=== PATIENT | female | born 1955 | race Caucasian/White ===

== ENCOUNTER → 2017-11-13 | Outpatient (CLI) | payer BC ==
--- NOTE | 2017-11-13 17:19 | US ---
EXAMINATION TYPE: US thyroid st tissue head/neck DATE OF EXAM: 11/13/2017 COMPARISON: NONE CLINICAL HISTORY: R22.1 Mass On Neck. Patient feels palpable area on right neck. Right neck scanned superior to inferior, no mass or fluid collection found. IMPRESSION: No discrete solid or cystic masses identified on the right side of the neck which was th e area of concern.
== END | disposition home or self-care (01) ==
LOC: RADUSWWP 16:29
PROVIDERS: ATTEND Family Medicine
DX: R22.1 Localized swelling, mass and lump, neck (principal)
CPT/HCPCS: 76536

== ENCOUNTER → 2017-12-11 | Outpatient (CLI) | payer BC ==
--- NOTE | 2017-12-11 12:17 | CT ---
EXAMINATION TYPE: CT soft tissue neck w con DATE OF EXAM: 12/11/2017 COMPARISON: NONE HISTORY: Dysphagia CT DLP: 579 mGycm CONTRAST: CT scan of the neck is performed with IV Contrast, patient injected with 100 ml mL of Isovue 300. Contrast enhanced CT of the neck was performed from the skull base through the lung apices. Markers a re placed over the right neck at site of clinical concern. At the site of clinical concern there is no evidence for concerning mass or adenopathy. AIRWAY: The supraglottic, glottic, and subglottic portions of the airway appear patent and free of mass. SALIVARY GLANDS: The submandibular and parotid glands are free of mass or inflammatory process. THYROID GLAND: No nodules or masses seen. LYMPH NODES: No adenopathy seen greater than 1cm. LUNG APICES: No nodule or mass is seen. OTHER: Vascular structures are patent. No significant degenerative change of the cervical spine. N o abscess seen. Calcified granuloma right upper lobe. IMPRESSION: No significant abnormality to account for the patient's symptoms.
--- NOTE | 2017-12-11 14:46 | FL ---
EXAMINATION TYPE: FL barium swallow DATE OF EXAM: 12/11/2017 CLINICAL HISTORY: Right-sided palpable neck mass. TECHNIQUE: A double contrast esophagram is performed utilizing air and barium. A total of 1 minute and 29 seconds of fluoroscopic time was utilized during procedure. 31 images were saved. COMPARISON: CT neck of the same date FINDINGS: The esophagus shows normal motility and emptying into the stomach. No evidence of hiatal h ernia or stricture noted. A small amount of vallecular and piriform sinus retention was seen. Moderat e gastroesophageal reflux to the level of the midthoracic esophagus was seen without the utilization of the Valsalva maneuver in both the gravity independent and dependent positions. IMPRESSION: 1. Moderate gastroesophageal reflux in both the upright and supine positions to the midthoracic esoph aleksandar. 2. Mild vallecular and piriform sinus retention of contrast throughout the exam.
== END | disposition home or self-care (01) ==
LOC: RADFLMAIN 10:59
PROVIDERS: ATTEND Otolaryngology
DX: K21.9 Gastro-esophageal reflux disease without esophagitis (principal); R49.0 Dysphonia; R22.1 Localized swelling, mass and lump, neck; R13.10 Dysphagia, unspecified
CPT/HCPCS: 74220; 70491; Q9967

== ENCOUNTER 2018-11-19 07:58 | Day surgery (SDC) | payer BC, MEDICARE ==
[2018-11-17 13:32] VITALS: BMI 26.9
[~2018-11-19 07:58] MED LIST: LACTATED RINGERS 1,000 ML IV SCH
[2018-11-19 08:21] VITALS: RESP 16; TEMP 97.2
[2018-11-19] MEDS ORDERED: LIDOCAINE 1% 20 ML VIAL (10MG/ML) FOR IV START INTRADERMA ONE (08:27)
[2018-11-19] MEDS ORDERED: ONDANSETRON 4 MG/2 ML VIAL IVP ONE (08:28)
[2018-11-19] MEDS ORDERED: MIDAZOLAM (PF) 2 MG/2 ML VIAL IV ONE (08:31)
[2018-11-19] MEDS ORDERED: GLUCAGON 1 MG/ML VIAL ONE (09:31)
[2018-11-19] MEDS ORDERED: PROPOFOL 10 MG/ML 20 ML VIAL IV ONE (09:31)
--- NOTE | 2018-11-19 09:33 | P.GSHP ---
History of Present Illness H&P Date: 11/19/18 Chief Complaint: GI bleed, internal and external hemorrhoids This is a 67-year-old female who presents today for colonoscopy. She's had issues of GI bleed. She has a known history of internal and external hemorrhoids. Past Medical History Past Medical History: GERD/Reflux Additional Past Medical History / Comment(s): hemorrhoids,dry mouth, sjogren syndrome History of Any Multi-Drug Resistant Organisms: None Reported Past Surgical History: Breast Surgery, Hysterectomy Additional Past Surgical History / Comment(s): breast bx,rt elbow proc,ORIF lt ankle-hardware removed Past Anesthesia/Blood Transfusion Reactions: No Reported Reaction Additional Past Anesthesia/Blood Transfusion Reaction / Comment(s): had hard time waking up after surgery. no hx blood transfusion Smoking Status: Current every day smoker - Past Family History Mother Family Medical History: Cancer Additional Family Medical History / Comment(s): lymphnodes Brother(s) Family Medical History: Cancer Additional Family Medical History / Comment(s): esophagus,liver Father Family Medical History: Cancer Medications and Allergies Home Medications Medication Instructions Recorded Confirmed Type ALPRAZolam [Xanax] 0.25 mg PO BID PRN 11/17/18 11/19/18 History Cevimeline [Evoxac] 30 mg PO TID 11/17/18 11/19/18 History Diazepam [Valium] 5 mg PO HS PRN 11/17/18 11/19/18 History Escitalopram Oxalate [Lexapro] 10 mg PO QAM 11/17/18 11/19/18 History Gabapentin [Neurontin] 1,200 mg PO BID 11/17/18 11/19/18 History HYDROcodone/APAP 5-325MG [[place] 1 tab PO TID PRN 11/17/18 11/19/18 History 5-325] Pantoprazole Sodium [Protonix] 20 mg PO QAM 11/17/18 11/19/18 History Venlafaxine HCl [Effexor XR] 150 mg PO BID 11/17/18 11/19/18 History Allergies Allergy/AdvReac Type Severity Reaction Status Date / Time ibuprofen Allergy severe Verified 11/17/18 13:17 ringing in ears Surgical - Exam Vital Signs Temp Pulse Resp BP Pulse Ox 97.2 F L 95 16 146/71 95 11/19/18 08:13 11/19/18 08:13 11/19/18 08:13 11/19/18 08:13 11/19/18 08:13 - General well developed, well nourished, no distress - Eyes PERRL - ENT normal pinna - Neck no masses - Respiratory normal expansion - Cardiovascular Rhythm: regular - Abdomen Abdomen: soft, non tender Assessment and Plan Assessment: GI bleed. We'll perform colonoscopy.
--- NOTE | 2018-11-19 09:51 | P.OP ---
Date of Procedure: 11/19/18 Preoperative Diagnosis: GI bleed Postoperative Diagnosis: Internal and external hemorrhoids Rectal polyp Procedure(s) Performed: Colonoscopy Anesthesia: MAC Surgeon: Pedro Rivera Pathology: other (Rectal polyp) Condition: stable Disposition: PACU Description of Procedure: The patient's placed on the endoscopy table in the lateral position. She received IV sedation. Digital rectal exam was performed which revealed severe external and internal hemorrhoids. The possible colonoscope was then placed patient anus passed rotator entire colon. Ileocecal valve sutures. The cecum, ascending and transverse colon appeared normal. In the descending; was a few scattered diverticula. Scope was brought back the rectum and there was a polyp seen this removed by snare. Scope withdrawal patient and there were significant internal and external hemorrhoids. It is presumed the patient had GI bleed rela radha to her hemorrhoids.
[2018-11-19 10:52] VITALS: BP 147/72; PULSE 78
== END 2018-11-19 10:50 | disposition home or self-care (01) ==
LOC: ORWHC2ENDO 07:58
PROVIDERS: ATTEND Surgery
DX: D12.8 Benign neoplasm of rectum (principal); K64.8 Other hemorrhoids; K57.30 Diverticulosis of large intestine without perforation or abscess without bleeding; K64.4 Residual hemorrhoidal skin tags; K21.9 Gastro-esophageal reflux disease without esophagitis; M35.00 Sjogren syndrome, unspecified; G62.9 Polyneuropathy, unspecified; F17.210 Nicotine dependence, cigarettes, uncomplicated; Z79.899 Other long term (current) drug therapy; Z88.6 Allergy status to analgesic agent
CPT/HCPCS: 88305; 45385; J1610; J2405; J2704; J2250

== ENCOUNTER 2018-12-03 07:33 | Day surgery (SDC) | payer MEDICARE ==
[2018-11-30 14:07] VITALS: BMI 26.9
[~2018-12-03 07:33] MED LIST changes: +DEXAMETHASONE SOD PHOSPHATE 10 MG/ML 1 ML VIAL IV ONE; +HEPARIN SODIUM,PORCINE 5,000 UNIT/ML 1 ML VIAL SQ ONE; +HYDROmorphone 0.5 MG/0.5 ML SYRINGE IVP PRN; +LIDOCAINE 1% 20 ML VIAL (10MG/ML) FOR IV START INTRADERMA PRN; +NA PHOS,M-B/NA PHOS,DI-BA 133 ML ENEMA RECTAL ONE; +ONDANSETRON 4 MG/2 ML VIAL IVP ONE; +Pre Op ABX Message 1 EACH MISC MISCELLANE ONE; +SCOPOLAMINE 1.5MG/72HR PATCH TRANSDERM ONE
[2018-12-03] MEDS ORDERED: NA PHOS,M-B/NA PHOS,DI-BA 133 ML ENEMA RECTAL ONE (08:16)
[2018-12-03] MEDS ORDERED: MIDAZOLAM (PF) 2 MG/2 ML VIAL IVP ONE (08:45)
--- NOTE | 2018-12-03 08:45 | P.GSHP ---
History of Present Illness H&P Date: 12/03/18 Chief Complaint: Internal and external hemorrhoids This is a 63-year-old female who presents today for hemorrhoidectomy. Patient had complaints of internal and external hemorrhoids. Past Medical History Past Medical History: GERD/Reflux Additional Past Medical History / Comment(s): hemorrhoids,dry mouth, sjogren syndrome History of Any Multi-Drug Resistant Organisms: None Reported Past Surgical History: Breast Surgery, Hysterectomy Additional Past Surgical History / Comment(s): breast bx,rt elbow proc,ORIF lt ankle-hardware removed Past Anesthesia/Blood Transfusion Reactions: No Reported Reaction Additional Past Anesthesia/Blood Transfusion Reaction / Comment(s): had hard sherri e waking up after surgery. no hx blood transfusion Smoking Status: Current every day smoker - Past Family History Mother Family Medical History: Cancer Additional Family Medical History / Comment(s): lymphnodes Brother(s) Family Medical History: Cancer Additional Family Medical History / Comment(s): esophagus,liver Father Family Medical History: Cancer Medications and Allergies Home Medications Medication Instructions Recorded Confirmed Type ALPRAZolam [Xanax] 0.25 mg PO BID PRN 11/17/18 12/03/18 History Cevimeline [Evoxac] 30 mg PO TID 11/17/18 12/03/18 History Diazepam [Valium] 5 mg PO HS PRN 11/17/18 12/03/18 History Escitalopram Oxalate [Lexapro] 10 mg PO HS 11/17/18 12/03/18 History Gabapentin [Neurontin] 1,200 mg PO BID 11/17/18 12/03/18 History HYDROcodone/APAP 5-325MG [[place] 1 tab PO TID PRN 11/17/18 12/03/18 History 5-325] Pantoprazole Sodium [Protonix] 20 mg PO HS 11/17/18 12/03/18 History Venlafaxine HCl [Effexor XR] 150 mg PO BID 11/17/18 12/03/18 History Allergies Allergy/AdvReac Type Severity Reaction Status Date / Time ibuprofen AdvReac severe Verified 12/03/18 08:27 ringing in ears Surgical - Exam Vital Signs Temp Pulse Resp BP Pulse Ox 99 F 85 16 141/81 93 L 12/03/18 07:52 12/03/18 07:52 12/03/18 07:52 12/03/18 07:52 12/03/18 07:52 - General well developed, well nourished, no distress - Eyes PERRL - ENT normal pinna - Neck no masses - Respiratory normal expansion - Cardiovascular Rhythm: regular - Abdomen Abdomen: soft, non tender Assessment and Plan Assessment: Internal and external hemorrhoids. We'll perform colonoscopy.
[2018-12-03] MEDS ORDERED: PROPOFOL 10 MG/ML 20 ML VIAL IV ONE (09:09)
[2018-12-03] MEDS ORDERED: MIDAZOLAM 2 MG/2 ML VIAL ONE (09:09)
[2018-12-03] MEDS ORDERED: KETAMINE 10 MG/ML 20 ML VIAL ONE (09:09)
[2018-12-03] MEDS ORDERED: fentaNYL (PF) 50 MCG/ML 2 ML AMP ONE (09:09)
--- NOTE | 2018-12-03 09:21 | P.OP ---
Date of Procedure: 12/03/18 Preoperative Diagnosis: GERD Constipation Postoperative Diagnosis: Antral gastritis Large hiatal hernia Mild esophagitis Procedure(s) Performed: EGD Colonoscopy Anesthesia: MAC Surgeon: Pedro Rivera Pathology: other (Antrum, esophagus) Condition: stable Disposition: PACU Description of Procedure: The patient's placed on the endoscopy table in the lateral position. She received IV sedation. The gastroscope placed oropharynx and passed in the esophagus and stomach. Scope was then placed through the pylorus. The first and second portion of the duodenum appeared normal. The scope was then brought back and the antrum and this was mildly inflamed. A biopsies performed. The scope was then retroflexed the patient had a moderate size hiatal hernia. The GE junction was at 38 cm. The distal esophagus appeared inflamed. This was biopsied. The proximal esophagus appeared normal. Scope was withdrawn for patient. Digital rectal exam was performed. There was hard stool in the rectum. This point the colonoscopy was canceled. The patient will be reprepped and brought back for outpatient colonoscopy
[2018-12-03] MEDS ORDERED: BUPIVACAIN-EPI 0.5%-1:200,000 30 ML VIAL SQ ONE (09:34)
--- NOTE | 2018-12-03 09:55 | P.OP ---
Date of Procedure: 12/03/18 Preoperative Diagnosis: Internal and external hemorrhoids Postoperative Diagnosis: Internal and external hemorrhoid Questionable ileal tumor pathology pending Procedure(s) Performed: Hemorrhoidectomy Anesthesia: MAC Surgeon: Pedro Rivera Estimated Blood Loss (ml): 5 Pathology: other (Internal and external hemorrhoid) Condition: stable Disposition: PACU Description of Procedure: Patient's placed on the operating table in the prone position. She received IV sedation. The patient had a thrombosed external hemorrhoid. The anus was anesthetized 1% local Xylocaine. Using the bivalved anal retractor the anus was examined. There was a large left posterior hemorrhoidal column. This is grasped with the Allis clamps and then using the Harmonic scissors the hematocrit there appeared to be some granulation tissue at the base of the hemorrhoid which was firm and had an abnormal appearance. The specimens of pathology. The bellies hemostasis. The anus was packed with Gelfoam. Patient top she will was sent to recovery in stable condition.
[2018-12-03 10:34] VITALS: RESP 18; TEMP 97.3
[2018-12-03 10:36] VITALS: BP 162/93
[2018-12-03 10:37] VITALS: PULSE 108
[2018-12-03] MEDS ORDERED: HYDROcodone/APAP 7.5-325MG 1 EACH TAB PO ONE (10:38)
== END 2018-12-03 11:11 | disposition home or self-care (01) ==
LOC: OR 07:33
PROVIDERS: ATTEND Surgery
DX: C21.0 Malignant neoplasm of anus, unspecified (principal); K64.5 Perianal venous thrombosis; K64.8 Other hemorrhoids; K21.9 Gastro-esophageal reflux disease without esophagitis; M35.00 Sjogren syndrome, unspecified; F17.210 Nicotine dependence, cigarettes, uncomplicated; F41.9 Anxiety disorder, unspecified; F32.9 Major depressive disorder, single episode, unspecified; Z79.899 Other long term (current) drug therapy; Z88.6 Allergy status to analgesic agent
CPT/HCPCS: 46260; 88305; J2250 ×2; J1644; J1100; J2405; J3010; J2704

== ENCOUNTER 2018-12-17 07:48 | Day surgery (SDC) | payer MEDICARE ==
[2018-12-11 14:59] VITALS: BMI 26.9
[~2018-12-17 07:48] MED LIST changes: +MIDAZOLAM 2 MG/2 ML VIAL IV PRN; -NA PHOS,M-B/NA PHOS,DI-BA 133 ML ENEMA RECTAL ONE; -Pre Op ABX Message 1 EACH MISC MISCELLANE ONE; +ceFAZolin IN SWFI 2 GM/20 ML SYRINGE IVP ONE; +metroNIDAZOLE-NS PMX 500 MG in SALINE 1 100ML.BAG IVPB ONE
[2018-12-17] MEDS ORDERED: NA PHOS,M-B/NA PHOS,DI-BA 133 ML ENEMA RECTAL ONE (08:16)
--- NOTE | 2018-12-17 08:48 | P.GSHP ---
History of Present Illness H&P Date: 12/17/18 Chief Complaint: Squamous cell carcinoma anus This is a 63-year-old female who underwent recent hemorrhagic. 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 Patient is today for wide excision of squamous cell carcinoma anus. Past Medical History Past Medical History: Cancer, GERD/Reflux Additional Past Medical History / Comment(s): Hemorrhoids, dry mouth, Sjogren Syndrome. Current anal cancer. History of Any Multi-Drug Resistant Organisms: None Reported Past Surgical History: Breast Surgery, Hysterectomy Additional Past Surgical History / Comment(s): Breast biopsy, right elbow procedure, ORIF left ankle-hardware removed, hemorrhoidectomy. Past Anesthesia/Blood Transfusion Reactions: Previous Problems w/ Anesthesia Additional Past Anesthesia/Blood Transfusion Reaction / Comment(s): Had hard time waking up after surgery. No hx blood transfusion. Past Psychological History: Anxiety, Depression Smoking Status: Current every day smoker Past Alcohol Use History: Rare Additional Past Alcohol Use History / Comment(s): Started smoking at a "young age", 1ppd. Past Drug Use History: None Reported - Past Family History Mother Family Medical History: Cancer Additional Family Medical History / Comment(s): Lymphoma. Brother(s) Family Medical History: Cancer Additional Family Medical History / Comment(s): Esophagus, liver. Father Family Medical History: Cancer Medications and Allergies Home Medications Medication Instructions Recorded Confirmed Type ALPRAZolam [Xanax] 0.25 mg PO BID PRN 11/17/18 12/11/18 History Cevimeline [Evoxac] 30 mg PO TID 11/17/18 12/11/18 History Diazepam [Valium] 5 mg PO HS PRN 11/17/18 12/11/18 History Escitalopram Oxalate [Lexapro] 10 mg PO HS 11/17/18 12/11/18 History Gabapentin [Neurontin] 1,200 mg PO BID 11/17/18 12/11/18 History HYDROcodone/APAP 5-325MG [[place] 1 tab PO TID PRN 11/17/18 12/11/18 History 5-325] Pantoprazole Sodium [Protonix] 20 mg PO HS 11/17/18 12/11/18 History Venlafaxine HCl [Effexor XR] 150 mg PO BID 11/17/18 12/11/18 History Docusate [Colace] 100 mg PO BID #20 capsule 12/03/18 12/11/18 Rx HYDROcodone/APAP 7.5-325MG [[place] 1 tab PO Q6HR PRN 3 Days #10 tab 12/03/18 12/11/18 Rx 7.5-325] Allergies Allergy/AdvReac Type Severity Reaction Status Date / Time ibuprofen AdvReac severe Verified 12/17/18 08:15 ringing in ears Surgical - Exam - General well developed, well nourished, no distress - Eyes PERRL - ENT normal pinna - Neck no masses - Respiratory normal expansion - Cardiovascular Rhythm: regular - Abdomen Abdomen: soft, non tender Assessment and Plan Assessment: Anal cell carcinoma. We'll perform a wide local excision.
[2018-12-17 08:54] VITALS: TEMP 97.8
[2018-12-17] MEDS ORDERED: MIDAZOLAM 2 MG/2 ML VIAL ONE (09:01)
[2018-12-17] MEDS ORDERED: PROPOFOL 10 MG/ML 20 ML VIAL IV ONE (09:01)
[2018-12-17] MEDS ORDERED: fentaNYL (PF) 50 MCG/ML 2 ML AMP ONE (09:01)
[2018-12-17] MEDS ORDERED: BUPIVACAIN-EPI 0.25%-1:200,000 30 ML VIAL SQ ONE ×2 (09:27)
[2018-12-17] MEDS ORDERED: GELATIN SPONGE,ABSORB (LARGE) 1 EACH SPONGE TOPICAL ONE (09:49)
--- NOTE | 2018-12-17 09:55 | P.OP ---
Date of Procedure: 12/17/18 Preoperative Diagnosis: Anal squamous cell carcinoma Postoperative Diagnosis: Anal squamous cell carcinoma Procedure(s) Performed: Excision of anal squamous cell carcinoma Anesthesia: MAC, local Surgeon: Pedro Rivera Estimated Blood Loss (ml): 5 Pathology: other (Anal cell squamous carcinoma) Condition: stable Disposition: PACU Description of Procedure: The patient's placed in the operative table in the prone jackknife position. She received IV sedation. Her anus was prepped and draped in sterile fashion. The anus was anesthetized 1% local Xylocaine in 4 quadrants. The patient had a previous hemorrhoidectomy on the left lateral side of the anus. There was indurated tissue in this area. Using the Enseal device the remaining inflamed tissue was dissected and removed. Care was taken to identify and preserve the anal sphincter. The wounds for hemostasis. There is no bleeding seen. The specimen was sent to pathology.
[2018-12-17 10:45] VITALS: RESP 18
[2018-12-17 11:18] VITALS: BP 168/99; PULSE 90
== END 2018-12-17 11:24 | disposition home or self-care (01) ==
LOC: OR 07:48
PROVIDERS: ATTEND Surgery
DX: C21.1 Malignant neoplasm of anal canal (principal); K21.9 Gastro-esophageal reflux disease without esophagitis; M35.00 Sjogren syndrome, unspecified; F41.9 Anxiety disorder, unspecified; F32.9 Major depressive disorder, single episode, unspecified; F17.210 Nicotine dependence, cigarettes, uncomplicated; Z90.710 Acquired absence of both cervix and uterus; Z80.7 Family history of other malignant neoplasms of lymphoid, hematopoietic and related tissues; Z80.0 Family history of malignant neoplasm of digestive organs; Z97.2 Presence of dental prosthetic device (complete) (partial); Z79.891 Long term (current) use of opiate analgesic; Z79.899 Other long term (current) drug therapy; Z88.6 Allergy status to analgesic agent
CPT/HCPCS: 46922; 88305; J2250; J1644; J1100; J2405; J3010; J2704; J0690

== ENCOUNTER → 2019-01-02 | Outpatient (CLI) | payer MEDICARE ==
--- NOTE | 2019-01-04 07:42 | PE ---
EXAMINATION TYPE: PET CT fusion skull to thigh DATE OF EXAM: 01/02/2019 COMPARISON: CT neck December 11, 2017 HISTORY: Colorectal cancer of the anus on Biopsy last month. TECHNIQUE: Following the intravenous administration of 11.96 mCi of F-18 FDG, whole body images are performed from the skull base to the midthigh. Images are reviewed on the computer in the coronal, a xial, and sagittal planes. Reconstructed rotating images are created on independent workstation and reviewed on the computer. A noncontrast CT is performed in conjunction with the PET scan. SCAN: Initial Scan FINDINGS: SKULL BASE AND NECK: No areas of suspicious hypermetabolic uptake. CHEST, MEDIASTINUM, AND HILAR REGION: No suspicious hypermetabolic uptake. ABDOMEN AND PELVIS: Focus of hypermetabolic uptake at level of anus on axial image 226 and has max GRANADOS V of 10.17. No additional areas of suspicious hypermetabolic uptake or adenopathy are identified in t he remainder abdomen and pelvis. Perirectal/perianal fat is preserved bilaterally without adenopathy. OSSEOUS STRUCTURES: No areas of suspicious hypermetabolic uptake. OTHER CT: There is calcified 4 mm right upper lobe nodule or granuloma axial image 64. There are xavier tional calcified paracarinal, anterior mediastinal, and right hilar lymph nodes, findings consistent with old granulomatous disease as there are multiple calcifications throughout the spleen also presen t and few calcifications left lobe of the liver noted. Simple appearing 3.3 cm cyst posterior medially mid to lower pole of the left kidney axial image 148 is present. Occasional left-sided pelvic phlebolith is seen. There is multilevel facet arthropathy in the mid to lower lumbar spine. IMPRESSION: Confirmation of known anal neoplasm. No suspicious adenopathy or metastatic disease is se en.
== END | disposition home or self-care (01) ==
LOC: RADPETMAIN 10:09
PROVIDERS: ATTEND Internal Medicine Hematology & Oncology
DX: C21.1 Malignant neoplasm of anal canal (principal)
CPT/HCPCS: 78815; A9552

== ENCOUNTER → 2019-01-18 | Day surgery (SDC) | payer MEDICARE ==
[2019-01-11 15:45] VITALS: BMI 26.8
[~2019-01-18] MED LIST changes: +BUPIVACAINE (PF) 0.25% 30 ML VIAL SQ ONE; +HEPARIN SODIUM,PORCINE 100 UNIT/ML 5 ML VIAL IV ONE; -HYDROmorphone 0.5 MG/0.5 ML SYRINGE IVP PRN; +IOHEXOL 180 MG/ML 1 ML ML MISCELLANE ONE; +KETAMINE 10 MG/ML 20 ML VIAL ONE; +LACTATED RINGERS 1,000 ML IV ONE; -LACTATED RINGERS 1,000 ML IV SCH; -LIDOCAINE 1% 20 ML VIAL (10MG/ML) FOR IV START INTRADERMA PRN; +LIDOCAINE 1% INJ 10MG/ML (20 ML MDV) ONE; -MIDAZOLAM 2 MG/2 ML VIAL IV PRN; +MIDAZOLAM 2 MG/2 ML VIAL ONE; +PROPOFOL 10 MG/ML 20 ML VIAL IV ONE; +Pre Op ABX Message 1 EACH MISC MISCELLANE ONE; -SCOPOLAMINE 1.5MG/72HR PATCH TRANSDERM ONE; +SODIUM CHLORIDE 0.9% 50 ML with ceFAZolin 2,000 MG IV ONE; -ceFAZolin IN SWFI 2 GM/20 ML SYRINGE IVP ONE; +fentaNYL (PF) 50 MCG/ML 2 ML AMP ONE; -metroNIDAZOLE-NS PMX 500 MG in SALINE 1 100ML.BAG IVPB ONE
--- NOTE | 2019-01-18 07:52 | P.GSHP ---
History of Present Illness H&P Date: 01/18/19 Chief Complaint: Anal squamous cell carcinoma This is a 63-year-old female who's recent diagnosed with anal anus cell carcinoma. Patient presents today for Port-A-Cath placement Past Medical History Past Medical History: Cancer, GERD/Reflux Additional Past Medical History / Comment(s): Hemorrhoids, dry mouth, Sjogren Syndrome. Current anal cancer. History of Any Multi-Drug Resistant Organisms: None Reported Past Surgical History: Breast Surgery, Hysterectomy Additional Past Surgical History / Comment(s): Breast biopsy, right elbow procedure, ORIF left ankle-hardware removed, hemorrhoidectomy x2 ,colonoscopy, scraping of rectum Past Anesthesia/Blood Transfusion Reactions: Previous Problems w/ Anesthesia Additional Past Anesthesia/Blood Transfusion Reaction / Comment(s): Had hard time waking up after surgery. No hx blood transfusion. Smoking Status: Current every day smoker - Past Family History Mother Family Medical History: Cancer Additional Family Medical History / Comment(s): Lymphoma. Brother(s) Family Medical History: Cancer Additional Family Medical History / Comment(s): Esophagus, liver. Father Family Medical History: Cancer Medications and Allergies Home Medications Medication Instructions Recorded Confirmed Type ALPRAZolam [Xanax] 0.25 mg PO BID PRN 11/17/18 01/11/19 History Cevimeline [Evoxac] 30 mg PO TID 11/17/18 01/11/19 History Diazepam [Valium] 5 mg PO HS PRN 11/17/18 01/11/19 History Escitalopram Oxalate [Lexapro] 10 mg PO HS 11/17/18 01/11/19 History Gabapentin [Neurontin] 1,200 mg PO BID 11/17/18 01/11/19 History Pantoprazole Sodium [Protonix] 20 mg PO HS 11/17/18 01/11/19 History Venlafaxine HCl [Effexor XR] 150 mg PO BID 11/17/18 01/11/19 History Docusate [Colace] 100 mg PO BID #20 capsule 12/17/18 01/11/19 Rx HYDROcodone/APAP 7.5-325MG [[place] 1 tab PO Q4-6H PRN 01/11/19 01/11/19 History 7.5-325] Allergies Allergy/AdvReac Type Severity Reaction Status Date / Time ibuprofen AdvReac severe Verified 01/18/19 06:37 ringing in ears Surgical - Exam Vital Signs Temp Pulse Resp BP Pulse Ox 97.7 F 77 17 123/69 98 01/18/19 06:42 01/18/19 06:42 01/18/19 06:42 01/18/19 06:42 01/18/19 06:42 - General well developed, well nourished, no distress - Eyes PERRL - ENT normal pinna - Neck no masses - Respiratory normal expansion - Cardiovascular Rhythm: regular - Abdomen Abdomen: soft, non tender Assessment and Plan Assessment: History of anal squamous cell carcinoma. We'll perform Port-A-Cath placement
--- NOTE | 2019-01-18 08:41 | P.OP ---
Date of Procedure: 01/18/19 Preoperative Diagnosis: Anal squamous cell carcinoma Postoperative Diagnosis: Anal squamous cell carcinoma Procedure(s) Performed: Right subclavian Port-A-Cath Anesthesia: FAY Surgeon: Pedro Rivera Estimated Blood Loss (ml): 5 Pathology: none sent Condition: stable Disposition: PACU Description of Procedure: PROCEDURE: The patient was placed on the operating table in the supine position. She received MAC anesthetic. The [right] chest was prepped and draped in the usual sterile fashion. The skin underneath the right clavicle was anesthetized with 1% Xylocaine and using Seldinger technique, the right subclavian vein was cannulized. The wire was placed through the needle and positioned under fluoroscopy. Next, the needle was removed and the port site was anesthetized with 1% Xylocaine. Skin was incised with #15 blade and port pocket was made using blunt and sharp dissection. Following this the catheter was attached to the sport and the port was flushed. The port was positioned into the pocket site and was secured with 3-0 Vicryl suture. The catheter was t hen brought out through the wire site and then the dilator sheath was placed over the wire and the dilator and the wire were removed. The catheter was placed through the sheath and the sheath was removed. The port was flushed with hep-lock solution. Skin was closed with interrupted 3-0 Vicryl sutures. Steri-Strips were applied. The patient tolerated the procedure well. The patient was sent to recovery room for chest x-ray after the procedure.
[2019-01-18 08:44] VITALS: TEMP 97
--- NOTE | 2019-01-18 09:02 | XR ---
EXAMINATION TYPE: XR chest 1V confirm line [facility] DATE OF EXAM: 01/18/2019 COMPARISON: NONE HISTORY: Line placement. TECHNIQUE: Single frontal view of the chest is obtained. FINDINGS: Right-sided Mediport has been inserted terminating in the superior vena cava distally. No postprocedural pneumothorax is seen. Strand-like bibasilar atelectasis is present. Cardiomediastinal silhouette is mildly enlarged. No sizable pleural effusion. IMPRESSION: Right Mediport terminates in the distal superior vena cava. No postprocedural pneumothor ax. Minimal bibasilar subsegmental atelectasis.
[2019-01-18 09:16] VITALS: BP 123/81; PULSE 78; RESP 16
--- NOTE | 2019-01-18 12:56 | FL ---
Fluoroscopy HISTORY: Port-A-Cath placement 3 seconds fluoroscopy time supplied to the referring clinician. 1 intraoperative C-arm images docume nt the procedure. See dictated report from general surgery.
== END | disposition home or self-care (01) ==
LOC: OR 06:17
PROVIDERS: ATTEND Surgery
DX: C21.1 Malignant neoplasm of anal canal (principal); F17.200 Nicotine dependence, unspecified, uncomplicated; K21.9 Gastro-esophageal reflux disease without esophagitis; M35.00 Sjogren syndrome, unspecified; Z88.6 Allergy status to analgesic agent; Z80.7 Family history of other malignant neoplasms of lymphoid, hematopoietic and related tissues; Z80.0 Family history of malignant neoplasm of digestive organs; Z79.891 Long term (current) use of opiate analgesic; Z79.899 Other long term (current) drug therapy
CPT/HCPCS: 77001; 36571; C1788; J2250; J1644; J1642; J1100; Q9965; J2405; J0690; J2001; J3010; J2704

== ENCOUNTER → 2019-04-19 | Outpatient (CLI) | payer MEDICARE, OTHER ==
[2019-04-19 08:52] LABS: African American GFR (CKD) >90 (>60 ml/min/1.73 sqM); Blood Urea Nitrogen 15 mg/dL (7-17)
--- NOTE | 2019-04-19 13:00 | CT ---
EXAMINATION TYPE: CT ChestAbdPelvis w con DATE OF EXAM: 04/19/2019 COMPARISON: PET CT 01/02/2019 HISTORY: 63-year-old female Rectal CA TECHNIQUE: Contiguous axial scanning of the chest, abdomen, and pelvis performed with IV Contrast, pa tient injected with 100 mL of Isovue 300. Delayed images through the kidneys were obtained. Coronal/s agittal reconstructions performed. CT DLP: 1593 mGycm Automated exposure control for dose reduction was used. FINDINGS: CHEST: Right anterior chest wall injection port with catheter tip mid SVC level. Heart normal size without pericardial effusion. Mild coronary vessel calcifications. Aorta normal caliber with mild atherosclerotic arch calcifications and conventional arch vessel branc ashutosh anatomy. Calcified prevascular, right tracheobronchial angle, and right hilar lymph nodes compatible with prio r granulomatous disease. Otherwise, no thoracic lymphadenopathy by CT size criteria. Mild centrilobular emphysema. Ossified granuloma peripheral right upper lobe with some adjacent pleur al parenchymal scarring. Nonspecific 7 mm medial right basilar pulmonary nodule, axial image 45. 3 mm peripheral left basilar pulmonary nodule, axial image 35. No consolidation or pleural effusion. ABDOMEN: Calcified granulomas within the liver. No focal liver lesion otherwise seen. No biliary ductal dilata tion. Portal venous system is patent. Gallbladder, adrenal glands, right kidney, and spleen appear within normal limits. 3.7 cm cyst posterior left kidney. No dilated small bowel, free fluid, or free air. Mild fold thickening along the right side of the colon. There is mild to moderate stool with oral con trast progressed to the splenic flexure. No mesenteric or retroperitoneal lymphadenopathy. Pelvis: Mild circumferential bladder wall thickening. Uterus surgically absent. Neither ovary clearly visuali zed. No abnormal fluid collection in the pelvis or pelvic lymphadenopathy. Bones: Stable sclerotic focus left ischial tuberosity. Mild degenerative changes at the hips. L5 transitiona l lumbosacral segment. Facet arthropathy mid to lower lumbar spine. No osseous destructive process. IMPRESSION: 1. A 7 MM RIGHT BASILAR PULMONARY NODULE AND 3 MM PULMONARY NODULE ON THE LEFT. THESE ARE UNCHANGED F OR 3 MONTHS AND MAY REPRESENT NONCALCIFIED GRANULOMAS. THESE SHOULD CONTINUE TO BE REASSESSED AT [facility]. 2. OTHERWISE, NO SUSPICIOUS LYMPHADENOPATHY OR MASS TO SUGGEST METASTATIC DISEASE. 3. NONSPECIFIC MUCOSAL FOLD THICKENING ALONG THE RIGHT SIDE OF THE COLON. CORRELATE FOR NONSPECIFIC M ILD COLITIS.
== END ==
LOC: RADPROMAIN 07:50
PROVIDERS: ATTEND Internal Medicine Hematology & Oncology
DX: R91.1 Solitary pulmonary nodule (principal); K63.89 Other specified diseases of intestine; Z88.6 Allergy status to analgesic agent
CPT/HCPCS: 82565; 84520; 71260; 74177; 36415; Q9967 ×2

== ENCOUNTER → 2019-05-14 | Day surgery (SDC) | payer MEDICARE, OTHER ==
[2019-05-11 15:15] VITALS: BMI 27.3
[~2019-05-14] MED LIST changes: -BUPIVACAINE (PF) 0.25% 30 ML VIAL SQ ONE; +BUPIVACAINE (PF) 0.5% 30 ML VIAL SQ ONE; -HEPARIN SODIUM,PORCINE 100 UNIT/ML 5 ML VIAL IV ONE; +HYDROmorphone 0.5 MG/0.5 ML SYRINGE IVP PRN; -IOHEXOL 180 MG/ML 1 ML ML MISCELLANE ONE; -LACTATED RINGERS 1,000 ML IV ONE; +LACTATED RINGERS 1,000 ML IV SCH; +LIDOCAINE 1% 20 ML VIAL (10MG/ML) FOR IV START INTRADERMA PRN; -LIDOCAINE 1% INJ 10MG/ML (20 ML MDV) ONE; +MIDAZOLAM 2 MG/2 ML VIAL IV PRN; -Pre Op ABX Message 1 EACH MISC MISCELLANE ONE; +SCOPOLAMINE 1.5MG/72HR PATCH TRANSDERM ONE; -SODIUM CHLORIDE 0.9% 50 ML with ceFAZolin 2,000 MG IV ONE
[2019-05-14 06:56] VITALS: TEMP 97.4
--- NOTE | 2019-05-14 08:31 | P.GSHP ---
History of Present Illness H&P Date: 05/14/19 Chief Complaint: History of anal squamous cell carcinoma This is a 63-year-old female with previous history of anal cell squamous carcinoma. Patient will stay for removal of Port-A-Cath. Past Medical History Past Medical History: Cancer, GERD/Reflux Additional Past Medical History / Comment(s): Hemorrhoids, Sjogren Syndrome. Current anal cancer. History of Any Multi-Drug Resistant Organisms: None Reported Past Surgical History: Breast Surgery, Hysterectomy Additional Past Surgical History / Comment(s): Breast biopsy, right elbow procedure, ORIF left ankle-hardware removed, hemorrhoidectomy x2 ,colonoscopy, scraping of rectum Past Anesthesia/Blood Transfusion Reactions: Previous Problems w/ Anesthesia, Postoperative Nausea & Vomiting (PONV) Additional Past Anesthesia/Blood Transfusion Reaction / Comment(s): Had hard time waking up after surgery. Smoking Status: Current every day smoker - Past Family History Mother Family Medical History: Cancer Additional Family Medical History / Comment(s): Lymphoma. . Brother(s) Family Medical History: Cancer Additional Family Medical History / Comment(s): Esophagus, liver. Father Family Medical History: Cancer Medications and Allergies Home Medications Medication Instructions Recorded Confirmed Type ALPRAZolam [Xanax] 0.25 mg PO BID PRN 11/17/18 05/14/19 History Diazepam [Valium] 5 mg PO HS PRN 11/17/18 05/14/19 History Pantoprazole Sodium [Protonix] 20 mg PO HS 11/17/18 05/14/19 History Venlafaxine HCl [Effexor XR] 150 mg PO BID 11/17/18 05/14/19 History Trospium Chloride 20 mg PO DAILY 05/11/19 05/14/19 History Allergies Allergy/AdvReac Type Severity Reaction Status Date / Time ibuprofen AdvReac severe Verified 05/14/19 07:06 ringing in ears Surgical - Exam Vital Signs Temp Pulse Resp BP Pulse Ox 97.4 F L 100 16 124/68 93 L 05/14/19 06:50 05/14/19 06:50 05/14/19 06:50 05/14/19 06:50 05/14/19 06:50 - General well developed, well nourished - Eyes PERRL - ENT normal pinna - Neck no masses - Respiratory normal expansion - Cardiovascular Rhythm: regular - Abdomen Abdomen: soft, non tender Assessment and Plan Assessment: We will perform removal of Port-A-Cath.
--- NOTE | 2019-05-14 08:36 | P.OP ---
Date of Procedure: 05/14/19 Preoperative Diagnosis: History of anal squamous cell carcinoma Postoperative Diagnosis: History of anal squamous cell carcinoma Procedure(s) Performed: Removal of right subclavian Port-A-Cath Anesthesia: MAC Surgeon: Pedro Rivera Estimated Blood Loss (ml): 5 Pathology: none sent Condition: stable Disposition: PACU Description of Procedure: The patient's placed in the operative table in the supine position. Received IV sedation. The right chest wall was prepped and draped usual sterile fashion. Using a 15 blade the skin was incised and using left cautery and sharp dissection the subcutaneous tissue was divided off of the Port-A-Cath. Port-A-Cath was dissected free and sent to pathology. The wound was inspected. Cyst. This was closed interrupted 3-0 Monocryl suture. Dermabond was applied. Patient tolerated the procedure well was sent to recovery room in stable condition.
[2019-05-14 09:02] VITALS: BP 125/78; PULSE 91; RESP 18
== END ==
LOC: OR 06:37
PROVIDERS: ATTEND Surgery
DX: Z45.2 Encounter for adjustment and management of vascular access device (principal); Z85.048 Personal history of other malignant neoplasm of rectum, rectosigmoid junction, and anus; K21.9 Gastro-esophageal reflux disease without esophagitis; M35.00 Sjogren syndrome, unspecified; F41.9 Anxiety disorder, unspecified; F32.9 Major depressive disorder, single episode, unspecified; F17.210 Nicotine dependence, cigarettes, uncomplicated; Z90.710 Acquired absence of both cervix and uterus; Z98.890 Other specified postprocedural states; Z87.19 Personal history of other diseases of the digestive system; Z79.899 Other long term (current) drug therapy; Z88.6 Allergy status to analgesic agent; Z80.7 Family history of other malignant neoplasms of lymphoid, hematopoietic and related tissues; Z80.0 Family history of malignant neoplasm of digestive organs; Z80.9 Family history of malignant neoplasm, unspecified
CPT/HCPCS: 36590; J2250; J1644; J1100; J2405; J3010; J2704

== ENCOUNTER 2019-06-21 10:43 | Day surgery (SDC) | payer MEDICARE, OTHER ==
[2019-06-16 14:54] VITALS: BMI 27.1
[~2019-06-21 10:43] MED LIST changes: -BUPIVACAINE (PF) 0.5% 30 ML VIAL SQ ONE; -DEXAMETHASONE SOD PHOSPHATE 10 MG/ML 1 ML VIAL IV ONE; -HEPARIN SODIUM,PORCINE 5,000 UNIT/ML 1 ML VIAL SQ ONE; -HYDROmorphone 0.5 MG/0.5 ML SYRINGE IVP PRN; -KETAMINE 10 MG/ML 20 ML VIAL ONE; -MIDAZOLAM 2 MG/2 ML VIAL IV PRN; -MIDAZOLAM 2 MG/2 ML VIAL ONE; -ONDANSETRON 4 MG/2 ML VIAL IVP ONE; -PROPOFOL 10 MG/ML 20 ML VIAL IV ONE; -SCOPOLAMINE 1.5MG/72HR PATCH TRANSDERM ONE; -fentaNYL (PF) 50 MCG/ML 2 ML AMP ONE
[2019-06-21] MEDS ORDERED: ONDANSETRON 4 MG/2 ML VIAL IVP ONE (11:28)
[2019-06-21 11:32] VITALS: RESP 18; TEMP 98
[2019-06-21] MEDS ORDERED: PROPOFOL 10 MG/ML 20 ML VIAL IV ONE (11:42)
--- NOTE | 2019-06-21 11:50 | P.GSHP ---
History of Present Illness H&P Date: 06/21/19 Chief Complaint: Anal squamous cell carcinoma Marisa 63-year-old female. History of anal cell squamous cell carcinoma. Patient rents today for colonoscopy. Past Medical History Past Medical History: Cancer, GERD/Reflux Additional Past Medical History / Comment(s): Sjogren Syndrome. Current anal cancer. History of Any Multi-Drug Resistant Organisms: None Reported Past Surgical History: Breast Surgery, Hysterectomy Additional Past Surgical History / Comment(s): Breast biopsy, right elbow procedure, ORIF left ankle-hardware removed, hemorrhoidectomy x2 ,colonoscopy, BIOPSY of rectum Past Anesthesia/Blood Transfusion Reactions: Previous Problems w/ Anesthesia, Postoperative Nausea & Vomiting (PONV) Additional Past Anesthesia/Blood Transfusion Reaction / Comment(s): Had hard time waking up after surgery. Smoking Status: Current every day smoker - Past Family History Mother Family Medical History: Cancer Additional Family Medical History / Comment(s): Lymphoma. . Brother(s) Family Medical History: Cancer Additional Family Medical History / Comment(s): Esophagus, liver. Father Family Medical History: Cancer Medications and Allergies Home Medications Medication Instructions Recorded Confirmed Type ALPRAZolam [Xanax] 0.25 mg PO BID PRN 11/17/18 06/16/19 History Diazepam [Valium] 5 mg PO HS PRN 11/17/18 06/16/19 History Pantoprazole Sodium [Protonix] 20 mg PO HS 11/17/18 06/16/19 History Venlafaxine HCl [Effexor XR] 150 mg PO BID 11/17/18 06/16/19 History Trospium Chloride 20 mg PO DAILY 05/11/19 06/16/19 History Allergies Allergy/AdvReac Type Severity Reaction Status Date / Time ibuprofen AdvReac severe Verified 06/16/19 13:21 ringing in ears Surgical - Exam Vital Signs Temp Pulse Resp BP Pulse Ox 98.0 F 100 18 164/75 95 06/21/19 11:27 06/21/19 11:27 06/21/19 11:27 06/21/19 11:27 06/21/19 11:27 - General well developed, well nourished, no distress - Eyes PERRL - ENT normal pinna - Neck no masses - Respiratory normal expansion - Cardiovascular Rhythm: regular - Abdomen Abdomen: soft, non tender Assessment and Plan Assessment: Anal squamous cell carcinoma. We'll perform colonoscopy.
--- NOTE | 2019-06-21 11:59 | P.OP ---
Date of Procedure: 06/21/19 Preoperative Diagnosis: History of anal squamous cell carcinoma Postoperative Diagnosis: Normal colonoscopy Procedure(s) Performed: Colonoscopy Anesthesia: MAC Surgeon: Pedro Rivera Pathology: none sent Condition: stable Disposition: PACU Description of Procedure: The patient's placed on the endoscopy table in the lateral position. She received IV sedation. Digital rectal exam was performed. There was some previous scarring from her previous surgery. There is no evidence of any anal mass. This point the flexible colonoscope was then placed patient anus and passed throughout the entire colon. The ileocecal valve was visualized. The cecum, ascending and transverse colon appeared normal. The descending and sigmoid colon appeared normal. Scope was then brought back the rectum this appeared normal. Scope was withdrawn through the anus. There was no unsteady any recurrent tumors. Scope summer for patient.
[2019-06-21 12:41] VITALS: BP 147/87; PULSE 81
== END 2019-06-21 12:48 | disposition home or self-care (01) ==
LOC: ORWHC2ENDO 10:43
PROVIDERS: ATTEND Surgery
DX: Z12.11 Encounter for screening for malignant neoplasm of colon (principal); Z85.048 Personal history of other malignant neoplasm of rectum, rectosigmoid junction, and anus; K21.9 Gastro-esophageal reflux disease without esophagitis; M35.00 Sjogren syndrome, unspecified; F17.210 Nicotine dependence, cigarettes, uncomplicated; F41.9 Anxiety disorder, unspecified; F32.9 Major depressive disorder, single episode, unspecified; Z90.710 Acquired absence of both cervix and uterus; Z79.899 Other long term (current) drug therapy; Z88.6 Allergy status to analgesic agent; Z98.890 Other specified postprocedural states; Z80.0 Family history of malignant neoplasm of digestive organs; Z80.7 Family history of other malignant neoplasms of lymphoid, hematopoietic and related tissues
CPT/HCPCS: J2405; J2704; G0105

== ENCOUNTER → 2019-07-19 | Outpatient (CLI) | payer MEDICARE, OTHER ==
[2019-07-19 15:08] LABS: African American GFR (CKD) >90 (>60 ml/min/1.73 sqM); Blood Urea Nitrogen 10 mg/dL (7-17); Non-African American GFR(CKD) >90 (>60 ml/min/1.73 sqM)
--- NOTE | 2019-07-19 23:34 | CT ---
EXAMINATION TYPE: CT ChestAbdPelvis w con DATE OF EXAM: 07/19/2019 COMPARISON: PET CT January 02, 2019. CT chest abdomen and pelvis April 19, 2019. HISTORY: malignant neoplasm of anus CT DLP: 795.80 mGycm. Automated Exposure Control for Dose Reduction was Utilized. CONTRAST: CT scan of the thorax, abdomen and pelvis is performed with oral and with IV Contrast, patient inject ed with 100 mL of Isovue 300. FINDINGS: LUNGS: Right greater than left bibasilar linear scarring and/or atelectasis. No new nodules or masses . No pleural effusion or pneumothorax bilaterally. MEDIASTINUM: There are no new greater than 1 cm noncalcified hilar or mediastinal lymph nodes. Stable prominent calcified right peritracheal lung with right hilar lymph nodes. No cardiomegaly or pericar dial effusion is seen. OTHER: Interval removal of right subclavian Mediport catheter. LIVER/GB: No significant abnormality is appreciated. PANCREAS: No significant abnormality is seen. SPLEEN: Scattered calculation throughout the spleen consistent with product of old granulomatous dise ase.. ADRENALS: No significant abnormality is seen. KIDNEYS: Simple appearing 3.5 cm thin-walled cyst posterior midpole left kidney axial image 75. BOWEL: Oral contrast reaches level of splenic flexure. No suspicious small or large bowel dilatation. Primary tumor left aspect of rectum on PET/CT less well seen on CT images. GENITAL ORGANS: Uterus is surgically absent. Adjacent left pelvic phlebolith.. LYMPH NODES: No greater than 1cm abdominal or pelvic lymph nodes are appreciated. OSSEOUS STRUCTURES: Moderate disc space narrowing at L3-L4 level. Transitional type L6 vertebra. OTHER: No significant additional abnormality is seen. IMPRESSION: No new mass or adenopathy to suggest neoplastic progression or new metastatic disease.
== END | disposition home or self-care (01) ==
LOC: RADPROMAIN 13:21
PROVIDERS: ATTEND Internal Medicine Hematology & Oncology
DX: C21.2 Malignant neoplasm of cloacogenic zone (principal); Z88.6 Allergy status to analgesic agent
CPT/HCPCS: 82565; 84520; 71260; 74177; 36415; Q9967

== ENCOUNTER → 2019-07-24 | Outpatient (CLI) | payer MEDICARE, OTHER ==
--- NOTE | 2019-07-26 08:25 | PE ---
EXAMINATION TYPE: PET CT fusion skull to thigh DATE OF EXAM: 07/24/2019 CLINICAL HISTORY: 63-year-old female with malignant neoplasm of the anal canal. Status post surgery a nd chemoradiation. Restaging exam. TECHNIQUE: Following the intravenous administration of 10.17 mCi of F-18 FDG, whole body images are performed from the skull base to the midthigh. Images are reviewed on the computer in the coronal, axial, and sagittal planes. Reconstructed rotating images are created on independent workstation and reviewed on the computer. A localization and attenuation correction CT is performed in conjunction with the PET scan. Glucose level: 88 mg/dL Injection site: Right AC COMPARISON: 07/19/2019, 04/19/2019, and 01/02/2019. FINDINGS: PET: Physiologic FDG uptake within the neck. Stable 7 mm medial right basilar pulmonary nodule, axial image 108 which shows no discrete FDG uptake . 3 mm peripheral left basilar pulmonary nodule, axial image 96 unchanged and too small for accurate PE T characterization. Diffuse increased uptake along the schmidt of the left ventricle unchanged from prior 01/02/2019 PET/CT. Additional physiologic FDG uptake within the chest. Average liver SUV: 2.3 Mild to moderate focal uptake within the right side of the colon shows no discrete CT abnormality, li jana physiologic uptake. Mild, borderline moderate increased uptake at the anus likely relates to posttreatment change. Max GRANADOS V 3.2 (versus 10.2 back on 01/02/2019). Some presacral stranding is present as well as bladder wall th ickening, likely posttreatment change. No pelvic lymphadenopathy or discrete mass is identified. Mild increased uptake at the left greater than right gluteal insertions suggesting tendinosis. ATTENUATION CORRECTION CT: Visualized paranasal sinuses and mastoid air cells appear clear. No cervical lymphadenopathy. Heart normal size without pericardial effusion. LAD calcifications are present. Borderline ectatic as cending aorta 3.5 cm with conventional arch vessel branching anatomy. Calcified mediastinal and right hilar lymph nodes compatible with prior granulomatous disease. Strandy atelectasis mid and lower ximena gs. Mild diffuse bronchial wall thickening in mild centrilobular emphysema. Calcified granuloma perip heral right upper lobe. Calcified granulomas within both the liver and spleen. Stable 3.6 cm cyst posterior left kidney. No d ilated small bowel, free fluid, or free air. No mesenteric or retroperitoneal lymphadenopathy. Moderate stool burden. Some residual oral contrast material within the distal colon. Bones: Stable bone island left ischial tuberosity. Degenerative changes lower lumbar spine. No osseou s destructive process. IMPRESSION: 1. Presacral stranding, mild increased uptake at the anus, and bladder wall thickening all likely pos ttreatment change. 2. Mild to moderate uptake along the right side of the colon likely physiologic. No CT or metabolic e vidence for neoplastic recurrence. 3. Stable 7 and 3 mm lung nodules (back to 01/03/2019) which can continue to be followed. 4. 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
== END | disposition home or self-care (01) ==
LOC: RADPETMAIN 08:48
PROVIDERS: ATTEND Radiology Radiation Oncology
DX: R93.89 Abnormal findings on diagnostic imaging of other specified body structures (principal); R91.8 Other nonspecific abnormal finding of lung field; C21.1 Malignant neoplasm of anal canal; F17.210 Nicotine dependence, cigarettes, uncomplicated
CPT/HCPCS: 78815; A9552

== ENCOUNTER 2020-02-17 10:51 | Day surgery (SDC) | payer MEDICARE, OTHER ==
[2020-02-15 12:08] VITALS: BMI 25.0
[~2020-02-17 10:51] MED LIST changes: -LACTATED RINGERS 1,000 ML IV SCH; +LIDOCAINE 1% (10MG/ML) FOR IV START INTRADERMA PRN; -LIDOCAINE 1% 20 ML VIAL (10MG/ML) FOR IV START INTRADERMA PRN
[2020-02-17 11:53] VITALS: TEMP 98
[2020-02-17] MEDS: LACTATED RINGERS 1,000 ML IV SCH ×2 (11:53→12:37)
--- NOTE | 2020-02-17 12:22 | P.GSHP ---
History of Present Illness H&P Date: 02/17/20 Chief Complaint: Rectal bleeding This a 64-year-old female who has complaints of rectal bleeding. Patient has. History of squamous carcinoma anus. Past Medical History Past Medical History: Cancer, GERD/Reflux, Syncope Additional Past Medical History / Comment(s): Sjogren Syndrome. Remission anal cancer, recent syncope History of Any Multi-Drug Resistant Organisms: None Reported Past Surgical History: Breast Surgery, Hysterectomy Additional Past Surgical History / Comment(s): Breast biopsy, right elbow procedure, ORIF left ankle-hardware removed, hemorrhoidectomy x2 ,colonoscopy, BIOPSY of rectum Past Anesthesia/Blood Transfusion Reactions: Previous Problems w/ Anesthesia, Postoperative Nausea & Vomiting (PONV) Additional Past Anesthesia/Blood Transfusion Reaction / Comment(s): Had hard time waking up after surgery. Smoking Status: Current every day smoker - Past Family History Mother Family Medical History: Cancer Additional Family Medical History / Comment(s): Lymphoma. . Brother(s) Family Medical History: Cancer Additional Family Medical History / Comment(s): Esophagus, liver. Father Family Medical History: Cancer Medications and Allergies Home Medications Medication Instructions Recorded Confirmed Type ALPRAZolam [Xanax] 0.25 mg PO BID PRN 11/17/18 02/17/20 History Pantoprazole Sodium [Protonix] 20 mg PO HS 11/17/18 02/15/20 History Venlafaxine HCl [Effexor XR] 150 mg PO BID 11/17/18 02/15/20 History diazePAM [Valium] 5 mg PO HS PRN 11/17/18 02/15/20 History Gabapentin 600 mg PO BID 02/15/20 02/15/20 History HYDROcodone/APAP 5-325MG [[place] 1 tab PO BID PRN 02/15/20 02/15/20 History 5-325] Allergies Allergy/AdvReac Type Severity Reaction Status Date / Time ibuprofen AdvReac severe Verified 02/17/20 11:37 ringing in ears Surgical - Exam Vital Signs Temp Pulse Resp BP Pulse Ox 98.0 F 83 17 183/81 98 02/17/20 11:52 02/17/20 11:52 02/17/20 11:52 02/17/20 11:52 02/17/20 11:52 - General well developed, well nourished, no distress - Eyes PERRL - ENT normal pinna - Neck no masses - Respiratory normal expansion - Cardiovascular Rhythm: regular - Abdomen Abdomen: soft, non tender Assessment and Plan Assessment: Rectal bleeding History of squamous cell carcinoma anus. We'll perform colonoscopy
[2020-02-17] MEDS ORDERED: PROPOFOL 10 MG/ML 50 ML VIAL IV ONE (12:23)
[2020-02-17] MEDS ORDERED: LIDOCAINE 1% INJ 10MG/ML (20 ML MDV) ONE (12:23)
--- NOTE | 2020-02-17 12:37 | P.OP ---
Date of Procedure: 02/17/20 Preoperative Diagnosis: GI bleed Postoperative Diagnosis: Rectal lesion suspicious for scar or ulcer Procedure(s) Performed: Colonoscopy Anesthesia: MAC Surgeon: Pedro Rivera Pathology: other (Rectal biopsy) Condition: stable Disposition: PACU Description of Procedure: The patient's placed on the endoscopy table in the lateral position. She received IV sedation. Digital rectal exam was performed which revealed a firm area in the rectum. The flexible colonoscope was then placed patient anus passe d throughout the entire colon. The ileocecal valve was visualized. The cecum, ascending and transverse colon appeared normal. The descending and sigmoid colon appeared normal. The scope was then brought back the rectum and there was area the 10 cm felton that had the appearance of a scar. Or a large mucosal ulcer. The area had a white firm base. This area was biopsied. And photographed. The scope was withdrawn for patient.
[2020-02-17 12:42] VITALS: RESP 16
[2020-02-17 13:12] VITALS: BP 131/80; PULSE 86
== END 2020-02-17 13:28 | disposition home or self-care (01) ==
LOC: ORWHC2ENDO 10:51
PROVIDERS: ATTEND Surgery
DX: K63.3 Ulcer of intestine (principal); K63.89 Other specified diseases of intestine; Z85.048 Personal history of other malignant neoplasm of rectum, rectosigmoid junction, and anus; K21.9 Gastro-esophageal reflux disease without esophagitis; R55 Syncope and collapse; M35.00 Sjogren syndrome, unspecified; F41.9 Anxiety disorder, unspecified; F32.9 Major depressive disorder, single episode, unspecified; Z97.2 Presence of dental prosthetic device (complete) (partial); Z90.710 Acquired absence of both cervix and uterus; Z98.890 Other specified postprocedural states; F17.210 Nicotine dependence, cigarettes, uncomplicated; Z80.7 Family history of other malignant neoplasms of lymphoid, hematopoietic and related tissues; Z80.0 Family history of malignant neoplasm of digestive organs; Z80.9 Family history of malignant neoplasm, unspecified; Z79.899 Other long term (current) drug therapy; Z88.6 Allergy status to analgesic agent
CPT/HCPCS: 88305; 45380; J2001; J2704

== ENCOUNTER 2020-08-22 13:05 | Observation (INO) | payer MEDICARE, OTHER ==
[2020-08-22] MEDS ORDERED: SODIUM CHLORIDE 0.9% 500 ML 500 ML IV STA (13:40)
[2020-08-22] MEDS ORDERED: SODIUM CHLORIDE 0.9% 1,000 ML IV STA (13:40)
[2020-08-22] MEDS ORDERED: ONDANSETRON 4 MG/2 ML VIAL IVP STA (13:40)
[2020-08-22] MEDS ORDERED: HYDROmorphone 0.5 MG/0.5 ML SYRINGE IVP STA (13:40)
[2020-08-22 13:54] LABS: Basophils # (A) 0.2 k/uL (0-0.2); Basophils % (A) 2 %; Eosinophils # (A) 0.2 k/uL (0-0.7); Eosinophils % (A) 2 %; HCT 48.2 % (34.0-46.0); HGB 15.9 gm/dL (11.4-16.0); Hypochromasia Slight; Lymphocytes # (A) 1.4 k/uL (1.0-4.8); Lymphocytes % (A) 14 %; MCHC 32.9 g/dL (31.0-37.0); MCV 100.4 fL (80.0-100.0); Macrocytosis Slight; Mean Platelet Volume 7.4; Monocytes # (A) 0.6 k/uL (0-1.0); Monocytes % (A) 6 %; Neutrophils # (A) 7.4 k/uL (1.3-7.7); Neutrophils % (A) 75 %; Platelet Count 250 k/uL (150-450); RDW 13.9 % (11.5-15.5); WBC 9.8 k/uL (3.8-10.6)
--- NOTE | 2020-08-22 14:00 | ED ---
General Adult HPI - General Chief complaint: Abdominal Pain Stated complaint: abd pain Time Seen by Provider: 08/22/20 13:10 Source: patient, family, RN notes reviewed, old records reviewed Mode of arrival: wheelchair Limitations: no limitations - History of Present Illness Initial comments: This is a 64-year-old female who presents emergency department with past medical history significant for rectal cancer. Patient states it was 2 years ago and she has many symptoms since. Patient comes in today because she's been having left lower quadrant abdominal pain since . Patient states she's had some vomiting but no diarrhea. Patient states she hasn't been eating or drinking much because she is been nauseated. Patient denies any fever chills. Patient denies any back pain. Patient denies any dysuria hematuria urinary frequency. Patient denies headache patient denies numbness weakness. - Related Data Home Medications Medication Instructions Recorded Confirmed ALPRAZolam [Xanax] 0.25 mg PO BID PRN 11/17/18 08/22/20 Venlafaxine HCl [Effexor XR] 150 mg PO BID@1000,2100 11/17/18 08/22/20 Gabapentin 1,200 mg PO BID@1000,2100 02/15/20 08/22/20 Diphenoxylate HCl/Atropine 1 tab PO QID PRN 08/22/20 08/22/20 [Lomotil 2.5-0.025 mg Tablet] HYDROcodone/APAP 7.5-325MG [[place] 1 tab PO Q6H PRN 08/22/20 08/22/20 7.5-325] Pantoprazole Sodium [Protonix] 40 mg PO DAILY@1000 08/22/20 08/22/20 Allergies Allergy/AdvReac Type Severity Reaction Status Date / Time ibuprofen AdvReac severe Verified 08/22/20 14:13 ringing in ears Review of Systems ROS Statement: Those systems with pertinent positive or pertinent negative responses have been documented in the HPI. ROS Other: All systems not noted in ROS Statement are negative. Past Medical History Past Medical History: Cancer, GERD/Reflux, Syncope Additional Past Medical History / Comment(s): Sjogren Syndrome. Remission anal cancer, recent syncope History of Any Multi-Drug Resistant Organisms: None Reported Past Surgical History: Breast Surgery, Hysterectomy Additional Past Surgical History / Comment(s): Breast biopsy, right elbow procedure, ORIF left ankle-hardware removed, hemorrhoidectomy x2 ,colonoscopy, BIOPSY of rectum Past Anesthesia/Blood Transfusion Reactions: Previous Problems w/ Anesthesia, Postoperative Nausea & Vomiting (PONV) Additional Past Anesthesia/Blood Transfusion Reaction / Comment(s): Had hard time waking up after surgery. Past Psychological History: Anxiety, Depression Smoking Status: Current every day smoker Past Alcohol Use History: None Reported Past Drug Use History: None Reported - Past Family History Mother Family Medical History: Cancer Additional Family Medical History / Comment(s): Lymphoma. . Brother(s) Family Medical History: Cancer Additional Family Medical History / Comment(s): Esophagus, liver. Father Family Medical History: Cancer General Exam - General Exam Comments Initial Comments: GENERAL: Patient is well-developed and well-nourished. Patient is nontoxic and well- hydrated and is in mild distress. ENT: Neck is soft and supple. No significant lymphadenopathy is noted. Oropharynx is clear. Moist mucous membranes. Neck has full range of motion without eliciting any pain. EYES: The sclera were anicteric and conjunctiva were pink and moist. Extraocular movements were intact and pupils were equal round and reactive to light. Eyelids were unremarkable. PULMONARY: Unlabored respirations. Good breath sounds bilaterally. No audible rales rhonchi or wheezing was noted. CARDIOVASCULAR: There is a regular rate and rhythm without any murmurs gallops or rubs. ABDOMEN: Patient has tenderness left lower quadrant with rebound SKIN: Skin is clear with no lesions or rashes and otherwise unremarkable. NEUROLOGIC: Patient is alert and oriented x3. Cranial nerves II through XII are grossly intact. Motor and sensory are also intact. Normal speech, volume and content. Symmetrical smile. MUSCULOSKELETAL: Normal extremities with adequate strength and full range of motion. LYMPHATICS: No significant lymphadenopathy is noted PSYCHIATRIC: Normal psychiatric evaluation. Limitations: no limitations Course Vital Signs 08/22/20 08/22/20 13:11 14:45 Temperature 97.8 F Pulse Rate 67 75 Respiratory 18 16 Rate Blood Pressure 116/70 105/77 O2 Sat by Pulse 96 92 L Oximetry Medical Decision Making - Medical Decision Making CAT scan shows an area of colitis as well as a narrowing of the lumen. I spoke with Dr. Murphy he agreed to admit the patient admitted the patient wrote admitting orders I consult Dr. Rivera. - Lab Data Result diagrams: 08/22/20 13:45 08/22/20 13:45 Lab Results 08/22/20 08/22/20 08/22/20 Range/Units 13:38 13:45 13:45 WBC 9.8 (3.8-10.6) k/uL RBC 4.80 (3.80-5.40) m/uL Hgb 15.9 (11.4-16.0) gm/dL Hct 48.2 H (34.0-46.0) % MCV 100.4 H (80.0-100.0) fL MCH 33.0 (25.0-35.0) pg MCHC 32.9 (31.0-37.0) g/dL RDW 13.9 (11.5-15.5) % Plt Count 250 (150-450) k/uL MPV 7.4 Neutrophils % 75 % Lymphocytes % 14 % Monocytes % 6 % Eosinophils % 2 % Basophils % 2 % Neutrophils # 7.4 (1.3-7.7) k/uL Lymphocytes # 1.4 (1.0-4.8) k/uL Monocytes # 0.6 (0-1.0) k/uL Eosinophils # 0.2 (0-0.7) k/uL Basophils # 0.2 (0-0.2) k/uL Hypochromasia Slight Macrocytosis Slight Sodium 140 (137-145) mmol/L Potassium 3.7 (3.5-5.1) mmol/L Chloride 99 (98-107) mmol/L Carbon Dioxide 31 H (22-30) mmol/L Anion Gap 10 mmol/L BUN 21 H (7-17) mg/dL Creatinine 0.70 (0.52-1.04) mg/dL Est GFR (CKD-EPI)AfAm >90 (>60 ml/min/1.73 sqM) Est GFR (CKD-EPI)NonAf >90 (>60 ml/min/1.73 sqM) Glucose 124 H (74-99) mg/dL Plasma Lactic Acid Honorio (0.7-2.0) mmol/L Calcium 9.7 (8.4-10.2) mg/dL Total Bilirubin 0.8 (0.2-1.3) mg/dL AST 21 (14-36) U/L ALT 16 (4-34) U/L Alkaline Phosphatase 155 H (38-126) U/L Total Protein 7.3 (6.3-8.2) g/dL Albumin 4.1 (3.5-5.0) g/dL Amylase 35 (30-110) U/L Lipase 40 (23-300) U/L Urine Color Yellow Urine Appearance Clear (Clear) Urine pH 7.0 (5.0-8.0) Ur Specific [place] >1.050 H (1.001-1.035) Urine Protein Trace H (Negative) Urine Glucose (UA) Negative (Negative) Urine Ketones Negative (Negative) Urine Blood Trace H (Negative) Urine Nitrite Negative (Negative) Urine Bilirubin Negative (Negative) Urine Urobilinogen 2.0 (<2.0) mg/dL Ur Leukocyte Esterase Negative (Negative) Urine RBC 4 (0-5) /hpf Urine WBC 1 (0-5) /hpf Urine Mucus Rare H (None) /hpf 08/22/20 Range/Units 13:45 WBC (3.8-10.6) k/uL RBC (3.80-5.40) m/uL Hgb (11.4-16.0) gm/dL Hct (34.0-46.0) % MCV (80.0-100.0) fL MCH (25.0-35.0) pg MCHC (31.0-37.0) g/dL RDW (11.5-15.5) % Plt Count (150-450) k/uL MPV Neutrophils % % Lymphocytes % % Monocytes % % Eosinophils % % Basophils % % Neutrophils # (1.3-7.7) k/uL Lymphocytes # (1.0-4.8) k/uL Monocytes # (0-1.0) k/uL Eosinophils # (0-0.7) k/uL Basophils # (0-0.2) k/uL Hypochromasia Macrocytosis Sodium (137-145) mmol/L Potassium (3.5-5.1) mmol/L Chloride (98-107) mmol/L Carbon Dioxide (22-30) mmol/L Anion Gap mmol/L BUN (7-17) mg/dL Creatinine (0.52-1.04) mg/dL Est GFR (CKD-EPI)AfAm (>60 ml/min/1.73 sqM) Est GFR (CKD-EPI)NonAf (>60 ml/min/1.73 sqM) Glucose (74-99) mg/dL Plasma Lactic Acid [place] 1.2 (0.7-2.0) mmol/L Calcium (8.4-10.2) mg/dL Total Bilirubin (0.2-1.3) mg/dL AST (14-36) U/L ALT (4-34) U/L Alkaline Phosphatase (38-126) U/L Total Protein (6.3-8.2) g/dL Albumin (3.5-5.0) g/dL Amylase (30-110) U/L Lipase (23-300) U/L Urine Color Urine Appearance (Clear) Urine pH (5.0-8.0) Ur Specific [place] (1.001-1.035) Urine Protein (Negative) Urine Glucose (UA) (Negative) Urine Ketones (Negative) Urine Blood (Negative) Urine Nitrite (Negative) Urine Bilirubin (Negative) Urine Urobilinogen (<2.0) mg/dL Ur Leukocyte Esterase (Negative) Urine RBC (0-5) /hpf Urine WBC (0-5) /hpf Urine Mucus (None) /hpf Disposition Clinical Impression: Colitis, Abdominal pain Disposition: ADMITTED IP TO THIS HOSP Referrals: Alysha Loja MD [Primary Care Provider] - 1-2 days Time of Disposition: 15:42
[2020-08-22 14:04] LABS: ALT 16 U/L (4-34); AST 21 U/L (14-36); African American GFR (CKD) >90 (>60 ml/min/1.73 sqM); Albumin 4.1 g/dL (3.5-5.0); Alkaline Phosphatase 155 U/L (38-126); Amylase 35 U/L (30-110); Anion Gap 10 mmol/L; Blood Urea Nitrogen 21 mg/dL (7-17); Calcium 9.7 mg/dL (8.4-10.2); Carbon Dioxide 31 mmol/L (22-30); Chloride 99 mmol/L (98-107); Glucose 124 mg/dL (74-99); Lipase 40 U/L (23-300); Non-African American GFR(CKD) >90 (>60 ml/min/1.73 sqM); Potassium 3.7 mmol/L (3.5-5.1); Sodium 140 mmol/L (137-145); Total Bilirubin 0.8 mg/dL (0.2-1.3); Total Protein 7.3 g/dL (6.3-8.2)
--- NOTE | 2020-08-22 15:00 | CT ---
EXAMINATION TYPE: CT abdomen pelvis w con DATE OF EXAM: 08/22/2020 COMPARISON: Nuclear medicine PET/CT 07/24/2019, CT 07/19/2019 HISTORY: Abd pain CT DLP: 888.4 mGycm Automated exposure control for dose reduction was used. TECHNIQUE: Helical acquisition of images from the lung bases through the pelvis have been completed. CONTRAST: Performed without Oral Contrast and with IV Contrast, patient injected with 100 mL of Isovue 300. FINDINGS: LUNG BASES: No significant abnormality is appreciated. AORTA: No significant abnormality is appreciated. LIVER/GB: No significant interval change is appreciated. PANCREAS: No significant interval change is seen. SPLEEN: No significant abnormality is seen. ADRENALS: No significant abnormality is seen. KIDNEYS: No significant interval change is seen. REPRODUCTIVE ORGANS: Not seen BOWEL: Bowel wall thickening is noted at the junction of the descending and sigmoid colon and sigmoi d colon, there is inflammatory change in the surrounding fat. Questionable narrowing, caliber change at this level, axial image #[id number]. FREE AIR: No Free Air visible. ASCITES: None visible. PELVIC ADENOPATHY: None visualized. RETROPERITONEAL ADENOPATHY: No Retroperitoneal Adenopathy visible. URINARY BLADDER: No significant abnormality is seen. OSSEOUS STRUCTURES: Degenerative disc changes in the visualized spine, there is facet arthropathy.. IMPRESSION: THERE IS INFLAMMATORY CHANGE, POSSIBLE CALIBER CHANGE SEEN IN THE LEFT LOWER QUADRANT DESCRIBED. B OWEL SURVEILLANCE HAS NOT BEEN PERFORMED THEN IT SHOULD BE CONSIDERED, CONSIDER COLITIS, MUCOSAL LESI ON IS NOT EXCLUDED, NO EVIDENT DIVERTICULAR CHANGE TO SUGGEST DIVERTICULITIS.
[2020-08-22 15:10] LABS: Appearance,Urine Clear (Clear); Bilirubin,Urine Negative (Negative); Blood,Urine Trace (Negative); Color,Urine Yellow; Glucose,Urine (UA) Negative (Negative); Ketones,Urine Negative (Negative); Leukocyte Esterase,Urine Negative (Negative); Mucus,Urine Rare /hpf; Nitrite,Urine Negative (Negative); Protein,Urine Trace (Negative); RBC,Urine 4 /hpf (0-5); WBC,Urine 1 /hpf (0-5)
[2020-08-22 15:18] LABS: Specific Gravity,Urine >1.050 (1.001-1.035)
[2020-08-22] MEDS ORDERED: SODIUM CHLORIDE 0.9% 1,000 ML IV ONE (15:42)
[2020-08-22] MEDS ORDERED: HYDROmorphone 0.5 MG/0.5 ML SYRINGE IVP PRN ×2 (15:43→17:04)
[2020-08-22] MEDS ORDERED: DIPHENOX-ATROP 2.5-0.025 MG 1 EACH TAB PO PRN (17:11)
[2020-08-22] MEDS ORDERED: ALPRAZolam 0.25 MG TAB PO PRN (17:11)
--- NOTE | 2020-08-22 17:11 | P.HPIM ---
History of Present Illness H&P Date: 08/22/20 Rocio Jamil, is a 64-year-old female who presented to [facility] emergency room with a chief complaint of left lower quadrant abdominal pain that started 5 days ago, patient also has been complaining of nausea vomiting and poor appetite, she was evaluated in the emergency room, vital exam on presentation reveals a temperature of 97.8 pulse 67 respiration 18 blood pressure 116/70 pulse ox 96% on room air, white blood count was 9.8 hemoglobin 15.9 platelet count 450, BUN 21 creatinine 0.7 glucose 124 alkaline phosphatase 155 lactic acid 1.2 coronary 5ER was negative , computed tomography scan of the abdomen and pelvis was done in the emergency room and revealed inflammatory changes in the left lower quadrant possible colitis no evidence of diverticulitis, patient was admitted to medical floor, she was started on IV fluid, surgical consultation was requested. Patient has a known history of rectal cancer, she had surgery with Dr. Rivera, on 12/17/2018 she also had chemotherapy and radiation therapy subsequently per patient. Past Medical History Past Medical History: Cancer, GERD/Reflux, Syncope Additional Past Medical History / Comment(s): Sjogren Syndrome. Remission anal cancer, recent syncope History of Any Multi-Drug Resistant Organisms: None Reported Past Surgical History: Breast Surgery, Hysterectomy Additional Past Surgical History / Comment(s): Breast biopsy, right elbow procedure, ORIF left ankle-hardware removed, hemorrhoidectomy x2 ,colonoscopy, BIOPSY of rectum Past Anesthesia/Blood Transfusion Reactions: Previous Problems w/ Anesthesia, Postoperative Nausea & Vomiting (PONV) Additional Past Anesthesia/Blood Transfusion Reaction / Comment(s): Had hard time waking up after surgery. Past Psychological History: Anxiety, Depression Smoking Status: Current every day smoker Past Alcohol Use History: None Reported Additional Past Alcohol Use History / Comment(s): Started smoking at AGE 13 , SMOKES 1ppd. Past Drug Use History: None Reported - Past Family History Mother Family Medical History: Cancer Additional Family Medical History / Comment(s): Lymphoma. . Brother(s) Family Medical History: Cancer Additional Family Medical History / Comment(s): Esophagus, liver. Father Family Medical History: Cancer Medications and Allergies Home Medications Medication Instructions Recorded Confirmed Type ALPRAZolam [Xanax] 0.25 mg PO BID PRN 11/17/18 08/22/20 History Venlafaxine HCl [Effexor XR] 150 mg PO BID@1000,2100 11/17/18 08/22/20 History Gabapentin 1,200 mg PO BID@1000,2100 02/15/20 08/22/20 History Diphenoxylate HCl/Atropine 1 tab PO QID PRN 08/22/20 08/22/20 History [Lomotil 2.5-0.025 mg Tablet] HYDROcodone/APAP 7.5-325MG [[place] 1 tab PO Q6H PRN 08/22/20 08/22/20 History 7.5-325] Pantoprazole Sodium [Protonix] 40 mg PO DAILY@1000 08/22/20 08/22/20 History Allergies Allergy/AdvReac Type Severity Reaction Status Date / Time ibuprofen AdvReac severe Verified 08/22/20 14:13 ringing in ears Physical Exam Vitals: Vital Signs Temp Pulse Resp BP Pulse Ox 08/22/20 14:45 75 16 105/77 92 L 08/22/20 13:11 97.8 F 67 18 116/70 96 Intake and Output 08/22/20 08/22/20 08/22/20 06:59 14:59 22:59 Other: Weight 68.039 kg 68.039 kg In general patient is alert and oriented 3 in no apparent distress HEENT head normocephalic and atraumatic Neck is supple no JVD no goiter no lymphadenopathy Chest exam reveals crackles in both lung bases no wheezing Cardiac exam reveals regular heart sounds S1 and S2 no gallops no murmurs Abdomen is soft nontender no organomegaly with normal bowel sounds Extremity exam reveals no edema no cyanosis or clubbing Neurological examination reveals, no gross focal neurological deficits Results CBC & Chem 7: 08/22/20 13:45 08/22/20 13:45 Labs: Abnormal Lab Results - Last 24 Hours (Table) 08/22/20 08/22/20 08/22/20 Range/Units 13:38 13:45 13:45 Hct 48.2 H (34.0-46.0) % MCV 100.4 H (80.0-100.0) fL Carbon Dioxide 31 H (22-30) mmol/L BUN 21 H (7-17) mg/dL Glucose 124 H (74-99) mg/dL Alkaline Phosphatase 155 H (38-126) U/L Ur Specific [place] >1.050 H (1.001-1.035) Urine Protein Trace H (Negative) Urine Blood Trace H (Negative) Urine Mucus Rare H (None) /hpf Thrombosis Risk Factor Assmnt - Choose All That Apply Any of the Below Risk Factors Present?: No Other Risk Factors: Yes Assessment and Plan Plan: 1. Acute colitis, with severe left lower quadrant abdominal pain. 2. History of rectal cancer with history of surgery or radiation and chemotherapy 2 years ago 3. Underlying history of depression with anxiety disorder 4. Underlying history of gastroesophageal reflux disease Patient was admitted to medical floor, she will be started on IV antibiotics Surgical consultation was requested patient is well known to Dr. Rivera Home medications reviewed and reordered Will recheck labs and follow closely in a.m.
[2020-08-22] MEDS: PIPERACILLIN-TAZOBACTAM 3.375 GM in SODIUM CHLORIDE 0.9% 100 ML IVPB SCH (18:16)
[2020-08-22] MEDS: GABAPENTIN 400 MG CAP PO SCH (21:27)
[2020-08-22] MEDS: VENLAFAXINE HCL ER 150 MG CAP PO SCH (21:28)
[2020-08-23] MEDS: PIPERACILLIN-TAZOBACTAM 3.375 GM in SODIUM CHLORIDE 0.9% 100 ML IVPB SCH ×3 (01:51→19:05)
[2020-08-23] MEDS ORDERED: SODIUM CHLORIDE 0.9% 1,000 ML IV ONE (02:05)
[2020-08-23 02:15] LABS: Glucose,Whole Blood 281 mg/dL (75-99)
[2020-08-23] MEDS ORDERED: NALOXONE 0.4 MG/ML 1 ML VIAL ONE ×2 (02:19→02:38)
[2020-08-23 02:20] LABS: ABG Base Excess 3.4 mmol/L; ABG HCO3 29 mmol/L (21-25); ABG Oxygen Saturation 99.2 % (94-97); ABG PCO2 55 mmHg (35-45); ABG PH 7.33 (7.35-7.45); ABG PO2 153 mmHg (83-108); ABG TCO2 31 mmol/L (19-24); Allen Test Performed? Yes
[2020-08-23] MEDS ORDERED: NALOXONE 0.4 MG/ML 1 ML VIAL IVP STA ×2 (02:41→02:50)
--- NOTE | 2020-08-23 02:44 | XR ---
EXAM: XR Chest, 1 View CLINICAL HISTORY: sepsis TECHNIQUE: Frontal view of the chest. COMPARISON: 01/18/19 FINDINGS: Lungs: Small amount of diffuse interstitial opacities in both lungs. Lungs are mildly underinflated. Pleural space: Unremarkable. No pneumothorax. Mediastinum: Unremarkable. Bones/joints: No acute findings. IMPRESSION: Lung findings can be due to underinflation versus mild pulmonary edema
[2020-08-23 03:14] LABS: ALT 17 U/L (4-34); AST 24 U/L (14-36); African American GFR (CKD) >90 (>60 ml/min/1.73 sqM); Albumin 3.2 g/dL (3.5-5.0); Albumin/Globulin Ratio 1.1; Alkaline Phosphatase 107 U/L (38-126); Anion Gap 6 mmol/L; Blood Urea Nitrogen 20 mg/dL (7-17); Calcium 8.3 mg/dL (8.4-10.2); Carbon Dioxide 33 mmol/L (22-30); Chloride 101 mmol/L (98-107); Creatine Kinase 28 U/L (30-135); Globulin 2.8 g/dL; Glucose 255 mg/dL (74-99); Magnesium 2.1 mg/dL (1.6-2.3); Non-African American GFR(CKD) 85 (>60 ml/min/1.73 sqM); Potassium 4.2 mmol/L (3.5-5.1); Sodium 140 mmol/L (137-145); Total Bilirubin 0.5 mg/dL (0.2-1.3)
--- NOTE | 2020-08-23 03:23 | P.EN ---
A Team Note Activated at 2:02 AM. Arrived on the scene shortly after. Reviewed the chart and discussed the case in detail with the RN. She was admitted to the hospital with Colitis. The patient was reportedly seen walking around, alert and oriented an hour and a half prior. She was then found by the RN, obtunded, hypoxic w/ SpO2 40s, and hypotensive with BP 70/40s, at which time she activated A-team. The patient was examined at the bedside. General: Non-toxic, in no acute distress, appears stated age, normal weight HEENT: NC/AT, anicteric sclerae, moist conjunctiva, no lid-lag, PERRLA Cardiovascular: S1/S2 wnl, no murmurs, rubs, or gallops Lungs: Clear to auscultation, poor respiratory effort, no accessory muscle use Abdominal: Soft, non-tender, non-distended, no guarding, rebound, or rigidity Skin: Warm, dry Extremities: No edema or contractures Psychiatric: Obtunded, opens eye but not answering questions appropriately Neuro: Moving all extremities Following the examination, 0.4 mg of Narcan was administered w/ significant improvement in the patient's mental status. The patient began answering questions and was more alert. The patient was last given Dilaudid at 22:01. The patient's personal bottles of [place] were found in her belongings nearby. Assessment/plan Altered mentation, hypotension, hypoxia - suspected opiate ingestion vs sepsis vs acute PE -Blood work ordered including D-dimer. Patient covered w/ Zosyn. Will add MRSA coverage if leukocytosis present -Low suspicion for acute worsening of abdominal pathology since soft abdomen on exam without tenderness -Perform CT-PE study if D-dimer elevated -Placed on Bipap due to hypercapnia on the ABG (pCO2 55) which could be due to opiate ingestion and bradypnea -1L NS bolus ordered -CXR reviewed: Mild pulmonary edema -No clear additional source of infection noted w/ unremarkable UA and CXR -Transfer patient to [facility] (3S) for closer monitoring -C/w Narcan IVP to RR > 16 w/ deep breaths -Primary notified by the RN
[2020-08-23 04:02] LABS: Basophils % (A) 0 %; Eosinophils # (A) 0.1 k/uL (0-0.7); Eosinophils % (A) 1 %; HCT 41.8 % (34.0-46.0); HGB 13.4 gm/dL (11.4-16.0); Hypochromasia Slight; Lymphocytes # (A) 0.3 k/uL (1.0-4.8); Lymphocytes % (A) 3 %; MCH 33.2 pg (25.0-35.0); MCHC 32.2 g/dL (31.0-37.0); MCV 103.2 fL (80.0-100.0); Macrocytosis Slight; Mean Platelet Volume 7.5; Monocytes # (A) 0.5 k/uL (0-1.0); Monocytes % (A) 4 %; Neutrophils # (A) 9.9 k/uL (1.3-7.7); Neutrophils % (A) 91 %; Platelet Count 202 k/uL (150-450); RBC 4.05 m/uL (3.80-5.40); RDW 13.3 % (11.5-15.5); WBC 10.9 k/uL (3.8-10.6)
[2020-08-23 04:19] LABS: D-Dimer 0.42 mg/L FEU (<0.60); Prothrombin Time 10.7 sec (9.0-12.0)
[2020-08-23 04:34] LABS: Partial Thromboplastin Time 21.5 sec (22.0-30.0)
[2020-08-23] MEDS: GABAPENTIN 400 MG CAP PO SCH ×2 (09:53→20:52)
[2020-08-23] MEDS: VENLAFAXINE HCL ER 150 MG CAP PO SCH ×2 (09:53→20:51)
[2020-08-23] MEDS: PANTOPRAZOLE 40 MG TABLET PO SCH (09:54)
[2020-08-23 09:59] LABS: ALT 17 U/L (4-34); AST 21 U/L (14-36); African American GFR (CKD) >90 (>60 ml/min/1.73 sqM); Albumin 3.3 g/dL (3.5-5.0); Alkaline Phosphatase 121 U/L (38-126); Anion Gap 5 mmol/L; Blood Urea Nitrogen 18 mg/dL (7-17); Calcium 8.6 mg/dL (8.4-10.2); Carbon Dioxide 32 mmol/L (22-30); Chloride 104 mmol/L (98-107); Glucose 91 mg/dL (74-99); Non-African American GFR(CKD) 89 (>60 ml/min/1.73 sqM); Potassium 4.2 mmol/L (3.5-5.1); Sodium 141 mmol/L (137-145); Total Bilirubin 0.5 mg/dL (0.2-1.3); Total Protein 6.1 g/dL (6.3-8.2)
[2020-08-23 10:16] LABS: Basophils % (A) 0 %; Eosinophils % (A) 0 %; HCT 42.7 % (34.0-46.0); HGB 13.2 gm/dL (11.4-16.0); Hypochromasia Slight; Lymphocytes % (A) 11 %; MCH 31.9 pg (25.0-35.0); MCHC 30.9 g/dL (31.0-37.0); MCV 103.1 fL (80.0-100.0); Macrocytosis Slight; Mean Platelet Volume 8.4; Monocytes # (A) 0.5 k/uL (0-1.0); Monocytes % (A) 5 %; Neutrophils # (A) 8.2 k/uL (1.3-7.7); Neutrophils % (A) 82 %; Platelet Count 241 k/uL (150-450); RBC 4.15 m/uL (3.80-5.40); RDW 13.7 % (11.5-15.5); WBC 9.9 k/uL (3.8-10.6)
[2020-08-23 11:23] LABS: Anisocytosis (M) Present; Poikilocytosis (M) Present
--- NOTE | 2020-08-23 16:08 | P.GSCN ---
History of Present Illness Consult date: 08/23/20 Reason for Consult: Abdominal pain History of present illness: This is a 64-year-old female well-known to myself. Patient is possible quadrant abdominal pain. Patient's CAT scan showed possible colitis with inflammatory change of the descending colon and possible caliber change. Patient states her pain is improved since her admission. Past Medical History Past Medical History: Cancer, GERD/Reflux, Syncope Additional Past Medical History / Comment(s): Sjogren Syndrome. Remission anal cancer, recent syncope History of Any Multi-Drug Resistant Organisms: None Reported Past Surgical History: Breast Surgery, Hysterectomy Additional Past Surgical History / Comment(s): Breast biopsy, right elbow pr ocedure, ORIF left ankle-hardware removed, hemorrhoidectomy x2 ,colonoscopy, BIOPSY of rectum Past Anesthesia/Blood Transfusion Reactions: Previous Problems w/ Anesthesia, Postoperative Nausea & Vomiting (PONV) Additional Past Anesthesia/Blood Transfusion Reaction / Comm: Had hard time waking up after surgery. Past Psychological History: Anxiety, Depression Smoking Status: Current every day smoker Past Alcohol Use History: None Reported Additional Past Alcohol Use History / Comment(s): Started smoking at AGE 13 , SMOKES 1ppd. Past Drug Use History: None Reported - Past Family History Mother Family Medical History: Cancer Additional Family Medical History / Comment(s): Lymphoma. . Brother(s) Family Medical History: Cancer Additional Family Medical History / Comment(s): Esophagus, liver. Father Family Medical History: Cancer Medications and Allergies Home Medications Medication Instructions Recorded Confirmed Type ALPRAZolam [Xanax] 0.25 mg PO BID PRN 11/17/18 08/22/20 History Venlafaxine HCl [Effexor XR] 150 mg PO BID@1000,209911/17/18 08/22/20 History Gabapentin 1,200 mg PO BID@1000,2100 02/15/20 08/22/20 History Diphenoxylate HCl/Atropine 1 tab PO QID PRN 08/22/20 08/22/20 History [Lomotil 2.5-0.025 mg Tablet] HYDROcodone/APAP 7.5-325MG [[place] 1 tab PO Q6H PRN 08/22/20 08/22/20 History 7.5-325] Pantoprazole Sodium [Protonix] 40 mg PO DAILY@1000 08/22/20 08/22/20 History Allergies Allergy/AdvReac Type Severity Reaction Status Date / Time ibuprofen AdvReac severe Verified 08/22/20 14:13 ringing in ears Surgical - Exam Vital Signs Temp Pulse Resp BP Pulse Ox 97.8 F 67 18 116/70 96 08/22/20 13:11 08/22/20 13:11 08/22/20 13:11 08/22/20 13:11 08/22/20 13:11 - General well developed, well nourished, no distress - Eyes PERRL - ENT normal pinna - Neck no masses - Abdomen Abdomen soft. There is mild tenderness throughout. There is no rebound or guarding. Results - Labs 08/23/20 03:04 08/23/20 03:04 Abnormal Lab Results - Last 24 Hours (Table) 08/23/20 08/23/20 08/23/20 Range/Units 02:05 02:15 02:33 WBC 10.9 H (3.8-10.6) k/uL MCV 103.2 H (80.0-100.0) fL MCHC (31.0-37.0) g/dL Neutrophils # 9.9 H (1.3-7.7) k/uL Lymphocytes # 0.3 L (1.0-4.8) k/uL APTT (22.0-30.0) sec ABG pH 7.33 L (7.35-7.45) ABG pCO2 55 H (35-45) mmHg ABG pO2 153 H (83-108) mmHg ABG HCO3 29 H (21-25) mmol/L ABG Total CO2 31 H (19-24) mmol/L ABG O2 Saturation 99.2 H (94-97) % Carbon Dioxide (22-30) mmol/L BUN (7-17) mg/dL Glucose (74-99) mg/dL POC Glucose (mg/dL) 281 H (75-99) mg/dL Plasma Lactic Acid [place] (0.7-2.0) mmol/L Calcium (8.4-10.2) mg/dL Creatine Kinase (30-135) U/L Total Protein (6.3-8.2) g/dL Albumin (3.5-5.0) g/dL 08/23/20 08/23/20 08/23/20 Range/Units 02:33 02:33 03:04 WBC (3.8-10.6) k/uL MCV (80.0-100.0) fL MCHC (31.0-37.0) g/dL Neutrophils # (1.3-7.7) k/uL Lymphocytes # (1.0-4.8) k/uL APTT 21.5 L (22.0-30.0) sec ABG pH (7.35-7.45) ABG pCO2 (35-45) mmHg ABG pO2 (83-108) mmHg ABG HCO3 (21-25) mmol/L ABG Total CO2 (19-24) mmol/L ABG O2 Saturation (94-97) % Carbon Dioxide 33 H (22-30) mmol/L BUN 20 H (7-17) mg/dL Glucose 255 H (74-99) mg/dL POC Glucose (mg/dL) (75-99) mg/dL Plasma Lactic Acid Honorio 2.2 H* (0.7-2.0) mmol/L Calcium 8.3 L (8.4-10.2) mg/dL Creatine Kinase 28 L (30-135) U/L Total Protein 6.0 L (6.3-8.2) g/dL Albumin 3.2 L (3.5-5.0) g/dL 08/23/20 08/23/20 Range/Units 03:04 03:04 WBC (3.8-10.6) k/uL MCV 103.1 H (80.0-100.0) fL MCHC 30.9 L (31.0-37.0) g/dL Neutrophils # 8.2 H (1.3-7.7) k/uL Lymphocytes # (1.0-4.8) k/uL APTT (22.0-30.0) sec ABG pH (7.35-7.45) ABG pCO2 (35-45) mmHg ABG pO2 (83-108) mmHg ABG HCO3 (21-25) mmol/L ABG Total CO2 (19-24) mmol/L ABG O2 Saturation (94-97) % Carbon Dioxide 32 H (22-30) mmol/L BUN 18 H (7-17) mg/dL Glucose (74-99) mg/dL POC Glucose (mg/dL) (75-99) mg/dL Plasma Lactic Acid [place]io (0.7-2.0) mmol/L Calcium (8.4-10.2) mg/dL Creatine Kinase (30-135) U/L Total Protein 6.1 L (6.3-8.2) g/dL Albumin 3.3 L (3.5-5.0) g/dL Diabetes panel 08/23/20 08/23/20 Range/Units 02:33 03:04 Sodium 140 141 (137-145) mmol/L Potassium 4.2 4.2 (3.5-5.1) mmol/L Chloride 101 104 (98-107) mmol/L Carbon Dioxide 33 H 32 H (22-30) mmol/L BUN 20 H 18 H (7-17) mg/dL Creatinine 0.74 0.71 (0.52-1.04) mg/dL Glucose 255 H 91 (74-99) mg/dL Calcium 8.3 L 8.6 (8.4-10.2) mg/dL AST 24 21 (14-36) U/L ALT 17 17 (4-34) U/L Alkaline Phosphatase 107 121 (38-126) U/L Total Protein 6.0 L 6.1 L (6.3-8.2) g/dL Albumin 3.2 L 3.3 L (3.5-5.0) g/dL Calcium panel 08/23/20 08/23/20 Range/Units 02:33 03:04 Calcium 8.3 L 8.6 (8.4-10.2) mg/dL Albumin 3.2 L 3.3 L (3.5-5.0) g/dL Pituitary panel 08/23/20 08/23/20 Range/Units 02:33 03:04 Sodium 140 141 (137-145) mmol/L Potassium 4.2 4.2 (3.5-5.1) mmol/L Chloride 101 104 (98-107) mmol/L Carbon Dioxide 33 H 32 H (22-30) mmol/L BUN 20 H 18 H (7-17) mg/dL Creatinine 0.74 0.71 (0.52-1.04) mg/dL Glucose 255 H 91 (74-99) mg/dL Calcium 8.3 L 8.6 (8.4-10.2) mg/dL Adrenal panel 08/23/20 08/23/20 Range/Units 02:33 03:04 Sodium 140 141 (137-145) mmol/L Potassium 4.2 4.2 (3.5-5.1) mmol/L Chloride 101 104 (98-107) mmol/L Carbon Dioxide 33 H 32 H (22-30) mmol/L BUN 20 H 18 H (7-17) mg/dL Creatinine 0.74 0.71 (0.52-1.04) mg/dL Glucose 255 H 91 (74-99) mg/dL Calcium 8.3 L 8.6 (8.4-10.2) mg/dL Total Bilirubin 0.5 0.5 (0.2-1.3) mg/dL AST 24 21 (14-36) U/L ALT 17 17 (4-34) U/L Alkaline Phosphatase 107 121 (38-126) U/L Total Protein 6.0 L 6.1 L (6.3-8.2) g/dL Albumin 3.2 L 3.3 L (3.5-5.0) g/dL Assessment and Plan Assessment: Abdominal pain, possible colitis. Patient be scheduled for colonoscopy.
[2020-08-23] MEDS ORDERED: PEG 3350-NA SULF,BICARB,CL/KCL 4,000 ML BOTTLE PO ONE (19:00)
--- NOTE | 2020-08-23 21:14 | CONS ---
CONSULTATION DATE OF SERVICE: 08/23/2020 REASON FOR CONSULTATION: Colitis. 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 Subsequently the patient did have chemo and radiation therapy. The patient presented to [facility] ER yesterday afternoon for evaluation of left lower quadrant abdominal pain that started last . The patient described the pain to be more of a dull aching to sharp, 5 to 6 out of 10, no radiation. The patient has been nauseated but no vomiting. The patient denies having any fever or any chills. With these symptoms, the patient was evaluated by the ER physician. On arrival in the ER, the patient has been afebrile. The patient did have a white count of 10.9 with mild left shift. Creatinine was normal. Lactic acid was 2.2. The patient did have a CT of abdomen and pelvis completed which shows inflammatory changes, possible caliber change seen in the left lower quadrant as described, possible colitis. The patient has been started on Zosyn, has been admitted to the hospital. Infectious Disease was consulted for further management of antibiotic therapy. REVIEW OF SYSTEMS: Positive points have been mentioned in the HPI. Rest of the systems are negative. PAST MEDICAL HISTORY: Past medical history is significant for anal squamous cell carcinoma, Sjogren syndrome, gastroesophageal reflux disease, syncope. PAST SURGICAL HISTORY: Hysterectomy, resection of the anal squamous cell carcinoma, hemorrhoidectomy, colonoscopy, biopsy of the rectum. SOCIAL HISTORY: Current every day smoker. No drinking or drug use. FAMILY HISTORY: Mother with history of lymphoma. ALLERGIES: IBUPROFEN. MEDICATIONS: The patient is currently on [place], Xanax, Lomotil, Neurontin, Dilaudid, Protonix, Zosyn, Effexor. PHYSICAL EXAMINATION: Blood pressure 124/73 with a pulse of 84, temperature 98.3. She is 95% on 2 L nasal cannula. General description is an elderly female lying in bed in no distress. No tachypnea or accessory muscle of respiration use. HEENT: Examination shows no pallor or scleral icterus. Oral mucous membrane is dry. NECK: Trachea is central. No thyromegaly. LUNGS: Unlabored breathing. Clear to auscultation anteriorly. No wheeze or crackle. HEART: S1, S2. Regular rate and rhythm. ABDOMEN: Soft. No tenderness. No guarding or rigidity. No organomegaly. EXTREMITIES: No edema of the feet. SKIN EXAMINATION: No rash or mass palpable. Neurologically the patient is awake, alert, oriented x . Mood and affect normal. LABS: Hemoglobin is 13.2, white count 9.9, BUN of 18, creatinine 0.71. DIAGNOSTIC IMPRESSION AND PLAN: Patient admitted to hospital with abdominal pain in this patient with a history of anal carcinoma, squamous cell, status post resection, and has completed chemoradiation with abnormal CT, question of caliber changes versus recurrence of malignancy, which needs to be excluded. The patient is not running any fever and did not have an elevated white count. PLAN: 1. Zosyn 3.375 grams q.8 hours to continue. 2. Obtain stool studies if the patient develops any loose stools, which currently the patient denies. 3. May benefit from a sigmoidoscopy. 4. Will follow clinical condition and further adjust medication if needed. Thank you for this consultation. Will follow this patient along with you. MMODL / IJN: [id number] /
[2020-08-23 23:29] LABS: Prolactin 6.2 ng/mL (2.8-29.2)
[2020-08-24] MEDS: PIPERACILLIN-TAZOBACTAM 3.375 GM in SODIUM CHLORIDE 0.9% 100 ML IVPB SCH ×3 (03:38→17:50)
[2020-08-24 08:34] LABS: ALT 15 U/L (4-34); AST 22 U/L (14-36); African American GFR (CKD) >90 (>60 ml/min/1.73 sqM); Albumin 3.7 g/dL (3.5-5.0); Alkaline Phosphatase 135 U/L (38-126); Anion Gap 7 mmol/L; Blood Urea Nitrogen 10 mg/dL (7-17); Carbon Dioxide 35 mmol/L (22-30); Chloride 98 mmol/L (98-107); Glucose 101 mg/dL (74-99); Non-African American GFR(CKD) >90 (>60 ml/min/1.73 sqM); Potassium 3.7 mmol/L (3.5-5.1); Sodium 140 mmol/L (137-145); Total Bilirubin 0.6 mg/dL (0.2-1.3); Total Protein 6.6 g/dL (6.3-8.2)
[2020-08-24 09:04] LABS: Basophils % (A) 0 %; Eosinophils # (A) 0.1 k/uL (0-0.7); Eosinophils % (A) 1 %; HCT 43.8 % (34.0-46.0); HGB 13.6 gm/dL (11.4-16.0); Hypochromasia Slight; Lymphocytes # (A) 1.4 k/uL (1.0-4.8); Lymphocytes % (A) 16 %; MCV 103.1 fL (80.0-100.0); Macrocytosis Slight; Mean Platelet Volume 7.5; Monocytes # (A) 0.5 k/uL (0-1.0); Monocytes % (A) 6 %; Neutrophils # (A) 6.3 k/uL (1.3-7.7); Neutrophils % (A) 75 %; Platelet Count 266 k/uL (150-450); RBC 4.25 m/uL (3.80-5.40); RDW 13.6 % (11.5-15.5); WBC 8.4 k/uL (3.8-10.6)
--- NOTE | 2020-08-24 09:13 | P.PN ---
Subjective Progress Note Date: 08/23/20 Rocio Jamil, is a 64-year-old female who presented to [facility] emergency room with a chief complaint of left lower quadrant abdominal pain that started 5 days ago, patient also has been complaining of nausea vomiting and poor appetite, she was evaluated in the emergency room, vital exam on presentation reveals a temperature of 97.8 pulse 67 respiration 18 blood pressure 116/70 pulse ox 96% on room air, white blood count was 9.8 hemoglobin 15.9 platelet count 450, BUN 21 creatinine 0.7 glucose 124 alkaline phosphatase 155 lactic acid 1.2 coronary 5ER was negative , computed tomography scan of the abdomen and pelvis was done in the emergency room and revealed inflammatory noe ges in the left lower quadrant possible colitis no evidence of diverticulitis, patient was admitted to medical floor, she was started on IV fluid, surgical consultation was requested. Patient has a known history of rectal cancer, she had surgery with Dr. Rivera, on 12/17/2018 she also had chemotherapy and radiation therapy subsequently per patient. On 08/23/2020 patient was seen and examined on the medical floor she is alert and oriented 3 in no apparent distress during the last night patient had an episode of unresponsiveness, with decreased O2 saturation, probably related to pain medications she improved with taking Narcan, at this time she is alert and oriented she is still complaining of pain in the left lower quadrant she is maintained on IV antibiotics surgical consultation requested otherwise patient denies any complaints there is no fever or chills no headache or dizziness no chest pain no shortness of breath no cough no nausea or vomiting no diarrhea no blood in the stools no burning with urination no frequency or urgency and no hematuria Objective - Vital Signs Vital signs: Vital Signs Temp 97.7 F 08/23/20 08:00 Pulse 94 08/23/20 08:00 Resp 16 08/23/20 08:00 BP 123/80 08/23/20 08:00 Pulse Ox 96 08/23/20 08:00 Intake & Output 08/22/20 08/23/20 08/23/20 18:59 06:59 18:59 Intake Total 480 Balance 480 Weight 68.039 kg 62.5 kg Intake: Oral 480 Other: # Voids 1 1 - Exam In general patient is alert and oriented 3 in no apparent distress HEENT head normocephalic and atraumatic Neck is supple no JVD no goiter no lymphadenopathy Chest exam reveals crackles in both lung bases no wheezing Cardiac exam reveals regular heart sounds S1 and S2 no gallops no murmurs Abdomen is soft nontender no organomegaly with normal bowel sounds Extremity exam reveals no edema no cyanosis or clubbing Neurological examination reveals, no gross focal neurological deficits - Labs CBC & Chem 7: 08/23/20 03:04 08/24/20 07:25 Labs: Abnormal Lab Results - Last 24 Hours (Table) 08/22/20 08/22/20 08/22/20 Range/Units 13:38 13:45 13:45 WBC (3.8-10.6) k/uL Hct 48.2 H (34.0-46.0) % MCV 100.4 H (80.0-100.0) fL Neutrophils # (1.3-7.7) k/uL Lymphocytes # (1.0-4.8) k/uL APTT (22.0-30.0) sec ABG pH (7.35-7.45) ABG pCO2 (35-45) mmHg ABG pO2 (83-108) mmHg ABG HCO3 (21-25) mmol/L ABG Total CO2 (19-24) mmol/L ABG O2 Saturation (94-97) % Carbon Dioxide 31 H (22-30) mmol/L BUN 21 H (7-17) mg/dL Glucose 124 H (74-99) mg/dL POC Glucose (mg/dL) (75-99) mg/dL Plasma Lactic Acid Honorio (0.7-2.0) mmol/L Calcium (8.4-10.2) mg/dL Alkaline Phosphatase 155 H (38-126) U/L Creatine Kinase (30-135) U/L Total Protein (6.3-8.2) g/dL Albumin (3.5-5.0) g/dL Ur Specific Duck >1.050 H (1.001-1.035) Urine Protein Trace H (Negative) Urine Blood Trace H (Negative) Urine Mucus Rare H (None) /hpf 08/23/20 08/23/20 08/23/20 Range/Units 02:05 02:15 02:33 WBC 10.9 H (3.8-10.6) k/uL Hct (34.0-46.0) % MCV 103.2 H (80.0-100.0) fL Neutrophils # 9.9 H (1.3-7.7) k/uL Lymphocytes # 0.3 L (1.0-4.8) k/uL APTT (22.0-30.0) sec ABG pH 7.33 L (7.35-7.45) ABG pCO2 55 H (35-45) mmHg ABG pO2 153 H (83-108) mmHg ABG HCO3 29 H (21-25) mmol/L ABG Total CO2 31 H (19-24) mmol/L ABG O2 Saturation 99.2 H (94-97) % Carbon Dioxide (22-30) mmol/L BUN (7-17) mg/dL Glucose (74-99) mg/dL POC Glucose (mg/dL) 281 H (75-99) mg/dL Plasma Lactic Acid Honorio (0.7-2.0) mmol/L Calcium (8.4-10.2) mg/dL Alkaline Phosphatase (38-126) U/L Creatine Kinase (30-135) U/L Total Protein (6.3-8.2) g/dL Albumin (3.5-5.0) g/dL Ur Specific Duck (1.001-1.035) Urine Protein (Negative) Urine Blood (Negative) Urine Mucus (None) /hpf 08/23/20 08/23/20 08/23/20 Range/Units 02:33 02:33 03:04 WBC (3.8-10.6) k/uL Hct (34.0-46.0) % MCV (80.0-100.0) fL Neutrophils # (1.3-7.7) k/uL Lymphocytes # (1.0-4.8) k/uL APTT 21.5 L (22.0-30.0) sec ABG pH (7.35-7.45) ABG pCO2 (35-45) mmHg ABG pO2 (83-108) mmHg ABG HCO3 (21-25) mmol/L ABG Total CO2 (19-24) mmol/L ABG O2 Saturation (94-97) % Carbon Dioxide 33 H (22-30) mmol/L BUN 20 H (7-17) mg/dL Glucose 255 H (74-99) mg/dL POC Glucose (mg/dL) (75-99) mg/dL Plasma Lactic Acid Honorio 2.2 H* (0.7-2.0) mmol/L Calcium 8.3 L (8.4-10.2) mg/dL Alkaline Phosphatase (38-126) U/L Creatine Kinase 28 L (30-135) U/L Total Protein 6.0 L (6.3-8.2) g/dL Albumin 3.2 L (3.5-5.0) g/dL Ur Specific Duck (1.001-1.035) Urine Protein (Negative) Urine Blood (Negative) Urine Mucus (None) /hpf Assessment and Plan Plan: 1. Acute colitis, with severe left lower quadrant abdominal pain. 2. History of rectal cancer with history of surgery or radiation and chemot herapy 2 years ago 3. Underlying history of depression with anxiety disorder 4. Underlying history of gastroesophageal reflux disease Patient was admitted to medical floor, she will be started on IV antibiotics Surgical consultation was requested patient is well known to Dr. Rivera Home medications reviewed and reordered Will recheck labs and follow closely in a.m.
[2020-08-24] MEDS ORDERED: PROPOFOL 10 MG/ML 20 ML VIAL IV ONE (10:37)
[2020-08-24] MEDS ORDERED: IV FLUID CONTINUATION 1,000 ML IV ONE (10:41)
--- NOTE | 2020-08-24 10:52 | P.OP ---
Date of Procedure: 08/24/20 Preoperative Diagnosis: Abdominal pain Diarrhea Postoperative Diagnosis: Antral gastritis Hiatal hernia Esophagitis Procedure(s) Performed: EGD Colonoscopy Anesthesia: MAC Surgeon: Pedro Rivera Pathology: other (Antrum, esophagus) Condition: stable Disposition: PACU Description of Procedure: Patient's placed on the endoscopy table in the lateral position. She received IV sedation. The gastroscope oropharynx past esophagus and stomach. Scope was then placed through the pylorus. The first and second portion of duodenum appeared normal. Scope was then brought back the antrum this was mildly inflamed. A biopsies performed. The scope was then retroflexed the remainder of the stomach appeared normal. The patient had a small hiatal hernia. The GE junction was at 40 cm. The distal esophagus appeared inflamed. A biopsies performed. The proximal esophagus appeared normal. Scope was withdrawn for patient.
--- NOTE | 2020-08-24 11:02 | P.OP ---
Date of Procedure: 08/24/20 Preoperative Diagnosis: Colitis Postoperative Diagnosis: Colitis Procedure(s) Performed: Colonoscopy Anesthesia: MAC Surgeon: Pedro Rivera Pathology: other (Left colon, rectum) Condition: stable Disposition: PACU Description of Procedure: The patient's placed on the endoscopy table lateral position. She received IV sedation. Patient had some guarding at her anus related to her previous anal cancer. The flexible colonoscope was then placed patient's rectum and passed with colon. The scope passed in this transverse colon secondary to tortuosity valve. This was withdrawn. In the descending colon there was evidence of some inflammation. This was biopsied. Scope back through the sigmoid colon and then into the rectum. Another rectal biopsy performed cold forcep. The scope was withdrawn for patient.
[2020-08-24] MEDS: HYDROcodone/APAP 7.5-325MG 1 EACH TAB PO PRN ×2 (13:14→20:14)
[2020-08-24] MEDS: VENLAFAXINE HCL ER 150 MG CAP PO SCH ×2 (13:15→20:12)
[2020-08-24] MEDS: GABAPENTIN 400 MG CAP PO SCH ×2 (13:15→20:11)
[2020-08-24] MEDS: PANTOPRAZOLE 40 MG TABLET PO SCH (13:15)
--- NOTE | 2020-08-24 16:43 | P.PN ---
Subjective Progress Note Date: 08/24/20 Rocio Jamil, is a 64-year-old female who presented to [facility] emergency room with a chief complaint of left lower quadrant abdominal pain that started 5 days ago, patient also has been complaining of nausea vomiting and poor appetite, she was evaluated in the emergency room, vital exam on presentation reveals a temperature of 97.8 pulse 67 respiration 18 blood pressure 116/70 pulse ox 96% on room air, white blood count was 9.8 hemoglobin 15.9 platelet count 450, BUN 21 creatinine 0.7 glucose 124 alkaline phosphatase 155 lactic acid 1.2 coronary 5ER was negative , computed tomography scan of the abdomen and pelvis was done in the emergency room and revealed inflammatory noe ges in the left lower quadrant possible colitis no evidence of diverticulitis, patient was admitted to medical floor, she was started on IV fluid, surgical consultation was requested. Patient has a known history of rectal cancer, she had surgery with Dr. Rivera, on 12/17/2018 she also had chemotherapy and radiation therapy subsequently per patient. On 08/23/2020 patient was seen and examined on the medical floor she is alert and oriented 3 in no apparent distress during the last night patient had an episode of unresponsiveness, with decreased O2 saturation, probably related to pain medications she improved with taking Narcan, at this time she is alert and oriented she is still complaining of pain in the left lower quadrant she is maintained on IV antibiotics surgical consultation requested otherwise patient denies any complaints there is no fever or chills no headache or dizziness no chest pain no shortness of breath no cough no nausea or vomiting no diarrhea no blood in the stools no burning with urination no frequency or urgency and no hematuria On 08/24/2020 patient was seen and examined on the medical floor she is alert and oriented 3 in no apparent distress she is still complaining of pain in the left lower quadrant otherwise she denies any complaints there is no fever or chills no headache or dizziness no chest pain no shortness of breath no cough no nausea or vomiting no diarrhea no blood in the stools no burning with urination no frequency or urgency and no hematuria. She is scheduled for EGD and colonoscopy today. Objective - Vital Signs Vital signs: Vital Signs Temp 97.3 F L 08/24/20 04:00 Pulse 84 08/24/20 04:00 Resp 19 08/24/20 04:00 BP 109/76 08/24/20 04:00 Pulse Ox 95 08/24/20 04:00 Intake & Output 08/23/20 08/24/20 08/24/20 18:59 06:59 18:59 Intake Total 118 75 Balance 118 75 Weight 72.5 kg Intake: Intake, IV Titration 75 Amount Piperacillin-Tazobactam 3 75 .375 gm In Sodium Chloride 0.9% 100 ml @ 25 mls/hr IVPB Q8H MINISTERIO Rx#: [id number] Oral 118 0 Other: # Voids 3 1 - Exam In general patient is alert and oriented 3 in no apparent distress HEENT head normocephalic and atraumatic Neck is supple no JVD no goiter no lymphadenopathy Chest exam reveals crackles in both lung bases no wheezing Cardiac exam reveals regular heart sounds S1 and S2 no gallops no murmurs Abdomen is soft nontender no organomegaly with normal bowel sounds Extremity exam reveals no edema no cyanosis or clubbing Neurological examination reveals, no gross focal neurological deficits - Labs CBC & Chem 7: 08/24/20 07:25 08/24/20 07:25 Labs: Abnormal Lab Results - Last 24 Hours (Table) 08/23/20 08/23/20 08/24/20 Range/Units 03:04 03:04 07:25 MCV 103.1 H (80.0-100.0) fL MCHC 30.9 L (31.0-37.0) g/dL Neutrophils # 8.2 H (1.3-7.7) k/uL Carbon Dioxide 32 H 35 H (22-30) mmol/L BUN 18 H (7-17) mg/dL Glucose 101 H (74-99) mg/dL Alkaline Phosphatase 135 H (38-126) U/L Total Protein 6.1 L (6.3-8.2) g/dL Albumin 3.3 L (3.5-5.0) g/dL Assessment and Plan Plan: 1. Acute colitis, with severe left lower quadrant abdominal pain. 2. History of rectal cancer with history of surgery or radiation and chemotherapy 2 years ago 3. Underlying history of depression with anxiety disorder 4. Underlying history of gastroesophageal reflux disease Patient was admitted to medical floor, she will be started on IV antibiotics Surgical consultation was requested patient is well known to Dr. Rivera Patient is scheduled for EGD and colonoscopy today Will recheck labs and follow closely in a.m.
--- NOTE | 2020-08-24 22:37 | PN ---
PROGRESS NOTE DATE OF SERVICE: 08/24/2020 REASON FOR FOLLOWUP: Colitis. INTERVAL HISTORY: Patient is currently afebrile. Patient is breathing comfortably. Denies having any chest pain or any cough. The patient is status post EGD and colonoscopy. Tolerated the procedure. Abdominal pain has improved. No diarrhea. PHYSICAL EXAMINATION: Blood pressure 120/58 with a pulse of 80, temperature 99. She is 95% on room air. General description: Elderly female lying in bed in no distress. Respiratory system: Unlabored breathing. Clear to auscultation anteriorly. HEART: S1, S2. Regular rate and rhythm. ABDOMEN: Soft, no tenderness. LABS: Hemoglobin is 13.6, white count 8.4, BUN of 10, creatinine 0.70. DIAGNOSTIC IMPRESSION AND PLAN: Patient with colitis in this patient who did have history of rectal cancer status post chemo and radiation therapy, status post colonoscopy with biopsy. Those will be followed. Continue with Zosyn and monitor clinical course closely. MMODL / IJN: [id number] /
[2020-08-25] MEDS: PIPERACILLIN-TAZOBACTAM 3.375 GM in SODIUM CHLORIDE 0.9% 100 ML IVPB SCH ×2 (02:08→08:43)
[2020-08-25 04:43] VITALS: RESP 18
[2020-08-25 07:09] LABS: Basophils % (A) 1 %; Eosinophils # (A) 0.1 k/uL (0-0.7); Eosinophils % (A) 2 %; HGB 12.6 gm/dL (11.4-16.0); Hypochromasia Slight; Lymphocytes # (A) 1.2 k/uL (1.0-4.8); Lymphocytes % (A) 18 %; MCH 32.3 pg (25.0-35.0); MCHC 31.5 g/dL (31.0-37.0); MCV 102.6 fL (80.0-100.0); Macrocytosis Slight; Mean Platelet Volume 7.8; Monocytes # (A) 0.4 k/uL (0-1.0); Monocytes % (A) 6 %; Neutrophils # (A) 4.7 k/uL (1.3-7.7); Neutrophils % (A) 71 %; Platelet Count 222 k/uL (150-450); RDW 13.3 % (11.5-15.5); WBC 6.6 k/uL (3.8-10.6)
[2020-08-25 07:19] LABS: ALT 10 U/L (4-34); AST 14 U/L (14-36); African American GFR (CKD) >90 (>60 ml/min/1.73 sqM); Albumin 2.9 g/dL (3.5-5.0); Alkaline Phosphatase 99 U/L (38-126); Anion Gap 2 mmol/L; Blood Urea Nitrogen 10 mg/dL (7-17); Calcium 8.4 mg/dL (8.4-10.2); Carbon Dioxide 34 mmol/L (22-30); Chloride 102 mmol/L (98-107); Glucose 106 mg/dL (74-99); Non-African American GFR(CKD) >90 (>60 ml/min/1.73 sqM); Potassium 3.5 mmol/L (3.5-5.1); Sodium 138 mmol/L (137-145); Total Bilirubin 0.3 mg/dL (0.2-1.3); Total Protein 5.5 g/dL (6.3-8.2)
[2020-08-25 08:40] VITALS: BP 125/58; PULSE 81; TEMP 98.1
[2020-08-25] MEDS: VENLAFAXINE HCL ER 150 MG CAP PO SCH (08:40)
[2020-08-25] MEDS: GABAPENTIN 400 MG CAP PO SCH (08:40)
[2020-08-25] MEDS: PANTOPRAZOLE 40 MG TABLET PO SCH (08:41)
[2020-08-25] MEDS: HYDROcodone/APAP 7.5-325MG 1 EACH TAB PO PRN (08:44)
--- NOTE | 2020-08-25 13:06 | P.DS ---
Providers Date of admission: 08/22/20 15:56 Expected date of discharge: 08/25/20 Attending physician: Marlon Murphy Consults: 08/22/20 15:42 Consult Physician Urgent Consulting Provider: Pedro Rivera Consult Reason/Comments: Abdominal pain, colitis, history of rectal cancer Do you want consulting provider notified?: Yes 08/22/20 17:19 Consult Physician Routine Consulting Provider: Blanca Alan Consult Reason/Comments: acute colitis Do you want consulting provider notified?: Yes Primary care physician: Alysha Loja Hospital Course: Diagnosis on discharge: 1. Acute colitis, with severe left lower quadrant abdominal pain. 2. History of rectal cancer with history of surgery or radiation and chemotherapy 2 years ago 3. Underlying history of depression with anxiety disorder 4. Underlying history of gastroesophageal reflux disease Hospital course: Rocio Jamil, is a 64-year-old female who presented to [facility] emergency room with a chief complaint of left lower quadrant abdominal pain that started 5 days ago, patient also has been complaining of nausea vomiting and poor appetite, she was evaluated in the emergency room, vital exam on presentation reveals a temperature of 97.8 pulse 67 respiration 18 blood pressure 116/70 pulse ox 96% on room air, white blood count was 9.8 hemoglobin 15.9 platelet count 450, BUN 21 creatinine 0.7 glucose 124 alkaline phosphatase 155 lactic acid 1.2 coronary 5ER was negative , computed tomography scan of the abdomen and pelvis was done in the emergency room and revealed inflammatory changes in the left lower quadrant possible colitis no evidence of diverticulitis, patient was admitted to medical floor, she was started on IV fl uid, surgical consultation was requested. Patient has a known history of rectal cancer, she had surgery with Dr. Rivera, on 12/17/2018 she also had chemotherapy and radiation therapy subsequently per patient. On 08/23/2020 patient was seen and examined on the medical floor she is alert and oriented 3 in no apparent distress during the last night patient had an episode of unresponsiveness, with decreased O2 saturation, probably related to pain medications she improved with taking Narcan, at this time she is alert and oriented she is still complaining of pain in the left lower quadrant she is maintained on IV antibiotics surgical consultation requested otherwise patient denies any complaints there is no fever or chills no headache or dizziness no chest pain no shortness of breath no cough no nausea or vomiting no diarrhea no blood in the stools no burning with urination no frequency or urgency and no hematuria On 08/24/2020 patient was seen and examined on the medical floor she is alert and oriented 3 in no apparent distress she is still complaining of pain in the left lower quadrant otherwise she denies any complaints there is no fever or chills no headache or dizziness no chest pain no shortness of breath no cough no nausea or vomiting no diarrhea no blood in the stools no burning with urination no frequency or urgency and no hematuria. She is scheduled for EGD and colo noscopy today. On 08/25/2020 patient was seen and examined on the medical floor she is alert and oriented 3 in no distress she reports improvement in the left lower quadrant intra-abdominal pain yesterday she underwent EGD and colonoscopy that revealed evidence of colitis biopsies were taken results are still pending case was discussed with Dr. Mcknight area no further testing is scheduled at this time patient was cleared for discharge he will be followed by him in the office within one week for follow-up on biopsy results case was also discussed with Dr. Alan infectious disease's recommendation is to discharge to home on a course of oral Augmentin. Patient was given a course of Augmentin and was discharged home on 08/25/2020 follow-up with Dr. Mcknight and with primary care physician within one week. Plan - Discharge Summary Discharge Rx Participant: No New Discharge Prescriptions: New Amoxicillin/Potassium Clav [Augmentin 500-125 Tablet] 1 tab PO Q12HR 10 Days #20 tab Continue Venlafaxine HCl [Effexor XR] 150 mg PO BID@1000,2100 ALPRAZolam [Xanax] 0.25 mg PO BID PRN PRN Reason: Anxiety Gabapentin 1,200 mg PO BID@1000,2100 Pantoprazole Sodium [Protonix] 40 mg PO DAILY@1000 HYDROcodone/APAP 7.5-325MG [[place] 7.5-325] 1 tab PO Q6H PRN PRN Reason: Pain Diphenoxylate HCl/Atropine [Lomotil 2.5-0.025 mg Tablet] 1 tab PO QID PRN PRN Reason: Diarrhea Discharge Medication List ALPRAZolam [Xanax] 0.25 mg PO BID PRN 11/17/18 [History] Venlafaxine HCl [Effexor XR] 150 mg PO BID@999,209911/17/18 [History] Gabapentin 1,200 mg PO BID@999,209902/15/20 [History] Diphenoxylate HCl/Atropine [Lomotil 2.5-0.025 mg Tablet] 1 tab PO QID PRN 08/22/20 [History] HYDROcodone/APAP 7.5-325MG [[place] 7.5-325] 1 tab PO Q6H PRN 08/22/20 [History] Pantoprazole Sodium [Protonix] 40 mg PO DAILY@1000 08/22/20 [History] Amoxicillin/Potassium Clav [Augmentin 500-125 Tablet] 1 tab PO Q12HR 10 Days #20 tab 08/25/20 [Rx] Follow up Appointment(s)/Referral(s): Alysha Loja MD [Primary Care Provider] - 1-2 days Pedro Rivera MD [STAFF PHYSICIAN] - 1 Week Discharge Disposition: HOME SELF-CARE
--- NOTE | 2020-08-25 13:16 | P.PN ---
Subjective Progress Note Date: 08/25/20 CHIEF COMPLAINT: Abdominal pain HISTORY OF PRESENT ILLNESS: Patient is status post EGD and colonoscopy. Results had shown evidence of antral gastritis, hiatal hernia, esophagitis and colitis. Biopsies were obtained. Patient is tolerating regular diet. She reports improvement in her pain. Denies any nausea or vomiting. She's afebrile. WBC 6.6 PHYSICAL EXAM: VITAL SIGNS: Reviewed. GENERAL: Well-developed in no acute distress. HEENT: No sclera icterus. Extraocular movements grossly intact. Moist buccal mucosa. Head is atraumatic, normocephalic. ABDOMEN: Soft. Nondistended. Nontender. NEUROLOGIC: Alert and oriented. Cranial nerves II through XII grossly intact. ASSESSMENT: 1. Abdominal pain likely due to colitis. Patient is status post EGD and colonoscopy PLAN: -Continue regular diet -Patient is stable for discharge from surgical standpoint Physician Filament Shaper note has been reviewed by physician. Signing provider agrees with the documented findings, assessment, and plan of care. Objective - Vital Signs Vital signs: Vital Signs Temp 98.1 F 08/25/20 08:00 Pulse 81 08/25/20 08:00 Resp 18 08/25/20 08:00 BP 125/58 08/25/20 08:00 Pulse Ox 95 08/25/20 08:00 Intake & Output 08/24/20 08/25/20 08/25/20 18:59 06:59 18:59 Intake Total 100 Output Total 3 Balance 97 Weight 72.2 kg Intake: IV 100 Output: Urine/Stool Mix 3 Other: Voiding Method Bedside Commode Bedside Commode # Voids 3 1 - Labs CBC & Chem 7: 08/25/20 06:57 08/25/20 06:57 Labs: Abnormal Lab Results - Last 24 Hours (Table) 08/25/20 08/25/20 Range/Units 06:57 06:57 MCV 102.6 H (80.0-100.0) fL Carbon Dioxide 34 H (22-30) mmol/L Glucose 106 H (74-99) mg/dL Total Protein 5.5 L (6.3-8.2) g/dL Albumin 2.9 L (3.5-5.0) g/dL
--- NOTE | 2020-08-25 14:09 | PN ---
PROGRESS NOTE DATE OF SERVICE: 08/25/2020 REASON FOR FOLLOWUP: Colitis. INTERVAL HISTORY: The patient is currently afebrile. The patient is breathing comfortably. Still having some pain especially with defecation or passing gas but denies any abdominal pain. No nausea, no vomiting. No chest pain, shortness of breath or cough. PHYSICAL EXAMINATION: Blood pressure 125/58 with a pulse of 81, temperature 98.1. She is 95% on room air. General description is an elderly female lying in bed in no distress. RESPIRATORY SYSTEM: Unlabored breathing, clear to auscultation anteriorly. HEART: S1, S2. Regular rate and rhythm. ABDOMEN: Soft, no tenderness. LABS: Hemoglobin is 12.6, white count 6.6, BUN of 10, creatinine 0.68. DIAGNOSTIC IMPRESSION AND PLAN: Patient with colitis in this patient seemed to have shown overall clinical improvement on Zosyn. Finish a short course of oral Augmentin. Discussed with the admitting physician. Continue with supportive care. MMODL / IJN: [id number] /
== END 2020-08-25 15:35 | disposition home or self-care (01) ==
LOC: EC 13:05 → 6NMEDSUR 15:56 → 3SCARD 08-23 04:00
PROVIDERS: ADMIT Internal Medicine; ATTEND Internal Medicine
DX: K52.9 Noninfective gastroenteritis and colitis, unspecified (principal); K21.00 Gastro-esophageal reflux disease with esophagitis, without bleeding; K29.50 Unspecified chronic gastritis without bleeding; K44.9 Diaphragmatic hernia without obstruction or gangrene; M35.00 Sjogren syndrome, unspecified; R55 Syncope and collapse; R09.02 Hypoxemia; I95.9 Hypotension, unspecified; R41.82 Altered mental status, unspecified; R06.89 Other abnormalities of breathing; F41.8 Other specified anxiety disorders; R79.89 Other specified abnormal findings of blood chemistry; F17.210 Nicotine dependence, cigarettes, uncomplicated; Z79.891 Long term (current) use of opiate analgesic; Z79.899 Other long term (current) drug therapy; Z88.6 Allergy status to analgesic agent; Z98.890 Other specified postprocedural states; Z85.048 Personal history of other malignant neoplasm of rectum, rectosigmoid junction, and anus; Z92.21 Personal history of antineoplastic chemotherapy; Z92.3 Personal history of irradiation; Z90.710 Acquired absence of both cervix and uterus; Z80.7 Family history of other malignant neoplasms of lymphoid, hematopoietic and related tissues; Z80.0 Family history of malignant neoplasm of digestive organs; Z20.828 Contact with and (suspected) exposure to other viral communicable diseases
CPT/HCPCS: 96376 ×2; 96361 ×3; 96365; 96366 ×2; 96375 ×2; 93005; 99285; 36415; 94660; 36600; 85379; 88305; 80053 ×4; 82150; 82550; 82805; 83605 ×2; 83690; 83735; 84484; 85025 ×4; 85610; 85730; 81001; 84146; 87635; 71045; 74177; 45380; 43239; G0378 ×5; J2543 ×4; J2310; J2405; J2704; J1170; Q9967

== ENCOUNTER → 2020-09-13 | Outpatient (CLI) | payer MEDICARE, OTHER ==
[2020-09-13 13:26] LABS: African American GFR (CKD) >90 (>60 ml/min/1.73 sqM); Blood Urea Nitrogen 13 mg/dL (7-17); Non-African American GFR(CKD) >90 (>60 ml/min/1.73 sqM)
--- NOTE | 2020-09-13 14:41 | CT ---
EXAMINATION TYPE: CT abdomen pelvis w con DATE OF EXAM: 09/13/2020 COMPARISON: 08/22/2020 HISTORY: Coliltis CT DLP: 1239 mGycm Automated exposure control for dose reduction was used. CONTRAST: CT scan of the abdomen pelvis is performed with IV Contrast, patient injected with 100 ml mL of Isovu e 300. FINDINGS- LUNG BASES-subsegmental atelectasis seen. Coronary artery calcification.. LIVER/GB-hepatic granuloma noted. No gallstones.. PANCREAS- No gross abnormality is seen. SPLEEN-splenic granuloma noted. ADRENALS- No gross abnormality is seen. KIDNEYS/BLADDER-simple left renal cyst stable. Additional 2 small to characterize density on the left . No hydronephrosis.. BOWEL-there is persistent inflammatory change of the left lower quadrant with mild wall thickening. T his could represent a mild colitis or epiploic appendicitis. Finding is similar to prior exam. Small hiatal hernia. LYMPH NODES- No greater than 1cm abdominal or pelvic lymph nodes areappreciated. OSSEOUS STRUCTURES-degenerative change of the spine. OTHER- aorta of normal caliber with atherosclerotic changes. No free fluid. No free air. IMPRESSION- 1. Persistent wall thickening and mild inflammatory change of the junction of the sigmoid colon and l eft colon. Differential diagnosis continues to include a mild colitis or epiploic appendicitis. Corre late clinically. Correlation with direct visualization could BE obtained if there is concern for muco holli lesion as clinically warranted.
== END | disposition home or self-care (01) ==
LOC: RADCTMAIN 12:36
PROVIDERS: ATTEND Surgery
DX: K63.89 Other specified diseases of intestine (principal); K52.9 Noninfective gastroenteritis and colitis, unspecified
CPT/HCPCS: 82565; 84520; 74177; 36415; Q9967

== ENCOUNTER → 2020-09-29 | Outpatient (CLI) | payer MEDICARE, OTHER ==
[2020-09-29 09:33] LABS: African American GFR (CKD) >90 (>60 ml/min/1.73 sqM); Blood Urea Nitrogen 17 mg/dL (7-17); Non-African American GFR(CKD) >90 (>60 ml/min/1.73 sqM)
--- NOTE | 2020-09-29 11:55 | CT ---
EXAMINATION TYPE: CT abdomen pelvis w con DATE OF EXAM: 09/29/2020 HISTORY: Diverticulitis History of anal cancer. CT DLP: 1298mGycm Automated Exposure Control for Dose Reduction was Utilized. CONTRAST: CT scan of the abdomen and pelvis is performed with IV Contrast, patient injected with 100 mL of Isov ue 300. COMPARISON: CT abdomen and pelvis September 13, 2020 and older studies. FINDINGS: LUNG BASES: More prominent right basilar linear atelectasis and/or scarring posteriorly. LIVER/GB: Occasional punctate calcifications scattered throughout the liver. PANCREAS: Moderate generalized atrophy of the inferior pancreatic head and uncinate process is redemo nstrated. SPLEEN: Multiple calcifications scattered throughout the spleen. ADRENALS: Stable slight nodular thickening to left adrenal gland is nonspecific on axial image 22. KIDNEYS: There is 4.0 cm thin-walled cyst posteriorly in the left kidney midpole level image 28 serie s 7. BOWEL: Oral contrast reaches level of distal transverse colon. There is no suspicious small or large bowel dilatation. Stable mild to moderate focal ill-defined fluid and fat stranding in the proximal sigmoid colon left pelvis anteriorly axial image 65, this is unchanged from last 2 CT studies. No new free air. No new adjacent focal fluid collection. Some focal fatty prominence extends anteriorly inf eriorly seen on coronal image 36 UTERUS/ADNEXA: Uterus surgically absent. LYMPH NODES: No greater than 1cm abdominal or pelvic lymph nodes are appreciated. OSSEOUS STRUCTURES: No significant abnormality is seen. OTHER: No significant additional abnormality is seen. IMPRESSION: Overall stable findings from last 2 CTs, cannot rule out persistent mild uncomplicated ac paulina colitis/epiploic appendagitis involving the proximal sigmoid colon in the anterior left pelvis. N o new significant findings identified.
== END | disposition home or self-care (01) ==
LOC: RADCTMAIN 08:44
PROVIDERS: ATTEND Surgery
DX: K57.33 Diverticulitis of large intestine without perforation or abscess with bleeding (principal)
CPT/HCPCS: 82565; 84520; 74177; 36415; Q9967 ×2

== ENCOUNTER 2020-10-11 13:14 | Day surgery (SDC) | payer MEDICARE, OTHER ==
[2020-10-06 16:15] VITALS: BMI 25.0
[~2020-10-11 13:14] MED LIST changes: +ACETAMINOPHEN TAB 500 MG TAB PO PRN; +DEXAMETHASONE SOD PHOSPHATE 4 MG/ML 1 ML VIAL IV ONE; +HEPARIN SODIUM,PORCINE 5,000 UNIT/ML 1 ML VIAL SQ PRN; +LACTATED RINGERS 1,000 ML IV SCH; -LIDOCAINE 1% (10MG/ML) FOR IV START INTRADERMA PRN; +ONDANSETRON 4 MG/2 ML VIAL IVP ONE; +Pre Op ABX Message 1 EACH MISC MISCELLANE ONE
[2020-10-11] MEDS ORDERED: MIDAZOLAM 2 MG/2 ML VIAL ONE (14:50)
[2020-10-11] MEDS ORDERED: fentaNYL (PF) 50 MCG/ML 2 ML AMP ONE (14:50)
[2020-10-11] MEDS ORDERED: GLYCOPYRROLATE 0.2 MG/ML 2 ML VIAL ONE (14:50)
[2020-10-11] MEDS ORDERED: SUCCINYLCHOLINE CHLORIDE 100 MG/5 ML SYR IV ONE (14:50)
[2020-10-11] MEDS ORDERED: LIDOCAINE 1% INJ 10MG/ML (20 ML MDV) ONE (14:50)
[2020-10-11] MEDS ORDERED: ROCURONIUM 10 MG/ML (5 ML VIAL) IV ONE (14:50)
[2020-10-11] MEDS ORDERED: PROPOFOL 10 MG/ML 20 ML VIAL IV ONE (14:50)
[2020-10-11] MEDS ORDERED: PHENYLEPHRINE-0.9% NACL SYG 1,000 MCG/10 ML SYRINGE ONE (14:50)
[2020-10-11] MEDS ORDERED: NEOSTIGMINE 1 MG/ML 10 ML VIAL ONE (14:50)
--- NOTE | 2020-10-11 15:10 | P.GSHP ---
History of Present Illness H&P Date: 10/11/20 Chief Complaint: Adhesions, left lower quadrant pain This is a 64-year-old female with a chronic issues with abdominal pain. Patient is undergoing diagnostic laparoscopy and lysis of adhesions today. For her left lower quadrant pain. Past Medical History Past Medical History: Cancer, GERD/Reflux, Syncope Additional Past Medical History / Comment(s): Sjogren Syndrome. Hx anal cancer,in remission. Recent syncope. Abdominal pain, which increases after eating X2 months. History of Any Multi-Drug Resistant Organisms: None Reported Past Surgical History: Breast Surgery, Hysterectomy, Orthopedic Surgery Additional Past Surgical History / Comment(s): Breast biopsy, right elbow procedure, ORIF left ankle-hardware removed, hemorrhoidectomy X2, colonoscopy, BIOPSY of rectum, lump removed from head. Past Anesthesia/Blood Transfusion Reactions: Previous Problems w/ Anesthesia, Motion Sickness, Postoperative Nausea & Vomiting (PONV) Additional Past Anesthesia/Blood Transfusion Reaction / Comment(s): Had hard time waking up after surgery X1. Past Psychological History: Anxiety, Depression Smoking Status: Current every day smoker Past Alcohol Use History: None Reported Additional Past Alcohol Use History / Comment(s): Started smoking at age 13, SMOKES 1PPD. Past Drug Use History: None Reported - Past Family History Mother Family Medical History: Cancer Additional Family Medical History / Comment(s): Lymphoma. . Brother(s) Family Medical History: Cancer Additional Family Medical History / Comment(s): Esophagus, liver. . Father Family Medical History: Cancer Medications and Allergies Home Medications Medication Instructions Recorded Confirmed Type ALPRAZolam [Xanax] 0.25 mg PO BID PRN 11/17/18 10/11/20 History Venlafaxine HCl [Effexor XR] 150 mg PO BID@1000,209911/17/18 10/11/20 History Gabapentin 1,200 mg PO BID@1000,209902/15/20 10/11/20 History Diphenoxylate HCl/Atropine 1 tab PO QID PRN 08/22/20 10/11/20 History [Lomotil 2.5-0.025 mg Tablet] HYDROcodone/APAP 7.5-325MG [[place] 1 tab PO Q6H PRN 08/22/20 10/11/20 History 7.5-325] Pantoprazole Sodium [Protonix] 40 mg PO DAILY@1000 PRN 08/22/20 10/11/20 History Allergies Allergy/AdvReac Type Severity Reaction Status Date / Time ibuprofen AdvReac severe Verified 10/06/20 15:59 ringing in ears Surgical - Exam Vital Signs Temp Pulse Resp BP Pulse Ox 97.8 F 90 16 158/85 97 10/11/20 13:50 10/11/20 13:50 10/11/20 13:50 10/11/20 13:50 10/11/20 13:50 - General well developed, well nourished, no distress - Eyes PERRL - ENT normal pinna - Neck no masses - Respiratory normal expansion - Cardiovascular Rhythm: regular - Abdomen Mild tenderness left lower quadrant Abdomen: soft Assessment and Plan Assessment: Left lower quadrant pain Adhesions We'll perform diagnostic laparoscopy with lysis of adhesions
[2020-10-11] MEDS ORDERED: BUPIVACAINE (PF) 0.5% 30 ML VIAL SQ ONE ×2 (15:15)
[2020-10-11] MEDS ORDERED: SODIUM CHLORIDE 0.9% 50 ML with ceFAZolin 2,000 MG IV ONE ×2 (15:19)
--- NOTE | 2020-10-11 15:44 | P.OP ---
Date of Procedure: 10/11/20 Preoperative Diagnosis: Adhesions Postoperative Diagnosis: Lesions Inflammatory mass sigmoid colon Procedure(s) Performed: Diagnostic laparoscopy with lysis of adhesions Anesthesia: FAY Surgeon: Pedro Rivera Estimated Blood Loss (ml): 5 Pathology: none sent Condition: stable Disposition: PACU Description of Procedure: The patient's placed on the operating table in the supine position. She received general endotracheal tube anesthesia. Her abdomen was prepped and draped usual fashion. The skin was anesthetized with 1% local Xylocaine. Using a 11 blade the skin was incised in the supraumbilical position. Using a [place] clamp the fascia was grasped and Veress needles placed the peritoneal cavity. Position versus confirmed with positive drop test. The abdomen was insufflated. And then a 5 mm trocar was placed into the peritoneal cavity. The laparoscope placed in the paracolic cavity. Next a 5 mm trochars placed the suprapubic position. The abdomen was examined left lower quadrant. There is he sings in the left upper quadrant. These were lysed using Harmonic scissors. Then there was an N mass of the sigmoid colon seen it was unclear what was causing the inflammation it was unclear was a tumor or diverticulitis. This point the abdomen was desufflated the trochars withdrawn. Skin was closed interrupted 3-0 Monocryl suture. Dermabond was applied. Patient top she will was sent to recovery room stable condition.
[2020-10-11] MEDS: HYDROmorphone 0.5 MG/0.5 ML SYRINGE IVP PRN ×2 (16:00→16:05)
[2020-10-11 16:15] VITALS: TEMP 97.9
[2020-10-11 16:28] VITALS: RESP 16
[2020-10-11] MEDS ORDERED: LACTATED RINGERS 1,000 ML IV ONE ×2 (16:30)
[2020-10-11 17:44] VITALS: BP 110/71; PULSE 79
== END 2020-10-11 18:18 | disposition home or self-care (01) ==
LOC: OR 13:14
PROVIDERS: ATTEND Surgery
DX: K66.0 Peritoneal adhesions (postprocedural) (postinfection) (principal); K63.9 Disease of intestine, unspecified; K21.9 Gastro-esophageal reflux disease without esophagitis; M35.00 Sjogren syndrome, unspecified; Z85.048 Personal history of other malignant neoplasm of rectum, rectosigmoid junction, and anus; Z90.710 Acquired absence of both cervix and uterus; Z98.890 Other specified postprocedural states; F41.9 Anxiety disorder, unspecified; F32.9 Major depressive disorder, single episode, unspecified; F17.210 Nicotine dependence, cigarettes, uncomplicated; Z80.7 Family history of other malignant neoplasms of lymphoid, hematopoietic and related tissues; Z80.0 Family history of malignant neoplasm of digestive organs; Z79.899 Other long term (current) drug therapy; Z88.6 Allergy status to analgesic agent
CPT/HCPCS: 49329; J1644; J1100; J2710; J2405; J0690; J2001; J3010; J2370; J0330; J2704; J1170

== ENCOUNTER → 2020-10-20 | Outpatient (CLI) | payer MEDICARE, OTHER ==
[2020-10-20 16:43] LABS: HCT 43.3 % (34.0-46.0); HGB 14.2 gm/dL (11.4-16.0); MCH 32.9 pg (25.0-35.0); MCHC 32.7 g/dL (31.0-37.0); MCV 100.5 fL (80.0-100.0); Macrocytosis Slight; Mean Platelet Volume 6.8; Platelet Count 325 k/uL (150-450); RBC 4.31 m/uL (3.80-5.40); RDW 14.2 % (11.5-15.5); WBC 6.2 k/uL (3.8-10.6)
[2020-10-20 16:49] LABS: Potassium 4.1 mmol/L (3.5-5.1)
== END | disposition home or self-care (01) ==
LOC: LABPAT 16:14
PROVIDERS: ATTEND Surgery
DX: Z01.818 Encounter for other preprocedural examination (principal); K57.33 Diverticulitis of large intestine without perforation or abscess with bleeding
CPT/HCPCS: 36415; 80051; 85027; 86850; 86900; 86901

== ENCOUNTER 2020-10-25 07:54 | Inpatient (IN) | payer MEDICARE, OTHER ==
[2020-10-18 14:20] VITALS: BMI 27.9
[~2020-10-25 07:54] MED LIST changes: -DEXAMETHASONE SOD PHOSPHATE 4 MG/ML 1 ML VIAL IV ONE; -HEPARIN SODIUM,PORCINE 5,000 UNIT/ML 1 ML VIAL SQ PRN; +HEPARIN SODIUM,PORCINE/PF 5,000 UNIT/0.5 ML SYRINGE SQ PRN; -LACTATED RINGERS 1,000 ML IV SCH; +LIDOCAINE 1% (10MG/ML) FOR IV START INTRADERMA PRN; +MIDAZOLAM 2 MG/2 ML VIAL IV PRN; -ONDANSETRON 4 MG/2 ML VIAL IVP ONE; -Pre Op ABX Message 1 EACH MISC MISCELLANE ONE; +fentaNYL (PF) 50 MCG/ML 2 ML AMP IVP PRN; +metroNIDAZOLE-NS PMX 500 MG in SALINE 1 100ML.BAG IVPB PRN
[2020-10-25] MEDS ORDERED: ONDANSETRON 4 MG/2 ML VIAL ONE (08:32)
[2020-10-25] MEDS ORDERED: NA PHOS,M-B/NA PHOS,DI-BA 133 ML ENEMA RECTAL ONE (08:43)
[2020-10-25] MEDS ORDERED: ALVIMOPAN 12 MG CAPSULE PO ONE (08:55)
[2020-10-25] MEDS: LACTATED RINGERS 1,000 ML IV SCH ×2 (09:05→17:29)
[2020-10-25] MEDS ORDERED: DEXAMETHASONE SOD PHOSPHATE 4 MG/ML 1 ML VIAL IV ONE (09:06)
[2020-10-25] MEDS ORDERED: MIDAZOLAM 2 MG/2 ML VIAL IV ONE (09:32)
--- NOTE | 2020-10-25 09:35 | P.GSHP ---
History of Present Illness H&P Date: 10/25/20 Chief Complaint: Inflammatory mass sigmoid colon This a 65-year-old female who presents today for sigmoid resection. Patient has had complaints of left lower quadrant abdominal pain. She recent diagnostic laparoscopy shows inflammatory mass and sigmoid colon. Patient has had difficulty with bowel movements and constipation and chronic pain. She has a previous history of anal squamous cell carcinoma Past Medical History Past Medical History: Cancer, GERD/Reflux, Syncope Additional Past Medical History / Comment(s): Sjogren Syndrome. Hx anal cancer,in remission. Recent syncope. Abdominal pain, which increases after eating X2 months. diverticulitis History of Any Multi-Drug Resistant Organisms: None Reported Past Surgical History: Breast Surgery, Hysterectomy, Orthopedic Surgery Additional Past Surgical History / Comment(s): Breast biopsy, right elbow procedure, ORIF left ankle-hardware removed, hemorrhoidectomy X2, colonoscopy, BIOPSY of rectum, lump removed from head, laproscopy lysis of adhesions. Past Anesthesia/Blood Transfusion Reactions: Previous Problems w/ Anesthesia, Motion Sickness, Postoperative Nausea & Vomiting (PONV) Additional Past Anesthesia/Blood Transfusion Reaction / Comment(s): Had hard time waking up after surgery X1. Smoking Status: Current every day smoker - Past Family History Mother Family Medical History: Cancer Additional Family Medical History / Comment(s): Lymphoma. . Brother(s) Family Medical History: Cancer Additional Family Medical History / Comment(s): Esophagus, liver. . Father Family Medical History: Cancer Additional Family Medical History / Comment(s): kidney cancer Medications and Allergies Home Medications Medication Instructions Recorded Confirmed Type ALPRAZolam [Xanax] 0.25 mg PO BID PRN 11/17/18 10/25/20 History Venlafaxine HCl [Effexor XR] 150 mg PO BID@1000,2100 11/17/18 10/25/20 History Gabapentin 1,200 mg PO BID@1000,2100 02/15/20 10/25/20 History Diphenoxylate HCl/Atropine 1 tab PO QID PRN 08/22/20 10/25/20 History [Lomotil 2.5-0.025 mg Tablet] HYDROcodone/APAP 7.5-325MG [[place] 1 tab PO Q6H PRN 08/22/20 10/25/20 History 7.5-325] Pantoprazole Sodium [Protonix] 40 mg PO DAILY@1000 PRN 08/22/20 10/25/20 History Docusate [Colace] 100 mg PO BID #20 capsule 10/11/20 10/25/20 Rx Acetaminophen Tab [Tylenol] 650 mg PO Q6H PRN 10/18/20 10/25/20 History Allergies Allergy/AdvReac Type Severity Reaction Status Date / Time ibuprofen AdvReac severe Verified 10/25/20 08:54 ringing in ears Surgical - Exam Vital Signs Temp Pulse Resp BP Pulse Ox 97.4 F L 101 H 16 141/90 93 L 10/25/20 08:24 10/25/20 08:24 10/25/20 08:24 10/25/20 08:24 10/25/20 08:24 - General well developed, well nourished, no distress - Eyes PERRL - ENT normal pinna - Neck no masses - Respiratory normal expansion - Cardiovascular Rhythm: regular - Abdomen Left lower quadrant tenderness Abdomen: soft Assessment and Plan Assessment: Inflamed female;. Patient will undergo exposure laparotomy sigmoid resection. Patient is aware the risk colostomy.
[2020-10-25] MEDS ORDERED: PHENYLEPHRINE-0.9% NACL SYG 1,000 MCG/10 ML SYRINGE ONE (09:56)
[2020-10-25] MEDS ORDERED: ROCURONIUM 10 MG/ML (5 ML VIAL) IV ONE (09:56)
[2020-10-25] MEDS ORDERED: SUCCINYLCHOLINE CHLORIDE 100 MG/5 ML SYR IV ONE (09:56)
[2020-10-25] MEDS ORDERED: LIDOCAINE 1% INJ 10MG/ML (20 ML MDV) ONE (09:56)
[2020-10-25] MEDS ORDERED: PROPOFOL 10 MG/ML 20 ML VIAL IV ONE (09:56)
[2020-10-25] MEDS ORDERED: NEOSTIGMINE 1 MG/ML 10 ML VIAL ONE (09:56)
[2020-10-25] MEDS ORDERED: fentaNYL (PF) 50 MCG/ML 2 ML AMP ONE (09:56)
[2020-10-25] MEDS ORDERED: GLYCOPYRROLATE 0.2 MG/ML 2 ML VIAL ONE (09:56)
[2020-10-25] MEDS ORDERED: NALOXONE 0.4 MG/ML 1 ML VIAL IV PRN (10:33)
--- NOTE | 2020-10-25 10:36 | P.ANPRN ---
Procedure Note - Anesthesia - Epidural/Spinal Epidural Continuous Time Out Performed: Yes Date of Procedure: 10/25/20 Procedure Start Time: 09:32 Procedure Stop Time: 09:41 Location of Patient: PreOp Indication: Acute Post-Operative Pain, Requested by Surgeon Sedation Type: Sedate with meaningful contact maintained Preparation: Sterile Dressing Position: Sitting Catheter: Indwelling Needle Guage: 18 Injectate: Test Dose Lidocaine1.5% w/1:200,000 epi Blood Aspirated: No Pain Paresthesia on Injection Noted: No Events: Uneventful and Well Tolerated (test dose given , no reaction)
[2020-10-25] MEDS ORDERED: LACTATED RINGERS 1,000 ML IV ONE (11:11)
[2020-10-25] MEDS ORDERED: ONDANSETRON 4 MG/2 ML VIAL IVP PRN (11:29)
--- NOTE | 2020-10-25 11:29 | P.OP ---
Date of Procedure: 10/25/20 Preoperative Diagnosis: Sigmoid mass Postoperative Diagnosis: Inflammatory sigmoid mass with perforation extending into abdominal sidewall Rectal mesentery mass Procedure(s) Performed: Sigmoid resection with end colostomy Anesthesia: FAY Surgeon: Pedro Rivera Estimated Blood Loss (ml): 25 Pathology: other (Sigmoid colon, rectum) Condition: stable Disposition: PACU Description of Procedure: Patient's placed the operative table in supine position. She received general anesthesia. Her abdomen was prepped and draped usual sterile fashion. She then placed in dorsal 5 position. There was entered through a low midline incision. The [place] tract with wound. The sigmoid colon was seen adherent to the lateral sidewall. There was omentum attached as well. Using sharp and blunt dissection the sigmoid colon and omentum were dissected away from the abdominal sidewall. There appeared to be evidence of perforation of the colon. At this point the colon was transected proximally with a GI stapler. And then using the incentive device the mesentery the bowel was divided. In the rectal mesentery there is another mass seen. The rectal mesentery was divided and the specimen included the mass. The rectum was transected with the contour stapler. The specimen sent to pathology. Due to the inflammatory reaction in the pelvis. Decided not to perform a anastomosis. The descending colon was brought up through the abdominal wall for colostomy. The abdomen was areas of bleeding seen. The fascia is closed loop #1 PDS suture. Skin was closed with richa. The colostomy then matured with 3-0 Vicryl suture. Silver dressing was applied.
[2020-10-25] MEDS: ROPIVACAINE 250 MG, HYDROMORPHONE (PF) 5 MG in SODIUM CHLORIDE 0.9% 200 ML EPIDURAL PRN ×2 (11:37→14:01)
[2020-10-25] MEDS ORDERED: LORazepam 2 MG/ML INJ IV PRN (17:23)
[2020-10-25] MEDS: D5-0.45% NACL WITH KCL 20MEQ/L 1,000 ML IV SCH ×2 (17:28→17:44)
[2020-10-25] MEDS: NICOTINE 14MG/24HR PATCH TRANSDERM SCH (17:42)
[2020-10-25] MEDS: HEPARIN SODIUM,PORCINE/PF 5,000 UNIT/0.5 ML SYRINGE SQ SCH (17:47)
[2020-10-25] MEDS ORDERED: SODIUM CHLORIDE 0.9% 1,000 ML IV ONE (21:40)
--- NOTE | 2020-10-25 21:49 | CONS ---
CONSULTATION DATE OF SERVICE: 10/25/2020 REASON FOR CONSULTATION: Advice regarding GERD, Sjogren syndrome and other medical issues, requested by Dr. Rivera. HISTORY OF PRESENT ILLNESS: This 65-year-old woman with a past medical history of GERD, history of syncope, history of Sjogren syndrome, history of lung cancer, being followed by Dr. Loja in the outpatient setting, underwent sigmoid resection and end-colostomy for inflammatory and significant mass with perforation extending into the anterior abdominal area sidewall and rectal mesenteric mass by Dr. Rivera. The patient is complaining of severe pain postoperatively. There is no history of any fever, rigor or chills. No history of headache, loss of consciousness, seizures. PAST MEDICAL HISTORY: History of GERD, history of syncope, history of Sjogren syndrome, breast surgery, hysterectomy, previous problems with anesthesia, anxiety depression. MEDICATIONS: Ventolin. Protonix, [place], gabapentin, Colace, Lomotil, Tylenol, Xanax. Doses are reviewed. ALLERGIES: IBUPROFEN. FAMILY HISTORY: History of lymphoma in the family. SOCIAL HISTORY: History of smoking, continued ongoing. REVIEW OF SYSTEMS: ENT: No diminished hearing. No diminished vision. CARDIOVASCULAR SYSTEM: No angina, palpitations. RESPIRATORY SYSTEM: As mentioned earlier. GI: As mentioned earlier. : No dysuria or retention. NERVOUS SYSTEM: No numbness, weakness. ALLERGY/IMMUNOLOGY: No asthma, hayfever. MUSCULOSKELETAL: As mentioned earlier. HEMATOLOGY/ONCOLOGY: No history of anemia. ENDOCRINE: No history of diabetes, hypothyroidism. CONSTITUTIONAL: As mentioned earlier. DERMATOLOGY: Negative. RHEUMATOLOGY: Negative. PSYCHIATRY: As mentioned earlier. PHYSICAL EXAMINATION: Patient alert and oriented x3. Pulse 86, blood pressure 96/67, respiration 20, temperature normal, pulse ox 95% on 2 L. HEENT: Conjunctivae normal. NECK: No jugular venous distention. CARDIOVASCULAR SYSTEM: S1, S2 muffled. RESPIRATORY SYSTEM: Breath sounds diminished at the bases. A few scattered rhonchi and crackles. ABDOMEN: Soft, non-tender. LEGS: No edema. No swelling. NERVOUS SYSTEM: No focal deficit. LABS: COVID-19 is negative. Hematology MCV is 100.5. Chemistry normal. ASSESSMENT: 1. Status post sigmoid resection and end-colostomy for inflammatory sigmoid mass with perforation extending to the abdominal sidewall. 2. Severe pain postoperatively. 3. History of gastroesophageal reflux disease. 4. History of syncope. 5. History of cancer. 6. History of recent syncope. 7. History of diverticulitis. 8. History of breast surgery. 9. History of hysterectomy. 10.Anxiety, depression. 11.History of nicotine dependence. 12.FULL CODE. RECOMMENDATIONS AND DISCUSSION: In this 65-year-old woman who presented with multiple medical issues, at this time I recommend to continue the current medications, continue symptomatic treatment. Otherwise, repeat labs. Ativan for anxiety. Habitrol patch. Will follow the patient closely. The home medication may be continued. Thank you, Dr. Rivera, for letting us participate in the care of this patient. MMODL / IJN: [id number] / MICHELLE
[2020-10-25 22:27] LABS: Glucose,Whole Blood 144 mg/dL (75-99)
--- NOTE | 2020-10-25 22:50 | XR ---
EXAMINATION TYPE: XR chest 1V portable DATE OF EXAM: 10/25/2020 COMPARISON: 08/23/2020 HISTORY: Sepsis altered mental status TECHNIQUE: Single view FINDINGS: There is some small linear infiltrate and atelectasis left lung base. There is also mild at electasis medial right lower lobe. Heart size is normal. There is no heart failure. There is calcifie d granulomata at the right pulmonary hilum. There are chest leads. There is no heart failure. IMPRESSION: There is some subsegmental atelectasis at the lung bases which is new compared to old exa m. Normal heart. Old granulomatous disease.
--- NOTE | 2020-10-25 23:03 | XR ---
EXAMINATION TYPE: XR abdomen 1V DATE OF EXAM: 10/25/2020 COMPARISON: NONE HISTORY: Altered mental status. Abdominal pain TECHNIQUE: Single view FINDINGS: There are midline skin richa. There is no sign of intestinal obstruction or pneumoperiton eum. Fecal pattern is normal. There is no evidence of abdominal mass. There are no pathologic calcifi cations. There is no sign of a foreign body. IMPRESSION: Nonacute abdomen.
[2020-10-25 23:35] LABS: Basophils % (A) 0 %; Eosinophils # (A) 0.1 k/uL (0-0.7); Eosinophils % (A) 1 %; HCT 40.3 % (34.0-46.0); HGB 13.2 gm/dL (11.4-16.0); Lymphocytes # (A) 1.1 k/uL (1.0-4.8); Lymphocytes % (A) 9 %; MCH 32.8 pg (25.0-35.0); MCHC 32.8 g/dL (31.0-37.0); Macrocytosis Slight; Mean Platelet Volume 7.1; Monocytes # (A) 0.6 k/uL (0-1.0); Monocytes % (A) 5 %; Neutrophils # (A) 10.8 k/uL (1.3-7.7); Neutrophils % (A) 85 %; Platelet Count 259 k/uL (150-450); RBC 4.03 m/uL (3.80-5.40); RDW 14.2 % (11.5-15.5); WBC 12.8 k/uL (3.8-10.6)
[2020-10-25 23:58] LABS: ALT 7 U/L (4-34); AST 17 U/L (14-36); African American GFR (CKD) >90 (>60 ml/min/1.73 sqM); Albumin 2.8 g/dL (3.5-5.0); Albumin/Globulin Ratio 1.1; Alkaline Phosphatase 113 U/L (38-126); Anion Gap 3 mmol/L; Blood Urea Nitrogen 9 mg/dL (7-17); Calcium 8.3 mg/dL (8.4-10.2); Carbon Dioxide 30 mmol/L (22-30); Chloride 106 mmol/L (98-107); Globulin 2.5 g/dL; Glucose 116 mg/dL (74-99); Magnesium 1.6 mg/dL (1.6-2.3); Non-African American GFR(CKD) >90 (>60 ml/min/1.73 sqM); Sodium 139 mmol/L (137-145); Total Bilirubin 0.4 mg/dL (0.2-1.3); Total Protein 5.3 g/dL (6.3-8.2)
[2020-10-26] MEDS: ALVIMOPAN 12 MG CAPSULE PO SCH ×3 (00:12→21:25)
[2020-10-26] MEDS: HEPARIN SODIUM,PORCINE/PF 5,000 UNIT/0.5 ML SYRINGE SQ SCH ×4 (01:17→23:27)
[2020-10-26] MEDS: HYDROmorphone 1 MG/ML 1 ML SYRINGE IVP PRN ×2 (02:08→15:40)
[2020-10-26] MEDS: D5-0.45% NACL WITH KCL 20MEQ/L 1,000 ML IV SCH ×2 (02:08→12:30)
[2020-10-26] MEDS ORDERED: SODIUM CHLORIDE 0.9% 500 ML 500 ML IV ONE (02:17)
[2020-10-26] MEDS: SODIUM CHLORIDE 0.9% 1,000 ML IV SCH (02:30)
--- NOTE | 2020-10-26 07:34 | P.PN ---
Progress Note - Text Date: 10/26/2020 Time: 07:07 The patient is status post, low anterior resection, postoperative day number 1. The patient has no complaints of nausea vomiting or headache. The patient does not complain of any lower extremity numbness or weakness. The epidural is running at[5] mL per hour. VAS 3-10. The epidural will be maintained and a djusted as needed.
[2020-10-26] MEDS ORDERED: ALPRAZolam 0.25 MG TAB PO PRN (08:00)
[2020-10-26] MEDS: GABAPENTIN 400 MG CAP PO SCH ×2 (08:15→21:30)
[2020-10-26] MEDS: NICOTINE 14MG/24HR PATCH TRANSDERM SCH (08:16)
[2020-10-26 08:17] LABS: Basophils % (A) 0 %; Eosinophils % (A) 0 %; HCT 39.6 % (34.0-46.0); Lymphocytes # (A) 1.4 k/uL (1.0-4.8); Lymphocytes % (A) 14 %; MCH 32.9 pg (25.0-35.0); MCHC 32.9 g/dL (31.0-37.0); MCV 100.1 fL (80.0-100.0); Macrocytosis Slight; Monocytes # (A) 0.6 k/uL (0-1.0); Monocytes % (A) 6 %; Neutrophils % (A) 79 %; Platelet Count 251 k/uL (150-450); RBC 3.96 m/uL (3.80-5.40); RDW 14.2 % (11.5-15.5); WBC 10.1 k/uL (3.8-10.6)
[2020-10-26 08:23] LABS: African American GFR (CKD) >90 (>60 ml/min/1.73 sqM); Anion Gap -1 mmol/L; Blood Urea Nitrogen 8 mg/dL (7-17); Calcium 8.4 mg/dL (8.4-10.2); Carbon Dioxide 34 mmol/L (22-30); Chloride 107 mmol/L (98-107); Glucose 109 mg/dL (74-99); Magnesium 1.7 mg/dL (1.6-2.3); Non-African American GFR(CKD) >90 (>60 ml/min/1.73 sqM); Potassium 4.1 mmol/L (3.5-5.1); Sodium 140 mmol/L (137-145)
[2020-10-26] MEDS: VENLAFAXINE HCL ER 150 MG CAP PO SCH ×3 (09:21→21:26)
--- NOTE | 2020-10-26 11:01 | ECHOF ---
Referral Reason:Rule out heart disease MEASUREMENTS -------- HEIGHT: 165.1 cm WEIGHT: 72.1 kg BP: IVSd: 1.3 cm (0.6 - 1.1) LVIDd: 3.3 cm (3.9 - 5.3) LVPWd: 1.2 cm (0.6 - 1.1) EDV(Teich): 43 ml IVSs: 1.3 cm LVIDs: 2.2 cm LVPWs: 1.5 cm %IVS Thck: 1 % ESV(Teich): 16 ml EF(Teich): 63 % %FS: 33 % SV(Teich): 27 ml MV E Bassam: 0.86 m/s MV DecT: 172 ms MV Dec [place]: 5.0 m/s MV A Bassam: 1.08 m/s MV E/A Ratio: 0.80 MV PHT: 50 ms MR Vmax: 0.83 m/s MR maxP.73 mmHg AV Vmax: 0.84 m/s AV maxP.85 mmHg FINDINGS -------- This was a technically difficult study with suboptimal views. Limited Study Pt is uncooperative The left ventricular size is normal. There is mild concentric left ventricular hypertrophy. Overa ll left ventricular systolic function is normal with, an EF between 55 - 60 %. The RV was not well visualized. The left atrium was not well visualized. The right atrium was not well visualized. Lumason used The aortic valve was not well visualized. The mitral valve was not well visualized. The tricuspid valve was not well visualized. The pulmonic valve was not well visualized. The aortic root size is normal. IVC Not well visulized. CONCLUSIONS -------- 1. The left ventricular size is normal. 2. There is mild concentric left ventricular hypertrophy. 3. Overall left ventricular systolic function is normal with, an EF between 55 - 60 %. CHOIR TEACHER: Elsa Schafer RDCS
--- NOTE | 2020-10-26 12:42 | P.PN ---
Subjective This is a pleasant 65 old female with past medical history of GERD, stroke ring syndrome, history of anal cancer in remission. History of syncope. Presents with signs and symptoms of abdominal pain. She's been evaluated by surgeon primary team with Dr. Michaels and underwent sigmoid resection for her sigmoid mass with perforation and rectal mesentery mass. Today is postoperative day #1. She is complaining of from abdominal pain and she refused to touch her abdomen although she still on epidural per staff, I offered to give pain medication more for the patient and she is not interested. She is hemodynamically stable, she is saturating 92% on 3 L oxygen via nasal cannula. She was hypotensive last night 89/61 and received 500 mL of blood loss. 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 Her WBC is back to normal at 10.1 K today. Troponin is elevated at 0.09 and 0.103. Echocardiogram done to day showing ejection fraction of 55-60% with mild LVH, vulvar and schmidt are not well visualized Abdominal x-ray nonacute abdomen. Chest x-ray: Atelectasis. She still on IV fluid and subcutaneous heparin We will start the patient on Zosyn for her fever and hypotension. Patient is not on any antihypertensive medication Review of systems CONSTITUTIONAL: No fever, no malaise, no fatigue. HEENT: No recent visual problems or hearing problems. Denied any sore throat. CARDIOVASCULAR: No orthopnea, PND, no palpitations, no syncope. PULMONARY: No shortness of breath, no cough, no hemoptysis. GASTROINTESTINAL: No diarrhea, no nausea, no vomiting, no abdominal pain. Normoactive bowel sounds. Active Medications Generic Name Dose Route Start Last Admin Trade Name Freq PRN Reason Stop Dose Admin Acetaminophen 650 mg 10/26/20 21:40 Acetaminophen Tab 325 Mg Tab PO Q6HR MINISTERIO Alprazolam 0.25 mg 10/26/20 08:00 Alprazolam 0.25 Mg Tab PO BID PRN Anxiety Alvimopan 12 mg 10/25/20 21:00 10/26/20 09:21 Alvimopan 12 Mg Capsule PO 11/01/20 09:01 12 mg BID MINISTERIO Administration Gabapentin 1,200 mg 10/26/20 08:00 10/26/20 08:15 Gabapentin 400 Mg Cap PO 1,200 mg BID@1000,2100 MINISTERIO Administration Heparin Sodium (Porcine) 5,000 unit 10/25/20 16:00 10/26/20 08:14 Heparin Sodium,Porcine/Pf 5,000 Unit/0.5 Ml Syringe SQ 5,000 unit Q8HR MINISTERIO Administration Hydromorphone HCl 1 mg 10/25/20 11:29 10/26/20 02:08 Hydromorphone 1 Mg/Ml 1 Ml Syringe IVP 1 mg Q3H PRN Administration Severe Pain Lactated Ringer's 1,000 mls @ 20 mls/hr 10/24/20 16:30 10/25/20 17:29 Lactated Ringers IV Not Given .Q24H MINISTERIO Ropivacaine 250 mg/ 250 mls @ 0 mls/hr 10/25/20 10:33 10/26/20 04:35 Hydromorphone HCl 5 mg/ Sodium EPIDURAL 5 mls/hr Chloride .Q0M PRN Infusion Pain Control Protocol Per Protocol Potassium Chloride/Dextrose/Sod Cl 1,000 mls @ 125 mls/hr 10/25/20 11:30 10/26/20 02:08 D5%-1/2ns-Kcl 20 Meq/L Iv Solution IV 125 mls/hr .Q8H MINISTERIO Administration Piperacillin Sod/Tazobactam 100 mls @ 25 mls/hr 10/26/20 16:00 Sod 3.375 gm/ Sodium Chloride IVPB Q8HR MINISTERIO Lidocaine HCl 0.1 ml 10/24/20 16:18 10/25/20 09:05 Lidocaine 1% (10mg/Ml) For Iv Start INTRADERMA 0.1 ml PER PROTOCOL PRN Administration IV Start Lorazepam 1 mg 10/25/20 17:23 Lorazepam 2 Mg/Ml Inj IV Q4HR PRN Anxiety Naloxone HCl 0.2 mg 10/25/20 10:33 Naloxone 0.4 Mg/Ml 1 Ml Vial IV Q2M PRN Opioid Reversal Nicotine 1 patch 10/25/20 17:30 10/26/20 08:16 Nicotine 14mg/24hr Patch TRANSDERM 1 patch DAILY MINISTERIO Administration Ondansetron HCl 4 mg 10/25/20 11:29 Ondansetron 4 Mg/2 Ml Vial IVP Q8H PRN Nausea And Vomiting Venlafaxine HCl 150 mg 10/26/20 08:00 10/26/20 09:21 Venlafaxine Hcl Er 150 Mg Cap PO 150 mg BID@1000,2100 MINISTERIO Administration Objective - Vital Signs Vital signs: Vital Signs Temp 98.4 F 10/26/20 08:00 Pulse 89 10/26/20 08:00 Resp 20 10/26/20 08:00 BP 122/75 10/26/20 08:00 Pulse Ox 92 L 10/26/20 08:00 Intake & Output 10/25/20 10/26/20 10/26/20 18:59 06:59 18:59 Intake Total 2427 34.3 Output Total 1400 700 700 Balance 1027 -665.7 -700 Weight 67.9 kg 72.5 kg Intake: IV 1560 Intake, IV Titration 867 34.3 Amount Lactated Ringers 1,000 ml 860 @ 0 mls/hr IV .[facility] Rx#:[id number] Ropivacaine 250 mg 7 34.3 Hydromorphone (Pf) 5 mg In Sodium Chloride 0.9% 200 ml @ Per Protocol EPIDURAL .Q0M PRN Rx#: [id number] Output: Urine 1375 700 700 Estimated Blood Loss 25 Other: Voiding Method Indwelling Catheter Indwelling Catheter Indwelling Catheter - Exam GENERAL: The patient is alert and oriented x3, not in any acute distress. Well developed, well nourished. HEENT: Pupils are round and equally reacting to light. EOMI. No scleral icterus. No conjunctival pallor. Normocephalic, atraumatic. No pharyngeal erythema. No th yromegaly. CARDIOVASCULAR: S1 and S2 present. No murmurs, rubs, or gallops. PULMONARY: Chest is clear to auscultation, no wheezing or crackles. -ABDOMEN: Patient refused exam of the abdomen MUSCULOSKELETAL: No joint swelling or deformity. EXTREMITIES: No cyanosis, clubbing, or pedal edema. NEUROLOGICAL: Gross neurological examination did not reveal any focal deficits. SKIN: No rashes. no petechiae. - Labs CBC & Chem 7: 10/26/20 07:19 10/26/20 07:20 Labs: Abnormal Lab Results - Last 24 Hours (Table) 10/25/20 10/25/20 10/25/20 Range/Units 22:11 23:15 23:15 WBC 12.8 H (3.8-10.6) k/uL MCV (80.0-100.0) fL Neutrophils # 10.8 H (1.3-7.7) k/uL Carbon Dioxide (22-30) mmol/L Glucose 116 H (74-99) mg/dL POC Glucose (mg/dL) 144 H (75-99) mg/dL Calcium 8.3 L (8.4-10.2) mg/dL Troponin I (0.000-0.034) ng/mL Total Protein 5.3 L (6.3-8.2) g/dL Albumin 2.8 L (3.5-5.0) g/dL 10/25/20 10/26/20 10/26/20 Range/Units 23:15 07:19 07:19 WBC (3.8-10.6) k/uL MCV 100.1 H (80.0-100.0) fL Neutrophils # 8.0 H (1.3-7.7) k/uL Carbon Dioxide (22-30) mmol/L Glucose (74-99) mg/dL POC Glucose (mg/dL) (75-99) mg/dL Calcium (8.4-10.2) mg/dL Troponin I 0.091 H* 0.103 H* (0.000-0.034) ng/mL Total Protein (6.3-8.2) g/dL Albumin (3.5-5.0) g/dL 10/26/20 Range/Units 07:20 WBC (3.8-10.6) k/uL MCV (80.0-100.0) fL Neutrophils # (1.3-7.7) k/uL Carbon Dioxide 34 H (22-30) mmol/L Glucose 109 H (74-99) mg/dL POC Glucose (mg/dL) (75-99) mg/dL Calcium (8.4-10.2) mg/dL Troponin I (0.000-0.034) ng/mL Total Protein (6.3-8.2) g/dL Albumin (3.5-5.0) g/dL Assessment and Plan Assessment: Sigmoid mass with perforation and rectal mesentery mass, status post sigmoid resection with end colostomy on 10/25 Transient period of hypotension with low-grade fever, could be secondary to intra-abdominal infection Elevated troponin, rule out cardiac causes History of lung cancer History of GERD History of syncope History of Sjogren's syndrome History of anal cancer in remission Plan: This is a pleasant 65 years old female presents with sigmoid and rectal mass s tatus post resection and end colostomy. Continue with postop care, DVT prophylaxis and pain management per surgery team At [facility] and continue with IV fluid normal saline at 100 mL per hour, monitor b lood pressure and electrolytes and creatinine. Cardiology consult for elevated troponin Check chest x-ray in the morning Labs and medication were reviewed.. Continue same treatment. Continue with sy mptomatic treatment. Resume home medication. Monitor lytes and vitals. DVT and GI prophylaxis. Further recommendationsas per clinical course of the patient DVT prophylaxis: Subcutaneous heparin GI Prophylaxis: Pepcid PT/OT: Pending Prognosis is guarded
--- NOTE | 2020-10-26 13:10 | P.PN ---
Subjective Progress Note Date: 10/26/20 CHIEF COMPLAINT: Sigmoid mass HISTORY OF PRESENT ILLNESS: Patient is postop day #1 status post sigmoid re section with end colostomy for inflammatory sigmoid mass with perforation extending into abdominal sidewall and rectal mesentery mass. Patient was transferred from regular medical floor to [facility] due to hypotension, low- grade temp and altered mental status. She was given fluid bolus. Chest x-ray shows some subsegmental atelectasis at the lung bases. Abdominal x-ray nonacute abdomen. Patient did have a low-grade temp of 100.5 last night. Temp this morning is 98.9. Patient's blood pressures have improved. She was hypotensive with a blood pressure of 70/55 yesterday and this morning 134/86. Patient does still have confusion. Did have nausea and complained of abdominal pain. She de nies passing any gas or bowel movement. Patient has epidural in place for pain control. WBC has normalized at 10.1 hemoglobin is 13 magnesium 1.7 patient did have elevated troponins 0.091 and 0.103 Patient seen and examined with Dr. dumas PHYSICAL EXAM: VITAL SIGNS: Reviewed. GENERAL: Well-developed in no acute distress. HEENT: No sclera icterus. Extraocular movements grossly intact. Moist buccal mucosa. Head is atraumatic, normocephalic. ABDOMEN: Soft. Nondistended. Incisional dressing clean dry and intact ostomy has serosanguineous fluid present NEUROLOGIC: Alert and oriented to name and place. She was confused on the year and month. She stated it was August 2000 Cranial nerves II through XII grossly intact. ASSESSMENT: 1. 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 2. Atelectasis possibly contributing to patient's low-grade temp 3. Hypotension 4. Elevated troponins cardiology on consult 5. Altered mental status changes PLAN: -Continue IV fluids -Continue antibiotics -Continue epidural for pain control -Continue antiemetics -Continue to monitor patient closely -Encouraged patient to use incentive spirometer -Encouraged patient to increase activity -GI prophylaxis Pepcid and DVT prophylaxis subcu heparin Physician Speech Correction Consultant note has been reviewed by physician. Signing provider agrees with the documented findings, assessment, and plan of care. Objective - Vital Signs Vital signs: Vital Signs Temp 98.4 F 10/26/20 08:00 Pulse 89 10/26/20 08:00 Resp 20 10/26/20 08:00 BP 122/75 10/26/20 08:00 Pulse Ox 92 L 10/26/20 08:00 Intake & Output 10/25/20 10/26/20 10/26/20 18:59 06:59 18:59 Intake Total 2427 34.3 Output Total 1400 700 700 Balance 1027 -665.7 -700 Weight 67.9 kg 72.5 kg Intake: IV 1560 Intake, IV Titration 867 34.3 Amount Lactated Ringers 1,000 ml 860 @ 0 mls/hr IV .[facility] Rx#:[id number] Ropivacaine 250 mg 7 34.3 Hydromorphone (Pf) 5 mg In Sodium Chloride 0.9% 200 ml @ Per Protocol EPIDURAL .Q0M PRN Rx#: [id number] Output: Urine 1375 700 700 Estimated Blood Loss 25 Other: Voiding Method Indwelling Catheter Indwelling Catheter Indwelling Catheter - Labs CBC & Chem 7: 10/26/20 07:19 10/26/20 07:20 Labs: Abnormal Lab Results - Last 24 Hours (Table) 10/25/20 10/25/20 10/25/20 Range/Units 22:11 23:15 23:15 WBC 12.8 H (3.8-10.6) k/uL MCV (80.0-100.0) fL Neutrophils # 10.8 H (1.3-7.7) k/uL Carbon Dioxide (22-30) mmol/L Glucose 116 H (74-99) mg/dL POC Glucose (mg/dL) 144 H (75-99) mg/dL Calcium 8.3 L (8.4-10.2) mg/dL Troponin I (0.000-0.034) ng/mL Total Protein 5.3 L (6.3-8.2) g/dL Albumin 2.8 L (3.5-5.0) g/dL 10/25/20 10/26/20 10/26/20 Range/Units 23:15 07:19 07:19 WBC (3.8-10.6) k/uL MCV 100.1 H (80.0-100.0) fL Neutrophils # 8.0 H (1.3-7.7) k/uL Carbon Dioxide (22-30) mmol/L Glucose (74-99) mg/dL POC Glucose (mg/dL) (75-99) mg/dL Calcium (8.4-10.2) mg/dL Troponin I 0.091 H* 0.103 H* (0.000-0.034) ng/mL Total Protein (6.3-8.2) g/dL Albumin (3.5-5.0) g/dL 10/26/20 Range/Units 07:20 WBC (3.8-10.6) k/uL MCV (80.0-100.0) fL Neutrophils # (1.3-7.7) k/uL Carbon Dioxide 34 H (22-30) mmol/L Glucose 109 H (74-99) mg/dL POC Glucose (mg/dL) (75-99) mg/dL Calcium (8.4-10.2) mg/dL Troponin I (0.000-0.034) ng/mL Total Protein (6.3-8.2) g/dL Albumin (3.5-5.0) g/dL
--- NOTE | 2020-10-26 15:01 | P.CRDCN ---
History of Present Illness History of present illness: HISTORY OF PRESENTING ILLNESS This is a pleasant 65-year-old female medical history significant for GERD, anal carcinoma. 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 Patient is seen and examined at bedside. She is admitted to the hospital with complaints of abdominal pain. Patient is Postop day #1 status post sigmoid resection with end colostomy for inflammatory sigmoid mass with perforation extending into abdomina l sidewall and rectal mesentery mass. Her troponin levels were 0.09-->0.10. Echocardiogram ordered which revealed left ventricular systolic function is normal with EF between 55-60%. Patient denies chest pain, palpitations, shortness of breath, lower extremity edema, fatigue, weakness, lightheadedness, syncope. patient denies history of [place], stroke, diabetes, hypertension, cardiac disease. Patient denies family history of any significant cardiac disease. Patient does not take any cardiac medications at home. Patient does not have any chest pain or shortness of breath. Laboratory data reviewed, sodium 140, potassium 4.1, serum creatinine 0.63, WBC 10.1, hemoglobin 13, platelets 251, covid-19 negative Vital signs blood pressure 122/75, maintaining oxygen saturation on 3 L nasal cannula, afebrile, heart rate in the 80s. Telemetry reveals sinus mechanism. REVIEW OF SYSTEMS At the time of my exam: CONSTITUTIONAL: Denies fever or chills. CARDIOVASCULAR: Denies chest pain, shortness of breath, orthopnea, PND or palpitations. RESPIRATORY: Denies cough. GASTROINTESTINAL: + abdominal pain, +nausea Denies diarrhea, constipation, vomiting. MUSCULOSKELETAL: Denies myalgias. NEUROLOGIC: Denies numbness, tingling, headacbe or weakness. ENDOCRINE: Denies fatigue, weight change, polydipsia or polyurina. GENITOURINARY: Denies burning, hematuria or urgency with micturation. HEMATOLOGIC: Denies history of anemia or bleeding. PHYSICAL EXAMINATION CONSTITUTIONAL: No apparent distress. HEENT: Head is normocephalic. No JVD. No carotid bruit. CHEST EXAMINATION: Lungs are clear to auscultation. No chest wall tenderness is noted on palpation or with deep breathing. HEART EXAMINATION: Regular rate and rhythm. S1, S2 heard. No murmurs, gallops or rub. ABDOMEN: Soft, Tender to palpation. Midline incision covered with gauze, Ostomy intact Positive bowel sounds. EXTREMITIES: 2+ peripheral pulses, no lower extremity edema and no calf tenderness. SKIN: midline incision NEUROLOGIC EXAMINATION: Patient is awake, alert and oriented x3. ASSESSMENT Elevated troponin- most likely not acute coronary sydrome PLAN -Will obtain EKG -Will complete ACS rule out- Complete troponin for a total of 3 -Will monitor patient overnight on cardiac telemetry -Further recommendations based on clinical course Nurse Practitioner note has been reviewed, I agree with a documented findings and plan of care. Patient was seen and examined. Past Medical History Past Medical History: Cancer, GERD/Reflux, Syncope Additional Past Medical History / Comment(s): Sjogren Syndrome. Hx anal cancer,in remission. Recent syncope. Abdominal pain, which increases after eating X2 months. diverticulitis History of Any Multi-Drug Resistant Organisms: None Reported Past Surgical History: Breast Surgery, Hysterectomy, Orthopedic Surgery Additional Past Surgical History / Comment(s): Breast biopsy, right elbow procedure, ORIF left ankle-hardware removed, hemorrhoidectomy X2, colonoscopy, BIOPSY of rectum, lump removed from head, laproscopy lysis of adhesions. Past Anesthesia/Blood Transfusion Reactions: Previous Problems w/ Anesthesia, Motion Sickness, Postoperative Nausea & Vomiting (PONV) Additional Past Anesthesia/Blood Transfusion Reaction / Comment(s): Had hard time waking up after surgery X1. Smoking Status: Current every day smoker - Past Family History Mother Family Medical History: Cancer Additional Family Medical History / Comment(s): Lymphoma. . Brother(s) Family Medical History: Cancer Additional Family Medical History / Comment(s): Esophagus, liver. . Father Family Medical History: Cancer Additional Family Medical History / Comment(s): kidney cancer Medications and Allergies Home Medications Medication Instructions Recorded Confirmed Type ALPRAZolam [Xanax] 0.25 mg PO BID PRN 11/17/18 10/25/20 History Venlafaxine HCl [Effexor XR] 150 mg PO BID@1000,209911/17/18 10/25/20 History Gabapentin 1,200 mg PO BID@1000,2100 02/15/20 10/25/20 History Diphenoxylate HCl/Atropine 1 tab PO QID PRN 08/22/20 10/25/20 History [Lomotil 2.5-0.025 mg Tablet] HYDROcodone/APAP 7.5-325MG [Jeremiah 1 tab PO Q6H PRN 08/22/20 10/25/20 History 7.5-325] Pantoprazole Sodium [Protonix] 40 mg PO DAILY@1000 PRN 08/22/20 10/25/20 History Docusate [Colace] 100 mg PO BID #20 capsule 10/11/20 10/25/20 Rx Acetaminophen Tab [Tylenol] 650 mg PO Q6H PRN 10/18/20 10/25/20 History Allergies Allergy/AdvReac Type Severity Reaction Status Date / Time ibuprofen AdvReac severe Verified 10/25/20 08:54 ringing in ears Physical Exam Vitals: Vital Signs Temp Pulse Pulse Resp BP Pulse Ox 10/26/20 08:00 98.4 F 89 20 122/75 92 L 10/26/20 05:02 134/86 10/26/20 04:00 98.7 F 96 18 121/81 92 L 10/26/20 02:00 82 16 104/70 10/25/20 21:49 82 89/61 90 L 10/25/20 20:46 100.5 F H 91 70/55 91 L 10/25/20 18:24 86 16 10/25/20 15:17 88 102/71 10/25/20 15:02 75 103/71 10/25/20 14:47 81 104/73 10/25/20 14:32 80 92/67 10/25/20 14:17 86 96/67 10/25/20 14:02 72 104/69 10/25/20 14:00 86 16 114/63 95 10/25/20 13:47 73 106/71 10/25/20 13:32 98.7 F 91 104/70 91 L 10/25/20 13:30 85 16 117/65 95 10/25/20 13:15 84 16 115/67 96 10/25/20 13:00 66 16 123/71 95 10/25/20 12:45 65 16 123/71 96 10/25/20 12:30 84 16 156/72 96 10/25/20 12:20 80 16 156/72 96 10/25/20 12:05 80 16 133/64 98 10/25/20 11:50 66 16 134/64 97 10/25/20 11:35 97.6 F 76 18 136/58 95 Intake and Output 10/25/20 10/26/20 10/26/20 22:59 06:59 14:59 Intake Total 901.3 0 Output Total 650 700 700 Balance 251.3 -700 -700 Intake: Intake, IV Titration 901.3 0 Amount Lactated Ringers 1,000 ml 860 @ 0 mls/hr IV .[facility] Rx#:[id number] Ropivacaine 250 mg 41.3 0 Hydromorphone (Pf) 5 mg In Sodium Chloride 0.9% 200 ml @ Per Protocol EPIDURAL .Q0M PRN Rx#: [id number] Output: Urine 650 700 700 Other: Voiding Method Indwelling Catheter Indwelling Catheter Indwelling Catheter Weight 72.5 kg Results 10/26/20 07:19 10/26/20 07:20 Cardiac Enzymes 10/25/20 10/25/20 10/26/20 Range/Units 23:15 23:15 07:19 AST 17 (14-36) U/L Troponin I 0.091 H* 0.103 H* (0.000-0.034) ng/mL CBC 10/25/20 10/26/20 Range/Units 23:15 07:19 WBC 12.8 H 10.1 (3.8-10.6) k/uL RBC 4.03 3.96 (3.80-5.40) m/uL Hgb 13.2 13.0 (11.4-16.0) gm/dL Hct 40.3 39.6 (34.0-46.0) % Plt Count 259 251 (150-450) k/uL Comprehensive Metabolic Panel 10/25/20 10/26/20 Range/Units 23:15 07:20 Sodium 139 140 (137-145) mmol/L Potassium 4.0 4.1 (3.5-5.1) mmol/L Chloride 106 107 (98-107) mmol/L Carbon Dioxide 30 34 H (22-30) mmol/L BUN 9 8 (7-17) mg/dL Creatinine 0.63 0.62 (0.52-1.04) mg/dL Glucose 116 H 109 H (74-99) mg/dL Calcium 8.3 L 8.4 (8.4-10.2) mg/dL AST 17 (14-36) U/L ALT 7 (4-34) U/L Alkaline Phosphatase 113 (38-126) U/L Total Protein 5.3 L (6.3-8.2) g/dL Albumin 2.8 L (3.5-5.0) g/dL Current Medications Generic Name Dose Route Start Last Admin Trade Name Freq PRN Reason Stop Dose Admin Acetaminophen 650 mg 10/26/20 21:40 Acetaminophen Tab 325 Mg Tab PO Q6HR MINISTERIO Alprazolam 0.25 mg 10/26/20 08:00 Alprazolam 0.25 Mg Tab PO BID PRN Anxiety Alvimopan 12 mg 10/25/20 21:00 10/26/20 09:21 Alvimopan 12 Mg Capsule PO 11/01/20 09:01 12 mg BID MINISTERIO Administration Gabapentin 1,200 mg 10/26/20 08:00 10/26/20 08:15 Gabapentin 400 Mg Cap PO 1,200 mg BID@1000,2100 MINISTERIO Administration Heparin Sodium (Porcine) 5,000 unit 10/25/20 16:00 10/26/20 08:14 Heparin Sodium,Porcine/Pf 5,000 Unit/0.5 Ml Syringe SQ 5,000 unit Q8HR MINISTERIO Administration Hydromorphone HCl 1 mg 10/25/20 11:29 10/26/20 02:08 Hydromorphone 1 Mg/Ml 1 Ml Syringe IVP 1 mg Q3H PRN Administration Severe Pain Lactated Ringer's 1,000 mls @ 20 mls/hr 10/24/20 16:30 10/25/20 17:29 Lactated Ringers IV Not Given .Q24H MINISTERIO Ropivacaine 250 mg/ 250 mls @ 0 mls/hr 10/25/20 10:33 10/26/20 04:35 Hydromorphone HCl 5 mg/ Sodium EPIDURAL 5 mls/hr Chloride .Q0M PRN Infusion Pain Control Protocol Per Protocol Potassium Chloride/Dextrose/Sod Cl 1,000 mls @ 125 mls/hr 10/25/20 11:30 10/26/20 02:08 D5%-1/2ns-Kcl 20 Meq/L Iv Solution IV 125 mls/hr .Q8H MINISTERIO Administration Lidocaine HCl 0.1 ml 10/24/20 16:18 10/25/20 09:05 Lidocaine 1% (10mg/Ml) For Iv Start INTRADERMA 0.1 ml PER PROTOCOL PRN Administration IV Start Lorazepam 1 mg 10/25/20 17:23 Lorazepam 2 Mg/Ml Inj IV Q4HR PRN Anxiety Naloxone HCl 0.2 mg 10/25/20 10:33 Naloxone 0.4 Mg/Ml 1 Ml Vial IV Q2M PRN Opioid Reversal Nicotine 1 patch 10/25/20 17:30 10/26/20 08:16 Nicotine 14mg/24hr Patch TRANSDERM 1 patch DAILY MINISTERIO Administration Ondansetron HCl 4 mg 10/25/20 11:29 Ondansetron 4 Mg/2 Ml Vial IVP Q8H PRN Nausea And Vomiting Venlafaxine HCl 150 mg 10/26/20 08:00 10/26/20 09:21 Venlafaxine Hcl Er 150 Mg Cap PO 150 mg BID@1000,2100 MINISTERIO Administration Intake and Output 10/25/20 10/26/20 10/26/20 22:59 06:59 14:59 Intake Total 901.3 0 Output Total 650 700 700 Balance 251.3 -700 -700 Intake: Intake, IV Titration 901.3 0 Amount Lactated Ringers 1,000 ml 860 @ 0 mls/hr IV .[facility] Rx#:[id number] Ropivacaine 250 mg 41.3 0 Hydromorphone (Pf) 5 mg In Sodium Chloride 0.9% 200 ml @ Per Protocol EPIDURAL .Q0M PRN Rx#: [id number] Output: Urine 650 700 700 Other: Voiding Method Indwelling Catheter Indwelling Catheter Indwelling Catheter Weight 72.5 kg 10/26/20 07:19 10/26/20 07:20
[2020-10-26] MEDS: PIPERACILLIN-TAZOBACTAM 3.375 GM in SODIUM CHLORIDE 0.9% 100 ML IVPB SCH ×2 (17:17→23:28)
[2020-10-26] MEDS: DEXTROSE 5%-0.9% NACL 1,000 ML IV SCH ×2 (17:45→23:50)
[2020-10-26] MEDS: LACTATED RINGERS 1,000 ML IV SCH (17:48)
[2020-10-26] MEDS: FAMOTIDINE 20 MG/2 ML VIAL IV SCH (21:27)
[2020-10-26] MEDS: ACETAMINOPHEN TAB 325 MG TAB PO SCH ×2 (22:35→23:27)
[2020-10-27] MEDS: ACETAMINOPHEN TAB 325 MG TAB PO SCH ×4 (06:16→23:49)
--- NOTE | 2020-10-27 08:20 | P.PN ---
Progress Note - Text Date: 10/27/2020 Time: 07:12 The patient is status post, low anterior resection, postoperative day number 2. The patient has no complaints of nausea vomiting or headache. The patient does not complain of any lower extremity numbness or weakness. The epidural is running at[ 5] mL per hour. VAS 3-4-10. The patient was administered Tylenol by mouth this a.m. for breakthrough pain by the service. The epidural will be maintained and adjusted as needed.
--- NOTE | 2020-10-27 08:51 | XR ---
EXAMINATION TYPE: XR chest 1V DATE OF EXAM: 10/27/2020 COMPARISON: NONE HISTORY: Postop TECHNIQUE: Single frontal view of the chest is obtained. FINDINGS: Basilar subsegmental consolidation. There is a calcified lymph nodes right hilum. No pneum othorax. Calcified granuloma right apex. No interstitial edema. Heart size normal. IMPRESSION: 1. Basilar atelectasis favored over pneumonia. Tiny amount of free intraperitoneal abdominal air not excluded which would be compatible with the patient's recent sigmoid colon resection approximately 2 days ago. Correlate clinically.
[2020-10-27] MEDS: VENLAFAXINE HCL ER 150 MG CAP PO SCH ×2 (09:17→20:56)
[2020-10-27] MEDS: ALVIMOPAN 12 MG CAPSULE PO SCH ×2 (09:17→20:56)
[2020-10-27] MEDS: NICOTINE 14MG/24HR PATCH TRANSDERM SCH (09:18)
[2020-10-27] MEDS: HEPARIN SODIUM,PORCINE/PF 5,000 UNIT/0.5 ML SYRINGE SQ SCH ×3 (09:18→23:50)
[2020-10-27] MEDS: GABAPENTIN 400 MG CAP PO SCH ×2 (09:18→20:56)
[2020-10-27] MEDS ORDERED: SODIUM CHLORIDE 0.9% 500 ML 500 ML IV ONE (09:42)
[2020-10-27 10:17] LABS: Basophils % (A) 0 %; Eosinophils # (A) 0.1 k/uL (0-0.7); Eosinophils % (A) 2 %; HCT 35.5 % (34.0-46.0); HGB 11.4 gm/dL (11.4-16.0); Hypochromasia Slight; Lymphocytes # (A) 1.2 k/uL (1.0-4.8); Lymphocytes % (A) 18 %; MCH 32.5 pg (25.0-35.0); MCV 101.5 fL (80.0-100.0); Macrocytosis Slight; Mean Platelet Volume 7.2; Monocytes # (A) 0.4 k/uL (0-1.0); Monocytes % (A) 6 %; Neutrophils # (A) 5.1 k/uL (1.3-7.7); Neutrophils % (A) 74 %; Platelet Count 209 k/uL (150-450); RBC 3.49 m/uL (3.80-5.40); RDW 14.2 % (11.5-15.5); WBC 6.9 k/uL (3.8-10.6)
[2020-10-27 10:28] LABS: African American GFR (CKD) >90 (>60 ml/min/1.73 sqM); Anion Gap 0 mmol/L; Blood Urea Nitrogen 3 mg/dL (7-17); Calcium 8.4 mg/dL (8.4-10.2); Carbon Dioxide 33 mmol/L (22-30); Chloride 105 mmol/L (98-107); Glucose 92 mg/dL (74-99); Non-African American GFR(CKD) >90 (>60 ml/min/1.73 sqM); Potassium 4.1 mmol/L (3.5-5.1); Sodium 138 mmol/L (137-145)
[2020-10-27] MEDS: ROPIVACAINE 250 MG, HYDROMORPHONE (PF) 5 MG in SODIUM CHLORIDE 0.9% 200 ML EPIDURAL PRN (11:23)
[2020-10-27] MEDS: DEXTROSE 5%-0.9% NACL 1,000 ML IV SCH (11:29)
[2020-10-27] MEDS: PIPERACILLIN-TAZOBACTAM 3.375 GM in SODIUM CHLORIDE 0.9% 100 ML IVPB SCH ×3 (11:30→23:50)
[2020-10-27] MEDS: SODIUM CHLORIDE 0.9% 1,000 ML IV SCH (11:42)
[2020-10-27] MEDS: FAMOTIDINE 20 MG/2 ML VIAL IV SCH ×2 (11:52→20:55)
--- NOTE | 2020-10-27 12:08 | P.PN ---
Subjective Progress Note Date: 10/27/20 Principal diagnosis: Abnormal cardiac enzymes This is a 65 year old female patient with no significant past medical history who was admitted to the hospital yesterday and underwent sigmoid resection with colostomy. The patient initially presented with abdominal discomfort. We consulted to see patient because of abnormal cardiac enzymes. The patient was seen today 10/27/2020. She is not complaining of any chest pain or chest discomfort or shortness operative. She is hypotensive and now she is in process of receiving a bolus of 0.9 normal saline. The echo showed normal LV function without any evidence of foreign motion abnormal disc concerning for ischemia. An EKG is in process to be done. She is not on any blood pressure medications at this point. The troponin did trend up. Disc. It to low blood pressure but acute coronary syndrome related to severe/obstructive CAD to be ruled out. We'll continue holding any blood pressure meds at this point in view of the margin the low blood pressure. The patient potentially might go to the intensive care and if she continues to be hypotensive. We'll follow-up on the EKG and continue following up with the serial cardiac enzymes. Objective - Vital Signs Vital signs: Vital Signs Temp 98.2 F 10/27/20 08:00 Pulse 76 10/27/20 08:00 Resp 18 10/27/20 08:00 BP 80/60 10/27/20 08:00 Pulse Ox 91 L 10/27/20 08:00 Intake & Output 10/26/20 10/27/20 10/27/20 18:59 06:59 18:59 Intake Total 480 100 378.9 Output Total 1925 250 Balance -1445 -150 378.9 Intake: Intake, IV Titration 138.9 Amount Ropivacaine 250 mg 138.9 Hydromorphone (Pf) 5 mg In Sodium Chloride 0.9% 200 ml @ Per Protocol EPIDURAL .Q0M PRN Rx#: [id number] Oral 480 100 240 Output: Urine 1925 250 Uretheral (Damon) 250 Other: Voiding Method Indwelling Catheter Indwelling Catheter Indwelling Catheter - Constitutional General appearance: Present: no acute distress - Respiratory Respiratory: bilateral: CTA - Cardiovascular Rhythm: regular Heart sounds: normal: S1, S2 - Labs CBC & Chem 7: 10/27/20 09:53 10/27/20 09:53 Labs: Abnormal Lab Results - Last 24 Hours (Table) 10/26/20 10/27/20 10/27/20 Range/Units 15:15 09:53 09:53 RBC 3.49 L (3.80-5.40) m/uL MCV 101.5 H (80.0-100.0) fL Carbon Dioxide 33 H (22-30) mmol/L BUN 3 L (7-17) mg/dL Troponin I 0.233 H* (0.000-0.034) ng/mL Assessment and Plan Assessment: Assessment #1 status post sigmoid resection with colostomy #2 abnormal cardiac enzymes #3 hypotension Plan #1 IV fluid bolus #2 continue monitor the blood pressure #3 potential transferred to the intensive care unit #4 rule out acute coronary syndrome
--- NOTE | 2020-10-27 13:14 | P.PN ---
Subjective Progress Note Date: 10/27/20 CHIEF COMPLAINT: Sigmoid mass HISTORY OF PRESENT ILLNESS: Patient is postop day #2 status post sigmoid re section with end colostomy for inflammatory sigmoid mass with perforation extending into abdominal sidewall and rectal mesentery mass. Patient [facility] due to hypotension, low- grade temp and altered mental statuson 10/25/20. Patient remains hypotensive she is receiving 2 L fluid bolus. Epidural is being decreased down to 4. She is still confused. Cardiology is following in regards to elevated troponins. Echo showed an EF of 55-60%. She did have a low-grade temp of 100.2 yesterday afternoon. Currently afebrile. WBC 6.9 hemoglobin 11.4 platelets 209. Case discussed with cardiology service. Chest x-ray basilar atelectasis favored over pneumonia. Tiny amount of free intraperitoneal abdominal air not excluded which would be compatible with the patient's recent sigmoid colon resection approximately 2 days ago. Patient seen and examined with Dr. Rivera PHYSICAL EXAM: VITAL SIGNS: Reviewed. GENERAL: Well-developed in no acute distress. HEENT: No sclera icterus. Extraocular movements grossly intact. Moist buccal mucosa. Head is atraumatic, normocephalic. ABDOMEN: Soft. Nondistended. Incisional dressing clean dry and intact ostomy has serosanguineous fluid present NEUROLOGIC: Alert and oriented to name and place. She was confused on the year and month. She stated it was August 2000 Cranial nerves II through XII jeremiah sly intact. ASSESSMENT: 1. 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 2. Atelectasis 3. Hypotension 4. Elevated troponins cardiology following 5. Altered mental status changes PLAN: -Give IV fluid bolus and decreased epidural down from 5 down to 4 due to hypotension -Continue IV fluids -Continue antibiotics -Continue epidural for pain control -Continue antiemetics -Continue to monitor patient closely. Patient may require transfer to the ICU depending on response to fluid boluses -Encouraged patient to use incentive spirometer -Encouraged patient to increase activity -GI prophylaxis Pepcid and DVT prophylaxis subcu heparin Physician Virtualization Architect note has been reviewed by physician. Signing provider agrees with the documented findings, assessment, and plan of care. Objective - Vital Signs Vital signs: Vital Signs Temp 98.8 F 10/27/20 13:01 Pulse 90 10/27/20 13:01 Resp 18 10/27/20 13:01 BP 102/60 10/27/20 13:01 Pulse Ox 95 10/27/20 13:01 Intake & Output 10/26/20 10/27/20 10/27/20 18:59 06:59 18:59 Intake Total 480 100 378.9 Output Total 1925 250 Balance -1445 -150 378.9 Intake: Intake, IV Titration 138.9 Amount Ropivacaine 250 mg 138.9 Hydromorphone (Pf) 5 mg In Sodium Chloride 0.9% 200 ml @ Per Protocol EPIDURAL .Q0M PRN Rx#: [id number] Oral 480 100 240 Output: Urine 1925 250 Uretheral (Damon) 250 Other: Voiding Method Indwelling Catheter Indwelling Catheter Indwelling Catheter - Labs CBC & Chem 7: 10/27/20 09:53 10/27/20 09:53 Labs: Abnormal Lab Results - Last 24 Hours (Table) 10/26/20 10/27/20 10/27/20 Range/Units 15:15 09:53 09:53 RBC 3.49 L (3.80-5.40) m/uL MCV 101.5 H (80.0-100.0) fL Carbon Dioxide 33 H (22-30) mmol/L BUN 3 L (7-17) mg/dL Troponin I 0.233 H* (0.000-0.034) ng/mL
[2020-10-27] MEDS ORDERED: SODIUM CHLORIDE 0.9% 1,000 ML IV ONE (15:24)
--- NOTE | 2020-10-27 20:37 | P.PN ---
Subjective This is a pleasant 65 old female with past medical history of GERD, stroke ring syndrome, history of anal cancer in remission. History of syncope. Presents with signs and symptoms of abdominal pain. She's been evaluated by surgeon primary team with Dr. Michaels and underwent sigmoid resection for her sigmoid mass with perforation and rectal mesentery mass. Today is postoperative day #1. She is complaining of from abdominal pain and she refused to touch her abdomen although she still on epidural per staff, I offered to give pain medication more for the patient and she is not interested. She is hemodynamically stable, she is saturating 92% on 3 L oxygen via nasal cannula. She was hypotensive last night 89/61 and received 500 mL of blood loss. 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 Her WBC is back to normal at 10.1 K today. Troponin is elevated at 0.09 and 0.103. Echocardiogram done to day showing ejection fraction of 55-60% with mild LVH, vulvar and schmidt are not well visualized Abdominal x-ray nonacute abdomen. Chest x-ray: Atelectasis. She still on IV fluid and subcutaneous heparin We will start the patient on Zosyn for her fever and hypotension. Patient is not on any antihypertensive medication 10/27/2020 Patient is alert and awake, she still have some abdominal pain although she describes it as severe but it looks significantly better than yesterday. No bowel movement yet. She is able to tolerate a 75-100% of her diet. That her blood pressure was on the low side this morning with systolic BP is in 80s, her IV fluids was increased to D5 normal saline at 150 mL/h, she received 1.5 L of normal saline boluses, currently her blood pressure is better At 110/70. Heart rate is 92. She is saturating 91% on room air and afebrile. Her labs including CBC and BMP were unremarkable, troponin is slightly elevated 3 and cardiology team are on the case, her echocardiogram showed ejection fraction of 55-60% with moderate LVH. 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 And she is currently covered with Zosyn. Chest x-ray showing atelectasis favored over pneumonia. Cardiology team R following the case closely as well as the surgery primary team Patient is still getting epidural pain medication and its dose was lowered today. Review of systems CONSTITUTIONAL: No fever, no malaise, no fatigue. HEENT: No recent visual problems or hearing problems. Denied any sore throat. CARDIOVASCULAR: No orthopnea, PND, no palpitations, no syncope. PULMONARY: No shortness of breath, no cough, no hemoptysis. GASTROINTESTINAL: No diarrhea, no nausea, no vomiting, no abdominal pain. Normoactive bowel sounds. Active Medications Generic Name Dose Route Start Last Admin Trade Name Freq PRN Reason Stop Dose Admin Acetaminophen 650 mg 10/26/20 21:40 10/27/20 17:09 Acetaminophen Tab 325 Mg Tab PO 650 mg Q6HR MINISTERIO Administration Alprazolam 0.25 mg 10/26/20 08:00 Alprazolam 0.25 Mg Tab PO BID PRN Anxiety Alvimopan 12 mg 10/25/20 21:00 10/27/20 09:17 Alvimopan 12 Mg Capsule PO 11/01/20 09:01 12 mg BID MINISTERIO Administration Famotidine 20 mg 10/26/20 21:00 10/27/20 11:52 Famotidine 20 Mg/2 Ml Vial IV 20 mg Q12HR MINISTERIO Administration Gabapentin 1,200 mg 10/26/20 08:00 10/27/20 09:18 Gabapentin 400 Mg Cap PO 1,200 mg BID@1000,2100 MINISTERIO Administration Heparin Sodium (Porcine) 5,000 unit 10/25/20 16:00 10/27/20 17:12 Heparin Sodium,Porcine/Pf 5,000 Unit/0.5 Ml Syringe SQ 5,000 unit Q8HR MINISTERIO Administration Hydromorphone HCl 1 mg 10/25/20 11:29 10/26/20 15:40 Hydromorphone 1 Mg/Ml 1 Ml Syringe IVP 1 mg Q3H PRN Administration Severe Pain Ropivacaine 250 mg/ 250 mls @ 0 mls/hr 10/25/20 10:33 10/27/20 11:23 Hydromorphone HCl 5 mg/ Sodium EPIDURAL 5 mls/hr Chloride .Q0M PRN Administration Pain Control Protocol Per Protocol Piperacillin Sod/Tazobactam 100 mls @ 25 mls/hr 10/26/20 16:00 10/27/20 17:11 Sod 3.375 gm/ Sodium Chloride IVPB 25 mls/hr Q8HR MINISTERIO Administration Dextrose/Sodium Chloride 1,000 mls @ 150 mls/hr 10/26/20 12:45 10/27/20 11:29 Dextrose 5%-Ns Iv Soln IV 150 mls/hr .Q6H40M MINISTERIO Administration Lorazepam 1 mg 10/25/20 17:23 Lorazepam 2 Mg/Ml Inj IV Q4HR PRN Anxiety Naloxone HCl 0.2 mg 10/25/20 10:33 Naloxone 0.4 Mg/Ml 1 Ml Vial IV Q2M PRN Opioid Reversal Nicotine 1 patch 10/25/20 17:30 10/27/20 09:18 Nicotine 14mg/24hr Patch TRANSDERM 1 patch DAILY MINISTERIO Administration Ondansetron HCl 4 mg 10/25/20 11:29 Ondansetron 4 Mg/2 Ml Vial IVP Q8H PRN Nausea And Vomiting Venlafaxine HCl 150 mg 10/26/20 08:00 10/27/20 09:17 Venlafaxine Hcl Er 150 Mg Cap PO 150 mg BID@1000,2100 MINISTERIO Administration Objective - Vital Signs Vital signs: Vital Signs Temp 98.8 F 10/27/20 13:01 Pulse 90 10/27/20 13:01 Resp 18 10/27/20 14:00 BP 102/60 10/27/20 13:01 Pulse Ox 95 10/27/20 13:01 Intake & Output 10/26/20 10/27/20 10/27/20 18:59 06:59 18:59 Intake Total 480 100 618.9 Output Total 1925 250 Balance -1445 -150 618.9 Intake: Intake, IV Titration 138.9 Amount Ropivacaine 250 mg 138.9 Hydromorphone (Pf) 5 mg In Sodium Chloride 0.9% 200 ml @ Per Protocol EPIDURAL .Q0M PRN Rx#: [id number] Oral 480 100 480 Output: Urine 1925 250 Uretheral (Damon) 250 Other: Voiding Method Indwelling Catheter Indwelling Catheter Indwelling Catheter - Exam GENERAL: The patient is alert and oriented x3, not in any acute distress. Well developed, well nourished. HEENT: Pupils are round and equally reacting to light. EOMI. No scleral icterus. No conjunctival pallor. Normocephalic, atraumatic. No pharyngeal erythema. No thyromegaly. CARDIOVASCULAR: S1 and S2 present. No murmurs, rubs, or gallops. PULMONARY: Chest is clear to auscultation, no wheezing or crackles. -ABDOMEN: Patient refused exam of the abdomen MUSCULOSKELETAL: No joint swelling or deformity. EXTREMITIES: No cyanosis, clubbing, or pedal edema. NEUROLOGICAL: Gross neurological examination did not reveal any focal deficits. SKIN: No rashes. no petechiae. - Labs CBC & Chem 7: 10/27/20 09:53 10/27/20 09:53 Labs: Abnormal Lab Results - Last 24 Hours (Table) 10/26/20 10/27/20 10/27/20 Range/Units 15:15 09:53 09:53 RBC 3.49 L (3.80-5.40) m/uL MCV 101.5 H (80.0-100.0) fL Carbon Dioxide 33 H (22-30) mmol/L BUN 3 L (7-17) mg/dL Troponin I 0.233 H* (0.000-0.034) ng/mL Assessment and Plan Assessment: Sigmoid mass with perforation and rectal mesentery mass, status post sigmoid resection with end colostomy on 10/25 Transient period of hypotension with low-grade fever, could be secondary to intra-abdominal infection Severe sepsis secondary to above with hypotension, fever and tachycardia Elevated troponin, rule out cardiac causes History of lung cancer History of GERD History of syncope History of Sjogren's syndrome History of anal cancer in remission Plan: This is a pleasant 65 years old female presents with sigmoid and rectal mass status post resection and end colostomy. Continue with postop care, DVT prophylaxis and pain management per surgery team [facility] and continue with IV fluid normal saline at 150 mL per hour, monitor blood pressure and electrolytes and creatinine. Cardiology consult for elevated troponin Labs and medication were reviewed.. Continue same treatment. Continue with symptomatic treatment. Resume home medication. Monitor lytes and vitals. DVT and GI prophylaxis. Further recommendations as per clinical course of the patient DVT prophylaxis: Subcutaneous heparin GI Prophylaxis: Pepcid PT/OT: Pending Prognosis is guarded
[2020-10-28] MEDS: DEXTROSE 5%-0.9% NACL 1,000 ML IV SCH ×5 (00:06→20:37)
[2020-10-28] MEDS: ACETAMINOPHEN TAB 325 MG TAB PO SCH ×4 (05:30→23:34)
[2020-10-28 09:08] LABS: Basophils % (A) 0 %; Eosinophils # (A) 0.2 k/uL (0-0.7); Eosinophils % (A) 3 %; HCT 35.6 % (34.0-46.0); HGB 10.9 gm/dL (11.4-16.0); Hypochromasia Moderate; Lymphocytes # (A) 0.8 k/uL (1.0-4.8); Lymphocytes % (A) 14 %; MCH 31.3 pg (25.0-35.0); MCHC 30.6 g/dL (31.0-37.0); MCV 102.4 fL (80.0-100.0); Macrocytosis Slight; Mean Platelet Volume 7.4; Monocytes # (A) 0.3 k/uL (0-1.0); Monocytes % (A) 5 %; Neutrophils # (A) 4.1 k/uL (1.3-7.7); Neutrophils % (A) 76 %; Platelet Count 197 k/uL (150-450); RBC 3.47 m/uL (3.80-5.40); RDW 14.5 % (11.5-15.5); WBC 5.4 k/uL (3.8-10.6)
[2020-10-28 09:27] LABS: African American GFR (CKD) >90 (>60 ml/min/1.73 sqM); Anion Gap 3 mmol/L; Blood Urea Nitrogen 2 mg/dL (7-17); Carbon Dioxide 31 mmol/L (22-30); Chloride 107 mmol/L (98-107); Glucose 105 mg/dL (74-99); Non-African American GFR(CKD) >90 (>60 ml/min/1.73 sqM); Potassium 3.6 mmol/L (3.5-5.1); Sodium 141 mmol/L (137-145)
[2020-10-28] MEDS: ALVIMOPAN 12 MG CAPSULE PO SCH ×2 (09:29→20:38)
[2020-10-28] MEDS: VENLAFAXINE HCL ER 150 MG CAP PO SCH ×2 (09:29→20:38)
[2020-10-28] MEDS: GABAPENTIN 400 MG CAP PO SCH ×2 (09:29→20:18)
[2020-10-28] MEDS: PIPERACILLIN-TAZOBACTAM 3.375 GM in SODIUM CHLORIDE 0.9% 100 ML IVPB SCH ×3 (09:30→23:34)
[2020-10-28] MEDS: FAMOTIDINE 20 MG/2 ML VIAL IV SCH ×2 (09:30→20:18)
[2020-10-28] MEDS: NICOTINE 14MG/24HR PATCH TRANSDERM SCH (09:31)
--- NOTE | 2020-10-28 09:34 | P.PN ---
Progress Note - Text Progress Note Date: 10/28/20 (590) Anesthesia Postop day 3 Status post sigmoid resection with end colostomy with epidural date 4 Patient seen and examined. Doing well without complaint. VAS 7 out of 10. No abdominal pain only low back pain. Epidural was decreased yesterday to the h ypotension, increased back up to 5 this morning.. No nausea vomiting or pruritus. Ropivacaine 0.1% with Dilaudid 20 mcg/mL at 5 mL an hour. Objective: Vital signs reviewed Lungs: Good chest excursion Abdomen: Appears nondistended Other: Epidural Site Intact without induration. Dressing intact Neuro: No apparent motor block. Sensory within normal limits. Assessment: Status post sigmoid resection with end colostomy postop day 3 Plan: Discontinue epidural today. Communicated with nurse. To continue holding subcu heparin until after epidural pull. Nurse stated understanding
[2020-10-28] MEDS: HEPARIN SODIUM,PORCINE/PF 5,000 UNIT/0.5 ML SYRINGE SQ SCH ×3 (09:47→23:34)
[2020-10-28] MEDS: HYDROmorphone 1 MG/ML 1 ML SYRINGE IVP PRN ×2 (09:47→18:13)
--- NOTE | 2020-10-28 10:49 | P.PN ---
Subjective Progress Note Date: 10/28/20 Principal diagnosis: Colon perforation Patient doing fairly well today. Her pain has increased since the epidural was removed. She is less confused. She is tolerating clears. She is having bowel function through the ostomy. Objective - Vital Signs Vital signs: Vital Signs Temp 98.3 F 10/28/20 04:00 Pulse 92 10/28/20 04:00 Resp 17 10/28/20 04:00 BP 97/68 10/28/20 04:00 Pulse Ox 96 10/28/20 04:00 Intake & Output 10/27/20 10/28/20 10/28/20 18:59 06:59 18:59 Intake Total 978.9 1250 151.75 Output Total 150 1975 Balance 828.9 -725 151.75 Weight 75.5 kg Intake: IV 40 Invasive Line 1 10 Invasive Line 2 10 Invasive Line 3 20 Intake, IV Titration 138.9 900 111.75 Amount Dextrose 5%-0.9% NaCl 1, 800 000 ml @ 150 mls/hr IV . Q6H40M [facility] Rx#:[id number] Piperacillin-Tazobactam 3 100 .375 gm In Sodium Chloride 0.9% 100 ml @ 25 mls/hr IVPB Q8HR [facility] Rx# :[id number] Ropivacaine 250 mg 138.9 111.75 Hydromorphone (Pf) 5 mg In Sodium Chloride 0.9% 200 ml @ Per Protocol EPIDURAL .Q0M PRN Rx#: [id number] Oral 840 350 Output: Urine 150 1975 Other: Voiding Method Indwelling Catheter Indwelling Catheter - Exam Abdomen: Soft, nondistended, mild tenderness, dressing clean and dry, ostomy functioning - Labs CBC & Chem 7: 10/28/20 08:37 10/28/20 08:37 Labs: Abnormal Lab Results - Last 24 Hours (Table) 10/28/20 10/28/20 Range/Units 08:37 08:37 RBC 3.47 L (3.80-5.40) m/uL Hgb 10.9 L (11.4-16.0) gm/dL MCV 102.4 H (80.0-100.0) fL MCHC 30.6 L (31.0-37.0) g/dL Lymphocytes # 0.8 L (1.0-4.8) k/uL Carbon Dioxide 31 H (22-30) mmol/L BUN 2 L (7-17) mg/dL Glucose 105 H (74-99) mg/dL Calcium 8.0 L (8.4-10.2) mg/dL Assessment and Plan (1) Colitis Narrative/Plan: Patient seems to be doing somewhat better. Will increase diet to full liquids. We'll add Toradol for pain control. Gradually increase activity. Await final pathology. Current Visit: No Status: Acute Code(s): K52.9 - NONINFECTIVE GASTR OENTERITIS AND COLITIS, UNSPECIFIED SNOMED Code(s): 77544378
--- NOTE | 2020-10-28 12:30 | P.PN ---
Subjective Progress Note Date: 10/28/20 This is a pleasant 65-year-old with no significant past medical history who presented to the hospital underwent a sigmoid resection with colostomy. We were seeing the patient because of mild abnormalities in the troponins. Normal ejection fraction. Blood pressure this morning 97/60 with a heart rate in the 90s, 96% on 3 L. White blood cell count 5.4, hemoglobin 10.9, platelet count 197. Sodium 141, potassium 3.6, BUN 2 and creatinine 0.4. Objective - Vital Signs Vital signs: Vital Signs Temp 98.3 F 10/28/20 04:00 Pulse 92 10/28/20 04:00 Resp 17 10/28/20 04:00 BP 97/68 10/28/20 04:00 Pulse Ox 96 10/28/20 04:00 Intake & Output 10/27/20 10/28/20 10/28/20 18:59 06:59 18:59 Intake Total 978.9 1250 351.75 Output Total 150 1975 200 Balance 828.9 -725 151.75 Weight 75.5 kg Intake: IV 40 Invasive Line 1 10 Invasive Line 2 10 Invasive Line 3 20 Intake, IV Titration 138.9 900 111.75 Amount Dextrose 5%-0.9% NaCl 1, 800 000 ml @ 150 mls/hr IV . Q6H40M [facility] Rx#:[id number] Piperacillin-Tazobactam 3 100 .375 gm In Sodium Chloride 0.9% 100 ml @ 25 mls/hr IVPB Q8HR [facility] Rx# :[id number] Ropivacaine 250 mg 138.9 111.75 Hydromorphone (Pf) 5 mg In Sodium Chloride 0.9% 200 ml @ Per Protocol EPIDURAL .Q0M PRN Rx#: [id number] Oral 840 350 200 Output: Urine 150 1975 Stool 200 Other: Voiding Method Indwelling Catheter Indwelling Catheter Indwelling Catheter - Exam PHYSICAL EXAMINATION: GENERAL: 65-year-old female in no acute distress at the time of my examination HEENT: Head is atraumatic, normocephalic. Pupils equal, round. Sclera anicteric. Conjunctiva are clear. Mucous membranes of the mouth are moist. Neck is supple. There is no elevated jugular venous pressure.] No carotid bruit is heard. HEART EXAMINATION: Heart S1, S2 normal. No murmur or gallop heard. CHEST EXAMINATION: Lungs are clear to auscultation and precussion. No chest wall tenderness is noted on palpation or with deep breathing. ABDOMEN: Soft, nontender. Bowel sounds are heard. No organomegaly noted. Mild incision covered with gauze, ostomy intact, positive bowel sounds EXTREMITIES: 2+ peripheral pulses with no evidence of peripheral edema and no calf tenderness noted. NEUROLOGIC patient is awake, alert and oriented 3 . - Labs CBC & Chem 7: 10/28/20 08:37 10/28/20 08:37 Labs: Abnormal Lab Results - Last 24 Hours (Table) 10/28/20 10/28/20 Range/Units 08:37 08:37 RBC 3.47 L (3.80-5.40) m/uL Hgb 10.9 L (11.4-16.0) gm/dL MCV 102.4 H (80.0-100.0) fL MCHC 30.6 L (31.0-37.0) g/dL Lymphocytes # 0.8 L (1.0-4.8) k/uL Carbon Dioxide 31 H (22-30) mmol/L BUN 2 L (7-17) mg/dL Glucose 105 H (74-99) mg/dL Calcium 8.0 L (8.4-10.2) mg/dL Assessment and Plan Plan: Assessment and plan #1 status post sigmoid resection, anal carcinoma #2 troponin abnormality, LV function normal. #3 GERD Plan From cardiology's perspective we will put the patient on a baby aspirin, once her blood pressure tolerates we will recommend a low-dose beta leslie as well. We will follow her up in the office as an outpatient. DNP note has been reviewed, I agree with a documented findings and plan of care. Patient was seen and examined.
[2020-10-28] MEDS: KETOROLAC 15 MG/ML 1 ML VIAL IVP SCH ×3 (13:59→23:33)
--- NOTE | 2020-10-28 14:31 | P.PN ---
Subjective This is a pleasant 65 old female with past medical history of GERD, stroke ring syndrome, history of anal cancer in remission. History of syncope. Presents with signs and symptoms of abdominal pain. She's been evaluated by surgeon primary team with Dr. Michaels and underwent sigmoid resection for her sigmoid mass with perforation and rectal mesentery mass. Today is postoperative day #1. She is complaining of from abdominal pain and she refused to touch her abdomen although she still on epidural per staff, I offered to give pain medication more for the patient and she is not interested. She is hemodynamically stable, she is saturating 92% on 3 L oxygen via nasal cannula. She was hypotensive last night 89/61 and received 500 mL of blood loss. 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 Her WBC is back to normal at 10.1 K today. Troponin is elevated at 0.09 and 0.103. Echocardiogram done to day showing ejection fraction of 55-60% with mild LVH, vulvar and schmidt are not well visualized Abdominal x-ray nonacute abdomen. Chest x-ray: Atelectasis. She still on IV fluid and subcutaneous heparin We will start the patient on Zosyn for her fever and hypotension. Patient is not on any antihypertensive medication 10/27/2020 Patient is alert and awake, she still have some abdominal pain although she describes it as severe but it looks significantly better than yesterday. No bowel movement yet. She is able to tolerate a 75-100% of her diet. That her blood pressure was on the low side this morning with systolic BP is in 80s, her IV fluids was increased to D5 normal saline at 150 mL/h, she received 1.5 L of normal saline boluses, currently her blood pressure is better At 110/70. Heart rate is 92. She is saturating 91% on room air and afebrile. Her labs including CBC and BMP were unremarkable, troponin is slightly elevated 3 and cardiology team are on the case, her echocardiogram showed ejection fraction of 55-60% with moderate LVH. 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 And she is currently covered with Zosyn. Chest x-ray showing atelectasis favored over pneumonia. Cardiology team R following the case closely as well as the surgery primary team Patient is still getting epidural pain medication and its dose was lowered today. 10/28/2020 Patient is awake and alert, she is calm. Her abdominal pain is minimal and she wants her diet to be advanced, currently she is on clear liquid diet. Hemodynamically she is a stable. Her blood pressure still on the low normal side, this morning 97/68, patient is without dizziness or dyspnea or chest pain. Her fever subsided. Oxygen saturation is good. Labs are stable including CBC and BMP, hemoglobin is slightly trending down 13, 11.4 and 10.9. And on her colostomy bag is filled in half with black-colored liquidy stool and gas. And cardiology team added baby aspirin 81 mg daily. Also Toradol was added by surgery team. I think we should keep monitoring her hemoglobin, as well as some (she was started on liquid diet by surgery team today. Patient remains on Zosyn and D5 normal son at 150 mL per hour. Objective - Vital Signs Vital signs: Vital Signs Temp 98.3 F 10/28/20 04:00 Pulse 92 10/28/20 04:00 Resp 17 10/28/20 04:00 BP 97/68 10/28/20 04:00 Pulse Ox 96 10/28/20 04:00 Intake & Output 10/27/20 10/28/20 10/28/20 18:59 06:59 18:59 Intake Total 978.9 1250 351.75 Output Total 150 1975 200 Balance 828.9 -725 151.75 Weight 75.5 kg Intake: IV 40 Invasive Line 1 10 Invasive Line 2 10 Invasive Line 3 20 Intake, IV Titration 138.9 900 111.75 Amount Dextrose 5%-0.9% NaCl 1, 800 000 ml @ 150 mls/hr IV . Q6H40M [facility] [place] Rx#:[id number] Piperacillin-Tazobactam 3 100 .375 gm In Sodium Chloride 0.9% 100 ml @ 25 mls/hr IVPB Q8HR [facility] Rx# :[id number] Ropivacaine 250 mg 138.9 111.75 Hydromorphone (Pf) 5 mg In Sodium Chloride 0.9% 200 ml @ Per Protocol EPIDURAL .Q0M PRN Rx#: [id number] Oral 840 350 200 Output: Urine 150 1975 Stool 200 Other: Voiding Method Indwelling Catheter Indwelling Catheter Indwelling Catheter - Exam GENERAL: The patient is alert and oriented x3, not in any acute distress. Well developed, well nourished. HEENT: Pupils are round and equally reacting to light. EOMI. No scleral icterus. No conjunctival pallor. Normocephalic, atraumatic. No pharyngeal erythema. No thyromegaly. CARDIOVASCULAR: S1 and S2 present. No murmurs, rubs, or gallops. PULMONARY: Chest is clear to auscultation, no wheezing or crackles. -ABDOMEN: Patient refused exam of the abdomen MUSCULOSKELETAL: No joint swelling or deformity. EXTREMITIES: No cyanosis, clubbing, or pedal edema. NEUROLOGICAL: Gross neurological examination did not reveal any focal deficits. SKIN: No rashes. no petechiae. - Labs CBC & Chem 7: 10/28/20 08:37 10/28/20 08:37 Labs: Abnormal Lab Results - Last 24 Hours (Table) 10/28/20 10/28/20 Range/Units 08:37 08:37 RBC 3.47 L (3.80-5.40) m/uL Hgb 10.9 L (11.4-16.0) gm/dL MCV 102.4 H (80.0-100.0) fL MCHC 30.6 L (31.0-37.0) g/dL Lymphocytes # 0.8 L (1.0-4.8) k/uL Carbon Dioxide 31 H (22-30) mmol/L BUN 2 L (7-17) mg/dL Glucose 105 H (74-99) mg/dL Calcium 8.0 L (8.4-10.2) mg/dL Assessment and Plan Assessment: Sigmoid mass with perforation and rectal mesentery mass, status post sigmoid resection with end colostomy on 10/25 Transient period of hypotension with low-grade fever, could be secondary to intra-abdominal infection Severe sepsis secondary to above with hypotension, fever and tachycardia Elevated troponin, rule out cardiac causes History of lung cancer History of GERD History of syncope History of Sjogren's syndrome History of anal cancer in remission Plan: This is a pleasant 65 years old female presents with sigmoid and rectal mass status post resection and end colostomy. Continue with postop care, DVT prophylaxis and pain management per surgery team At [facility] and continue with IV fluid normal saline at 150 mL per hour, monitor blood pressure and electrolytes and creatinine. Cardiology consult for elevated troponin Labs and medication were reviewed.. Continue same treatment. Continue with symptomatic treatment. Resume home medication. Monitor lytes and vitals. DVT and GI prophylaxis. Further recommendations as per clinical course of the patient DVT prophylaxis: Subcutaneous heparin GI Prophylaxis: Pepcid PT/OT: Pending Prognosis is guarded
[2020-10-28] MEDS: FERROUS SULFATE 325 MG TAB PO SCH (18:11)
[2020-10-29] MEDS: DEXTROSE 5%-0.9% NACL 1,000 ML IV SCH ×2 (05:40→10:04)
[2020-10-29] MEDS: KETOROLAC 15 MG/ML 1 ML VIAL IVP SCH ×3 (06:19→17:58)
[2020-10-29] MEDS: ACETAMINOPHEN TAB 325 MG TAB PO SCH ×3 (06:19→17:56)
[2020-10-29] MEDS: FERROUS SULFATE 325 MG TAB PO SCH ×2 (06:20→17:55)
[2020-10-29 08:56] LABS: Basophils % (A) 0 %; Eosinophils # (A) 0.3 k/uL (0-0.7); Eosinophils % (A) 5 %; HCT 38.2 % (34.0-46.0); HGB 12.5 gm/dL (11.4-16.0); Hypochromasia Slight; Lymphocytes # (A) 0.9 k/uL (1.0-4.8); Lymphocytes % (A) 19 %; MCH 32.7 pg (25.0-35.0); MCHC 32.7 g/dL (31.0-37.0); MCV 100.1 fL (80.0-100.0); Macrocytosis Slight; Mean Platelet Volume 7.5; Monocytes # (A) 0.3 k/uL (0-1.0); Monocytes % (A) 6 %; Neutrophils # (A) 3.3 k/uL (1.3-7.7); Neutrophils % (A) 68 %; Platelet Count 203 k/uL (150-450); RBC 3.82 m/uL (3.80-5.40); RDW 14.2 % (11.5-15.5); WBC 4.8 k/uL (3.8-10.6)
[2020-10-29] MEDS: GABAPENTIN 400 MG CAP PO SCH ×2 (09:31→21:18)
[2020-10-29] MEDS: ALVIMOPAN 12 MG CAPSULE PO SCH (09:32)
[2020-10-29] MEDS: VENLAFAXINE HCL ER 150 MG CAP PO SCH ×2 (09:32→21:18)
[2020-10-29] MEDS: PIPERACILLIN-TAZOBACTAM 3.375 GM in SODIUM CHLORIDE 0.9% 100 ML IVPB SCH ×2 (09:32→17:55)
[2020-10-29] MEDS: FAMOTIDINE 20 MG/2 ML VIAL IV SCH ×2 (09:32→21:18)
[2020-10-29] MEDS: HEPARIN SODIUM,PORCINE/PF 5,000 UNIT/0.5 ML SYRINGE SQ SCH ×2 (09:32→17:55)
[2020-10-29] MEDS: ASPIRIN 81 MG PO SCH (09:32)
[2020-10-29] MEDS: NICOTINE 14MG/24HR PATCH TRANSDERM SCH (09:32)
--- NOTE | 2020-10-29 09:54 | P.PN ---
Subjective Progress Note Date: 10/29/20 Principal diagnosis: Colon perforation Patient doing better today. Pain is improved. Tolerating full liquids. Good urine output. Ostomy is functioning. Objective - Vital Signs Vital signs: Vital Signs Temp 98.3 F 10/29/20 00:00 Pulse 73 10/29/20 04:00 Resp 17 10/29/20 04:00 BP 138/89 10/29/20 04:00 Pulse Ox 92 L 10/29/20 04:00 Intake & Output 10/28/20 10/29/20 10/29/20 18:59 06:59 18:59 Intake Total 1621.75 1975 0 Output Total 300 4025 Balance 1321.75 -2050 0 Weight 71.5 kg Intake: IV 50 Invasive Line 1 10 Invasive Line 2 10 Invasive Line 3 30 Intake, IV Titration 111.75 1350 Amount Dextrose 5%-0.9% NaCl 1, 1250 000 ml @ 150 mls/hr IV . Q6H40M [facility] Rx#:[id number] Piperacillin-Tazobactam 3 100 .375 gm In Sodium Chloride 0.9% 100 ml @ 25 mls/hr IVPB Q8HR [facility] Rx# :[id number] Ropivacaine 250 mg 111.75 Hydromorphone (Pf) 5 mg In Sodium Chloride 0.9% 200 ml @ Per Protocol EPIDURAL .Q0M PRN Rx#: [id number] Oral 1460 625 0 Output: Urine 3425 Stool 300 600 Other: Voiding Method Indwelling Catheter Indwelling Catheter - Exam Abdomen: Soft, nondistended, incision clean and dry, ostomy functioning - Labs CBC & Chem 7: 10/29/20 07:47 10/28/20 08:37 Labs: Abnormal Lab Results - Last 24 Hours (Table) 10/29/20 Range/Units 07:47 MCV 100.1 H (80.0-100.0) fL Lymphocytes # 0.9 L (1.0-4.8) k/uL Assessment and Plan (1) Colitis Narrative/Plan: Will increase diet. Ambulate. Remove Damon catheter tomorrow. Decrease IV fluid rate. Current Visit: No Status: Acute Code(s): K52.9 - NONINFECTIVE GASTROENTERITIS AND COLITIS, UNSPECIFIED SNOMED Code(s): 10339413
[2020-10-29] MEDS: HYDROmorphone 1 MG/ML 1 ML SYRINGE IVP PRN ×3 (12:54→22:18)
--- NOTE | 2020-10-29 15:08 | P.PN ---
Subjective This is a pleasant 65 old female with past medical history of GERD, stroke ring syndrome, history of anal cancer in remission. History of syncope. Presents with signs and symptoms of abdominal pain. She's been evaluated by surgeon primary team with Dr. Michaels and underwent sigmoid resection for her sigmoid mass with perforation and rectal mesentery mass. Today is postoperative day #1. She is complaining of from abdominal pain and she refused to touch her abdomen although she still on epidural per staff, I offered to give pain medication more for the patient and she is not interested. She is hemodynamically stable, she is saturating 92% on 3 L oxygen via nasal cannula. She was hypotensive last night 89/61 and received 500 mL of blood loss. 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 Her WBC is back to normal at 10.1 K today. Troponin is elevated at 0.09 and 0.103. Echocardiogram done to day showing ejection fraction of 55-60% with mild LVH, vulvar and schmidt are not well visualized Abdominal x-ray nonacute abdomen. Chest x-ray: Atelectasis. She still on IV fluid and subcutaneous heparin We will start the patient on Zosyn for her fever and hypotension. Patient is not on any antihypertensive medication 10/27/2020 Patient is alert and awake, she still have some abdominal pain although she describes it as severe but it looks significantly better than yesterday. No bowel movement yet. She is able to tolerate a 75-100% of her diet. That her blood pressure was on the low side this morning with systolic BP is in 80s, her IV fluids was increased to D5 normal saline at 150 mL/h, she received 1.5 L of normal saline boluses, currently her blood pressure is better At 110/70. Heart rate is 92. She is saturating 91% on room air and afebrile. Her labs including CBC and BMP were unremarkable, troponin is slightly elevated 3 and cardiology team are on the case, her echocardiogram showed ejection fraction of 55-60% with moderate LVH. 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 And she is currently covered with Zosyn. Chest x-ray showing atelectasis favored over pneumonia. Cardiology team R following the case closely as well as the surgery primary team Patient is still getting epidural pain medication and its dose was lowered today. 10/28/2020 Patient is awake and alert, she is calm. Her abdominal pain is minimal and she wants her diet to be advanced, currently she is on clear liquid diet. Hemodynamically she is a stable. Her blood pressure still on the low normal side, this morning 97/68, patient is without dizziness or dyspnea or chest pain. Her fever subsided. Oxygen saturation is good. Labs are stable including CBC and BMP, hemoglobin is slightly trending down 13, 11.4 and 10.9. And on her colostomy bag is filled in half with black-colored liquidy stool and gas. And cardiology team added baby aspirin 81 mg daily. Also Toradol was added by surgery team. I think we should keep monitoring her hemoglobin, as well as some (she was started on liquid diet by surgery team today. Patient remains on Zosyn and D5 normal son at 150 mL per hour. 10/29/2020 Patient is awake and still complaining of some abdominal pain however examination showing expected tenderness. Patient is able to tolerate liquid diet and can be advanced to soft diet, discussed with surgery team and they agree. She is hemodynamically stable, blood pressure still ovalocyte 108/77. She is afebrile, and saturating 92% and room air. Labs are unremarkable with normal WBC, hemoglobin is stable and normal, high troponin addressed by cardiology team will added baby aspirin and recommended follow-up as an outpatient with history of service Patient remains on Zosyn, on normal saline lowered from 150 down to 75 mL/h. Objective - Vital Signs Vital signs: Vital Signs Temp 97.5 F L 10/29/20 07:30 Pulse 82 10/29/20 07:30 Resp 16 10/29/20 07:30 BP 108/77 10/29/20 07:30 Pulse Ox 92 L 10/29/20 07:30 Intake & Output 10/28/20 10/29/20 10/29/20 18:59 06:59 18:59 Intake Total 1621.75 1975 0 Output Total 300 4025 3150 Balance 1321.75 -2049 -3150 Weight 71.5 kg Intake: IV 50 Invasive Line 1 10 Invasive Line 2 10 Invasive Line 3 30 Intake, IV Titration 111.75 1350 Amount Dextrose 5%-0.9% NaCl 1, 1250 000 ml @ 150 mls/hr IV . Q6H40M [facility] Rx#:[id number] Piperacillin-Tazobactam 3 100 .375 gm In Sodium Chloride 0.9% 100 ml @ 25 mls/hr IVPB Q8HR [facility] Rx# :[id number] Ropivacaine 250 mg 111.75 Hydromorphone (Pf) 5 mg In Sodium Chloride 0.9% 200 ml @ Per Protocol EPIDURAL .Q0M PRN Rx#: [id number] Oral 1460 625 0 Output: Urine 3425 2850 Uretheral (Damon) 2000 Stool 300 600 300 Other: Voiding Method Indwelling Catheter Indwelling Catheter Indwelling Catheter - Exam GENERAL: The patient is alert and oriented x3, not in any acute distress. Well developed, well nourished. HEENT: Pupils are round and equally reacting to light. EOMI. No scleral icterus. No conjunctival pallor. Normocephalic, atraumatic. No pharyngeal erythema. No thyromegaly. CARDIOVASCULAR: S1 and S2 present. No murmurs, rubs, or gallops. PULMONARY: Chest is clear to auscultation, no wheezing or crackles. -ABDOMEN: Patient refused exam of the abdomen MUSCULOSKELETAL: No joint swelling or deformity. EXTREMITIES: No cyanosis, clubbing, or pedal edema. NEUROLOGICAL: Gross neurological examination did not reveal any focal deficits. SKIN: No rashes. no petechiae. - Labs CBC & Chem 7: 10/29/20 07:47 10/28/20 08:37 Labs: Abnormal Lab Results - Last 24 Hours (Table) 10/29/20 Range/Units 07:47 MCV 100.1 H (80.0-100.0) fL Lymphocytes # 0.9 L (1.0-4.8) k/uL Assessment and Plan Assessment: Sigmoid mass with perforation and rectal mesentery mass, status post sigmoid resection with end colostomy on 10/25 Transient period of hypotension with low-grade fever, could be secondary to intra-abdominal infection Severe sepsis secondary to above with hypotension, fever and tachycardia Elevated troponin, rule out cardiac causes History of lung cancer History of GERD History of syncope History of Sjogren's syndrome History of anal cancer in remission Plan: This is a pleasant 65 years old female presents with sigmoid and rectal mass s tatus post resection and end colostomy. Continue with postop care, DVT prophylaxis and pain management per surgery team At [facility] and continue with IV fluid normal saline at 150 mL per hour, monitor b lood pressure and electrolytes and creatinine. Cardiology consult for elevated troponin Labs and medication were reviewed.. Continue same treatment. Continue with symptomatic treatment. Resume home medication. Monitor lytes and vitals. DVT and GI prophylaxis. Further recommendations as per clinical course of the patient DVT prophylaxis: Subcutaneous heparin GI Prophylaxis: Pepcid PT/OT: Pending Prognosis is guarded
[2020-10-30] MEDS: PIPERACILLIN-TAZOBACTAM 3.375 GM in SODIUM CHLORIDE 0.9% 100 ML IVPB SCH ×3 (00:07→17:06)
[2020-10-30] MEDS: KETOROLAC 15 MG/ML 1 ML VIAL IVP SCH ×5 (00:08→23:04)
[2020-10-30] MEDS: ACETAMINOPHEN TAB 325 MG TAB PO SCH ×5 (00:08→23:03)
[2020-10-30] MEDS: HEPARIN SODIUM,PORCINE/PF 5,000 UNIT/0.5 ML SYRINGE SQ SCH ×4 (00:09→23:03)
[2020-10-30] MEDS: DEXTROSE 5%-0.9% NACL 1,000 ML IV SCH ×2 (00:09→17:08)
[2020-10-30] MEDS: FERROUS SULFATE 325 MG TAB PO SCH ×2 (06:50→17:06)
[2020-10-30 07:55] LABS: Basophils % (A) 0 %; Eosinophils # (A) 0.2 k/uL (0-0.7); Eosinophils % (A) 6 %; Hypochromasia Slight; Lymphocytes % (A) 23 %; MCH 30.8 pg (25.0-35.0); MCHC 30.1 g/dL (31.0-37.0); MCV 102.5 fL (80.0-100.0); Macrocytosis Slight; Mean Platelet Volume 7.1; Monocytes # (A) 0.3 k/uL (0-1.0); Monocytes % (A) 7 %; Neutrophils # (A) 2.6 k/uL (1.3-7.7); Neutrophils % (A) 62 %; Platelet Count 227 k/uL (150-450); RDW 14.6 % (11.5-15.5); WBC 4.2 k/uL (3.8-10.6)
[2020-10-30 08:23] LABS: African American GFR (CKD) >90 (>60 ml/min/1.73 sqM); Anion Gap 2 mmol/L; Blood Urea Nitrogen 4 mg/dL (7-17); Calcium 8.3 mg/dL (8.4-10.2); Carbon Dioxide 37 mmol/L (22-30); Chloride 103 mmol/L (98-107); Glucose 92 mg/dL (74-99); Non-African American GFR(CKD) >90 (>60 ml/min/1.73 sqM); Potassium 2.9 mmol/L (3.5-5.1); Sodium 142 mmol/L (137-145)
[2020-10-30] MEDS: NICOTINE 14MG/24HR PATCH TRANSDERM SCH (08:47)
[2020-10-30] MEDS: FAMOTIDINE 20 MG/2 ML VIAL IV SCH ×2 (08:47→19:50)
[2020-10-30] MEDS: GABAPENTIN 400 MG CAP PO SCH ×2 (08:47→19:50)
[2020-10-30] MEDS: ASPIRIN 81 MG PO SCH (08:47)
[2020-10-30] MEDS: VENLAFAXINE HCL ER 150 MG CAP PO SCH ×2 (08:47→20:02)
--- NOTE | 2020-10-30 11:47 | P.PN ---
Subjective Progress Note Date: 10/30/20 CHIEF COMPLAINT: Sigmoid mass HISTORY OF PRESENT ILLNESS: Patient is postop day #5 status post sigmoid re section with end colostomy for inflammatory sigmoid mass with perforation extending into abdominal sidewall and rectal mesentery mass. Patient is sleeping in bed comfortably. Per nursing staff she did eat her breakfast. Her pain is controlled. Epidural discontinued over the weekend. Denies any nausea or vomiting. Patient's ostomy is functioning. Afebrile. BP 104/71 WBC 4.2 hemoglobin 12 sodium 142 potassium 2.9 creatinine 0.67 Patient seen and examined with Dr. Rivera PHYSICAL EXAM: VITAL SIGNS: Reviewed. GENERAL: Well-developed in no acute distress. HEENT: No sclera icterus. Extraocular movements grossly intact. Moist buccal mucosa. Head is atraumatic, normocephalic. ABDOMEN: Soft. Nondistended. Incisional dressing clean dry and intact. Ostomy functioning NEUROLOGIC: Alert and orientated to 3 Cranial nerves II through XII grossly intact. ASSESSMENT: 1. 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 2. Atelectasis 3. Hypotension 4. Elevated troponins cardiology following 5. Altered mental status changes PLAN: -Continue low fiber diet -Damon catheter discontinued -Continue antibiotics -Continue pain medications as needed -Encouraged patient to use incentive spirometer -Encouraged patient to increase activity -GI prophylaxis Pepcid and DVT prophylaxis subcu heparin Physician Code Number Stamper note has been reviewed by physician. Signing provider agrees with the documented findings, assessment, and plan of care. Objective - Vital Signs Vital signs: Vital Signs Temp 97.9 F 10/30/20 08:45 Pulse 79 10/30/20 08:45 Resp 16 10/30/20 08:45 BP 104/71 10/30/20 08:45 Pulse Ox 92 L 10/30/20 08:45 Intake & Output 10/29/20 10/30/20 10/30/20 18:59 06:59 18:59 Intake Total 100 825 118 Output Total 5850 50 20 Balance -5750 775 98 Weight 73 kg Intake: Intake, IV Titration 625 Amount Dextrose 5%-0.9% NaCl 1, 525 000 ml @ 75 mls/hr IV . [id number] [facility] Rx#:[id number] Piperacillin-Tazobactam 3 100 .375 gm In Sodium Chloride 0.9% 100 ml @ 25 mls/hr IVPB Q8HR [facility] Rx# :[id number] Oral 100 200 118 Output: Urine 5450 Uretheral (Damon) 4600 Stool 400 50 20 Other: Voiding Method Indwelling Catheter Toilet # Voids 1 - Labs CBC & Chem 7: 10/30/20 07:11 10/30/20 07:11 Labs: Abnormal Lab Results - Last 24 Hours (Table) 10/30/20 10/30/20 Range/Units 07:11 07:11 MCV 102.5 H (80.0-100.0) fL MCHC 30.1 L (31.0-37.0) g/dL Potassium 2.9 L (3.5-5.1) mmol/L Carbon Dioxide 37 H (22-30) mmol/L BUN 4 L (7-17) mg/dL Calcium 8.3 L (8.4-10.2) mg/dL
[2020-10-30] MEDS: POTASSIUM CHLORIDE ER 20 MEQ TAB.ER PO SCH ×4 (12:24→19:50)
[2020-10-30] MEDS ORDERED: Magnesium Replacement Protocol 1 EACH MISC MISCELLANE PRN (19:37)
[2020-10-30] MEDS ORDERED: Potassium Replacement Protocol 1 EACH MISC MISCELLANE PRN (19:37)
--- NOTE | 2020-10-30 19:40 | P.PN ---
Subjective This is a pleasant 65 old female with past medical history of GERD, stroke ring syndrome, history of anal cancer in remission. History of syncope. Presents with signs and symptoms of abdominal pain. She's been evaluated by surgeon primary team with Dr. Michaels and underwent sigmoid resection for her sigmoid mass with perforation and rectal mesentery mass. Today is postoperative day #1. She is complaining of from abdominal pain and she refused to touch her abdomen although she still on epidural per staff, I offered to give pain medication more for the patient and she is not interested. She is hemodynamically stable, she is saturating 92% on 3 L oxygen via nasal cannula. She was hypotensive last night 89/61 and received 500 mL of blood loss. Also food beverage attendant she had a fever of 100.5, currently her blood pressure 122/75 and she is afebrile. Her WBC is back to normal at 10.1 K today. Troponin is elevated at 0.09 and 0.103. Echocardiogram done to day showing ejection fraction of 55-60% with mild LVH, vulvar and schmidt are not well visualized Abdominal x-ray nonacute abdomen. Chest x-ray: Atelectasis. She still on IV fluid and subcutaneous heparin We will start the patient on Zosyn for her fever and hypotension. Patient is not on any antihypertensive medication 10/27/2020 Patient is alert and awake, she still have some abdominal pain although she describes it as severe but it looks significantly better than yesterday. No bowel movement yet. She is able to tolerate a 75-100% of her diet. That her blood pressure was on the low side this morning with systolic BP is in 80s, her IV fluids was increased to D5 normal saline at 150 mL/h, she received 1.5 L of normal saline boluses, currently her blood pressure is better At 110/70. Heart rate is 92. She is saturating 91% on room air and afebrile. Her labs including CBC and BMP were unremarkable, troponin is slightly elevated 3 and cardiology team are on the case, her echocardiogram showed ejection fraction of 55-60% with moderate LVH. She is afebrile she had low-grade fever food beverage attendant of 99.8 and 100.5 yesterday. And she is currently covered with Zosyn. Chest x-ray showing atelectasis favored over pneumonia. Cardiology team R following the case closely as well as the surgery primary team Patient is still getting epidural pain medication and its dose was lowered today. 10/28/2020 Patient is awake and alert, she is calm. Her abdominal pain is minimal and she wants her diet to be advanced, currently she is on clear liquid diet. Hemodynamically she is a stable. Her blood pressure still on the low normal side, this morning 97/68, patient is without dizziness or dyspnea or chest pain. Her fever subsided. Oxygen saturation is good. Labs are stable including CBC and BMP, hemoglobin is slightly trending down 13, 11.4 and 10.9. And on her colostomy bag is filled in half with black-colored liquidy stool and gas. And cardiology team added baby aspirin 81 mg daily. Also Toradol was added by surgery team. I think we should keep monitoring her hemoglobin, as well as some (she was started on liquid diet by surgery team today. Patient remains on Zosyn and D5 normal son at 150 mL per hour. 10/29/2020 Patient is awake and still complaining of some abdominal pain however examination showing expected tenderness. Patient is able to tolerate liquid diet and can be advanced to soft diet, discussed with surgery team and they agree. She is hemodynamically stable, blood pressure still ovalocyte 108/77. She is afebrile, and saturating 92% and room air. Labs are unremarkable with normal WBC, hemoglobin is stable and normal, high troponin addressed by cardiology team will added baby aspirin and recommended follow-up as an outpatient with history of service Patient remains on Zosyn, on normal saline lowered from 150 down to 75 mL/h. 10/30/2020 Patient today is to tolerate soft diet, no nausea vomiting and I discussed with the staff, bed side nurse stated patient had more than 1 bowel movement but mainly liquid dark brown stool. Damon catheter was discontinued last night and bladder scan showing findings urine residual per nurse. CBC and BMP are stable. Hemodynamically patient is stable. Blood pressure still on the low normal side so we'll keep fluid and lower rate to 50 mL/h while keep monitoring Procedure surgery team continue with low fiber diet, and therefore the patient closely Other than that continue with Zosyn. Patient received Toradol, baby aspirin and 40 sulfate added however hemoglobin remained stable at 12.5. Potassium significantly low at 2.9, vertigo to replace and recheck potassium and magnesium pathology report still pending, patient with history of rectal cancer 2 years ago at that time she was following up with Dr. Murphy and received chemo and radiotherapy. Patient informed and she agreed to follow-up pathology report Objective - Vital Signs Vital signs: Vital Signs Temp 97.4 F L 10/30/20 12:00 Pulse 83 10/30/20 12:00 Resp 16 10/30/20 12:00 BP 132/88 10/30/20 12:00 Pulse Ox 91 L 10/30/20 12:00 Intake & Output 10/29/20 10/30/20 10/30/20 18:59 06:59 18:59 Intake Total 100 825 936 Output Total 5850 50 630 Balance -5750 775 306 Weight 73 kg Intake: IV 700 Dextrose 5%-0.9% NaCl 1, 600 000 ml @ 75 mls/hr IV . [id number] [facility] Rx#:[id number] Piperacillin-Tazobactam 3 100 .375 gm In Sodium Chloride 0.9% 100 ml @ 25 mls/hr IVPB Q8HR [facility] Rx# :[id number] Intake, IV Titration 625 Amount Dextrose 5%-0.9% NaCl 1, 525 000 ml @ 75 mls/hr IV . [id number] [facility] Rx#:[id number] Piperacillin-Tazobactam 3 100 .375 gm In Sodium Chloride 0.9% 100 ml @ 25 mls/hr IVPB Q8HR [facility] Rx# :[id number] Oral 100 200 236 Output: Urine 5450 600 Uretheral (Damon) 4600 Stool 400 50 30 Other: Voiding Method Indwelling Catheter Toilet # Voids 1 - Exam GENERAL: The patient is alert and oriented x3, not in any acute distress. Well developed, well nourished. HEENT: Pupils are round and equally reacting to light. EOMI. No scleral icterus. No conjunctival pallor. Normocephalic, atraumatic. No pharyngeal erythema. No thyromegaly. CARDIOVASCULAR: S1 and S2 present. No murmurs, rubs, or gallops. PULMONARY: Chest is clear to auscultation, no wheezing or crackles. -ABDOMEN: Patient refused exam of the abdomen MUSCULOSKELETAL: No joint swelling or deformity. EXTREMITIES: No cyanosis, clubbing, or pedal edema. NEUROLOGICAL: Gross neurological examination did not reveal any focal deficits. SKIN: No rashes. no petechiae. - Labs CBC & Chem 7: 10/30/20 07:11 10/30/20 07:11 Labs: Abnormal Lab Results - Last 24 Hours (Table) 10/30/20 10/30/20 Range/Units 07:11 07:11 MCV 102.5 H (80.0-100.0) fL MCHC 30.1 L (31.0-37.0) g/dL Potassium 2.9 L (3.5-5.1) mmol/L Carbon Dioxide 37 H (22-30) mmol/L BUN 4 L (7-17) mg/dL Calcium 8.3 L (8.4-10.2) mg/dL Assessment and Plan Assessment: Sigmoid mass with perforation and rectal mesentery mass, status post sigmoid resection with end colostomy on 10/25 Transient period of hypotension with low-grade fever, could be secondary to intra-abdominal infection. Improved Severe sepsis secondary to above with hypotension, fever and tachycardia. Improved Elevated troponin, cardiac causes were ruled out History of lung cancer History of GERD History of syncope History of Sjogren's syndrome History of anal cancer in remission Plan: This is a pleasant 65 years old female presents with sigmoid and rectal mass status post resection and end colostomy. Continue with postop care, DVT prophylaxis and pain management per surgery team At [facility] and continue with IV fluid normal saline at 50 mL per hour, monitor blood pressure and electrolytes and creatinine. Replace magnesium and potassium and monitor Surgery team on the case Labs and medication were reviewed.. Continue same treatment. Continue with symptomatic treatment. Resume home medication. Monitor lytes and vitals. DVT and GI prophylaxis. Further recommendations as per clinical course of the patient DVT prophylaxis: Subcutaneous heparin GI Prophylaxis: Pepcid PT/OT: Pending Prognosis is guarded
[2020-10-30] MEDS: HYDROmorphone 1 MG/ML 1 ML SYRINGE IVP PRN (19:50)
[2020-10-30] MEDS: MAGNESIUM SULFATE-D5W PMX 1 GM in DEXTROSE/WATER 1 100ML.BAG IVPB SCH ×2 (21:44→23:00)
[2020-10-31] MEDS: PIPERACILLIN-TAZOBACTAM 3.375 GM in SODIUM CHLORIDE 0.9% 100 ML IVPB SCH ×2 (00:05→08:13)
[2020-10-31] MEDS: ACETAMINOPHEN TAB 325 MG TAB PO SCH ×2 (05:49→11:47)
[2020-10-31] MEDS: KETOROLAC 15 MG/ML 1 ML VIAL IVP SCH ×2 (05:50→11:48)
[2020-10-31] MEDS: FERROUS SULFATE 325 MG TAB PO SCH (05:50)
[2020-10-31] MEDS: DEXTROSE 5%-0.9% NACL 1,000 ML IV SCH (05:50)
[2020-10-31 08:09] LABS: Basophils % (A) 0 %; Eosinophils # (A) 0.4 k/uL (0-0.7); Eosinophils % (A) 7 %; HCT 39.2 % (34.0-46.0); HGB 12.4 gm/dL (11.4-16.0); Hypochromasia Slight; Lymphocytes # (A) 1.2 k/uL (1.0-4.8); Lymphocytes % (A) 24 %; MCH 31.8 pg (25.0-35.0); MCHC 31.7 g/dL (31.0-37.0); MCV 100.3 fL (80.0-100.0); Macrocytosis Slight; Mean Platelet Volume 7.6; Monocytes # (A) 0.4 k/uL (0-1.0); Monocytes % (A) 7 %; Neutrophils # (A) 3.1 k/uL (1.3-7.7); Neutrophils % (A) 60 %; Platelet Count 230 k/uL (150-450); RBC 3.91 m/uL (3.80-5.40); RDW 14.3 % (11.5-15.5); WBC 5.2 k/uL (3.8-10.6)
[2020-10-31] MEDS: HEPARIN SODIUM,PORCINE/PF 5,000 UNIT/0.5 ML SYRINGE SQ SCH (08:12)
[2020-10-31 08:32] LABS: African American GFR (CKD) >90 (>60 ml/min/1.73 sqM); Anion Gap 2 mmol/L; Blood Urea Nitrogen 5 mg/dL (7-17); Calcium 8.6 mg/dL (8.4-10.2); Carbon Dioxide 33 mmol/L (22-30); Chloride 105 mmol/L (98-107); Glucose 89 mg/dL (74-99); Magnesium 2.4 mg/dL (1.6-2.3); Non-African American GFR(CKD) >90 (>60 ml/min/1.73 sqM); Potassium 4.7 mmol/L (3.5-5.1); Sodium 140 mmol/L (137-145)
[2020-10-31] MEDS ORDERED: HYDROcodone/APAP 7.5-325MG 1 EACH TAB PO PRN (09:10)
[2020-10-31] MEDS: HYDROmorphone 1 MG/ML 1 ML SYRINGE IVP PRN (09:12)
[2020-10-31] MEDS: NICOTINE 14MG/24HR PATCH TRANSDERM SCH (11:12)
[2020-10-31] MEDS: ASPIRIN 81 MG PO SCH (11:12)
[2020-10-31] MEDS: GABAPENTIN 400 MG CAP PO SCH (11:12)
[2020-10-31] MEDS: VENLAFAXINE HCL ER 150 MG CAP PO SCH (11:13)
[2020-10-31] MEDS: FAMOTIDINE 20 MG/2 ML VIAL IV SCH (11:19)
[2020-10-31 11:56] VITALS: RESP 12
[2020-10-31 12:36] VITALS: BP 113/76; PULSE 72; TEMP 97.6
--- NOTE | 2020-10-31 14:36 | P.DS ---
Providers Date of admission: 10/25/20 07:54 Expected date of discharge: 10/31/20 Attending physician: Pedro Rivera Consults: 10/25/20 11:29 Consult Physician Routine Consulting Provider: Marlon Murphy Consult Reason/Comments: Medical management Do you want consulting provider notified?: Yes 10/26/20 09:59 Consult Physician Urgent Consulting Provider: Stephon Gregory Consult Reason/Comments: elevated troponin Do you want consulting provider notified?: Yes Primary care physician: Alysha Loja Hospital Course: Discharge diagnosis 1. 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 2. Atelectasis 3. Hypotension improved with IV fluids 4. Elevated troponins evaluated by cardiology. 5. Altered mental status changes likely a toxic metabolic encephalopathy. Possibly related to anesthesia and pain medications. Now improved 6. Hypokalemia resolved Hospital course This a 65-year-old female who presents today for sigmoid resection. Patient has had complaints of left lower quadrant abdominal pain. She recent diagnostic laparoscopy shows inflammatory mass and sigmoid colon. Patient has had difficulty with bowel movements and constipation and chronic pain. She has a previous history of anal squamous cell carcinoma. She is status post Sigmoid resection with end colostomy for Inflammatory sigmoid mass with perforation extending into abdominal sidewall and rectal mesentery mass. Patient did require transfer to the cardiac floor due to episode of hypotension. She also is having altered mental status. This could have been secondary to anesthesia and pain medication. Her symptoms improved with IV fluid hydration and decreasing the epidural and eventually discontinuing the epidural. Patient's mentation has returned to baseline as well as her blood pressures. She is tolerating diet. She's afebrile. She is up and ambulating. Her pain is controlled. Her ostomy is functioning. She is stable for discharge. Please refer to chart for any further details. Physician Traffic Line Painter note has been reviewed by physician. Signing provider agrees with the documented findings, assessment, and plan of care. Health Concerns: Recommendations for Colostomy Care Last ostomy pouching system change: 10.30.2020 Mrs Jamil will receive the following ostomy care supplies from [facility] on discharge: Convatec one piece cut to fit with filter pouch #[id number] (three of them) Dayday Seal (4) Ostomy Powder (one) No sting prep pads (10) Mrs Jamil is to empty the pouching system when the bag is 1/2 to 1/3 full while sitting on the toilet and clean the bottom of the bag before closing it.. The entire ostomy pouch must be changed every 3-5 days unless otherwise directed by the Home Care Nurse or Surgeon Home care please assist Mr & Mrs Jamil to obtain permanent disposable pouches for Mrs Richard use in 2-3 weeks after discharge Mrs Jamil will also receive free sample pouches & additional supplies for her ostomy care from [facility] delivered to her house in 5 - 7 days after discharge from the hospital. Patient Condition at Discharge: Stable Plan - Discharge Summary Discharge Rx Participant: No New Discharge Prescriptions: Continue Venlafaxine HCl [Effexor XR] 150 mg PO BID@1000,2100 ALPRAZolam [Xanax] 0.25 mg PO BID PRN PRN Reason: Anxiety Gabapentin 1,200 mg PO BID@1000,2100 Pantoprazole Sodium [Protonix] 40 mg PO DAILY@1000 PRN PRN Reason: Indigestion Diphenoxylate HCl/Atropine [Lomotil 2.5-0.025 mg Tablet] 1 tab PO QID PRN PRN Reason: Diarrhea Docusate [Colace] 100 mg PO BID #20 capsule HYDROcodone/APAP 7.5-325MG [[place]acine 7.5-325] 1 tab PO Q6H PRN #12 tab PRN Reason: Pain Acetaminophen Tab [Tylenol] 650 mg PO Q6H PRN PRN Reason: Pain Discharge Medication List ALPRAZolam [Xanax] 0.25 mg PO BID PRN 11/17/18 [History] Venlafaxine HCl [Effexor XR] 150 mg PO BID@1000,209911/17/18 [History] Gabapentin 1,200 mg PO BID@1000,2100 02/15/20 [History] Diphenoxylate HCl/Atropine [Lomotil 2.5-0.025 mg Tablet] 1 tab PO QID PRN 08/22/20 [History] Pantoprazole Sodium [Protonix] 40 mg PO DAILY@1000 PRN 08/22/20 [History] Docusate [Colace] 100 mg PO BID #20 capsule 10/11/20 [Rx] Acetaminophen Tab [Tylenol] 650 mg PO Q6H PRN 10/18/20 [History] HYDROcodone/APAP 7.5-325MG [Racine 7.5-325] 1 tab PO Q6H PRN #12 tab 10/31/20 [Rx] Follow up Appointment(s)/Referral(s): [facility], [NON-STAFF] - Pedro Rivera MD [STAFF PHYSICIAN] - 1 Week Patient Instructions/Handouts: How to Stop Smoking (GEN), Colostomy Care (GEN) Activity/Diet/Wound Care/Special Instructions: No driving while taking [place] No lifting over 10 pounds You may shower. No soaking or tub baths for 2 weeks Very light activity until you are reevaluated at your follow up appointment with your surgeon Discharge Disposition: HOME WITH HOME HEALTH SERVICES
--- NOTE | 2020-11-14 08:18 | CDI ---
Documentation Clarification Form Date: 11/14/2020 08:07:54 AM From: Jose Luis Tomlinson Phone: Debra Hines [phone] Admit Date: 10/25/2020 07:54:00 AM Patient Name: Rocio Jamil Visit Number: [id number] Discharge Date: 10/31/2020 04:45:00 PM ATTENTION: The Clinical Documentation Specialists (CDI) and [facility] Coding Staff appreciate your assistance in clarifying documentation. Please respond to the clarification below the line at the bottom and electronically sign. The CDI & [facility] Coding staff will review the response and follow-up if needed. Please note: Queries are made part of the Legal Health Record. If you have any questions, please contact the author of this message via ITS. Dr. Pedro Rivera The patient presented with the following clinical indicators. Additional clarification regarding the etiology/cause of the clinical indicators is requested. History/Risk Factors: Progress notes 10/27-11/01 indicate severe sepsis Clinical Indicators: WBC: Lactic acid: Blood cultures: Vitals signs: 10/27-B/P 80/60 Treatment: ID Consult: Antibiotics: IV Bolus: In your professional opinion, please clarify if these findings signify one of the following conditions: [ ] Sepsis POA [ ] Sepsis, Not POA [ x ] Sepsis ruled out [ ] Severe Sepsis with organ failure [ ] Septic Shock [ ] SIRS, without underlying infectious process [ ] Other, please specify [ ] Unable to determine SIRS Criteria: 2 or more of the following may indicate SIRS -Temperature < 96.8F (36C) or > 101.0F (38.3C) -Heart Rate > 90 bpm -Respiratory Rate > 20 breaths/min or PaCO2 < 32 mmHg -White Blood Cell Count > 12,000 or < 4,000 cells/mm3 or > 10% band MTDD
== END 2020-10-31 16:45 | disposition home health service (06) | DRG 329 ==
LOC: 2ORMAIN 07:54 → 5NMEDONC 13:38 → 3SCARD 10-26 00:08
PROVIDERS: ADMIT Surgery; ATTEND Surgery
PROC: 0DBN0ZX Excision of Sigmoid Colon, Open Approach, Diagnostic (ICD-10-PCS; 2020-10-25)
PROC: 0DBP0ZZ Excision of Rectum, Open Approach (ICD-10-PCS; 2020-10-25)
PROC: 0D1M0Z4 Bypass Descending Colon to Cutaneous, Open Approach (ICD-10-PCS; principal; 2020-10-25 09:10)
DX: K63.9 Disease of intestine, unspecified (principal); K63.1 Perforation of intestine (nontraumatic); G92 Toxic encephalopathy; J98.11 Atelectasis; K57.20 Diverticulitis of large intestine with perforation and abscess without bleeding; R19.00 Intra-abdominal and pelvic swelling, mass and lump, unspecified site; G89.29 Other chronic pain; K59.00 Constipation, unspecified; M35.00 Sjogren syndrome, unspecified; F17.200 Nicotine dependence, unspecified, uncomplicated; Z80.7 Family history of other malignant neoplasms of lymphoid, hematopoietic and related tissues; Z80.51 Family history of malignant neoplasm of kidney; Z85.048 Personal history of other malignant neoplasm of rectum, rectosigmoid junction, and anus; Z85.118 Personal history of other malignant neoplasm of bronchus and lung; Z90.710 Acquired absence of both cervix and uterus; K21.9 Gastro-esophageal reflux disease without esophagitis; R77.8 Other specified abnormalities of plasma proteins; I95.9 Hypotension, unspecified; K52.9 Noninfective gastroenteritis and colitis, unspecified; E87.6 Hypokalemia; T40.605A Adverse effect of unspecified narcotics, initial encounter; Y92.239 Unspecified place in hospital as the place of occurrence of the external cause; Z20.822 Contact with and (suspected) exposure to COVID-19; Z86.73 Personal history of transient ischemic attack (TIA), and cerebral infarction without residual deficits; F41.9 Anxiety disorder, unspecified; F32.9 Major depressive disorder, single episode, unspecified; K52.89 Other specified noninfective gastroenteritis and colitis
CPT/HCPCS: 71045; 74018; 80048; 80053; 83605; 83735; 84132; 84484; 85025; 86850; 86900; 86901; 87635; 88307; 93306

== ENCOUNTER → 2021-05-03 | Outpatient (CLI) | payer MEDICARE, OTHER ==
[2021-05-03 18:00] LABS: Potassium 4.2 mmol/L (3.5-5.1)
[2021-05-03 19:37] LABS: HCT 41.5 % (34.0-46.0); HGB 13.1 gm/dL (11.4-16.0); Hypochromasia Slight; MCH 33.3 pg (25.0-35.0); MCHC 31.6 g/dL (31.0-37.0); MCV 105.5 fL (80.0-100.0); Macrocytosis Moderate; Mean Platelet Volume 7.5; Platelet Count 277 k/uL (150-450); RBC 3.93 m/uL (3.80-5.40); RDW 13.7 % (11.5-15.5); WBC 3.8 k/uL (3.8-10.6)
== END | disposition home or self-care (01) ==
LOC: LABPAT 16:08
PROVIDERS: ATTEND Surgery
DX: Z01.812 Encounter for preprocedural laboratory examination (principal); K57.33 Diverticulitis of large intestine without perforation or abscess with bleeding
CPT/HCPCS: 36415; 80051; 85027

== ENCOUNTER 2021-05-14 06:32 | Inpatient (IN) | payer MEDICARE, OTHER ==
[~2021-05-14 06:32] MED LIST changes: +DEXAMETHASONE SOD PHOSPHATE 4 MG/ML 1 ML VIAL IV ONE; -LIDOCAINE 1% (10MG/ML) FOR IV START INTRADERMA PRN; +ONDANSETRON 4 MG/2 ML VIAL IVP ONE; -fentaNYL (PF) 50 MCG/ML 2 ML AMP IVP PRN; -metroNIDAZOLE-NS PMX 500 MG in SALINE 1 100ML.BAG IVPB PRN
[2021-05-14] MEDS ORDERED: HYDROmorphone 0.5 MG/0.5 ML SYRINGE IVP PRN (07:00)
[2021-05-14] MEDS: LACTATED RINGERS 1,000 ML IV SCH (07:05)
[2021-05-14] MEDS ORDERED: LIDOCAINE 1% (10MG/ML) FOR IV START INTRADERMA ONE (07:05)
[2021-05-14] MEDS ORDERED: fentaNYL (PF) 50 MCG/ML 2 ML AMP IV ONE (07:24)
[2021-05-14 07:36] LABS: Blood Urea Nitrogen 15 mg/dL (7-17)
[2021-05-14] MEDS ORDERED: fentaNYL (PF) 50 MCG/ML 2 ML AMP ONE (07:52)
[2021-05-14] MEDS ORDERED: LIDOCAINE 1% INJ 10MG/ML (20 ML MDV) ONE (07:52)
[2021-05-14] MEDS ORDERED: PHENYLEPHRINE-0.9% NACL SYG 1,000 MCG/10 ML SYRINGE ONE (07:52)
[2021-05-14] MEDS ORDERED: ROCURONIUM 10 MG/ML (5 ML VIAL) IV ONE (07:52)
[2021-05-14] MEDS ORDERED: SUCCINYLCHOLINE CHLORIDE 100 MG/5 ML SYR IV ONE (07:52)
[2021-05-14] MEDS ORDERED: PROPOFOL 10 MG/ML 20 ML VIAL IV ONE (07:52)
[2021-05-14] MEDS ORDERED: GLYCOPYRROLATE 0.2 MG/ML 2 ML VIAL ONE (07:52)
[2021-05-14] MEDS ORDERED: NEOSTIGMINE 1 MG/ML 10 ML VIAL ONE (07:52)
[2021-05-14] MEDS ORDERED: ROPIVACAINE 250 MG, HYDROMORPHONE (PF) 5 MG in SODIUM CHLORIDE 0.9% 200 ML EPIDURAL PRN (07:59)
--- NOTE | 2021-05-14 07:59 | P.ANPRN ---
Procedure Note - Anesthesia - Epidural/Spinal Epidural Time Out Performed: Yes Date of Procedure: 05/14/21 Procedure Start Time: :23 Procedure Stop Time: :30 Location of Patient: PreOp Indication: Acute Post-Operative Pain, Requested by Surgeon Sedation Type: Sedate with meaningful contact maintained Preparation: Sterile Dressing Position: Sitting Catheter: Indwelling Needle Guage: 18 Injectate: Test Dose Lidocaine1.5% w/1:200,000 epi Blood Aspirated: No Pain Paresthesia on Injection Noted: No
--- NOTE | 2021-05-14 08:03 | P.GSHP ---
History of Present Illness H&P Date: 05/14/21 Chief Complaint: History of diverticulitis This is a 65-year-old female who presents today for reversal of colostomy. Patient appears history of perforated colon and end colostomy. Past Medical History Past Medical History: Cancer, GERD/Reflux, Syncope Additional Past Medical History / Comment(s): Sjogren's Syndrome. Hx anal cancer, tx w/ chemo/radiation, in remission. Hx syncope. Diverticulitis, has colostomy. Fx Lt wrist 6 wks ago, in splint now. "poor muscle mass," per patient. History of Any Multi-Drug Resistant Organisms: None Reported Past Surgical History: Bowel Resection, Breast Surgery, Hysterectomy, Orthopedic Surgery Additional Past Surgical History / Comment(s): Breast biopsy, Rt elbow procedure, ORIF left ankle-hardware removed, hemorrhoidectomy X2, colonoscopy, Biopsy of rectum, lump exc on forehead, laproscopy/lysis of adhesions. Bowel resection w/ colostomy 10/2020. Past Anesthesia/Blood Transfusion Reactions: Previous Problems w/ Anesthesia, Motion Sickness, Postoperative Nausea & Vomiting (PONV) Additional Past Anesthesia/Blood Transfusion Reaction / Comment(s): Had hard time waking up after surgery X1. Smoking Status: Former smoker, Second hand smoke exposure - Past Family History Mother Family Medical History: Cancer Additional Family Medical History / Comment(s): Lymphoma. . Brother(s) Family Medical History: Cancer Additional Family Medical History / Comment(s): Esophagus, liver. . Father Family Medical History: Cancer Additional Family Medical History / Comment(s): kidney cancer Medications and Allergies Home Medications Medication Instructions Recorded Confirmed Type ALPRAZolam [Xanax] 0.25 mg PO BID PRN 11/17/18 05/10/21 History Venlafaxine HCl [Effexor XR] 150 mg PO BID@1000,2100 11/17/18 05/10/21 History Gabapentin 1,200 mg PO BID@1000,2100 02/15/20 05/10/21 History Pantoprazole Sodium [Protonix] 40 mg PO DAILY@1000 PRN 08/22/20 05/10/21 History HYDROcodone/APAP 10-325MG [[place]ola 1 tab PO Q6HR PRN 05/10/21 05/10/21 History 10-325] Allergies Allergy/AdvReac Type Severity Reaction Status Date / Time ibuprofen AdvReac severe Verified 05/14/21 06:43 ringing in ears Surgical - Exam Vital Signs Temp Pulse Resp BP Pulse Ox 97.0 F L 96 16 139/63 93 L 05/14/21 06:56 05/14/21 06:56 05/14/21 06:56 05/14/21 06:56 05/14/21 06:56 - General well developed, well nourished - Eyes PERRL - ENT normal pinna - Neck no masses - Respiratory normal expansion - Cardiovascular Rhythm: regular - Abdomen Colostomy in left lower quadrant Abdomen: soft, non tender Results - Labs 05/14/21 07:05 Diabetes panel 05/14/21 Range/Units 07:05 BUN 15 (7-17) mg/dL Pituitary panel 05/14/21 Range/Units 07:05 BUN 15 (7-17) mg/dL Adrenal panel 05/14/21 Range/Units 07:05 BUN 15 (7-17) mg/dL Assessment and Plan Assessment: History of perforated colon with and colostomy. Patient presents today for reversal colostomy. Patient with risks of surgery including wound infection and possible recurrent colostomy
[2021-05-14] MEDS ORDERED: LACTATED RINGERS 1,000 ML IV ONE ×2 (08:34→13:26)
--- NOTE | 2021-05-14 09:50 | P.OP ---
Date of Procedure: 05/14/21 Preoperative Diagnosis: History of perforated diverticulitis Postoperative Diagnosis: Same Procedure(s) Performed: Reversal of colostomy Takedown colostomy Partial omentectomy Anesthesia: FAY Surgeon: Pedro Rivera Estimated Blood Loss (ml): 25 Pathology: other (Omentum, colon) Condition: stable Disposition: PACU Description of Procedure: The patient's placed the operative table in the supine position where she received general trach tube anesthesia. She was then placed in dorsal lithotomy position. Her abdomen and perineum were prepped and draped usual fashion. The abdomen was entered through a low midline incision. There were adhesions to the anterior abdominal wall. These were lysed sharply dissection. The colostomy was transected at the fascial level using the NASREEN stapler. The left colon was immobilized. There was significant scarring of the left colon. The incision was lengthened. A limited splenic flexure was taken down using the Enseal device sharp dissection with cautery. Once the colon was of adequate length. Device. The had a pursestring suture applied. The distal colon was opened. And then the 25 mm EEA stapler anvil was placed into the colon. The pursestring was secured. The trust operations assistant then placed the EEA stapler into the rectum. The spike was removed through the rectal staple line and then the anvil was cut to the stapler. Staple and closed and fired. 2 intact tissue rings were withdrawn. The rectal anastomosis was then inspected using an air and a insufflation. There is no extravasation of air. The area was irrigated thoroughly.. The omentum was visualized. The omentum appeared to have a small nonviable portion. This was transected with the Enseal device. The fascia was then closed in looped #1 PDS suture. Skin was closed richa. The colostomy then was excised using cautery. The fascial defect was closed with 0 Vicryl suture. Skin was closed richa. Patient top she will was sent to recovery room stable.
[2021-05-14] MEDS ORDERED: BENZOCAINE/MENTHOL LOZENG 1 EACH LOZENGE MUCOUS MEM PRN (09:51)
[2021-05-14] MEDS ORDERED: ONDANSETRON 4 MG/2 ML VIAL IVP PRN (09:51)
[2021-05-14] MEDS ORDERED: diphenhydrAMINE 50 MG/ML 1 ML VIAL IVP ONE (10:37)
--- NOTE | 2021-05-14 10:42 | XR ---
Abdomen HISTORY: Lost surgical instrument Frontal view of the abdomen submitted and correlated prior exam 11/04/2020 There are surgical richa in the midline and left lower quadrant. Probable vascular calcifications a re present within the pelvis. The entire abdomen is not included on exam. Lung bases not entirely exc luded. No evidence of bowel obstruction or pneumoperitoneum. Bowel suture present in the left lower q uadrant. IMPRESSION: No radiopaque foreign body is evident within the limitations of the exam
[2021-05-14 14:23] LABS: African American GFR (CKD) >90 (>60 ml/min/1.73 sqM); Anion Gap 9 mmol/L; Calcium 9.3 mg/dL (8.4-10.2); Carbon Dioxide 31 mmol/L (22-30); Chloride 99 mmol/L (98-107); Glucose 117 mg/dL (74-99); Non-African American GFR(CKD) 83 (>60 ml/min/1.73 sqM); Potassium 3.6 mmol/L (3.5-5.1); Sodium 139 mmol/L (137-145)
[2021-05-14] MEDS: D5-0.45% NACL WITH KCL 20MEQ/L 1,000 ML IV SCH ×2 (14:34→17:33)
[2021-05-14] MEDS ORDERED: SODIUM CHLORIDE 0.9% 1,000 ML IV ONE (15:00)
[2021-05-14] MEDS: NALOXONE 0.4 MG/ML 1 ML VIAL IV PRN ×3 (16:35→16:41)
[2021-05-14] MEDS: ONDANSETRON 4 MG/2 ML VIAL IVP PRN (16:39)
[2021-05-14 16:52] LABS: Glucose,Whole Blood 162 mg/dL (75-99)
--- NOTE | 2021-05-14 18:09 | P.CONS ---
History of Present Illness - Reason for Consult Consult date: 05/14/21 - History of Present Illness Rocio Jamil, is a 65-year-old female who was admitted to [facility] for colostomy reversal. Patient has a known history of acute diverticulitis with perforation in October 2020 at that time she underwent surgery with colostomy placement, past medical history is also significant for history of depression, history of gastroesophageal reflux disease, history of lung cancer, history of anal cancer. Patient is a former smoker she denies any alcohol use. Past Medical History Past Medical History: Cancer, GERD/Reflux, Syncope Additional Past Medical History / Comment(s): Sjogren's Syndrome. Hx anal cancer, tx w/ chemo/radiation, in remission. Hx syncope. Diverticulitis, has colostomy. Fx Lt wrist 6 wks ago, in splint now. "poor muscle mass," per patient. History of Any Multi-Drug Resistant Organisms: None Reported Past Surgical History: Bowel Resection, Breast Surgery, Hysterectomy, Orthopedic Surgery Additional Past Surgical History / Comment(s): Breast biopsy, Rt elbow procedure, ORIF left ankle-hardware removed, hemorrhoidectomy X2, colonoscopy, Biopsy of rectum, lump exc on forehead, laproscopy/lysis of adhesions. Bowel resection w/ colostomy 10/2020, ostomy reversal on 05/14/21. Past Anesthesia/Blood Transfusion Reactions: Previous Problems w/ Anesthesia, Motion Sickness, Postoperative Nausea & Vomiting (PONV) Additional Past Anesthesia/Blood Transfusion Reaction / Comm: Had hard time waking up after surgery X1. Past Psychological History: Anxiety, Depression Smoking Status: Former smoker Past Alcohol Use History: None Reported Additional Past Alcohol Use History / Comment(s): Started smoking at age 13, 1pp, quit 10/25/20 Past Drug Use History: None Reported - Past Family History Mother Family Medical History: Cancer Additional Family Medical History / Comment(s): Lymphoma. . Brother(s) Family Medical History: Cancer Additional Family Medical History / Comment(s): Esophagus, liver. . Father Family Medical History: Cancer Additional Family Medical History / Comment(s): kidney cancer Medications and Allergies Home Medications Medication Instructions Recorded Confirmed Type ALPRAZolam [Xanax] 0.25 mg PO BID PRN 11/17/18 05/10/21 History Venlafaxine HCl [Effexor XR] 150 mg PO BID@1000,2100 11/17/18 05/10/21 History Gabapentin 1,200 mg PO BID@1000,2100 02/15/20 05/10/21 History Pantoprazole Sodium [Protonix] 40 mg PO DAILY@1000 PRN 08/22/20 05/10/21 History HYDROcodone/APAP 10-325MG [Garnett 1 tab PO Q6HR PRN 05/10/21 05/10/21 History 10-325] Allergies Allergy/AdvReac Type Severity Reaction Status Date / Time ibuprofen AdvReac severe Verified 05/14/21 06:43 ringing in ears Physical Exam Vitals: Vital Signs Temp Pulse Pulse Pulse Resp BP BP 05/14/21 16:41 10 L 05/14/21 16:38 6 L 05/14/21 16:35 6 L 05/14/21 14:00 98.2 F 109 H 18 100/63 05/14/21 12:15 77 14 124/64 05/14/21 12:00 72 16 131/52 05/14/21 11:30 86 16 145/81 05/14/21 11:00 72 14 155/70 05/14/21 10:49 73 14 173/90 05/14/21 10:43 68 14 168/61 05/14/21 10:30 55 L 14 151/66 05/14/21 10:15 57 L 14 132/59 05/14/21 09:59 96.8 F L 76 14 165/70 05/14/21 07:40 85 16 121/60 05/14/21 06:56 97.0 F L 96 16 139/63 Pulse Ox 05/14/21 16:41 05/14/21 16:38 05/14/21 16:35 05/14/21 14:00 94 L 05/14/21 12:15 98 05/14/21 12:00 99 05/14/21 11:30 98 05/14/21 11:00 94 L 05/14/21 10:49 99 05/14/21 10:43 99 05/14/21 10:30 99 05/14/21 10:15 97 05/14/21 09:59 97 05/14/21 07:40 97 05/14/21 06:56 93 L Intake and Output 1005/14/21 05/14/21 06:59 14:59 22:59 Intake Total 2250 Output Total 305 Balance 1944 Intake: IV 2250 Output: Urine 280 Estimated Blood Loss 25 Other: Weight 80.7 kg 80.7 kg In general patient is alert and oriented x 3 in no distress HEENT head normocephalic and atraumatic Neck is supple no JVD no goiter no lymphadenopathy no carotid bruit Chest examination is clear to auscultation no crackles no wheezing Cardiac exam reveals regular heart sounds S1 and S2 no gallops no murmurs Abdomen is soft nontender no organomegaly with normal bowel sounds Extremity exam reveals no edema no cyanosis or clubbing Neurological examination reveals no gross focal deficits Results CBC & Chem 7: 05/14/21 07:05 Labs: Abnormal Lab Results - Last 24 Hours (Table) 05/14/21 05/14/21 Range/Units 07:05 16:36 Carbon Dioxide 31 H (22-30) mmol/L Glucose 117 H (74-99) mg/dL POC Glucose (mg/dL) 162 H (75-99) mg/dL Assessment and Plan Plan: Status post colostomy reversal today by Dr. Rivera Episode of hypotension post surgery given 1 L of IV fluid bolus History of diverticulitis with perforation, with colostomy placement in October 2020 Underlying history of depression Underlying history of Sjogren syndrome Underlying history of gastroesophageal reflux disease Previous history of an anal cancer Previous history of lung cancer Home medications reviewed and reordered Patient received IV fluid boluses for hypotension, blood pressure in normal range at this time Will check labs in a.m., will follow closely
[2021-05-14] MEDS ORDERED: ROPIVACAINE 250 MG, HYDROMORPHONE (PF) 2.5 MG in SODIUM CHLORIDE 0.9% 200 ML EPIDURAL PRN (20:30)
[2021-05-14] MEDS: ACETAMINOPHEN IV (For NPO) 1,000 MG in EMPTY BAG 1 BAG IVPB PRN (23:52)
[2021-05-15] MEDS: D5-0.45% NACL WITH KCL 20MEQ/L 1,000 ML IV SCH ×3 (01:19→17:24)
[2021-05-15] MEDS: diphenhydrAMINE 50 MG/ML 1 ML VIAL IVP PRN ×2 (03:11→16:34)
[2021-05-15] MEDS: ACETAMINOPHEN IV (For NPO) 1,000 MG in EMPTY BAG 1 BAG IVPB PRN ×2 (05:39→13:35)
[2021-05-15] MEDS: ONDANSETRON 4 MG/2 ML VIAL IVP PRN (06:11)
[2021-05-15] MEDS: LACTATED RINGERS 1,000 ML IV SCH (06:14)
--- NOTE | 2021-05-15 08:32 | P.PN ---
Progress Note - Text Progress Note Date: 05/15/21 Patient was given 5+5 mL of epidural solution bolus in PACU for pain control on 05/14/2021. Patient was comfortable and transferred to the floor, later on patient developed respiratory issues. Epidural solution was kept on hold. And epidural solution containing ropivacaine 0.1% with Dilaudid 20 g per mL was discontinued. Pharmacy requested to changes in epidural solution concentration ropivacaine 0.1% with Dilaudid 10 mics per mL. Postoperative day # 1 status post colostomy reversal. Epidural catheter placed for postoperative analgesia, patient doing well . patient currently on combination of epidural infusion solution of Ropivacaine 0.1% and Dilaudid 10 g per mL, infusion rate at @ 5 to 10 ml per hour. Patient had no motor / sensory deficit. Eepidural site dressing intact, no tenderness over the epidural site. Vital signs stable ,VAS 6 /10 . Patient was given a test dose with lidocaine before starting the epidural infusion by anesthesia DIP STAND LOADER. , Assessment and plan= post operative day # , patient doing well , pain well controlled , there is no anesthesia related complications. continue epidural with the current rate. please contact anesthesia on-call Any problems with epidural .
[2021-05-15 09:31] LABS: HCT 41.4 % (37.2-46.3); HGB 12.4 g/dL (12.0-15.0); MCH 31.5 pg (27.0-32.0); MCV 105.1 fL (80.0-97.0); Mean Platelet Volume 9.8 fL (9.5-12.2); Platelet Count 238 X 10*3/uL (140-440); RBC 3.94 X 10*6/uL (4.10-5.20); RDW 13.6 % (11.5-14.5); WBC 9.41 X 10*3/uL (4.50-10.00)
[2021-05-15 10:58] LABS: Basophils # (A) 0.01 X 10*3/uL (0.00-0.10); Basophils % (A) 0.1 %; Eosinophils # (A) 0.01 X 10*3/uL (0.04-0.35); Eosinophils % (A) 0.1 %; Lymphocytes # (A) 1.61 X 10*3/uL (0.90-5.00); Lymphocytes % (A) 17.1 %; Monocytes # (A) 0.94 X 10*3/uL (0.20-1.00); Neutrophils # (A) 6.82 X 10*3/uL (1.80-7.70); Neutrophils % (A) 72.5 %
[2021-05-15 10:59] LABS: Macrocytosis (M) 2+
[2021-05-15] MEDS ORDERED: ALPRAZolam 0.25 MG TAB PO PRN (12:26)
--- NOTE | 2021-05-15 13:22 | P.PN ---
Subjective Progress Note Date: 05/15/21 CHIEF COMPLAINT: Perforated diverticulitis HISTORY OF PRESENT ILLNESS: Patient is status post reversal of colostomy, takedown colostomy and partial omentectomy. Postop day #1. Patient had been Narcand twice yesterday. She had agonal breathing at that time. Her epidural was then placed on hold. Anesthesia has restarted epidural this morning at a lower rate. Patient's pain is controlled. Blood pressure stable. She is on 5 L. She did have a low-grade temp of 100.2. WBC 9.41 hemoglobin 12.4 Patient seen and examined with Dr. dumas PHYSICAL EXAM: VITAL SIGNS: Reviewed. GENERAL: Well-developed in no acute distress. HEENT: No sclera icterus. Extraocular movements grossly intact. Moist buccal mucosa. Head is atraumatic, normocephalic. ABDOMEN: Soft. Nondistended. NEUROLOGIC: Alert and oriented. Cranial nerves II through XII grossly intact. ASSESSMENT: 1. History of perforated diverticulitis status post reversal of colostomy, takedown colostomy and partial omentectomy PLAN: -Continue epidural for pain control -Continue IV fluids -Keep patient nothing by mouth -Encouraged patient to use incentive spirometer -GI prophylaxis Protonix and DVT prophylaxis subcu heparin Physician Voucher Examiner note has been reviewed by physician. Signing provider agrees with the documented findings, assessment, and plan of care. Objective - Vital Signs Vital signs: Vital Signs Temp 100.2 F H 05/15/21 08:46 Pulse 90 05/15/21 08:46 Resp 18 05/15/21 08:46 BP 144/73 05/15/21 08:46 Pulse Ox 90 L 05/15/21 08:46 Intake & Output 05/14/21 05/15/21 05/15/21 18:59 06:59 18:59 Intake Total 2250 Output Total 305 1700 Balance 1945 -1700 Weight 80.7 kg Intake: IV 2250 Output: Urine 280 1700 Estimated Blood Loss 25 Other: Voiding Method Indwelling Catheter Indwelling Catheter - Labs CBC & Chem 7: 05/15/21 06:28 05/14/21 07:05 Labs: Abnormal Lab Results - Last 24 Hours (Table) 05/14/21 05/14/21 05/15/21 Range/Units 07:05 16:36 06:28 RBC 3.94 L (4.10-5.20) X 10*6/uL MCV 105.1 H (80.0-97.0) fL MCHC 30.0 L (32.0-37.0) g/dL Eosinophils # 0.01 L (0.04-0.35) X 10*3/uL Carbon Dioxide 31 H (22-30) mmol/L Glucose 117 H (74-99) mg/dL POC Glucose (mg/dL) 162 H (75-99) mg/dL
[2021-05-15 13:49] LABS: African American GFR (CKD) 103.9 (60.0-200.0); Albumin 3.4 g/dL (3.8-4.9); Albumin/Globulin Ratio 1.55 (1.60-3.17); BUN/Creat Ratio 11.29 Ratio (12.00-20.00); Blood Urea Nitrogen 7.9 mg/dL (9.0-27.0); Calcium 8.6 mg/dL (8.7-10.3); Globulin 2.2 g/dL (1.6-3.3); Non-African American GFR(CKD) 89.7 (60.0-200.0); Potassium 4.5 mmol/L (3.5-5.5); Total Bilirubin 0.3 mg/dL (0.30-1.20); Total Protein 5.6 g/dL (6.2-8.2)
[2021-05-15] MEDS: HEPARIN SODIUM,PORCINE/PF 5,000 UNIT/0.5 ML SYRINGE SQ SCH ×2 (16:28→20:31)
[2021-05-15] MEDS ORDERED: ACETAMINOPHEN IV (For NPO) 1,000 MG in EMPTY BAG 1 BAG IVPB PRN (19:58)
[2021-05-15] MEDS: VENLAFAXINE HCL ER 150 MG CAP PO SCH (20:28)
[2021-05-15] MEDS: GABAPENTIN 400 MG CAP PO SCH (20:28)
[2021-05-16] MEDS: D5-0.45% NACL WITH KCL 20MEQ/L 1,000 ML IV SCH ×3 (01:43→22:47)
[2021-05-16] MEDS ORDERED: ROPIVACAINE EPIDURAL PRN (08:00)
[2021-05-16] MEDS ORDERED: SODIUM CHLORIDE 0.9% EPIDURAL PRN (08:00)
[2021-05-16] MEDS: LACTATED RINGERS 1,000 ML IV SCH (08:14)
[2021-05-16] MEDS: HEPARIN SODIUM,PORCINE/PF 5,000 UNIT/0.5 ML SYRINGE SQ SCH ×3 (08:48→19:40)
[2021-05-16] MEDS: GABAPENTIN 400 MG CAP PO SCH ×2 (08:49→21:38)
[2021-05-16] MEDS: VENLAFAXINE HCL ER 150 MG CAP PO SCH ×2 (08:49→21:38)
--- NOTE | 2021-05-16 09:22 | P.PN ---
Progress Note - Text Progress Note Date: 05/16/21 Anesthesia Postop day #2 Status post colostomy revision with epidural and #3 Patient seen and examined. Stop by nurse entering room. States patient has been somnolent and confused the last few hours.. Fever 1 overnight to a max of 101. Nurse states patient is not using her incentive spirometer. Ropivacaine 0.1% with Dilaudid 10 mcg/mL at 6 mL an hour. Objective: Vital signs reviewed Lungs: Good chest excursion Abdomen: Appears nondistended Neuro: No apparent motor block. Sensory appears within normal limits. Assessment: Status post colostomy revision postop day #2 Plan: Continue current care with your medical management. Anticipate discontinuing catheter tomorrow. Should hold subcu heparin in the morning. We'll hold epidural for 1 hour and then restart with new solution ropey 0.1% only no opiate. That should clear up whether confusions coming from the epidural.
[2021-05-16] MEDS ORDERED: PANTOPRAZOLE 40 MG TABLET PO PRN (10:00)
[2021-05-16 11:15] LABS: Basophils # (A) 0.03 X 10*3/uL (0.00-0.10); Basophils % (A) 0.4 %; Eosinophils % (A) 1.2 %; HCT 44.1 % (37.2-46.3); HGB 13.1 g/dL (12.0-15.0); Lymphocytes # (A) 1.84 X 10*3/uL (0.90-5.00); Lymphocytes % (A) 22.8 %; MCH 32.5 pg (27.0-32.0); MCHC 29.7 g/dL (32.0-37.0); MCV 109.4 fL (80.0-97.0); Mean Platelet Volume 10.1 fL (9.5-12.2); Monocytes # (A) 0.69 X 10*3/uL (0.20-1.00); Monocytes % (A) 8.6 %; Neutrophils # (A) 5.38 X 10*3/uL (1.80-7.70); Neutrophils % (A) 66.6 %; Platelet Count 193 X 10*3/uL (140-440); RBC 4.03 X 10*6/uL (4.10-5.20); RDW 13.7 % (11.5-14.5); WBC 8.07 X 10*3/uL (4.50-10.00)
--- NOTE | 2021-05-16 11:29 | P.PN ---
Subjective Progress Note Date: 05/16/21 CHIEF COMPLAINT: Perforated diverticulitis HISTORY OF PRESENT ILLNESS: Patient is status post reversal of colostomy, takedown colostomy and partial omentectomy. Postop day #2. Further adjustments to epidural by anesthesiology due to patient being very somnolent. Patient is not using the IS. Patient does describe pain however she is lying in bed comfortably. No nausea or vomiting. No flatus. She did have a temp of 101 last night and was had a heart rate of 101. WBC 8.07 hemoglobin 13.1 Patient seen and examined with Dr. dumas PHYSICAL EXAM: VITAL SIGNS: Reviewed. GENERAL: Well-developed in no acute distress. HEENT: No sclera icterus. Extraocular movements grossly intact. Moist buccal mucosa. Head is atraumatic, normocephalic. ABDOMEN: Soft. Mildly distended. Incisional dressing with small areas of blood saturation at the top and distal aspect of dressing NEUROLOGIC: Alert and oriented. Cranial nerves II through XII grossly intact. ASSESSMENT: 1. History of perforated diverticulitis status post reversal of colostomy, takedown colostomy and partial omentectomy 2. Fevers are likely secondary to atelectasis PLAN: -Discontinue epidural -Start IV Dilaudid 1 mg IV every 3 as needed for pain -Continue IV fluids -Keep patient nothing by mouth -Encouraged patient to use incentive spirometer -Encouraged patient to increase activity and to get into bedside chair -Consult PT OT -GI prophylaxis Protonix and DVT prophylaxis subcu heparin Physician Reactor Technician note has been reviewed by physician. Signing provider agrees with the documented findings, assessment, and plan of care. Objective - Vital Signs Vital signs: Vital Signs Temp 98.2 F 05/16/21 01:56 Pulse 90 05/16/21 01:56 Resp 17 05/15/21 19:15 BP 112/69 05/16/21 01:56 Pulse Ox 94 L 05/16/21 01:56 Intake & Output 05/15/21 05/16/21 05/16/21 18:59 06:59 18:59 Output Total 1730 2650 Balance -1730 -2650 Output: Urine 1730 2650 Other: Voiding Method Indwelling Catheter Indwelling Catheter # Bowel Movements 0 - Labs CBC & Chem 7: 05/16/21 06:57 05/16/21 06:57 Labs: Abnormal Lab Results - Last 24 Hours (Table) 05/15/21 05/16/21 Range/Units 06:28 06:57 RBC 4.03 L (4.10-5.20) X 10*6/uL MCV 109.4 H (80.0-97.0) fL MCH 32.5 H (27.0-32.0) pg MCHC 29.7 L (32.0-37.0) g/dL BUN 7.9 L (9.0-27.0) mg/dL BUN/Creatinine Ratio 11.29 L (12.00-20.00) Ratio Glucose 132 H (70-110) mg/dL Calcium 8.6 L (8.7-10.3) mg/dL AST 55 H (13-35) U/L Total Protein 5.6 L (6.2-8.2) g/dL Albumin 3.4 L (3.8-4.9) g/dL Albumin/Globulin Ratio 1.55 L (1.60-3.17) g/dL
--- NOTE | 2021-05-16 11:48 | P.PN ---
Subjective Progress Note Date: 05/08/21 Rocio Jamil, is a 65-year-old female who was admitted to [facility] for colostomy reversal. Patient has a known history of acute diverticulitis with perforation in October 2020 at that time she underwent surgery with colostomy placement, past medical history is also significant for history of depression, history of gastroesophageal reflux disease, history of lung cancer, history of anal cancer. Patient is a former smoker she denies any alcohol use. on 05/15/2021 patient remains sleepy current on epidural currently nothing by mouth. Patient denies any significant complaints. Patient denies chest pain or shortness breath. Patient denies nausea vomiting or diarrhea. Patient denies any urinary burning or frequency Objective - Vital Signs Vital signs: Vital Signs Temp 100.2 F H 05/15/21 08:46 Pulse 90 05/15/21 08:46 Resp 18 05/15/21 08:46 BP 144/73 05/15/21 08:46 Pulse Ox 90 L 05/15/21 08:46 Intake & Output 05/14/21 05/15/21 05/15/21 18:59 06:59 18:59 Intake Total 2250 Output Total 305 1700 Balance 1945 -1700 Weight 80.7 kg Intake: IV 2250 Output: Urine 280 1700 Estimated Blood Loss 25 Other: Voiding Method Indwelling Catheter Indwelling Catheter - Labs CBC & Chem 7: 05/16/21 06:57 05/15/21 06:28 Labs: Abnormal Lab Results - Last 24 Hours (Table) 05/14/21 05/14/21 05/15/21 Range/Units 07:05 16:36 06:28 RBC 3.94 L (4.10-5.20) X 10*6/uL MCV 105.1 H (80.0-97.0) fL MCHC 30.0 L (32.0-37.0) g/dL Eosinophils # 0.01 L (0.04-0.35) X 10*3/uL Carbon Dioxide 31 H (22-30) mmol/L Glucose 117 H (74-99) mg/dL POC Glucose (mg/dL) 162 H (75-99) mg/dL Assessment and Plan Plan: Status post colostomy reversal today by Dr. Rivera Episode of hypotension post surgery given 1 L of IV fluid bolus History of diverticulitis with perforation, with colostomy placement in October 2020 Underlying history of depression Underlying history of Sjogren syndrome Underlying history of gastroesophageal reflux disease Previous history of an anal cancer Previous history of lung cancer Home medications reviewed and reordered Patient received IV fluid boluses for hypotension, blood pressure in normal range at this time Will check labs in a.m., will follow closely
--- NOTE | 2021-05-16 11:51 | P.PN ---
Subjective Progress Note Date: 05/16/21 Rocio Jamil, is a 65-year-old female who was admitted to [facility] for colostomy reversal. Patient has a known history of acute diverticulitis with perforation in October 2020 at that time she underwent surgery with colostomy placement, past medical history is also significant for history of depression, history of gastroesophageal reflux disease, history of lung cancer, history of anal cancer. Patient is a former smoker she denies any alcohol use. on 05/15/2021 patient remains sleepy current on epidural currently nothing by mouth. Patient denies any significant complaints. Patient denies chest pain or shortness breath. Patient denies nausea vomiting or diarrhea. Patient denies any urinary burning or 05/16/2021 patient remains sleepy. Epidural currently getting change due to increased lethargy. Patient does wake up and follow some commands but quickly falls back to sleep. Patient also having elevated temperature 101. Urinary analysis, blood culture and chest x-ray ordered. Per nursing staff patient has been unable to do incentive spirometer take deep breaths due to increased lethargy. Patient denies any acute complaints. Objective - Vital Signs Vital signs: Vital Signs Temp 98.2 F 05/16/21 01:56 Pulse 90 05/16/21 01:56 Resp 17 05/15/21 19:15 BP 112/69 05/16/21 01:56 Pulse Ox 94 L 05/16/21 01:56 Intake & Output 05/15/21 05/16/21 05/16/21 18:59 06:59 18:59 Output Total 1730 2650 Balance -1730 -2650 Output: Urine 1730 2650 Other: Voiding Method Indwelling Catheter Indwelling Catheter # Bowel Movements 0 - Exam In general patient is alert and oriented x 3 in no distress HEENT head normocephalic and atraumatic Neck is supple no JVD no goiter no lymphadenopathy no carotid bruit Chest examination is clear to auscultation no crackles no wheezing Cardiac exam reveals regular heart sounds S1 and S2 no gallops no murmurs Abdomen is soft nontender no organomegaly with normal bowel sounds Extremity exam reveals no edema no cyanosis or clubbing Neurological examination reveals no gross focal deficits - Labs CBC & Chem 7: 05/16/21 06:57 05/15/21 06:28 Labs: Abnormal Lab Results - Last 24 Hours (Table) 05/15/21 05/16/21 Range/Units 06:28 06:57 RBC 4.03 L (4.10-5.20) X 10*6/uL MCV 109.4 H (80.0-97.0) fL MCH 32.5 H (27.0-32.0) pg MCHC 29.7 L (32.0-37.0) g/dL BUN 7.9 L (9.0-27.0) mg/dL BUN/Creatinine Ratio 11.29 L (12.00-20.00) Ratio Glucose 132 H (70-110) mg/dL Calcium 8.6 L (8.7-10.3) mg/dL AST 55 H (13-35) U/L Total Protein 5.6 L (6.2-8.2) g/dL Albumin 3.4 L (3.8-4.9) g/dL Albumin/Globulin Ratio 1.55 L (1.60-3.17) g/dL Assessment and Plan Plan: Status post colostomy reversal today by Dr. Rivera Episode of hypotension post surgery given 1 L of IV fluid bolus History of diverticulitis with perforation, with colostomy placement in October 2020 Underlying history of depression Underlying history of Sjogren syndrome Underlying history of gastroesophageal reflux disease Previous history of an anal cancer Previous history of lung cancer Febrile. Urinary analysis, blood culture and chest x-ray ordered Home medications reviewed and reordered Patient received IV fluid boluses for hypotension, blood pressure in normal range at this time Will check labs in a.m., will follow closely Nursing staff epidural has been ordered to be changed due to increased lethargy
[2021-05-16 12:08] LABS: African American GFR (CKD) 98.1 (60.0-200.0); Albumin 3.6 g/dL (3.8-4.9); Albumin/Globulin Ratio 1.43 (1.60-3.17); Anion Gap 11.6 mmol/L (4.00-12.00); BUN/Creat Ratio 7.21 Ratio (12.00-20.00); Blood Urea Nitrogen 5.3 mg/dL (9.0-27.0); Carbon Dioxide 28.7 mmol/L (21.6-31.8); Globulin 2.5 g/dL (1.6-3.3); Non-African American GFR(CKD) 84.7 (60.0-200.0); Potassium 5.7 mmol/L (3.5-5.5); Total Bilirubin 0.4 mg/dL (0.30-1.20); Total Protein 6.1 g/dL (6.2-8.2)
[2021-05-16] MEDS ORDERED: HYDROmorphone 1 MG/ML 1 ML SYRINGE IVP PRN (13:29)
--- NOTE | 2021-05-16 14:16 | CDI ---
Documentation Clarification Form Date: 05/16/2021 01:40 PM From: Maria De Jesus Berkowitz RN CCDS Admit Date: 05/02/2021 08:33:00 AM Patient Name: Rocio Jamil Visit Number: [id number] Discharge Date: ATTENTION: The Clinical Documentation Specialists (CDI) and [facility] Coding Staff appreciate your assistance in clarifying documentation. Please respond to the clarification below the line at the bottom and electronically sign. The CDI & [facility] Coding staff will review the response and follow-up if needed. Please note: Queries are made part of the Legal Health Record. If you have any questions, please contact the author of this message via ITS. Dr. Rivera, Hypotension is documented 05/14, medicine consult, and patient had Reversal of colostomy, 05/04. Additional clarification is requested regarding the relationship, if any, that exists between the diagnosis and the procedure. Patients Admitting Diagnosis: History of perforated diverticulitis Post-Operative Diagnosis: History of perforated diverticulitis Procedure performed: Reversal of colostomy, Partial omentectomy. History/Risk Factors: 65-year-old female presented to [facility] for reversal of colostomy. Medical history: Perforated colon with end colostomy. Diverticulitis and bowel resection. Clinical Indicators: 05/14 14:00 B/P 100/63, HR 109, Temp 98.2, SpO2 94% nasal cannula Medicine Consult 05/14 Episode of hypotension post-surgery given 1L of IV fluid bolus. 05/14 Estimated blood loss: 25ml Treatment: 05/14 15:00 0.9NS 1L bolus Consults: Medicine see above What relationship, if any, exists between the diagnosis of Hypotension and the procedure: [ ] Hypotension is a complication of surgical procedure [ ] Hypotension is an expected outcome of the surgical procedure [ ] Hypotension is related to patients co-morbid condition(s) of [insert co- morbid dxs] & not a complication of the procedure [ ] Hypotension has been ruled out [ x ] Other please specify ____ [ ] Unable to determine (Template Last Revised: September 2020) Hypotension due to epidural MTDD
[2021-05-16] MEDS: HYDROcodone/APAP 10-325MG 1 EACH TAB PO PRN (18:37)
--- NOTE | 2021-05-16 19:43 | XR ---
EXAMINATION TYPE: XR chest 2V DATE OF EXAM: 05/16/2021 COMPARISON: 10/27/2020 HISTORY: Postop fever. TECHNIQUE: 2 views FINDINGS: There is mild subsegmental atelectasis at both lung bases. Heart size is normal. There is n o heart failure. There are no hilar masses. There is no pleural effusion. Bony thorax appears intact. IMPRESSION: Mild subsegmental atelectasis is mostly new compared to last exam.
[2021-05-16 20:05] LABS: Appearance,Urine Clear (Clear); Bilirubin,Urine Negative (Negative); Blood,Urine Negative (Negative); Color,Urine Colorless; Glucose,Urine (UA) Negative (Negative); Ketones,Urine Negative (Negative); Leukocyte Esterase,Urine Negative (Negative); Nitrite,Urine Negative (Negative); Protein,Urine Negative (Negative); Specific Gravity,Urine 1.002 (1.001-1.035); Urobilinogen,Urine <2.0 mg/dL (<2.0)
[2021-05-17] MEDS: ONDANSETRON 4 MG/2 ML VIAL IVP PRN (00:46)
[2021-05-17] MEDS: diphenhydrAMINE 50 MG/ML 1 ML VIAL IVP PRN (02:18)
[2021-05-17] MEDS ORDERED: SCOPOLAMINE 1.5MG/72HR PATCH TRANSDERM ONE (03:30)
[2021-05-17] MEDS: ACETAMINOPHEN IV (For NPO) 1,000 MG in EMPTY BAG 1 BAG IVPB SCH ×4 (04:02→21:47)
[2021-05-17] MEDS: D5-0.45% NACL WITH KCL 20MEQ/L 1,000 ML IV SCH (06:29)
[2021-05-17] MEDS: LACTATED RINGERS 1,000 ML IV SCH (07:27)
[2021-05-17] MEDS: HEPARIN SODIUM,PORCINE/PF 5,000 UNIT/0.5 ML SYRINGE SQ SCH (09:54)
[2021-05-17] MEDS: GABAPENTIN 400 MG CAP PO SCH ×2 (09:54→20:26)
[2021-05-17] MEDS: HYDROcodone/APAP 10-325MG 1 EACH TAB PO PRN ×2 (09:55→18:27)
[2021-05-17] MEDS: VENLAFAXINE HCL ER 150 MG CAP PO SCH ×2 (09:56→20:26)
[2021-05-17] MEDS: DEXTROSE 5%-0.45% NACL 1,000 ML IV SCH ×2 (10:02→18:01)
[2021-05-17 10:32] LABS: Basophils # (A) 0.02 X 10*3/uL (0.00-0.10); Basophils % (A) 0.2 %; Eosinophils # (A) 0.05 X 10*3/uL (0.04-0.35); Eosinophils % (A) 0.6 %; HCT 41.1 % (37.2-46.3); HGB 12.5 g/dL (12.0-15.0); Lymphocytes # (A) 1.18 X 10*3/uL (0.90-5.00); Lymphocytes % (A) 14.2 %; MCH 31.4 pg (27.0-32.0); MCHC 30.4 g/dL (32.0-37.0); MCV 103.3 fL (80.0-97.0); Mean Platelet Volume 9.9 fL (9.5-12.2); Monocytes # (A) 0.63 X 10*3/uL (0.20-1.00); Monocytes % (A) 7.6 %; Neutrophils # (A) 6.39 X 10*3/uL (1.80-7.70); Neutrophils % (A) 76.9 %; Platelet Count 212 X 10*3/uL (140-440); RBC 3.98 X 10*6/uL (4.10-5.20); RDW 13.6 % (11.5-14.5); WBC 8.31 X 10*3/uL (4.50-10.00)
[2021-05-17 11:58] LABS: African American GFR (CKD) 103.9 (60.0-200.0); Albumin 3.4 g/dL (3.8-4.9); Albumin/Globulin Ratio 1.36 (1.60-3.17); Anion Gap 9.2 mmol/L (4.00-12.00); BUN/Creat Ratio 11.57 Ratio (12.00-20.00); Blood Urea Nitrogen 8.1 mg/dL (9.0-27.0); Calcium 8.8 mg/dL (8.7-10.3); Carbon Dioxide 27.8 mmol/L (21.6-31.8); Globulin 2.5 g/dL (1.6-3.3); Non-African American GFR(CKD) 89.7 (60.0-200.0); Potassium 4.5 mmol/L (3.5-5.5); Total Bilirubin 0.3 mg/dL (0.30-1.20); Total Protein 5.9 g/dL (6.2-8.2)
--- NOTE | 2021-05-17 12:21 | P.PN ---
Subjective Progress Note Date: 05/17/21 CHIEF COMPLAINT: Perforated diverticulitis HISTORY OF PRESENT ILLNESS: Patient is status post reversal of colostomy, takedown colostomy and partial omentectomy. Postop day #3. Patient's epidural was discontinued yesterday. Patient is much more awake and alert. She is sitting up at bedside chair. She did have one episode of vomiting. No flatus or BM reported. Her pain is controlled. Afebrile. Chest x-ray had shown atelectasis urinalysis negative. Further adjustments to epidural by anesthesio logy due to patient being very somnolent. Patient is not using the IS. Patient does describe pain however she is lying in bed comfortably. No nausea or vomiting. No flatus. She did have a temp of 101 last night and was had a heart rate of 101. WBC 8.07 hemoglobin 13.1. WBC is 8.31 hemoglobin 12.5 platelets 212 sodium 138 potassium is down from 5.7-4.5 creatinine 0.7 Patient seen and examined with Dr. dumas PHYSICAL EXAM: VITAL SIGNS: Reviewed. GENERAL: Well-developed in no acute distress. HEENT: No sclera icterus. Extraocular movements grossly intact. Moist buccal mucosa. Head is atraumatic, normocephalic. ABDOMEN: Soft. Mildly distended. Incision has 1 small area in the middle of the incision that is oozing blood, otherwise clean dry and intact NEUROLOGIC: Alert and oriented. Cranial nerves II through XII grossly intact. ASSESSMENT: 1. History of perforated diverticulitis status post reversal of colostomy, takedown colostomy and partial omentectomy 2. Fevers are likely secondary to atelectasis PLAN: -Potassium 4 IV fluids due to elevated potassium level -Keep patient nothing by mouth -Encouraged patient to use incentive spirometer -Encouraged patient to increase activity -Incisional dressing changed -GI prophylaxis Protonix and DVT prophylaxis subcu heparin Physician Meal Miller note has been reviewed by physician. Signing provider agrees with the documented findings, assessment, and plan of care. Objective - Vital Signs Vital signs: Vital Signs Temp 97.9 F 05/17/21 07:53 Pulse 77 05/17/21 07:53 Resp 19 05/17/21 07:53 BP 167/75 05/17/21 07:53 Pulse Ox 92 L 05/17/21 08:19 Intake & Output 05/16/21 05/17/21 05/17/21 18:59 06:59 18:59 Intake Total 50.7 Output Total 1750 4650 Balance -1699.3 -4650 Intake: Intake, IV Titration 50.7 Amount Ropivacaine 250 mg In 50.7 Sodium Chloride 0.9% 188 ml @ 6 mls/hr EPIDURAL . Q24H PRN Rx#:[id number] Output: Urine 1750 1650 Emesis 3000 Other: Voiding Method Indwelling Catheter Indwelling Catheter # Voids 1 # Bowel Movements 0 - Labs CBC & Chem 7: 05/17/21 06:42 05/17/21 06:42 Labs: Abnormal Lab Results - Last 24 Hours (Table) 05/17/21 05/17/21 Range/Units 06:42 06:42 RBC 3.98 L (4.10-5.20) X 10*6/uL MCV 103.3 H (80.0-97.0) fL MCHC 30.4 L (32.0-37.0) g/dL BUN 8.1 L (9.0-27.0) mg/dL BUN/Creatinine Ratio 11.57 L (12.00-20.00) Ratio Glucose 144 H (70-110) mg/dL Total Protein 5.9 L (6.2-8.2) g/dL Albumin 3.4 L (3.8-4.9) g/dL Albumin/Globulin Ratio 1.36 L (1.60-3.17) g/dL
[2021-05-18] MEDS: DEXTROSE 5%-0.45% NACL 1,000 ML IV SCH ×4 (01:33→20:56)
[2021-05-18] MEDS: LACTATED RINGERS 1,000 ML IV SCH (05:57)
[2021-05-18] MEDS: HEPARIN SODIUM,PORCINE/PF 5,000 UNIT/0.5 ML SYRINGE SQ SCH ×2 (07:58→20:55)
[2021-05-18] MEDS: VENLAFAXINE HCL ER 150 MG CAP PO SCH ×2 (08:30→20:55)
[2021-05-18] MEDS: HYDROcodone/APAP 10-325MG 1 EACH TAB PO PRN ×2 (08:30→17:49)
[2021-05-18] MEDS: GABAPENTIN 400 MG CAP PO SCH ×2 (08:30→20:55)
[2021-05-18 09:36] LABS: Basophils % (A) 0 %; Eosinophils # (A) 0.3 k/uL (0-0.7); Eosinophils % (A) 3 %; HCT 44.6 % (34.0-46.0); HGB 13.4 gm/dL (11.4-16.0); Hypochromasia Slight; Lymphocytes # (A) 0.9 k/uL (1.0-4.8); Lymphocytes % (A) 12 %; MCH 31.6 pg (25.0-35.0); MCHC 30.1 g/dL (31.0-37.0); MCV 105.2 fL (80.0-100.0); Macrocytosis Slight; Mean Platelet Volume 8.2; Monocytes # (A) 0.4 k/uL (0-1.0); Monocytes % (A) 5 %; Neutrophils % (A) 77 %; Platelet Count 227 k/uL (150-450); RBC 4.24 m/uL (3.80-5.40); RDW 13.1 % (11.5-15.5); WBC 7.8 k/uL (3.8-10.6)
--- NOTE | 2021-05-18 09:40 | P.PN ---
Subjective Progress Note Date: 05/17/21 Rocio Jamil, is a 65-year-old female who was admitted to [facility] for colostomy reversal. Patient has a known history of acute diverticulitis with perforation in October 2020 at that time she underwent surgery with colostomy placement, past medical history is also significant for history of depression, history of gastroesophageal reflux disease, history of lung cancer, history of anal cancer. Patient is a former smoker she denies any alcohol use. on 05/15/2021 patient remains sleepy current on epidural currently nothing by mouth. Patient denies any significant complaints. Patient denies chest pain or shortness breath. Patient denies nausea vomiting or diarrhea. Patient denies any urinary burning or 05/16/2021 patient remains sleepy. Epidural currently getting change due to increased lethargy. Patient does wake up and follow some commands but quickly falls back to sleep. Patient also having elevated temperature 101. Urinary analysis, blood culture and chest x-ray ordered. Per nursing staff patient has been unable to do incentive spirometer take deep breaths due to increased lethargy. Patient denies any acute complaints. On 05/17/2021 patient more alert. Patient does follow commands. UA negative. Chest x-ray showing atelectasis continue encouragement of incentive spirometer. Patient remains nothing by mouth. Patient denies chest pain or shortness breath. Patient denies nausea vomiting or diarrhea. Patient denies any urinary burning or frequency Objective - Vital Signs Vital signs: Vital Signs Temp 97.9 F 05/17/21 07:53 Pulse 77 05/17/21 07:53 Resp 19 05/17/21 07:53 BP 167/75 05/17/21 07:53 Pulse Ox 92 L 05/17/21 08:19 Intake & Output 05/16/21 05/17/21 05/17/21 18:59 06:59 18:59 Intake Total 50.7 Output Total 1750 4650 Balance -1699.3 -4650 Intake: Intake, IV Titration 50.7 Amount Ropivacaine 250 mg In 50.7 Sodium Chloride 0.9% 188 ml @ 6 mls/hr EPIDURAL . Q24H PRN Rx#:[id number] Output: Urine 1750 1650 Emesis 3000 Other: Voiding Method Indwelling Catheter Indwelling Catheter # Voids 1 # Bowel Movements 0 - Exam In general patient is alert and oriented x 3 in no distress HEENT head normocephalic and atraumatic Neck is supple no JVD no goiter no lymphadenopathy no carotid bruit Chest examination is clear to auscultation no crackles no wheezing Cardiac exam reveals regular heart sounds S1 and S2 no gallops no murmurs Abdomen is soft nontender no organomegaly with normal bowel sounds Extremity exam reveals no edema no cyanosis or clubbing Neurological examination reveals no gross focal deficits - Labs CBC & Chem 7: 05/18/21 09:18 05/17/21 06:42 Labs: Abnormal Lab Results - Last 24 Hours (Table) 05/16/21 05/17/21 Range/Units 06:57 06:42 RBC 3.98 L (4.10-5.20) X 10*6/uL MCV 103.3 H (80.0-97.0) fL MCHC 30.4 L (32.0-37.0) g/dL Potassium 5.7 H (3.5-5.5) mmol/L BUN 5.3 L (9.0-27.0) mg/dL BUN/Creatinine Ratio 7.21 L (12.00-20.00) Ratio AST 59 H (13-35) U/L Total Protein 6.1 L (6.2-8.2) g/dL Albumin 3.6 L (3.8-4.9) g/dL Albumin/Globulin Ratio 1.43 L (1.60-3.17) g/dL Assessment and Plan Plan: Status post colostomy reversal today by Dr. Roeania Episode of hypotension post surgery given 1 L of IV fluid bolus History of diverticulitis with perforation, with colostomy placement in October 2020 Underlying history of depression Underlying history of Sjogren syndrome Underlying history of gastroesophageal reflux disease Previous history of an anal cancer Previous history of lung cancer Febrile. Urinary analysis, blood culture and chest x-ray ordered Home medications reviewed and reordered Patient received IV fluid boluses for hypotension, blood pressure in normal range at this time Will check labs in a.m., will follow closely Nursing staff epidural has been ordered to be changed due to increased lethargy
--- NOTE | 2021-05-18 09:43 | P.PN ---
Subjective Progress Note Date: 05/18/21 Rocio Jamil, is a 65-year-old female who was admitted to [facility] for colostomy reversal. Patient has a known history of acute diverticulitis with perforation in October 2020 at that time she underwent surgery with colostomy placement, past medical history is also significant for history of depression, history of gastroesophageal reflux disease, history of lung cancer, history of anal cancer. Patient is a former smoker she denies any alcohol use. on 05/15/2021 patient remains sleepy current on epidural currently nothing by mouth. Patient denies any significant complaints. Patient denies chest pain or shortness breath. Patient denies nausea vomiting or diarrhea. Patient denies any urinary burning or 05/16/2021 patient remains sleepy. Epidural currently getting change due to increased lethargy. Patient does wake up and follow some commands but quickly falls back to sleep. Patient also having elevated temperature 101. Urinary analysis, blood culture and chest x-ray ordered. Per nursing staff patient has been unable to do incentive spirometer take deep breaths due to increased lethargy. Patient denies any acute complaints. On 05/17/2021 patient more alert. Patient does follow commands. UA negative. Chest x-ray showing atelectasis continue encouragement of incentive spirometer. Patient remains nothing by mouth. Patient denies chest pain or shortness breath. Patient denies nausea vomiting or diarrhea. Patient denies any urinary burning or frequency On 05/18/2021 patient's alert and oriented 3. Per nursing staff patient is using incentive spirometer. Awaiting surgical recommendation for diet. Patient remains nothing by mouth. Patient denies chest pain or shortness breath. Patient denies nausea vomiting or diarrhea. Patient denies any urinary burning or frequency Objective - Vital Signs Vital signs: Vital Signs Temp 97.8 F 05/18/21 08:00 Pulse 77 05/18/21 08:00 Resp 15 05/18/21 08:00 BP 142/72 05/18/21 08:00 Pulse Ox 92 L 05/18/21 08:00 Intake & Output 05/17/21 05/18/21 05/18/21 18:59 06:59 18:59 Output Total 550 Balance -550 Output: Urine 550 Other: Voiding Method Indwelling Catheter Bedside Commode Diaper # Voids 1 2 - Exam In general patient is alert and oriented x 3 in no distress HEENT head normocephalic and atraumatic Neck is supple no JVD no goiter no lymphadenopathy no carotid bruit Chest examination is clear to auscultation no crackles no wheezing Cardiac exam reveals regular heart sounds S1 and S2 no gallops no murmurs Abdomen is soft nontender no organomegaly with normal bowel sounds Extremity exam reveals no edema no cyanosis or clubbing Neurological examination reveals no gross focal deficits - Labs CBC & Chem 7: 05/18/21 09:18 05/17/21 06:42 Labs: Abnormal Lab Results - Last 24 Hours (Table) 05/17/21 05/17/21 05/18/21 Range/Units 06:42 06:42 09:18 RBC 3.98 L (4.10-5.20) X 10*6/uL MCV 103.3 H 105.2 H (80.0-97.0) fL MCHC 30.4 L 30.1 L (32.0-37.0) g/dL Lymphocytes # 0.9 L (1.0-4.8) k/uL BUN 8.1 L (9.0-27.0) mg/dL BUN/Creatinine Ratio 11.57 L (12.00-20.00) Ratio Glucose 144 H (70-110) mg/dL Total Protein 5.9 L (6.2-8.2) g/dL Albumin 3.4 L (3.8-4.9) g/dL Albumin/Globulin Ratio 1.36 L (1.60-3.17) g/dL Microbiology - Last 24 Hours (Table) 05/16/21 12:26 Blood Culture - Preliminary Blood No Growth after 24 hours Assessment and Plan Plan: Status post colostomy reversal today by Dr. Rivera Episode of hypotension post surgery given 1 L of IV fluid bolus. Resolved History of diverticulitis with perforation, with colostomy placement in October 2020 Underlying history of depression Underlying history of Sjogren syndrome Underlying history of gastroesophageal reflux disease Previous history of an anal cancer Previous history of lung cancer Febrile likely secondary to atelectasis. Urinary analysis negative. Blood culture pending. Chest x-ray showing atelectasis Home medications reviewed and reordered Repeat labs ordered Continue incentive spirometer
[2021-05-18 10:04] LABS: ALT 18 U/L (4-34); AST 23 U/L (14-36); African American GFR (CKD) >90 (>60 ml/min/1.73 sqM); Albumin 3.3 g/dL (3.5-5.0); Albumin/Globulin Ratio 1.1; Alkaline Phosphatase 114 U/L (38-126); Blood Urea Nitrogen 11 mg/dL (7-17); Calcium 8.8 mg/dL (8.4-10.2); Carbon Dioxide 32 mmol/L (22-30); Chloride 101 mmol/L (98-107); Globulin 2.9 g/dL; Glucose 131 mg/dL (74-99); Non-African American GFR(CKD) >90 (>60 ml/min/1.73 sqM); Potassium 4.3 mmol/L (3.5-5.1); Total Bilirubin 0.3 mg/dL (0.2-1.3); Total Protein 6.2 g/dL (6.3-8.2)
[2021-05-18 10:16] LABS: Anion Gap 3 mmol/L; Sodium 136 mmol/L (137-145)
[2021-05-18 12:57] VITALS: BMI 29.6
--- NOTE | 2021-05-18 13:05 | P.PN ---
Subjective Progress Note Date: 05/18/21 CHIEF COMPLAINT: Perforated diverticulitis HISTORY OF PRESENT ILLNESS: Patient is status post reversal of colostomy, takedown colostomy and partial omentectomy. Postop day #4. Patient does complain of abdominal pain. She reports though that it is controlled with pain medication. Denies any nausea or vomiting. She is having flatus with a smear of the bowel movement. Afebrile. WBC is 7.8 hemoglobin 13.4 platelets 227 Patient seen and examined with Dr. dumas PHYSICAL EXAM: VITAL SIGNS: Reviewed. GENERAL: Well-developed in no acute distress. HEENT: No sclera icterus. Extraocular movements grossly intact. Moist buccal mucosa. Head is atraumatic, normocephalic. ABDOMEN: Soft. Mildly distended. NEUROLOGIC: Alert and oriented. Cranial nerves II through XII grossly intact. ASSESSMENT: 1. History of perforated diverticulitis status post reversal of colostomy, takedown colostomy and partial omentectomy 2. Fevers are likely secondary to atelectasis PLAN: -Advance diet to full liquids -Encouraged patient to use incentive spirometer -Encouraged patient to increase activity -GI prophylaxis Protonix and DVT prophylaxis subcu heparin Physician Pattern Maker Programer note has been reviewed by physician. Signing provider agrees with the documented findings, assessment, and plan of care. Objective - Vital Signs Vital signs: Vital Signs Temp 97.8 F 05/18/21 08:00 Pulse 77 05/18/21 08:00 Resp 15 05/18/21 08:00 BP 142/72 05/18/21 08:00 Pulse Ox 92 L 05/18/21 08:00 Intake & Output 05/17/21 05/18/21 05/18/21 18:59 06:59 18:59 Output Total 550 Balance -550 Weight 80.7 kg Output: Urine 550 Other: Voiding Method Indwelling Catheter Bedside Commode Diaper # Voids 1 2 - Labs CBC & Chem 7: 05/18/21 09:18 05/18/21 09:18 Labs: Abnormal Lab Results - Last 24 Hours (Table) 05/18/21 05/18/21 Range/Units 09:18 09:18 MCV 105.2 H (80.0-100.0) fL MCHC 30.1 L (31.0-37.0) g/dL Lymphocytes # 0.9 L (1.0-4.8) k/uL Sodium 136 L (137-145) mmol/L Carbon Dioxide 32 H (22-30) mmol/L Glucose 131 H (74-99) mg/dL Total Protein 6.2 L (6.3-8.2) g/dL Albumin 3.3 L (3.5-5.0) g/dL Microbiology - Last 24 Hours (Table) 05/16/21 12:26 Blood Culture - Preliminary Blood No Growth after 24 hours
[2021-05-19] MEDS: HYDROcodone/APAP 10-325MG 1 EACH TAB PO PRN (00:47)
[2021-05-19] MEDS: DEXTROSE 5%-0.45% NACL 1,000 ML IV SCH ×2 (05:01→17:51)
[2021-05-19] MEDS: LACTATED RINGERS 1,000 ML IV SCH (08:51)
[2021-05-19] MEDS: VENLAFAXINE HCL ER 150 MG CAP PO SCH ×2 (09:15→21:48)
[2021-05-19] MEDS: GABAPENTIN 400 MG CAP PO SCH ×2 (09:15→21:48)
[2021-05-19] MEDS: HEPARIN SODIUM,PORCINE/PF 5,000 UNIT/0.5 ML SYRINGE SQ SCH ×2 (09:16→21:48)
[2021-05-19 12:14] LABS: Basophils # (A) 0.03 X 10*3/uL (0.00-0.10); Basophils % (A) 0.5 %; Eosinophils # (A) 0.23 X 10*3/uL (0.04-0.35); HCT 35.7 % (37.2-46.3); HGB 10.7 g/dL (12.0-15.0); Lymphocytes # (A) 1.24 X 10*3/uL (0.90-5.00); Lymphocytes % (A) 21.8 %; MCH 31.2 pg (27.0-32.0); MCV 104.1 fL (80.0-97.0); Mean Platelet Volume 9.9 fL (9.5-12.2); Monocytes # (A) 0.66 X 10*3/uL (0.20-1.00); Monocytes % (A) 11.6 %; Neutrophils # (A) 3.53 X 10*3/uL (1.80-7.70); Neutrophils % (A) 61.9 %; Platelet Count 198 X 10*3/uL (140-440); RBC 3.43 X 10*6/uL (4.10-5.20); RDW 13.5 % (11.5-14.5)
[2021-05-19 13:23] LABS: African American GFR (CKD) 103.9 (60.0-200.0); Albumin 2.8 g/dL (3.8-4.9); Albumin/Globulin Ratio 1.4 (1.60-3.17); Anion Gap 10.3 mmol/L (4.00-12.00); BUN/Creat Ratio 12.43 Ratio (12.00-20.00); Blood Urea Nitrogen 8.7 mg/dL (9.0-27.0); Calcium 7.4 mg/dL (8.7-10.3); Carbon Dioxide 21.7 mmol/L (21.6-31.8); Non-African American GFR(CKD) 89.7 (60.0-200.0); Potassium 3.2 mmol/L (3.5-5.5); Total Bilirubin 0.2 mg/dL (0.30-1.20); Total Protein 4.8 g/dL (6.2-8.2)
[2021-05-19 13:51] LABS: Glucose,Whole Blood 112 mg/dL (75-99)
[2021-05-19 14:23] LABS: ALT 13 U/L (4-34); AST 20 U/L (14-36); African American GFR (CKD) >90 (>60 ml/min/1.73 sqM); Albumin 2.9 g/dL (3.5-5.0); Albumin/Globulin Ratio 1.1; Alkaline Phosphatase 92 U/L (38-126); Anion Gap 4 mmol/L; Blood Urea Nitrogen 11 mg/dL (7-17); Calcium 8.5 mg/dL (8.4-10.2); Carbon Dioxide 27 mmol/L (22-30); Chloride 101 mmol/L (98-107); Globulin 2.7 g/dL; Glucose 135 mg/dL (74-99); Non-African American GFR(CKD) >90 (>60 ml/min/1.73 sqM); Potassium 3.6 mmol/L (3.5-5.1); Sodium 132 mmol/L (137-145); Total Bilirubin 0.4 mg/dL (0.2-1.3); Total Protein 5.6 g/dL (6.3-8.2)
--- NOTE | 2021-05-19 15:29 | XR ---
EXAMINATION TYPE: XR chest 2V DATE OF EXAM: 05/19/2021 COMPARISON: 05/16/2021 HISTORY: Follow-up pneumonia TECHNIQUE: 2 views FINDINGS: There is some linear density at both lung bases. There is no heart failure. Heart size is n ormal. There are no hilar masses. Mediastinum is normal. IMPRESSION: There is some atelectasis at both lung bases without significant change compared to recen t exam.
--- NOTE | 2021-05-19 16:29 | P.PN ---
Subjective Progress Note Date: 05/19/21 CHIEF COMPLAINT: Diverticulitis HISTORY OF PRESENT ILLNESS: The patient is a 65-year-old female status post colostomy reversal for diverticulitis, 05/14/2021. She is a full liquid diet. She is burping and passing some flatus. No bowel movements. She is on a full liquid .t ROS: No reports of nausea and vomiting. No fevers or chills. No new chest pain. No productive sputum PHYSICAL EXAM: VITAL SIGNS: Reviewed CONSTITUTIONAL: Well developed and in no acute distress. EYES: Conjuctivae without sclera icterus. Extraocular movements grossly intact. HEAD, EARS, NOSE, THROAT: Moist buccal mucosa. Head is atraumatic, normocephalic. Hears conversational speech. No nasal drainage. NECK: No gross thyroidomegaly. No jugular venous distention. RESPIRATORY: Non-labored respirations and equal bilateral excursions. CARDIOVASCULAR: Palpable 2+ radial pulses. ABDOMEN: Dressings intact. MUSCULOSKELETAL: No clubbing. No cyanosis. SKIN: Good skin turgor. Well perfused. NEUROLOGIC: Cranial nerves II through XII grossly intact. No focal or lateralizing signs. PSYCH: Appropriate affect. Alert and oriented to person CLINICAL LABS: White blood cell count normal at 7.8. Creatinine normal 0.67 ASSESSMENT: 1. Sigmoid diverticulitis status post colostomy reversal. PLAN: 1. Continue full liquid diet 2. Add simethicone for gas 3. Ambulation encouraged. 4. Entereg protocol. Objective - Vital Signs Vital signs: Vital Signs Temp 99.4 F 05/19/21 08:00 Pulse 83 05/19/21 08:00 Resp 16 05/19/21 08:00 BP 111/59 05/19/21 08:00 Pulse Ox 90 L 05/19/21 08:00 Intake & Output 05/18/21 05/19/21 05/19/21 18:59 06:59 18:59 Intake Total 2330 Output Total 960 Balance 1370 Weight 80.7 kg Intake: Intake, IV Titration 1250 Amount Dextrose 5%-0.45% NaCl 1, 1250 000 ml @ 125 mls/hr IV . Q8H [facility] Rx#:[id number] Oral 1080 Output: Urine 960 Other: Voiding Method Bedside Commode Bedside Commode Diaper # Voids 4 1 - Labs CBC & Chem 7: 05/19/21 09:17 05/19/21 13:50 Labs: Microbiology - Last 24 Hours (Table) 05/16/21 12:26 Blood Culture - Preliminary Blood No Growth after 48 hours
[2021-05-19] MEDS: SIMETHICONE 40 MG/0.6 ML DROPS 2,000 MG/30 ML BOTTLE PO SCH ×2 (16:43→21:56)
[2021-05-19] MEDS: ALVIMOPAN 12 MG CAPSULE PO SCH (21:48)
[2021-05-20] MEDS: DEXTROSE 5%-0.45% NACL 1,000 ML IV SCH ×3 (07:20→14:50)
[2021-05-20] MEDS: LACTATED RINGERS 1,000 ML IV SCH (07:21)
[2021-05-20] MEDS: ALVIMOPAN 12 MG CAPSULE PO SCH ×2 (08:36→21:55)
[2021-05-20] MEDS: HEPARIN SODIUM,PORCINE/PF 5,000 UNIT/0.5 ML SYRINGE SQ SCH ×2 (08:38→21:55)
[2021-05-20] MEDS: SIMETHICONE 40 MG/0.6 ML DROPS 2,000 MG/30 ML BOTTLE PO SCH ×4 (08:40→21:55)
[2021-05-20] MEDS: GABAPENTIN 400 MG CAP PO SCH ×2 (08:42→21:55)
[2021-05-20] MEDS: VENLAFAXINE HCL ER 150 MG CAP PO SCH ×2 (08:43→21:55)
[2021-05-20] MEDS: HYDROcodone/APAP 10-325MG 1 EACH TAB PO PRN ×2 (08:46→14:44)
--- NOTE | 2021-05-20 10:21 | P.PN ---
Subjective Progress Note Date: 05/19/21 Rocio Jamil, is a 65-year-old female who was admitted to [facility] for colostomy reversal. Patient has a known history of acute diverticulitis with perforation in October 2020 at that time she underwent surgery with colostomy placement, past medical history is also significant for history of depression, history of gastroesophageal reflux disease, history of lung cancer, history of anal cancer. Patient is a former smoker she denies any alcohol use. on 05/15/2021 patient remains sleepy current on epidural currently nothing by mouth. Patient denies any significant complaints. Patient denies chest pain or shortness breath. Patient denies nausea vomiting or diarrhea. Patient denies any urinary burning or 05/16/2021 patient remains sleepy. Epidural currently getting change due to increased lethargy. Patient does wake up and follow some commands but quickly falls back to sleep. Patient also having elevated temperature 101. Urinary analysis, blood culture and chest x-ray ordered. Per nursing staff patient has been unable to do incentive spirometer take deep breaths due to increased lethargy. Patient denies any acute complaints. On 05/17/2021 patient more alert. Patient does follow commands. UA negative. Chest x-ray showing atelectasis continue encouragement of incentive spirometer. Patient remains nothing by mouth. Patient denies chest pain or shortness breath. Patient denies nausea vomiting or diarrhea. Patient denies any urinary burning or frequency On 05/18/2021 patient's alert and oriented 3. Per nursing staff patient is using incentive spirometer. Awaiting surgical recommendation for diet. Patient remains nothing by mouth. Patient denies chest pain or shortness breath. Patient denies nausea vomiting or diarrhea. Patient denies any urinary burning or frequency On 05/19/2021 patient's alert and oriented 3. Patient maintained full liquid diet. Patient denies chest pain or shortness breath. Patient denies nausea vomiting or diarrhea. Patient denies any urinary burning or frequency Objective - Vital Signs Vital signs: Vital Signs Temp 99.4 F 05/19/21 08:00 Pulse 83 05/19/21 08:00 Resp 16 05/19/21 08:00 BP 111/59 05/19/21 08:00 Pulse Ox 90 L 05/19/21 08:00 Intake & Output 05/18/21 05/19/21 05/19/21 18:59 06:59 18:59 Intake Total 2330 Output Total 960 Balance 1370 Weight 80.7 kg Intake: Intake, IV Titration 1250 Amount Dextrose 5%-0.45% NaCl 1, 1250 000 ml @ 125 mls/hr IV . Q8H [facility] Rx#:[id number] Oral 1080 Output: Urine 960 Other: Voiding Method Bedside Commode Bedside Commode Diaper # Voids 4 1 - Exam In general patient is alert and oriented x 3 in no distress HEENT head normocephalic and atraumatic Neck is supple no JVD no goiter no lymphadenopathy no carotid bruit Chest examination is clear to auscultation no crackles no wheezing Cardiac exam reveals regular heart sounds S1 and S2 no gallops no murmurs Abdomen is soft nontender no organomegaly with normal bowel sounds Extremity exam reveals no edema no cyanosis or clubbing Neurological examination reveals no gross focal deficits - Labs CBC & Chem 7: 05/19/21 09:17 05/19/21 13:50 Labs: Abnormal Lab Results - Last 24 Hours (Table) 05/19/21 05/19/21 05/19/21 Range/Units 09:17 09:17 13:39 RBC 3.43 L (4.10-5.20) X 10*6/uL Hgb 10.7 L (12.0-15.0) g/dL Hct 35.7 L (37.2-46.3) % MCV 104.1 H (80.0-97.0) fL MCHC 30.0 L (32.0-37.0) g/dL Sodium 129 L (135-145) mmol/L Potassium 3.2 L (3.5-5.5) mmol/L BUN 8.7 L (9.0-27.0) mg/dL Glucose 545 H* (70-110) mg/dL POC Glucose (mg/dL) 112 H (75-99) mg/dL Calcium 7.4 L (8.7-10.3) mg/dL Total Bilirubin 0.20 L (0.30-1.20) mg/dL AST 12 L (13-35) U/L Total Protein 4.8 L (6.2-8.2) g/dL Albumin 2.8 L (3.8-4.9) g/dL Albumin/Globulin Ratio 1.40 L (1.60-3.17) g/dL 05/19/21 Range/Units 13:50 RBC (4.10-5.20) X 10*6/uL Hgb (12.0-15.0) g/dL Hct (37.2-46.3) % MCV (80.0-97.0) fL MCHC (32.0-37.0) g/dL Sodium 132 L (135-145) mmol/L Potassium (3.5-5.5) mmol/L BUN (9.0-27.0) mg/dL Glucose 135 H (70-110) mg/dL POC Glucose (mg/dL) (75-99) mg/dL Calcium (8.7-10.3) mg/dL Total Bilirubin (0.30-1.20) mg/dL AST (13-35) U/L Total Protein 5.6 L (6.2-8.2) g/dL Albumin 2.9 L (3.8-4.9) g/dL Albumin/Globulin Ratio (1.60-3.17) g/dL Microbiology - Last 24 Hours (Table) 05/16/21 12:26 Blood Culture - Preliminary Blood No Growth after 72 hours Assessment and Plan Plan: Status post colostomy reversal today by Dr. Rivera Episode of hypotension post surgery given 1 L of IV fluid bolus. Resolved History of diverticulitis with perforation, with colostomy placement in October 2020 Underlying history of depression Underlying history of Sjogren syndrome Underlying history of gastroesophageal reflux disease Previous history of an anal cancer Previous history of lung cancer Febrile likely secondary to atelectasis. Urinary analysis negative. Blood culture pending. Chest x-ray showing atelectasis Home medications reviewed and reordered Repeat labs ordered Continue incentive spirometer
--- NOTE | 2021-05-20 10:23 | P.PN ---
Subjective Progress Note Date: 05/20/21 Rocio Jamil, is a 65-year-old female who was admitted to [facility] for colostomy reversal. Patient has a known history of acute diverticulitis with perforation in October 2020 at that time she underwent surgery with colostomy placement, past medical history is also significant for history of depression, history of gastroesophageal reflux disease, history of lung cancer, history of anal cancer. Patient is a former smoker she denies any alcohol use. on 05/15/2021 patient remains sleepy current on epidural currently nothing by mouth. Patient denies any significant complaints. Patient denies chest pain or shortness breath. Patient denies nausea vomiting or diarrhea. Patient denies any urinary burning or 05/16/2021 patient remains sleepy. Epidural currently getting change due to increased lethargy. Patient does wake up and follow some commands but quickly falls back to sleep. Patient also having elevated temperature 101. Urinary analysis, blood culture and chest x-ray ordered. Per nursing staff patient has been unable to do incentive spirometer take deep breaths due to increased lethargy. Patient denies any acute complaints. On 05/17/2021 patient more alert. Patient does follow commands. UA negative. Chest x-ray showing atelectasis continue encouragement of incentive spirometer. Patient remains nothing by mouth. Patient denies chest pain or shortness breath. Patient denies nausea vomiting or diarrhea. Patient denies any urinary burning or frequency On 05/18/2021 patient's alert and oriented 3. Per nursing staff patient is using incentive spirometer. Awaiting surgical recommendation for diet. Patient remains nothing by mouth. Patient denies chest pain or shortness breath. Patient denies nausea vomiting or diarrhea. Patient denies any urinary burning or frequency On 05/19/2021 patient's alert and oriented 3. Patient maintained full liquid diet. Patient denies chest pain or shortness breath. Patient denies nausea vomiting or diarrhea. Patient denies any urinary burning or frequency On 05/20/2021 patient's alert and oriented 3. Patient maintained on full liquid diet. Blood sugar appears improved. She continues to be afebrile. Patient denies chest pain or shortness breath. Patient denies nausea vomiting or diarrhea. Patient denies any urinary burning or frequency Objective - Vital Signs Vital signs: Vital Signs Temp 98.2 F 05/20/21 08:00 Pulse 77 05/20/21 08:00 Resp 20 05/20/21 08:00 BP 148/83 05/20/21 08:00 Pulse Ox 94 L 05/20/21 08:00 Intake & Output 05/19/21 05/20/21 05/20/21 18:59 06:59 18:59 Other: Voiding Method Bedside Commode # Voids 3 # Bowel Movements 0 - Exam In general patient is alert and oriented x 3 in no distress HEENT head normocephalic and atraumatic Neck is supple no JVD no goiter no lymphadenopathy no carotid bruit Chest examination is clear to auscultation no crackles no wheezing Cardiac exam reveals regular heart sounds S1 and S2 no gallops no murmurs Abdomen is soft nontender no organomegaly with normal bowel sounds Extremity exam reveals no edema no cyanosis or clubbing Neurological examination reveals no gross focal deficits - Labs CBC & Chem 7: 05/19/21 09:17 05/19/21 13:50 Labs: Abnormal Lab Results - Last 24 Hours (Table) 05/19/21 05/19/21 05/19/21 Range/Units 09:17 09:17 13:39 RBC 3.43 L (4.10-5.20) X 10*6/uL Hgb 10.7 L (12.0-15.0) g/dL Hct 35.7 L (37.2-46.3) % MCV 104.1 H (80.0-97.0) fL MCHC 30.0 L (32.0-37.0) g/dL Sodium 129 L (135-145) mmol/L Potassium 3.2 L (3.5-5.5) mmol/L BUN 8.7 L (9.0-27.0) mg/dL Glucose 545 H* (70-110) mg/dL POC Glucose (mg/dL) 112 H (75-99) mg/dL Calcium 7.4 L (8.7-10.3) mg/dL Total Bilirubin 0.20 L (0.30-1.20) mg/dL AST 12 L (13-35) U/L Total Protein 4.8 L (6.2-8.2) g/dL Albumin 2.8 L (3.8-4.9) g/dL Albumin/Globulin Ratio 1.40 L (1.60-3.17) g/dL 05/19/21 Range/Units 13:50 RBC (4.10-5.20) X 10*6/uL Hgb (12.0-15.0) g/dL Hct (37.2-46.3) % MCV (80.0-97.0) fL MCHC (32.0-37.0) g/dL Sodium 132 L (135-145) mmol/L Potassium (3.5-5.5) mmol/L BUN (9.0-27.0) mg/dL Glucose 135 H (70-110) mg/dL POC Glucose (mg/dL) (75-99) mg/dL Calcium (8.7-10.3) mg/dL Total Bilirubin (0.30-1.20) mg/dL AST (13-35) U/L Total Protein 5.6 L (6.2-8.2) g/dL Albumin 2.9 L (3.8-4.9) g/dL Albumin/Globulin Ratio (1.60-3.17) g/dL Microbiology - Last 24 Hours (Table) 05/16/21 12:26 Blood Culture - Preliminary Blood No Growth after 72 hours Assessment and Plan Plan: Status post colostomy reversal today by Dr. Rivera Episode of hypotension post surgery given 1 L of IV fluid bolus. Resolved History of diverticulitis with perforation, with colostomy placement in October 2020 Underlying history of depression Underlying history of Sjogren syndrome Underlying history of gastroesophageal reflux disease Previous history of an anal cancer Previous history of lung cancer Febrile likely secondary to atelectasis. Urinary analysis negative. Blood culture pending. Chest x-ray showing atelectasis Home medications reviewed and reordered Repeat labs ordered Continue incentive spirometer
--- NOTE | 2021-05-20 12:27 | P.PN ---
Subjective Progress Note Date: 05/20/21 CHIEF COMPLAINT: Diverticulitis HISTORY OF PRESENT ILLNESS: The patient is a 65-year-old female status post colostomy reversal for diverticulitis, 05/14/2021. She is a full liquid diet. She just had her first bowel movement today. Mentation is blunt. She complains of mild pain. ROS: No reports of nausea and vomiting. No fevers or chills. No new chest pain. No productive sputum PHYSICAL EXAM: VITAL SIGNS: Reviewed CONSTITUTIONAL: Well developed and in no acute distress. EYES: Conjuctivae without sclera icterus. Extraocular movements grossly intact. HEAD, EARS, NOSE, THROAT: Moist buccal mucosa. Head is atraumatic, normocephalic. Hears conversational speech. No nasal drainage. NECK: No gross thyroidomegaly. No jugular venous distention. RESPIRATORY: Non-labored respirations and equal bilateral excursions. CARDIOVASCULAR: Palpable 2+ radial pulses. ABDOMEN: Dressings intact. MUSCULOSKELETAL: No clubbing. No cyanosis. SKIN: Good skin turgor. Well perfused. NEUROLOGIC: Cranial nerves II through XII grossly intact. No focal or lateralizing signs. PSYCH: Flat affect. Alert and oriented to person CLINICAL LABS: Reviewed. Sodium low 132. ASSESSMENT: 1. Sigmoid diverticulitis status post colostomy reversal. PLAN: 1. Recommend rehab assessment with PT/OT 2. Continue Entereg Objective - Vital Signs Vital signs: Vital Signs Temp 98.2 F 05/20/21 08:00 Pulse 77 05/20/21 08:00 Resp 20 05/20/21 08:45 BP 148/83 05/20/21 08:00 Pulse Ox 94 L 05/20/21 08:00 Intake & Output 05/19/21 05/20/21 05/20/21 18:59 06:59 18:59 Other: Voiding Method Bedside Commode Bedside Commode # Voids 3 # Bowel Movements 0 - Labs CBC & Chem 7: 05/19/21 09:17 05/19/21 13:50 Labs: Abnormal Lab Results - Last 24 Hours (Table) 05/19/21 05/19/21 05/19/21 Range/Units 09:17 13:39 13:50 Sodium 129 L 132 L (135-145) mmol/L Potassium 3.2 L (3.5-5.5) mmol/L BUN 8.7 L (9.0-27.0) mg/dL Glucose 545 H* 135 H (70-110) mg/dL POC Glucose (mg/dL) 112 H (75-99) mg/dL Calcium 7.4 L (8.7-10.3) mg/dL Total Bilirubin 0.20 L (0.30-1.20) mg/dL AST 12 L (13-35) U/L Total Protein 4.8 L 5.6 L (6.2-8.2) g/dL Albumin 2.8 L 2.9 L (3.8-4.9) g/dL Albumin/Globulin Ratio 1.40 L (1.60-3.17) g/dL Microbiology - Last 24 Hours (Table) 05/16/21 12:26 Blood Culture - Preliminary Blood No Growth after 72 hours
[2021-05-21] MEDS: DEXTROSE 5%-0.45% NACL 1,000 ML IV SCH ×3 (05:59→17:32)
[2021-05-21] MEDS: LACTATED RINGERS 1,000 ML IV SCH (08:06)
[2021-05-21] MEDS: ALVIMOPAN 12 MG CAPSULE PO SCH ×2 (08:08→21:05)
[2021-05-21] MEDS: GABAPENTIN 400 MG CAP PO SCH ×2 (08:10→21:05)
[2021-05-21] MEDS: HEPARIN SODIUM,PORCINE/PF 5,000 UNIT/0.5 ML SYRINGE SQ SCH ×2 (08:10→21:05)
[2021-05-21] MEDS: VENLAFAXINE HCL ER 150 MG CAP PO SCH ×2 (08:10→21:05)
[2021-05-21] MEDS: HYDROcodone/APAP 10-325MG 1 EACH TAB PO PRN ×3 (08:15→23:00)
[2021-05-21] MEDS: SIMETHICONE 40 MG/0.6 ML DROPS 2,000 MG/30 ML BOTTLE PO SCH ×4 (08:16→21:05)
[2021-05-21 08:42] LABS: Basophils # (A) 0.02 X 10*3/uL (0.00-0.10); Basophils % (A) 0.4 %; Eosinophils # (A) 0.23 X 10*3/uL (0.04-0.35); Eosinophils % (A) 4.1 %; HGB 10.8 g/dL (12.0-15.0); Lymphocytes # (A) 0.78 X 10*3/uL (0.90-5.00); MCH 32.5 pg (27.0-32.0); MCHC 30.9 g/dL (32.0-37.0); MCV 105.4 fL (80.0-97.0); Mean Platelet Volume 9.5 fL (9.5-12.2); Monocytes # (A) 0.54 X 10*3/uL (0.20-1.00); Monocytes % (A) 9.7 %; Neutrophils # (A) 3.96 X 10*3/uL (1.80-7.70); Neutrophils % (A) 71.3 %; Platelet Count 251 X 10*3/uL (140-440); RBC 3.32 X 10*6/uL (4.10-5.20); RDW 13.7 % (11.5-14.5); WBC 5.56 X 10*3/uL (4.50-10.00)
[2021-05-21 11:19] LABS: ALT 12 U/L (8-44); AST 14 U/L (13-35); African American GFR (CKD) 103.9 (60.0-200.0); Albumin 3.2 g/dL (3.8-4.9); Albumin/Globulin Ratio 1.45 (1.60-3.17); Alkaline Phosphatase 103 U/L (41-126); BUN/Creat Ratio 12.29 Ratio (12.00-20.00); Blood Urea Nitrogen 8.6 mg/dL (9.0-27.0); Calcium 8.6 mg/dL (8.7-10.3); Carbon Dioxide 28.7 mmol/L (21.6-31.8); Chloride 102 mmol/L (96-109); Globulin 2.2 g/dL (1.6-3.3); Glucose 104 mg/dL (70-110); Non-African American GFR(CKD) 89.7 (60.0-200.0); Potassium 3.6 mmol/L (3.5-5.5); Sodium 139 mmol/L (135-145); Total Bilirubin <0.20 mg/dL (0.30-1.20); Total Protein 5.4 g/dL (6.2-8.2)
--- NOTE | 2021-05-21 13:19 | P.PN ---
Subjective Progress Note Date: 05/21/21 CHIEF COMPLAINT: Perforated diverticulitis HISTORY OF PRESENT ILLNESS: Patient is status post reversal of colostomy, takedown colostomy and partial omentectomy. Postop day #7. Patient does complain of abdominal pain. She reports though that it is controlled with pain medication. Denies any nausea or vomiting. Patient did have a bowel movement and flatus. She reports the stools are mostly diarrhea. She is currently on a full liquid diet. She is asking for more to eat. Patient is only getting up to the bedside commode. Afebrile. WBC is 5.516 1110.8 platelets 251 sodium 139 Patient seen and examined with Dr. dumas PHYSICAL EXAM: VITAL SIGNS: Reviewed. GENERAL: Well-developed in no acute distress. HEENT: No sclera icterus. Extraocular movements grossly intact. Moist buccal mucosa. Head is atraumatic, normocephalic. ABDOMEN: Soft. Nondistended NEUROLOGIC: Alert and oriented. Cranial nerves II through XII grossly intact. ASSESSMENT: 1. History of perforated diverticulitis status post reversal of colostomy, takedown colostomy and partial omentectomy PLAN: -Advance diet to regular -Continue to work with PT OT -Consult social work for possible ECF placement -Possible discharge tomorrow -Encouraged patient to use incentive spirometer -Encouraged patient to increase activity -GI prophylaxis Protonix and DVT prophylaxis subcu heparin Physician Director Public Service note has been reviewed by physician. Signing provider agrees with the documented findings, assessment, and plan of care. Objective - Vital Signs Vital signs: Vital Signs Temp 98.7 F 05/21/21 08:00 Pulse 75 05/21/21 08:00 Resp 17 05/21/21 08:00 BP 107/66 05/21/21 08:00 Pulse Ox 92 L 05/21/21 08:00 Intake & Output 05/20/21 05/21/21 05/21/21 18:59 06:59 18:59 Intake Total 250 Balance 250 Intake: Oral 250 Other: Voiding Method Bedside Commode Bedside Commode # Voids 2 1 # Bowel Movements 2 - Labs CBC & Chem 7: 05/21/21 06:05 05/21/21 06:05 Labs: Abnormal Lab Results - Last 24 Hours (Table) 05/21/21 05/21/21 Range/Units 06:05 06:05 RBC 3.32 L (4.10-5.20) X 10*6/uL Hgb 10.8 L (12.0-15.0) g/dL Hct 35.0 L (37.2-46.3) % MCV 105.4 H (80.0-97.0) fL MCH 32.5 H (27.0-32.0) pg MCHC 30.9 L (32.0-37.0) g/dL Lymphocytes # 0.78 L (0.90-5.00) X 10*3/uL BUN 8.6 L (9.0-27.0) mg/dL Calcium 8.6 L (8.7-10.3) mg/dL Total Bilirubin <0.20 L (0.30-1.20) mg/dL Total Protein 5.4 L (6.2-8.2) g/dL Albumin 3.2 L (3.8-4.9) g/dL Albumin/Globulin Ratio 1.45 L (1.60-3.17) g/dL Microbiology - Last 24 Hours (Table) 05/16/21 12:26 Blood Culture - Preliminary Blood No Growth after 96 hours
--- NOTE | 2021-05-21 18:42 | P.PN ---
Subjective Progress Note Date: 05/21/21 Rocio Jamil, is a 65-year-old female who was admitted to [facility] for colostomy reversal. Patient has a known history of acute diverticulitis with perforation in October 2020 at that time she underwent surgery with colostomy placement, past medical history is also significant for history of depression, history of gastroesophageal reflux disease, history of lung cancer, history of anal cancer. Patient is a former smoker she denies any alcohol use. on 05/15/2021 patient remains sleepy current on epidural currently nothing by mouth. Patient denies any significant complaints. Patient denies chest pain or shortness breath. Patient denies nausea vomiting or diarrhea. Patient denies any urinary burning or 05/16/2021 patient remains sleepy. Epidural currently getting change due to increased lethargy. Patient does wake up and follow some commands but quickly falls back to sleep. Patient also having elevated temperature 101. Urinary analysis, blood culture and chest x-ray ordered. Per nursing staff patient has been unable to do incentive spirometer take deep breaths due to increased lethargy. Patient denies any acute complaints. On 05/17/2021 patient more alert. Patient does follow commands. UA negative. Chest x-ray showing atelectasis continue encouragement of incentive spirometer. Patient remains nothing by mouth. Patient denies chest pain or shortness breath. Patient denies nausea vomiting or diarrhea. Patient denies any urinary burning or frequency On 05/18/2021 patient's alert and oriented 3. Per nursing staff patient is using incentive spirometer. Awaiting surgical recommendation for diet. Patient remains nothing by mouth. Patient denies chest pain or shortness breath. Patient denies nausea vomiting or diarrhea. Patient denies any urinary burning or frequency On 05/19/2021 patient's alert and oriented 3. Patient maintained full liquid diet. Patient denies chest pain or shortness breath. Patient denies nausea vomiting or diarrhea. Patient denies any urinary burning or frequency On 05/20/2021 patient's alert and oriented 3. Patient maintained on full liquid diet. Blood sugar appears improved. She continues to be afebrile. Patient denies chest pain or shortness breath. Patient denies nausea vomiting or diarrhea. Patient denies any urinary burning or frequency On 05/21/2021 patient was seen and examined on the medical floor she is alert and oriented 3 in no apparent distress , there is no fever or chills no headache or dizziness no chest pain or shortness of breath no cough no nausea or vomiting no abdominal pain no diarrhea and no urinary symptoms diet is being advanced gradually by surgery, white blood count is 5.56 hemoglobin 10.8 platelet count 251, BUN 8.6 creatinine 0.7 Objective - Vital Signs Vital signs: Vital Signs Temp 98.3 F 05/21/21 14:00 Pulse 79 05/21/21 14:00 Resp 18 05/21/21 14:00 BP 103/64 05/21/21 14:00 Pulse Ox 90 L 05/21/21 14:00 Intake & Output 05/20/21 05/21/21 05/21/21 18:59 06:59 18:59 Intake Total 250 Balance 250 Intake: Oral 250 Other: Voiding Method Bedside Commode Bedside Commode # Voids 2 1 3 # Bowel Movements 2 3 - Exam In general patient is alert and oriented x 3 in no distress HEENT head normocephalic and atraumatic Neck is supple no JVD no goiter no lymphadenopathy no carotid bruit Chest examination is clear to auscultation no crackles no wheezing Cardiac exam reveals regular heart sounds S1 and S2 no gallops no murmurs Abdomen is soft nontender no organomegaly with normal bowel sounds Extremity exam reveals no edema no cyanosis or clubbing Neurological examination reveals no gross focal deficits - Labs CBC & Chem 7: 05/21/21 06:05 05/21/21 06:05 Labs: Abnormal Lab Results - Last 24 Hours (Table) 05/21/21 05/21/21 Range/Units 06:05 06:05 RBC 3.32 L (4.10-5.20) X 10*6/uL Hgb 10.8 L (12.0-15.0) g/dL Hct 35.0 L (37.2-46.3) % MCV 105.4 H (80.0-97.0) fL MCH 32.5 H (27.0-32.0) pg MCHC 30.9 L (32.0-37.0) g/dL Lymphocytes # 0.78 L (0.90-5.00) X 10*3/uL BUN 8.6 L (9.0-27.0) mg/dL Calcium 8.6 L (8.7-10.3) mg/dL Total Bilirubin <0.20 L (0.30-1.20) mg/dL Total Protein 5.4 L (6.2-8.2) g/dL Albumin 3.2 L (3.8-4.9) g/dL Albumin/Globulin Ratio 1.45 L (1.60-3.17) g/dL Microbiology - Last 24 Hours (Table) 05/16/21 12:26 Blood Culture - Preliminary Blood No Growth after 120 hours Assessment and Plan Plan: Status post colostomy reversal today by Dr. Rivera Episode of hypotension post surgery given 1 L of IV fluid bolus. Resolved History of diverticulitis with perforation, with colostomy placement in October 2020 Underlying history of depression Underlying history of Sjogren syndrome Underlying history of gastroesophageal reflux disease Previous history of an anal cancer Previous history of lung cancer Febrile likely secondary to atelectasis. Urinary analysis negative. Blood culture pending. Chest x-ray showing atelectasis Home medications reviewed and reordered Repeat labs ordered Continue incentive spirometer
[2021-05-22] MEDS: DEXTROSE 5%-0.45% NACL 1,000 ML IV SCH ×3 (00:08→22:45)
[2021-05-22] MEDS: LACTATED RINGERS 1,000 ML IV SCH (05:46)
[2021-05-22 07:16] LABS: Basophils % (A) 0 %; Eosinophils # (A) 0.3 k/uL (0-0.7); Eosinophils % (A) 4 %; HCT 38.9 % (34.0-46.0); HGB 12.3 gm/dL (11.4-16.0); Lymphocytes % (A) 17 %; MCHC 31.7 g/dL (31.0-37.0); MCV 101.2 fL (80.0-100.0); Macrocytosis Slight; Mean Platelet Volume 8.6; Monocytes # (A) 0.6 k/uL (0-1.0); Monocytes % (A) 11 %; Neutrophils # (A) 3.8 k/uL (1.3-7.7); Neutrophils % (A) 66 %; Platelet Count 322 k/uL (150-450); RBC 3.84 m/uL (3.80-5.40); RDW 13.8 % (11.5-15.5); WBC 5.7 k/uL (3.8-10.6)
[2021-05-22 07:51] LABS: ALT 16 U/L (4-34); AST 29 U/L (14-36); African American GFR (CKD) >90 (>60 ml/min/1.73 sqM); Albumin 3.1 g/dL (3.5-5.0); Albumin/Globulin Ratio 1.1; Alkaline Phosphatase 106 U/L (38-126); Anion Gap 6 mmol/L; Blood Urea Nitrogen 7 mg/dL (7-17); Carbon Dioxide 28 mmol/L (22-30); Chloride 106 mmol/L (98-107); Globulin 2.8 g/dL; Glucose 109 mg/dL (74-99); Non-African American GFR(CKD) >90 (>60 ml/min/1.73 sqM); Sodium 140 mmol/L (137-145); Total Bilirubin 0.4 mg/dL (0.2-1.3); Total Protein 5.9 g/dL (6.3-8.2)
[2021-05-22 07:53] LABS: Potassium 4.3 mmol/L (3.5-5.1)
[2021-05-22] MEDS: ALVIMOPAN 12 MG CAPSULE PO SCH ×2 (08:39→22:36)
[2021-05-22] MEDS: HEPARIN SODIUM,PORCINE/PF 5,000 UNIT/0.5 ML SYRINGE SQ SCH ×2 (09:13→21:48)
[2021-05-22] MEDS: VENLAFAXINE HCL ER 150 MG CAP PO SCH ×2 (09:14→22:08)
[2021-05-22] MEDS: GABAPENTIN 400 MG CAP PO SCH ×2 (09:14→22:07)
[2021-05-22] MEDS: SIMETHICONE 40 MG/0.6 ML DROPS 2,000 MG/30 ML BOTTLE PO SCH ×4 (09:14→22:08)
[2021-05-22] MEDS: HYDROcodone/APAP 10-325MG 1 EACH TAB PO PRN ×3 (09:44→22:40)
--- NOTE | 2021-05-22 14:33 | P.PN ---
Subjective Progress Note Date: 05/22/21 CHIEF COMPLAINT: Perforated diverticulitis HISTORY OF PRESENT ILLNESS: Patient is status post reversal of colostomy, takedown colostomy and partial omentectomy. Postop day #8. Patient does complain of abdominal pain. She reports though that it is controlled with pain medication. Denies any nausea or vomiting. Patient did have a bowel movement and flatus. Patient is not moving much. She is confused at times. Afebrile. WBC is 5.7 hemoglobin 12.3 sodium 140 potassium 4.3 creatinine 0.56 Patient seen and examined with Dr. dumas PHYSICAL EXAM: VITAL SIGNS: Reviewed. GENERAL: Well-developed in no acute distress. HEENT: No sclera icterus. Extraocular movements grossly intact. Moist buccal mucosa. Head is atraumatic, normocephalic. ABDOMEN: Soft. Nondistended NEUROLOGIC: Alert and oriented. Cranial nerves II through XII grossly intact. ASSESSMENT: 1. History of perforated diverticulitis status post reversal of colostomy, takedown colostomy and partial omentectomy PLAN: -continue regular -Continue to work with PT OT -Consult social work for possible ECF placement -Possible discharge tomorrow -Encouraged patient to use incentive spirometer -Encouraged patient to increase activity -GI prophylaxis Protonix and DVT prophylaxis subcu heparin Physician Hr Systems Analyst note has been reviewed by physician. Signing provider agrees with the documented findings, assessment, and plan of care. Objective - Vital Signs Vital signs: Vital Signs Temp 97.6 F 05/22/21 14:00 Pulse 76 05/22/21 14:00 Resp 18 05/22/21 14:00 BP 146/70 05/22/21 14:00 Pulse Ox 99 05/22/21 14:00 Intake & Output 05/21/21 05/22/21 05/22/21 18:59 06:59 18:59 Intake Total 700 Balance 700 Intake: Intake, IV Titration 500 Amount Dextrose 5%-0.45% NaCl 1, 500 000 ml @ 125 mls/hr IV . Q8H [facility] Rx#:[id number] Oral 200 Other: Voiding Method Bedside Commode Bedside Commode # Voids 3 3 # Bowel Movements 3 - Labs CBC & Chem 7: 05/22/21 06:15 05/22/21 06:15 Labs: Abnormal Lab Results - Last 24 Hours (Table) 05/22/21 05/22/21 Range/Units 06:15 06:15 MCV 101.2 H (80.0-100.0) fL Glucose 109 H (74-99) mg/dL Total Protein 5.9 L (6.3-8.2) g/dL Albumin 3.1 L (3.5-5.0) g/dL Microbiology - Last 24 Hours (Table) 05/16/21 12:26 Blood Culture - Preliminary Blood No Growth after 120 hours
--- NOTE | 2021-05-22 17:26 | P.PN ---
Subjective Progress Note Date: 05/22/21 Rocio Jamil, is a 65-year-old female who was admitted to [facility] for colostomy reversal. Patient has a known history of acute diverticulitis with perforation in October 2020 at that time she underwent surgery with colostomy placement, past medical history is also significant for history of depression, history of gastroesophageal reflux disease, history of lung cancer, history of anal cancer. Patient is a former smoker she denies any alcohol use. on 05/15/2021 patient remains sleepy current on epidural currently nothing by mouth. Patient denies any significant complaints. Patient denies chest pain or shortness breath. Patient denies nausea vomiting or diarrhea. Patient denies any urinary burning or 05/16/2021 patient remains sleepy. Epidural currently getting change due to increased lethargy. Patient does wake up and follow some commands but quickly falls back to sleep. Patient also having elevated temperature 101. Urinary analysis, blood culture and chest x-ray ordered. Per nursing staff patient has been unable to do incentive spirometer take deep breaths due to increased lethargy. Patient denies any acute complaints. On 05/17/2021 patient more alert. Patient does follow commands. UA negative. Chest x-ray showing atelectasis continue encouragement of incentive spirometer. Patient remains nothing by mouth. Patient denies chest pain or shortness breath. Patient denies nausea vomiting or diarrhea. Patient denies any urinary burning or frequency On 05/18/2021 patient's alert and oriented 3. Per nursing staff patient is using incentive spirometer. Awaiting surgical recommendation for diet. Patient remains nothing by mouth. Patient denies chest pain or shortness breath. Patient denies nausea vomiting or diarrhea. Patient denies any urinary burning or frequency On 05/19/2021 patient's alert and oriented 3. Patient maintained full liquid diet. Patient denies chest pain or shortness breath. Patient denies nausea vomiting or diarrhea. Patient denies any urinary burning or frequency On 05/20/2021 patient's alert and oriented 3. Patient maintained on full liquid diet. Blood sugar appears improved. She continues to be afebrile. Patient denies chest pain or shortness breath. Patient denies nausea vomiting or diarrhea. Patient denies any urinary burning or frequency On 05/21/2021 patient was seen and examined on the medical floor she is alert and oriented 3 in no apparent distress , there is no fever or chills no headache or dizziness no chest pain or shortness of breath no cough no nausea or vomiting no abdominal pain no diarrhea and no urinary symptoms diet is being advanced gradually by surgery, white blood count is 5.56 hemoglobin 10.8 platelet count 251, BUN 8.6 creatinine 0.7 On 1Patient was seen and examined on the medical floor, she is alert and oriented x 3 in no distress, she denies any complaints there is no fever or chills no headache or dizziness no chest pain no shortness of breath no palpitation no cough no nausea or vomiting no abdominal pain no diarrhea no blood in the stools no burning with urination no frequency or urgency and no hematuria, there is no weakness or numbness in any of the extremities no change in vision speech or gait. Patient is improving gradually she needs assistance with walking, possible transfer to rehab in the next 1-2 days Objective - Vital Signs Vital signs: Vital Signs Temp 97.6 F 05/22/21 14:00 Pulse 76 05/22/21 14:00 Resp 18 05/22/21 14:00 BP 146/70 05/22/21 14:00 Pulse Ox 99 05/22/21 14:00 Intake & Output 05/21/21 05/22/21 05/22/21 18:59 06:59 18:59 Intake Total 700 Balance 700 Weight 80.7 kg Intake: Intake, IV Titration 500 Amount Dextrose 5%-0.45% NaCl 1, 500 000 ml @ 125 mls/hr IV . Q8H [facility] Rx#:[id number] Oral 200 Other: Voiding Method Bedside Commode Bedside Commode # Voids 3 3 # Bowel Movements 3 - Exam In general patient is alert and oriented x 3 in no distress HEENT head normocephalic and atraumatic Neck is supple no JVD no goiter no lymphadenopathy no carotid bruit Chest examination is clear to auscultation no crackles no wheezing Cardiac exam reveals regular heart sounds S1 and S2 no gallops no murmurs Abdomen is soft nontender no organomegaly with normal bowel sounds Extremity exam reveals no edema no cyanosis or clubbing Neurological examination reveals no gross focal deficits - Labs CBC & Chem 7: 05/22/21 06:15 05/22/21 06:15 Labs: Abnormal Lab Results - Last 24 Hours (Table) 05/22/21 05/22/21 Range/Units 06:15 06:15 MCV 101.2 H (80.0-100.0) fL Glucose 109 H (74-99) mg/dL Total Protein 5.9 L (6.3-8.2) g/dL Albumin 3.1 L (3.5-5.0) g/dL Microbiology - Last 24 Hours (Table) 05/16/21 12:26 Blood Culture - Final Blood No Growth after 144 hours Assessment and Plan Plan: Status post colostomy reversal today by Dr. Rivera Episode of hypotension post surgery given 1 L of IV fluid bolus. Resolved History of diverticulitis with perforation, with colostomy placement in October 2020 Underlying history of depression Underlying history of Sjogren syndrome Underlying history of gastroesophageal reflux disease Previous history of an anal cancer Previous history of lung cancer Febrile likely secondary to atelectasis. Urinary analysis negative. Blood culture pending. Chest x-ray showing atelectasis Home medications reviewed and reordered Repeat labs ordered Continue incentive spirometer
[2021-05-23] MEDS: DEXTROSE 5%-0.45% NACL 1,000 ML IV SCH ×2 (05:16→10:38)
[2021-05-23 09:10] VITALS: BP 114/77; PULSE 88; RESP 22; TEMP 98.2
[2021-05-23] MEDS: VENLAFAXINE HCL ER 150 MG CAP PO SCH (10:23)
[2021-05-23] MEDS: GABAPENTIN 400 MG CAP PO SCH (10:23)
[2021-05-23] MEDS: HEPARIN SODIUM,PORCINE/PF 5,000 UNIT/0.5 ML SYRINGE SQ SCH (10:25)
[2021-05-23] MEDS: SIMETHICONE 40 MG/0.6 ML DROPS 2,000 MG/30 ML BOTTLE PO SCH ×2 (10:33→12:49)
[2021-05-23] MEDS: ALVIMOPAN 12 MG CAPSULE PO SCH (10:36)
[2021-05-23] MEDS: LACTATED RINGERS 1,000 ML IV SCH (10:37)
[2021-05-23] MEDS: HYDROcodone/APAP 10-325MG 1 EACH TAB PO PRN (10:51)
--- NOTE | 2021-05-23 11:48 | P.DS ---
Providers Date of admission: 05/14/21 06:32 Expected date of discharge: 05/23/21 Attending physician: Pedro Rivera Consults: 05/14/21 09:51 Consult Physician Routine Consulting Provider: Marlon Murphy Consult Reason/Comments: Medical management Do you want consulting provider notified?: Yes Primary care physician: Alysha Loja Hospital Course: Discharge diagnosis 1. History of perforated diverticulitis status post reversal of colostomy, takedown colostomy and partial omentectomy Hospital course This is a 65-year-old female with a known history of perforated diverticulitis. She is status post reversal of colostomy, takedown colostomy and partial omentectomy. Patient tolerated surgery well. She is tolerating diet. She is having bowel movements. She has been up to ambulate. She has required assistance. She is worked physical therapy and the recommending ECF placement for further rehab. Patient is afebrile. She is urinating without difficulty. She is stable for discharge. Please refer to chart for any further details. Incision site clean dry and intact. Physician [employer] Analyst note has been reviewed by physician. Signing provider agrees with the documented findings, assessment, and plan of care. Patient Condition at Discharge: Stable Plan - Discharge Summary Discharge Rx Participant: No New Discharge Prescriptions: New Simethicone 40 mg/0.6 ml Drops [Mylicon Drops] 40 mg PO QID ml Continue Venlafaxine HCl [Effexor XR] 150 mg PO BID@1000,2100 Pantoprazole Sodium [Protonix] 40 mg PO DAILY@1000 PRN PRN Reason: Indigestion Gabapentin 1,200 mg PO BID@999,2099 #6 tab ALPRAZolam [Xanax] 0.25 mg PO BID PRN #6 tab PRN Reason: Anxiety HYDROcodone/APAP 10-325MG [[place] 10-325] 1 tab PO Q6HR PRN #12 tab PRN Reason: Pain Discharge Medication List Venlafaxine HCl [Effexor XR] 150 mg PO BID@1000,2100 11/17/18 [History] Pantoprazole Sodium [Protonix] 40 mg PO DAILY@1000 PRN 08/22/20 [History] ALPRAZolam [Xanax] 0.25 mg PO BID PRN #6 tab 05/23/21 [Rx] Gabapentin 1,200 mg PO BID@1000,2100 #6 tab 05/23/21 [Rx] HYDROcodone/APAP 10-325MG [[place] 10-325] 1 tab PO Q6HR PRN #12 tab 05/23/21 [Rx] Simethicone 40 mg/0.6 ml Drops [Mylicon Drops] 40 mg PO QID ml 05/23/21 [Rx] Follow up Appointment(s)/Referral(s): [facility], [NON-STAFF] - Pedro Rivera MD [STAFF PHYSICIAN] - 1 Week Activity/Diet/Wound Care/Special Instructions: No driving while taking [place] No lifting over 10 pounds You may shower. No soaking or tub baths for 2 weeks Very light activity until you are reevaluated at your follow up appointment with your surgeon Discharge Disposition: TRANSFER TO SNF/ECF
--- NOTE | 2021-05-23 12:45 | P.PN ---
Subjective Progress Note Date: 05/23/21 Rocio Jamil, is a 65-year-old female who was admitted to [facility] for colostomy reversal. Patient has a known history of acute diverticulitis with perforation in October 2020 at that time she underwent surgery with colostomy placement, past medical history is also significant for history of depression, history of gastroesophageal reflux disease, history of lung cancer, history of anal cancer. Patient is a former smoker she denies any alcohol use. on 05/15/2021 patient remains sleepy current on epidural currently nothing by mouth. Patient denies any significant complaints. Patient denies chest pain or shortness breath. Patient denies nausea vomiting or diarrhea. Patient denies any urinary burning or 05/16/2021 patient remains sleepy. Epidural currently getting change due to increased lethargy. Patient does wake up and follow some commands but quickly falls back to sleep. Patient also having elevated temperature 101. Urinary analysis, blood culture and chest x-ray ordered. Per nursing staff patient has been unable to do incentive spirometer take deep breaths due to increased lethargy. Patient denies any acute complaints. On 05/17/2021 patient more alert. Patient does follow commands. UA negative. Chest x-ray showing atelectasis continue encouragement of incentive spirometer. Patient remains nothing by mouth. Patient denies chest pain or shortness breath. Patient denies nausea vomiting or diarrhea. Patient denies any urinary burning or frequency On 05/18/2021 patient's alert and oriented 3. Per nursing staff patient is using incentive spirometer. Awaiting surgical recommendation for diet. Patient remains nothing by mouth. Patient denies chest pain or shortness breath. Patient denies nausea vomiting or diarrhea. Patient denies any urinary burning or frequency On 05/19/2021 patient's alert and oriented 3. Patient maintained full liquid diet. Patient denies chest pain or shortness breath. Patient denies nausea vomiting or diarrhea. Patient denies any urinary burning or frequency On 05/20/2021 patient's alert and oriented 3. Patient maintained on full liquid diet. Blood sugar appears improved. She continues to be afebrile. Patient denies chest pain or shortness breath. Patient denies nausea vomiting or diarrhea. Patient denies any urinary burning or frequency On 05/21/2021 patient was seen and examined on the medical floor she is alert and oriented 3 in no apparent distress , there is no fever or chills no headache or dizziness no chest pain or shortness of breath no cough no nausea or vomiting no abdominal pain no diarrhea and no urinary symptoms diet is being advanced gradually by surgery, white blood count is 5.56 hemoglobin 10.8 platelet count 251, BUN 8.6 creatinine 0.7 On 05/22/2021atient was seen and examined on the medical floor, she is alert and oriented x 3 in no distress, she denies any complaints there is no fever or chills no headache or dizziness no chest pain no shortness of breath no palpitation no cough no nausea or vomiting no abdominal pain no diarrhea no blood in the stools no burning with urination no frequency or urgency and no hematuria, there is no weakness or numbness in any of the extremities no change in vision speech or gait. Patient is improving gradually she needs assistance with walking, possible transfer to rehab in the next 1-2 days On 05/23/2021 patient's alert and oriented 3. Plans for discharge today to [facility]. per surgical services. At this time patient is resting comfortably bed. Patient denies chest pain or shortness breath. Patient denies nausea vomiting or diarrhea. Patient denies any urinary burning or frequency Objective - Vital Signs Vital signs: Vital Signs Temp 98.2 F 05/23/21 09:09 Pulse 88 05/23/21 09:09 Resp 22 05/23/21 09:09 BP 114/77 05/23/21 09:09 Pulse Ox 92 L 05/23/21 02:00 Intake & Output 05/22/21 05/23/21 05/23/21 18:59 06:59 18:59 Weight 80.7 kg Other: Voiding Method Bedside Commode # Voids 5 2 # Bowel Movements 1 - Exam In general patient is alert and oriented x 3 in no distress HEENT head normocephalic and atraumatic Neck is supple no JVD no goiter no lymphadenopathy no carotid bruit Chest examination is clear to auscultation no crackles no wheezing Cardiac exam reveals regular heart sounds S1 and S2 no gallops no murmurs Abdomen is soft nontender no organomegaly with normal bowel sounds Extremity exam reveals no edema no cyanosis or clubbing Neurological examination reveals no gross focal deficits - Labs CBC & Chem 7: 05/22/21 06:15 05/22/21 06:15 Labs: Microbiology - Last 24 Hours (Table) 05/16/21 12:26 Blood Culture - Final Blood No Growth after 144 hours Assessment and Plan Plan: Status post colostomy reversal today by Dr. Rivera Episode of hypotension post surgery given 1 L of IV fluid bolus. Resolved History of diverticulitis with perforation, with colostomy placement in October 2020 Underlying history of depression Underlying history of Sjogren syndrome Underlying history of gastroesophageal reflux disease Previous history of an anal cancer Previous history of lung cancer Febrile likely secondary to atelectasis. Urinary analysis negative. Blood culture pending. Chest x-ray showing atelectasis Home medications reviewed and reordered Repeat labs ordered Continue incentive spirometer Plan for DC to ECF facility today per surgical services
== END 2021-05-23 14:21 | DRG 330 ==
LOC: 2ORMAIN 06:32 → 4SSUR 13:52
PROVIDERS: ADMIT Surgery; ATTEND Surgery
PROC: 0DBU0ZZ Excision of Omentum, Open Approach (ICD-10-PCS; 2021-05-14)
PROC: 0DBE0ZZ Excision of Large Intestine, Open Approach (ICD-10-PCS; principal; 2021-05-14 07:40)
DX: Z43.3 Encounter for attention to colostomy (principal); J98.11 Atelectasis; K57.20 Diverticulitis of large intestine with perforation and abscess without bleeding; K21.9 Gastro-esophageal reflux disease without esophagitis; M35.00 Sjogren syndrome, unspecified; Z77.22 Contact with and (suspected) exposure to environmental tobacco smoke (acute) (chronic); I95.2 Hypotension due to drugs; Z20.822 Contact with and (suspected) exposure to COVID-19; Z79.899 Other long term (current) drug therapy; Z80.51 Family history of malignant neoplasm of kidney; Z80.7 Family history of other malignant neoplasms of lymphoid, hematopoietic and related tissues; Z85.048 Personal history of other malignant neoplasm of rectum, rectosigmoid junction, and anus; Z85.118 Personal history of other malignant neoplasm of bronchus and lung; Z87.891 Personal history of nicotine dependence; Z90.710 Acquired absence of both cervix and uterus
CPT/HCPCS: 71046; 74018; 80048; 80053; 81003; 85025; 86850; 86900; 86901; 87040; 87635; 88304; 94760

== ENCOUNTER → 2021-07-03 | Outpatient (CLI) | payer MEDICARE, OTHER ==
[2021-07-03 14:45] LABS: African American GFR (CKD) >90 (>60 ml/min/1.73 sqM); Blood Urea Nitrogen 16 mg/dL (7-17); Non-African American GFR(CKD) 82 (>60 ml/min/1.73 sqM)
--- NOTE | 2021-07-04 09:05 | CT ---
EXAMINATION TYPE: CT abdomen pelvis w con DATE OF EXAM: 07/03/2021 COMPARISON: 09/29/2020 HISTORY: h/o bowel resection CT DLP: 778.4 mGycm Automated exposure control for dose reduction was used. CONTRAST: CT scan of the abdomen pelvis is performed with IV Contrast, patient injected with 100 mL of Isovue 3 00. FINDINGS- LUNG BASES-subsegmental consolidation both lung bases. Most typical of atelectasis.. LIVER/GB-hepatic granuloma gallbladder mildly distended with no gallstones. PANCREAS- No gross abnormality is seen. SPLEEN-splenic granuloma noted. ADRENALS- No gross abnormality is seen. KIDNEYS/BLADDER-bilateral mild pelvocaliectasis with no evidence of nephrolithiasis. Simple appearing left renal cyst which. BOWEL-there is be evidence of previous bowel resection with anastomosis in the pelvis near the rectos igmoid junction correlate with surgical history. There is mild increased presacral soft tissue attenu ation is nonspecific could been the basis of surgical scar. Cannot exclude a mild degree of wall thic kening involving the distal margin of the cecum seen extending into the pelvis correlate clinically a nd with direct visualization as warranted.. Additional linear attenuation is seen in the left anterio r abdominal fat near the left anterior abdominal wall and intra-abdominal and could represent postsur gical scar previous suture correlate clinically to exclude other etiologies. LYMPH NODES- No greater than 1cm abdominal or pelvic lymph nodes areappreciated. OSSEOUS STRUCTURES-hypertrophic and degenerative changes of the spine.. OTHER- atherosclerotic change aorta. No evidence of aneurysm. Nonspecific presacral soft tissue atte nuation. Possibly related to scar from previous surgery. Linear hyperdensity within the subcutaneous tissues adjacent left anterior abdominal wall likely related to previous surgery and possible sutured . Attenuation within the subcutaneous tissues adjacent to this region may represent edema or postsurg ical scarring. Correlate clinically. IMPRESSION- 1. There appears be evidence of previous bowel surgery with increasing presacral soft tissue attenuat ion could be postsurgical scar recommend short-term follow-up to confirm stability. In the lower pelv is there is mild wall thickening of the distal right: Could be related to incomplete distention this could also be correlated clinically and with short-term follow-up as warranted. 2. Splenic and hepatic granuloma. 3. Simple left renal cysts
== END | disposition home or self-care (01) ==
LOC: RADCTMAIN 13:45
PROVIDERS: ATTEND Surgery
DX: K52.9 Noninfective gastroenteritis and colitis, unspecified (principal); K75.3 Granulomatous hepatitis, not elsewhere classified; Z85.048 Personal history of other malignant neoplasm of rectum, rectosigmoid junction, and anus
CPT/HCPCS: 82565; 84520; 74177; 36415; Q9967

== ENCOUNTER 2021-09-10 08:08 | Inpatient (IN) | payer MEDICARE, OTHER ==
[2021-09-10] MEDS ORDERED: MORPHINE SULFATE 4 MG/ML SYRINGE IVP STA (08:46)
[2021-09-10] MEDS ORDERED: PANTOPRAZOLE 40 MG/10 ML VIAL IVP STA (08:46)
[2021-09-10] MEDS ORDERED: ONDANSETRON 4 MG/2 ML VIAL IVP STA (08:46)
[2021-09-10 09:48] LABS: Basophils % (A) 0 %; Eosinophils # (A) 0.1 k/uL (0-0.7); Eosinophils % (A) 1 %; HCT 47.1 % (34.0-46.0); HGB 14.8 gm/dL (11.4-16.0); Hypochromasia Slight; Lymphocytes # (A) 1.4 k/uL (1.0-4.8); Lymphocytes % (A) 20 %; MCH 30.9 pg (25.0-35.0); MCHC 31.3 g/dL (31.0-37.0); MCV 98.8 fL (80.0-100.0); Mean Platelet Volume 8.9; Monocytes # (A) 0.5 k/uL (0-1.0); Monocytes % (A) 7 %; Neutrophils # (A) 5.1 k/uL (1.3-7.7); Neutrophils % (A) 71 %; Platelet Count 148 k/uL (150-450); RBC 4.77 m/uL (3.80-5.40); RDW 14.1 % (11.5-15.5); WBC 7.2 k/uL (3.8-10.6)
[2021-09-10 09:54] LABS: ALT 9 U/L (4-34); AST 15 U/L (14-36); African American GFR (CKD) >90 (>60 ml/min/1.73 sqM); Albumin 3.7 g/dL (3.5-5.0); Alkaline Phosphatase 139 U/L (38-126); Anion Gap 7 mmol/L; Blood Urea Nitrogen 18 mg/dL (7-17); Calcium 9.2 mg/dL (8.4-10.2); Carbon Dioxide 27 mmol/L (22-30); Chloride 105 mmol/L (98-107); Glucose 116 mg/dL (74-99); Magnesium 2.1 mg/dL (1.6-2.3); Non-African American GFR(CKD) 88 (>60 ml/min/1.73 sqM); Potassium 4.1 mmol/L (3.5-5.1); Sodium 139 mmol/L (137-145); Total Bilirubin 0.4 mg/dL (0.2-1.3); Total Protein 6.6 g/dL (6.3-8.2)
--- NOTE | 2021-09-10 09:59 | ED ---
GI Bleed HPI - General Chief complaint: GI Bleed Stated complaint: Rectal Bleed Time Seen by Provider: 09/10/21 08:19 Source: patient, RN notes reviewed Mode of arrival: ambulatory Limitations: no limitations - History of Present Illness Initial comments: 65-year-old female presents emergency Department with chief complaint of abdominal pain, GI bleed. Patient states that she's had a history of this states that she had colon cancer with resection, colostomy and reversal by Dr. Santos. Patient states that that was performed over the last 2 months. Patient states that she has left-sided abdominal pain notice a large amount of bright red blood. Patient denies any fevers or chills does admit to slight nausea, no dysuria no hematuria. - Related Data Home Medications Medication Instructions Recorded Confirmed DULoxetine HCL [Cymbalta] 30 mg PO DIRECTED 09/10/21 09/10/21 Pantoprazole [Protonix] 40 mg PO DAILY 09/10/21 09/10/21 methylPREDNISolone [Medrol Dose 4 mg PO DIRECTED 09/10/21 09/10/21 Pack] Previous Rx's Medication Instructions Recorded ALPRAZolam [Xanax] 0.25 mg PO BID PRN #6 tab 05/23/21 Gabapentin 1,200 mg PO BID@1000,2100 #6 tab 05/23/21 HYDROcodone/APAP 10-325MG [[place] 1 tab PO Q6HR PRN #12 tab 05/23/21 10-325] Allergies Allergy/AdvReac Type Severity Reaction Status Date / Time ibuprofen AdvReac severe Verified 09/10/21 11:41 ringing in ears Review of Systems ROS Statement: Those systems with pertinent positive or pertinent negative responses have been documented in the HPI. ROS Other: All systems not noted in ROS Statement are negative. Past Medical History Past Medical History: Cancer, GERD/Reflux, Syncope Additional Past Medical History / Comment(s): Sjogren Syndrome. Hx anal cancer, in remission. No recent syncope. Diverticulitis History of Any Multi-Drug Resistant Organisms: None Reported Past Surgical History: Bowel Resection, Breast Surgery, Hysterectomy, Orthopedic Surgery Additional Past Surgical History / Comment(s): Breast biopsy, Rt elbow procedure, ORIF left ankle-hardware removed, hemorrhoidectomy X2, colonoscopy, Biopsy of rectum, lump exc on forehead, laproscopy/lysis of adhesions. Bowel resection w/ colostomy 10/2020, ostomy reversal on 05/14/21. Past Anesthesia/Blood Transfusion Reactions: Previous Problems w/ Anesthesia, Motion Sickness, Postoperative Nausea & Vomiting (PONV) Additional Past Anesthesia/Blood Transfusion Reaction / Comment(s): Had hard time waking up after surgery X1. Past Psychological History: Anxiety, Depression Smoking Status: Former smoker Past Alcohol Use History: None Reported Past Drug Use History: None Reported - Past Family History Mother Family Medical History: Cancer Additional Family Medical History / Comment(s): Lymphoma. . Brother(s) Family Medical History: Cancer Additional Family Medical History / Comment(s): Esophagus, liver. . Father Family Medical History: Cancer Additional Family Medical History / Comment(s): kidney cancer General Exam Limitations: no limitations General appearance: alert, in no apparent distress Head exam: Present: atraumatic, normocephalic, normal inspection Eye exam: Present: normal appearance, PERRL, EOMI. Absent: scleral icterus, conjunctival injection, periorbital swelling ENT exam: Present: normal exam, normal oropharynx, mucous membranes moist Neck exam: Present: normal inspection, full ROM. Absent: tenderness, meningismus, lymphadenopathy Respiratory exam: Present: normal lung sounds bilaterally. Absent: respiratory distress, wheezes, rales, rhonchi, stridor Cardiovascular Exam: Present: regular rate, normal rhythm, normal heart sounds. Absent: systolic murmur, diastolic murmur, rubs, gallop, clicks GI/Abdominal exam: Present: soft, tenderness, normal bowel sounds. Absent: distended, guarding, rebound, rigid Course Vital Signs 09/10/21 09/10/21 08:13 08:46 Temperature 98.7 F 98.1 F Pulse Rate 91 78 Respiratory 20 74 H Rate Blood Pressure 168/99 149/72 O2 Sat by Pulse 94 L 92 L Oximetry Medical Decision Making - Medical Decision Making Patient CT shows evidence of colitis, concern for fistula. Patient started on I V antibiotics. I did discuss case with Dr. king and Dr dumas - Lab Data Result diagrams: 09/10/21 09:31 09/10/21 09:31 Lab Results 09/10/21 09/10/21 09/10/21 Range/Units 09:31 09:31 09:31 WBC 7.2 (3.8-10.6) k/uL RBC 4.77 (3.80-5.40) m/uL Hgb 14.8 (11.4-16.0) gm/dL Hct 47.1 H (34.0-46.0) % MCV 98.8 (80.0-100.0) fL MCH 30.9 (25.0-35.0) pg MCHC 31.3 (31.0-37.0) g/dL RDW 14.1 (11.5-15.5) % Plt Count 148 L (150-450) k/uL MPV 8.9 Neutrophils % 71 % Lymphocytes % 20 % Monocytes % 7 % Eosinophils % 1 % Basophils % 0 % Neutrophils # 5.1 (1.3-7.7) k/uL Lymphocytes # 1.4 (1.0-4.8) k/uL Monocytes # 0.5 (0-1.0) k/uL Eosinophils # 0.1 (0-0.7) k/uL Basophils # 0.0 (0-0.2) k/uL Hypochromasia Slight PT (9.0-12.0) sec INR (<1.2) APTT (22.0-30.0) sec Sodium 139 (137-145) mmol/L Potassium 4.1 (3.5-5.1) mmol/L Chloride 105 (98-107) mmol/L Carbon Dioxide 27 (22-30) mmol/L Anion Gap 7 mmol/L BUN 18 H (7-17) mg/dL Creatinine 0.72 (0.52-1.04) mg/dL Est GFR (CKD-EPI)AfAm >90 (>60 ml/min/1.73 sqM) Est GFR (CKD-EPI)NonAf 88 (>60 ml/min/1.73 sqM) Glucose 116 H (74-99) mg/dL Plasma Lactic Acid Honorio 1.0 (0.7-2.0) mmol/L Calcium 9.2 (8.4-10.2) mg/dL Magnesium 2.1 (1.6-2.3) mg/dL Total Bilirubin 0.4 (0.2-1.3) mg/dL AST 15 (14-36) U/L ALT 9 (4-34) U/L Alkaline Phosphatase 139 H (38-126) U/L Troponin I (0.000-0.034) ng/mL Total Protein 6.6 (6.3-8.2) g/dL Albumin 3.7 (3.5-5.0) g/dL Blood Type Blood Type Recheck Bld Type Recheck Status Antibody Screen Spec Expiration Date 09/10/21 09/10/21 09/10/21 Range/Units 09:31 09:31 10:40 WBC (3.8-10.6) k/uL RBC (3.80-5.40) m/uL Hgb (11.4-16.0) gm/dL Hct (34.0-46.0) % MCV (80.0-100.0) fL MCH (25.0-35.0) pg MCHC (31.0-37.0) g/dL RDW (11.5-15.5) % Plt Count (150-450) k/uL MPV Neutrophils % % Lymphocytes % % Monocytes % % Eosinophils % % Basophils % % Neutrophils # (1.3-7.7) k/uL Lymphocytes # (1.0-4.8) k/uL Monocytes # (0-1.0) k/uL Eosinophils # (0-0.7) k/uL Basophils # (0-0.2) k/uL Hypochromasia PT 10.6 (9.0-12.0) sec INR 1.0 (<1.2) APTT 23.2 (22.0-30.0) sec Sodium (137-145) mmol/L Potassium (3.5-5.1) mmol/L Chloride (98-107) mmol/L Carbon Dioxide (22-30) mmol/L Anion Gap mmol/L BUN (7-17) mg/dL Creatinine (0.52-1.04) mg/dL Est GFR (CKD-EPI)AfAm (>60 ml/min/1.73 sqM) Est GFR (CKD-EPI)NonAf (>60 ml/min/1.73 sqM) Glucose (74-99) mg/dL Plasma Lactic Acid Honorio (0.7-2.0) mmol/L Calcium (8.4-10.2) mg/dL Magnesium (1.6-2.3) mg/dL Total Bilirubin (0.2-1.3) mg/dL AST (14-36) U/L ALT (4-34) U/L Alkaline Phosphatase (38-126) U/L Troponin I <0.012 (0.000-0.034) ng/mL Total Protein (6.3-8.2) g/dL Albumin (3.5-5.0) g/dL Blood Type A Positive Blood Type Recheck A Pos Bld Type Recheck Status No Antibody Screen NEGATIVE Spec Expiration Date 09/13/20212330 Disposition Clinical Impression: Colitis, Rectal bleeding, Colonic fistula Disposition: ADMITTED IP TO THIS HOSP Condition: Fair Referrals: Alysha Loja MD [Primary Care Provider] - 1-2 days
--- NOTE | 2021-09-10 10:52 | CT ---
EXAMINATION TYPE: CT abdomen pelvis w con DATE OF EXAM: 09/10/2021 COMPARISON: CT dated 07/03/2021 HISTORY: Abdominal pain, hx cancer, rectal bleeding CT DLP: 929.9 mGycm Automated exposure control for dose reduction was used. TECHNIQUE: Helical acquisition of images was performed from the lung bases through the pelvis. CONTRAST: Performed without Oral Contrast and with IV Contrast, patient injected with 100 ml mL of Isovue 300. FINDINGS: Postsurgical changes are seen in the pelvis with colorectal anastomosis. There is soft tissue thicken ing seen in the presacral location and extending anteriorly on the right side to the right side of th e vaginal vault, and to the left side to the colon, less prominent compared to the previous CT scan h owever chronic adhesion or fistulous communication at that location cannot be excluded. Diffuse wall thickening of the rectum and left colon up to the splenic flexure, progressed compared t o the previous CT scan and suggestive of acute colitis. This could be inflammatory/infectious however ischemic colitis cannot be excluded. Recommend clinical correlation and correlation with stool falguni sis results. The more proximal colon demonstrates fecal loading without significant wall thickening. Grossly unremarkable stomach, duodenum and visualized small bowel. No evidence of bowel obstruction. Tiny air bubbles are seen at the anterior aspect of the urinary bladder. Please correlate with histor y of recent catheterization. If absent, a fistula between the urinary bladder and the vagina should b e considered. Previous hysterectomy. No gross adnexal mass. Stable tiny calcifications in the liver a nd the spleen likely related to previous granulomatous infection. No new hepatic focal lesion. Unrema rkable gallbladder and adrenals. Fatty infiltration of the pancreatic head. Stable simple cyst at the posterior aspect of the left kid sandip, otherwise unremarkable kidneys. Scattered arterial atherosclerotic calcifications with apparent reduced enhancement of the inferior mesenteric artery. No suspicious lymphadenopathy or sizable ascit es. Anterior abdominal wall midline scar. Right basal posterior pulmonary subsegmental atelectasis. D egenerative changes at L2-3 level. IMPRESSION: 1. Postsurgical changes in the pelvis as described above. Persistent yet less prominent presacral sof t tissue thickening inseparable on the right side from the vaginal vault and from the left side from the sigmoid colon, underlying chronic adhesions or fistulous communication at that location cannot be excluded. 2. Wall thickening of the rectum and the left side of the colon suggestive of acute colitis. This cou ld be inflammatory/infectious however pseudomembranous or ischemic colitis cannot be excluded. Recomm end clinical correlation and correlation with stool urinalysis results. 3. Tiny air bubbles within the urinary bladder. If there is no recent urinary bladder catheterization , this may be concerning for a fistula between the vagina and the urinary bladder, for clinical corre lation and further workup. Other incidental findings as described above.
[2021-09-10 10:54] LABS: Prothrombin Time 10.6 sec (9.0-12.0)
[2021-09-10 10:55] LABS: Partial Thromboplastin Time 23.2 sec (22.0-30.0)
[2021-09-10] MEDS ORDERED: PIPERACILLIN-TAZOBACTAM 3.375 GM in SODIUM CHLORIDE 0.9% 100 ML IVPB STA (13:29)
[2021-09-10] MEDS ORDERED: ONDANSETRON 4 MG/2 ML VIAL IVP PRN (14:06)
[2021-09-10] MEDS ORDERED: NALOXONE 0.4 MG/ML 1 ML VIAL IV PRN (14:06)
[2021-09-10] MEDS ORDERED: MORPHINE SULFATE 4 MG/ML SYRINGE IV PRN (14:06)
[2021-09-10] MEDS: SODIUM CHLORIDE 0.9% 1,000 ML IV SCH (14:19)
[2021-09-10 18:40] LABS: Basophils # (A) 0.1 k/uL (0-0.2); Basophils % (A) 1 %; Eosinophils # (A) 0.1 k/uL (0-0.7); Eosinophils % (A) 2 %; HCT 43.9 % (34.0-46.0); HGB 13.4 gm/dL (11.4-16.0); Hypochromasia Slight; Lymphocytes # (A) 1.8 k/uL (1.0-4.8); Lymphocytes % (A) 29 %; MCH 30.9 pg (25.0-35.0); MCHC 30.6 g/dL (31.0-37.0); MCV 100.7 fL (80.0-100.0); Macrocytosis Slight; Mean Platelet Volume 7.6; Monocytes # (A) 0.3 k/uL (0-1.0); Monocytes % (A) 5 %; Neutrophils # (A) 3.9 k/uL (1.3-7.7); Neutrophils % (A) 62 %; Platelet Count 254 k/uL (150-450); RBC 4.36 m/uL (3.80-5.40); RDW 13.6 % (11.5-15.5); WBC 6.4 k/uL (3.8-10.6)
--- NOTE | 2021-09-10 19:59 | P.HPIM ---
History of Present Illness H&P Date: 09/10/21 Rocio Jamil, is a 65-year-old female who presented to [facility] emergency room with a chief complaint of abdominal pain and rectal bleeding She was evaluated in the emergency room vital examination on presentation revealed a temperature of 98.7 pulse 91 respiration 20 blood pressure 168/99 pulse ox 94% on room air Laboratory data revealed a white blood count of 7.2 hemoglobin 14.8 platelet count 148 BUN 18 creatinine 0.7 to COVID-19 PCR testing was negative Testing in the emergency room revealed computed tomography scan of the abdomen and pelvis revealed evidence of wall thickening of the rectum and the left side of the colon suggestive of acute colitis, with possibility of adhesions and fistula Patient was admitted to medical floor for further evaluation and treatment, she was started on IV antibiotic and surgical consultation was requested Past medical history is significant for history of hypertension, history of diverticulitis with formation with colostomy placement, history of depression previous history of anal cancer, previous history of lung cancer Past Medical History Past Medical History: Cancer, GERD/Reflux, Syncope Additional Past Medical History / Comment(s): Sjogren Syndrome. Hx anal cancer, in remission since 2020. No recent syncope, Diverticulitis History of Any Multi-Drug Resistant Organisms: None Reported Past Surgical History: Bowel Resection, Breast Surgery, Hysterectomy, Orthopedic Surgery Additional Past Surgical History / Comment(s): Breast biopsy, Rt elbow procedure, ORIF left ankle-hardware removed, hemorrhoidectomy X2, colonoscopy, Biopsy of rectum, lump exc on forehead, laproscopy/lysis of adhesions. Bowel resection w/ colostomy 10/2020, ostomy reversal on 05/14/21. Past Anesthesia/Blood Transfusion Reactions: Previous Problems w/ Anesthesia, Motion Sickness, Postoperative Nausea & Vomiting (PONV) Additional Past Anesthesia/Blood Transfusion Reaction / Comment(s): Had hard time waking up after surgery X1. Past Psychological History: Anxiety, Depression Smoking Status: Former smoker Past Alcohol Use History: None Reported Additional Past Alcohol Use History / Comment(s): Started smoking at age 13, smoked 1PPD, quit 10/2020. Past Drug Use History: None Reported - Past Family History Mother Family Medical History: Cancer Additional Family Medical History / Comment(s): Lymphoma. . Brother(s) Family Medical History: Cancer Additional Family Medical History / Comment(s): Esophagus, liver. . Father Family Medical History: Cancer Additional Family Medical History / Comment(s): kidney cancer Medications and Allergies Home Medications Medication Instructions Recorded Confirmed Type ALPRAZolam [Xanax] 0.25 mg PO BID PRN #6 tab 05/23/21 09/10/21 Rx Gabapentin 1,200 mg PO BID@1000,2100 #6 tab 05/23/21 09/10/21 Rx HYDROcodone/APAP 10-325MG [[place] 1 tab PO Q6HR PRN #12 tab 05/23/21 09/10/21 Rx 10-325] Cariprazine HCl [Vraylar] 1.5 mg PO DAILY 09/10/21 09/10/21 History Venlafaxine HCl [Effexor] 150 mg PO BID 09/10/21 09/10/21 History Allergies Allergy/AdvReac Type Severity Reaction Status Date / Time ibuprofen AdvReac severe Verified 09/10/21 11:41 ringing in ears Physical Exam Vitals: Vital Signs Temp Pulse Pulse Resp BP BP Pulse Ox 09/10/21 19:38 98.6 F 70 18 115/72 91 L 09/10/21 15:56 98.0 F 77 14 108/59 94 L 09/10/21 08:46 98.1 F 78 74 H 149/72 92 L 09/10/21 08:13 98.7 F 91 20 168/99 94 L Intake and Output 09/10/21 09/10/21 09/10/21 06:59 14:59 22:59 Other: Weight 74.843 kg 74.843 kg In general patient is alert and oriented x 3 in no distress HEENT head normocephalic and atraumatic Neck is supple no JVD no goiter no lymphadenopathy no carotid bruit Chest examination is clear to auscultation no crackles no wheezing Cardiac exam reveals regular heart sounds S1 and S2 no gallops no murmurs Abdomen is soft nontender no organomegaly with normal bowel sounds Extremity exam reveals no edema no cyanosis or clubbing Neurological examination reveals no gross focal deficits Results CBC & Chem 7: 09/10/21 18:21 09/10/21 09:31 Labs: Abnormal Lab Results - Last 24 Hours (Table) 09/10/21 09/10/21 09/10/21 Range/Units 09:31 09:31 18:21 Hct 47.1 H (34.0-46.0) % MCV 100.7 H (80.0-100.0) fL MCHC 30.6 L (31.0-37.0) g/dL Plt Count 148 L (150-450) k/uL BUN 18 H (7-17) mg/dL Glucose 116 H (74-99) mg/dL Alkaline Phosphatase 139 H (38-126) U/L Thrombosis Risk Factor Assmnt - Choose All That Apply Each Factor Represents 1 point: Obesity (BMI >25) Each Risk Factor Represents 2 Points: Age 61-74 years Other congenital or acquired thrombophilia - If yes, enter type in comment: No Thrombosis Risk Factor Assessment Total Risk Factor Score: 3 Thrombosis Risk Factor Assessment Level: Moderate Risk Assessment and Plan Plan: Abdominal pain, mostly in the left lower quadrant Lower gastrointestinal bleeding per patient Evidence of colitis on computed tomography scan Possibility of fistula communication, raised on computed tomography scan, surgical consultation was requested Underlying history of depression with anxiety disorder Previous history of anal cancer Previous history of lung cancer At this time patient was admitted to medical floor she was started on IV antibiotic Zosyn She was also started on IV Protonix Surgical consultation was requested For DVT prophylaxis we'll use SCD stockings due to GI bleeding Will repeat labs and follow closely in a.m.
[2021-09-10] MEDS ORDERED: ALPRAZolam 0.25 MG TAB PO PRN (21:17)
[2021-09-10] MEDS: VENLAFAXINE HCL 75 MG TAB PO SCH (22:01)
[2021-09-10] MEDS: GABAPENTIN 400 MG CAP PO SCH (22:01)
[2021-09-10] MEDS: HYDROcodone/APAP 10-325MG 1 EACH TAB PO PRN (22:03)
[2021-09-10] MEDS: PIPERACILLIN-TAZOBACTAM 3.375 GM in SODIUM CHLORIDE 0.9% 100 ML IVPB SCH (22:03)
[2021-09-10 23:36] LABS: Basophils % (A) 1 %; Eosinophils # (A) 0.1 k/uL (0-0.7); Eosinophils % (A) 2 %; HGB 13.2 gm/dL (11.4-16.0); Hypochromasia Slight; Lymphocytes % (A) 31 %; MCH 31.3 pg (25.0-35.0); MCHC 31.3 g/dL (31.0-37.0); MCV 99.9 fL (80.0-100.0); Mean Platelet Volume 7.4; Monocytes # (A) 0.4 k/uL (0-1.0); Monocytes % (A) 7 %; Neutrophils # (A) 3.8 k/uL (1.3-7.7); Neutrophils % (A) 59 %; Platelet Count 243 k/uL (150-450); RBC 4.21 m/uL (3.80-5.40); RDW 13.6 % (11.5-15.5); WBC 6.5 k/uL (3.8-10.6)
[2021-09-11] MEDS: PIPERACILLIN-TAZOBACTAM 3.375 GM in SODIUM CHLORIDE 0.9% 100 ML IVPB SCH ×3 (03:33→20:36)
[2021-09-11] MEDS: SODIUM CHLORIDE 0.9% 1,000 ML IV SCH ×2 (03:33→20:35)
[2021-09-11 06:22] LABS: Appearance,Urine Clear (Clear); Bilirubin,Urine Negative (Negative); Blood,Urine Negative (Negative); Color,Urine Yellow; Glucose,Urine (UA) Negative (Negative); Ketones,Urine Negative (Negative); Leukocyte Esterase,Urine Negative (Negative); Nitrite,Urine Negative (Negative); PH, Urine 5.5 (5.0-8.0); Protein,Urine Negative (Negative); Specific Gravity,Urine 1.024 (1.001-1.035); Urobilinogen,Urine <2.0 mg/dL (<2.0)
[2021-09-11] MEDS: PANTOPRAZOLE 40 MG/10 ML VIAL IV SCH (10:05)
[2021-09-11] MEDS: GABAPENTIN 400 MG CAP PO SCH ×2 (10:06→20:36)
[2021-09-11] MEDS: VENLAFAXINE HCL 75 MG TAB PO SCH ×2 (10:06→20:36)
[2021-09-11] MEDS: HYDROcodone/APAP 10-325MG 1 EACH TAB PO PRN ×2 (10:07→20:35)
[2021-09-11] MEDS: NON FORMULARY DRUG (Cariprazine Hcl [Vraylar] 1.5 MG Capsule) PO SCH (10:19)
[2021-09-11 11:28] LABS: Basophils # (A) 0.03 X 10*3/uL (0.00-0.10); Basophils % (A) 0.7 %; Eosinophils # (A) 0.13 X 10*3/uL (0.04-0.35); Eosinophils % (A) 2.9 %; HCT 40.6 % (37.2-46.3); HGB 11.9 g/dL (12.0-15.0); Immature Grans, Automated 0.4 %; Lymphocytes # (A) 1.82 X 10*3/uL (0.90-5.00); MCH 29.7 pg (27.0-32.0); MCHC 29.3 g/dL (32.0-37.0); MCV 101.2 fL (80.0-97.0); Mean Platelet Volume 9.6 fL (9.5-12.2); Monocytes # (A) 0.44 X 10*3/uL (0.20-1.00); Monocytes % (A) 9.7 %; NRBC Per 100 WBC 0 /100 WBCS (0.0-0.0); Neutrophils # (A) 2.11 X 10*3/uL (1.80-7.70); Neutrophils % (A) 46.3 %; Platelet Count 218 X 10*3/uL (140-440); RBC 4.01 X 10*6/uL (4.10-5.20); RDW 14.4 % (11.5-14.5); WBC 4.55 X 10*3/uL (4.50-10.00)
[2021-09-11 13:01] LABS: African American GFR (CKD) 88.4 (60.0-200.0); Albumin 3.3 g/dL (3.8-4.9); Anion Gap 9.7 mmol/L (10.00-18.00); BUN/Creat Ratio 15.25 Ratio (12.00-20.00); Blood Urea Nitrogen 12.2 mg/dL (9.0-27.0); Calcium 8.7 mg/dL (8.7-10.3); Carbon Dioxide 29.3 mmol/L (20.0-27.5); Non-African American GFR(CKD) 76.3 (60.0-200.0); Potassium 4.3 mmol/L (3.5-5.5); Total Protein 5.4 g/dL (6.2-8.2)
[2021-09-11 13:02] LABS: Albumin/Globulin Ratio 1.57 (1.60-3.17); Globulin 2.1 g/dL (1.6-3.3); Total Bilirubin 0.2 mg/dL (0.30-1.20)
--- NOTE | 2021-09-11 16:04 | P.GSCN ---
History of Present Illness Consult date: 09/11/21 History of present illness: CHIEF COMPLAINT: Abdominal pain with bright red blood in stools HISTORY OF PRESENT ILLNESS: This is a 65-year-old female presented to the [facility] with complaints of left sided abdominal pain. She reports having diarrhea with bright red blood in her stools. She also has been having some nausea no vomiting. Patient reports that she was having a large amount of bright red blood that started 2 nights ago. She reports using 9 depends diapers. And he got through 2 pads in the ER. Patient had a computed tomography scan completed with concerns of colitis or possible fistulas. Patient started on antibiotics. Patient denies any blood or stool through the vagina or urethra. Patient does have a known history of colon cancer status post sigmoid colon mass resection with colostomy in October 2020 and then had colostomy reversal. Last colonoscopy was in July 2021 that showed possible inflammation near previous colorectal anastomosis. No evidence of recurrent anal squamous cell carcinoma. Patient denies any fever chills or sweats. Patient seen and examined with Dr. dumas PAST MEDICAL HISTORY: See list below. List reviewed PAST SURGICAL HISTORY: See list below. List reviewed MEDICATIONS: See list. ALLERGIES: See list. SOCIAL HISTORY: No illicit drug use. REVIEW OF SYSTEMS: CONSTITUTIONAL: Denies fever or chills. HEENT: Denies blurred vision, vision changes, or eye pain. Denies hemoptysis CARDIOVASCULAR: Denies chest pain or pressure. RESPIRATORY: No shortness of breath. GASTROINTESTINAL: See HPI for pertinent findings HEMATOLOGIC: Denies bleeding disorders. GENITOURINARY: Denies any blood in urine or increased urinary frequency. SKIN: Denies pruitis. Denies rash. PHYSICAL EXAM: VITAL SIGNS: Reviewed GENERAL: Well-developed in no acute distress. HEENT: No sclera icterus. Extraocular movements grossly intact. Moist buccal mucosa. Head is atraumatic, normocephalic. No nasal drainage. ABDOMEN: Soft. Nondistended. Tenderness occult patient of the left side of the abdomen near the scar of the colostomy reversal as well as in the left lower abdomen. NEUROLOGIC: Alert and oriented. Cranial nerves II through XII grossly intact. LABORATORY DATA: WBC 4.55 hemoglobin 11.9. Hemoglobin 14.8 on admission Sodium 146 potassium 4.3 creatinine 0.8 Urinalysis negative COVID-19 not detected IMAGING: Computed tomography scan abdomen and pelvis persistent yet less prominent presacral soft tissue thickening and separable on the right side from the vaginal vault and from the left side from the sigmoid colon. Underlying chronic adhesions or fistulous communication at the location cannot be excluded. Wall thickening of the rectum in the left side of the colon suggestive of acute coli tis. This could be inflammatory or infectious however pseudomonas or ischemic colitis cannot be excluded. Tiny air bubbles within the urinary bladder. If there is no recent urinary bladder catheterization this may be concerning for a fistula between the vagina and urinary bladder. ASSESSMENT: 1. Left sided abdominal pain with diarrhea with bright red blood 2. CT with evidence of presacral soft tissue thickening and separable on the right side from the vaginal vault and from the left side from the sigmoid colon. Underlying chronic adhesions or fistulous communication at the location cannot be excluded. 3. Possible colitis 4. History of colon cancer status post sigmoid colon mass resection with colostomy in October 2020 and then had colostomy reversal PLAN: -Patient is scheduled for colonoscopy on , 09/13/[address] dumas -Patient can have clear liquid diet today and tomorrow -Start GoLYTELY prep tomorrow morning -Continue supportive care -Continue antibiotics -Continue IV fluids -Continue pain medication as needed Thank you for this consultation Physician Choreography Director note has been reviewed by physician. Signing provider agrees with the documented findings, assessment, and plan of care. Past Medical History Past Medical History: Cancer, GERD/Reflux, Syncope Additional Past Medical History / Comment(s): Sjogren Syndrome. Hx anal cancer, in remission since 2020. No recent syncope, Diverticulitis History of Any Multi-Drug Resistant Organisms: None Reported Past Surgical History: Bowel Resection, Breast Surgery, Hysterectomy, Orthopedic Surgery Additional Past Surgical History / Comment(s): Breast biopsy, Rt elbow procedure, ORIF left ankle-hardware removed, hemorrhoidectomy X2, colonoscopy, Biopsy of rectum, lump exc on forehead, laproscopy/lysis of adhesions. Bowel resection w/ colostomy 10/2020, ostomy reversal on 05/14/21. Past Anesthesia/Blood Transfusion Reactions: Previous Problems w/ Anesthesia, Motion Sickness, Postoperative Nausea & Vomiting (PONV) Additional Past Anesthesia/Blood Transfusion Reaction / Comm: Had hard time waking up after surgery X1. Past Psychological History: Anxiety, Depression Smoking Status: Former smoker Past Alcohol Use History: None Reported Additional Past Alcohol Use History / Comment(s): Started smoking at age 13, smoked 1PPD, quit 10/2020. Past Drug Use History: None Reported - Past Family History Mother Family Medical History: Cancer Additional Family Medical History / Comment(s): Lymphoma. . Brother(s) Family Medical History: Cancer Additional Family Medical History / Comment(s): Esophagus, liver. . Father Family Medical History: Cancer Additional Family Medical History / Comment(s): kidney cancer Medications and Allergies Home Medications Medication Instructions Recorded Confirmed Type ALPRAZolam [Xanax] 0.25 mg PO BID PRN #6 tab 05/23/21 09/10/21 Rx Gabapentin 1,200 mg PO BID@1000,2100 #6 tab 05/23/21 09/10/21 Rx HYDROcodone/APAP 10-325MG [[place] 1 tab PO Q6HR PRN #12 tab 05/23/21 09/10/21 Rx 10-325] Cariprazine HCl [Vraylar] 1.5 mg PO DAILY 09/10/21 09/10/21 History Venlafaxine HCl [Effexor] 150 mg PO BID 09/10/21 09/10/21 History Allergies Allergy/AdvReac Type Severity Reaction Status Date / Time ibuprofen AdvReac severe Verified 09/10/21 11:41 ringing in ears Surgical - Exam Vital Signs Temp Pulse Resp BP Pulse Ox 98.7 F 91 20 168/99 94 L 09/10/21 08:13 09/10/21 08:13 09/10/21 08:13 09/10/21 08:13 09/10/21 08:13 Results - Labs 09/11/21 07:20 09/11/21 07:20 Abnormal Lab Results - Last 24 Hours (Table) 09/10/21 Range/Units 18:21 MCV 100.7 H (80.0-100.0) fL MCHC 30.6 L (31.0-37.0) g/dL
[2021-09-12] MEDS: PIPERACILLIN-TAZOBACTAM 3.375 GM in SODIUM CHLORIDE 0.9% 100 ML IVPB SCH ×3 (05:04→19:59)
[2021-09-12] MEDS: NON FORMULARY DRUG (Cariprazine Hcl [Vraylar] 1.5 MG Capsule) PO SCH (08:59)
[2021-09-12] MEDS ORDERED: PEG 3350-NA SULF,BICARB,CL/KCL 4,000 ML BOTTLE PO ONE (09:00)
[2021-09-12] MEDS: GABAPENTIN 400 MG CAP PO SCH ×2 (09:18→20:00)
[2021-09-12] MEDS: PANTOPRAZOLE 40 MG/10 ML VIAL IV SCH (09:18)
[2021-09-12] MEDS: VENLAFAXINE HCL 75 MG TAB PO SCH ×2 (09:18→20:00)
[2021-09-12] MEDS: HYDROcodone/APAP 10-325MG 1 EACH TAB PO PRN ×2 (09:22→17:21)
[2021-09-12 11:06] LABS: Basophils # (A) 0.03 X 10*3/uL (0.00-0.10); Basophils % (A) 0.5 %; Eosinophils # (A) 0.09 X 10*3/uL (0.04-0.35); Eosinophils % (A) 1.5 %; HCT 40.2 % (37.2-46.3); HGB 11.7 g/dL (12.0-15.0); Immature Grans, Automated 0.2 %; Lymphocytes # (A) 1.74 X 10*3/uL (0.90-5.00); Lymphocytes % (A) 28.9 %; MCH 29.7 pg (27.0-32.0); MCHC 29.1 g/dL (32.0-37.0); Mean Platelet Volume 9.6 fL (9.5-12.2); Monocytes # (A) 0.43 X 10*3/uL (0.20-1.00); Monocytes % (A) 7.1 %; NRBC Per 100 WBC 0 /100 WBCS (0.0-0.0); Neutrophils # (A) 3.72 X 10*3/uL (1.80-7.70); Neutrophils % (A) 61.8 %; Platelet Count 232 X 10*3/uL (140-440); RBC 3.94 X 10*6/uL (4.10-5.20); RDW 14.1 % (11.5-14.5); WBC 6.02 X 10*3/uL (4.50-10.00)
[2021-09-12 11:22] LABS: ALT 7 U/L (8-44); AST 8 U/L (13-35); African American GFR (CKD) 103.9 (60.0-200.0); Albumin 3.4 g/dL (3.8-4.9); Alkaline Phosphatase 91 U/L (41-126); BUN/Creat Ratio 13.14 Ratio (12.00-20.00); Blood Urea Nitrogen 9.2 mg/dL (9.0-27.0); Calcium 8.4 mg/dL (8.7-10.3); Carbon Dioxide 29.4 mmol/L (20.0-27.5); Chloride 107 mmol/L (96-109); Glucose 90 mg/dL (70-110); Non-African American GFR(CKD) 89.7 (60.0-200.0); Potassium 4.4 mmol/L (3.5-5.5); Sodium 145 mmol/L (135-145); Total Bilirubin <0.15 mg/dL (0.30-1.20); Total Protein 5.4 g/dL (6.2-8.2)
--- NOTE | 2021-09-12 11:56 | P.CONS ---
History of Present Illness - Reason for Consult Consult date: 09/11/21 Colitis Requesting physician: Marlon Murphy - Chief Complaint Left lower quadrant abdominal pain and bleeding per rectum times few days - History of Present Illness History of Present Illness : Patient is 65-year female with a past medical history significant for rectal/anal tumor for the patient has completed her radiation and chemotherapy patient presenting to the [facility] ER yesterday morning for evaluation of abdominal pain and bleeding per rectum the patient pain is mostly in the left lower abdominal area patient describing the pain to be more of a sharp intensity is almost 9 out of 10 with no radiation with associated bleeding per rectum which is bright red patient denies having any nausea or vomiting denies having any fever or chills patient denies any burning or frequency of urine and no pneumaturia, patient on presentation to the hospital was afebrile patient did have normal white count urine has been negative blood cultures obtained which are currently pending patient did have a CT of abdominal pelvis which did shows postsurgical changes in the pelvis persistent yet less prominent sacral soft tissue thickening inseparable on the right side from vaginal vault and from the left side from the sigmoid colon concerning for chronic adhesion or fistulous communication there was wall thickening of the rectum and left side of the colon suggestive of acute colitis teeny air bubbles within the urine bladder and concern for possible bladder catheterization versus fistula in this patient has not been catheterized patient is currently being treated with Zosyn infectious disease was consulted regarding colitis Review of system: CONSTITUTIONAL: Positive for weakness, denies high-grade fever. EYES: No complaint. ENT: No complaint. RESPIRATORY: No complaint. CARDIOVASCULAR: No complaint. GENITOURINARY: No complaint. GASTROINTESTINAL: As per history of present illness. MUSCULOSKELETAL: No complaint. INTEGUMENTARY : No complaint. PSYCHOLOGIC: No complaint. ENDOCRINE: No complaint. NEUROLOGIC: No complaint. Past medical history : Reviewed, documented below Past surgical history : Reviewed, documented below Social history: Reviewed, documented below Medications: Reviewed, as documented below EXAMINATION: Vital sigans= Reviewed and documented below GENERAL DESCRIPTION: Elderly female lying in bed, no distress. No tachypnea or accessory muscle of respiration use. HEENT: Shows Pallor , no scleral icterus. Oral mucous membrane is dry. NECK: Trachea central, no thyromegaly. LUNGS: Unlabored breathing. Clear to auscultation anteriorly. No wheeze or crackle. HEART: S1, S2, regular rate and rhythm. ABDOMEN: Soft, left-sided tenderness , guarding or rigidity EXTREMITIES: No edema feet SKIN: No rash, no masses palpable. NEUROLOGICAL: The patient is awake, alert, oriented x3, mood and affect normal. LABS AND RADIOLOGY: Reviewed results see below Assessment : Patient presented to hospital with left lower quadrant abdominal pain and also having bleeding per rectum in this patient who did have history of rectal/cancer and has completed her radiation and chemotherapy now with evidence of colitis/proctitis and some concern for possible fistulous communication between the pelvic organs, will need to cover for the enteric gram-negative to be the likely pathogen Plan: 1-we will wait for possible colonoscopy or surgical intervention per general surgery has been consulted 2-Zosyn 3.375 g every 8 hour 3-gentle IV fluid We will follow on clinical condition and cultures to further adjust medication if needed Thank you for this consultation we will follow the patient along with you Past Medical History Past Medical History: Cancer, GERD/Reflux, Syncope Additional Past Medical History / Comment(s): Sjogren Syndrome. Hx anal cancer, in remission since 2020. No recent syncope, Diverticulitis History of Any Multi-Drug Resistant Organisms: None Reported Past Surgical History: Bowel Resection, Breast Surgery, Hysterectomy, Orthopedic Surgery Additional Past Surgical History / Comment(s): Breast biopsy, Rt elbow procedure, ORIF left ankle-hardware removed, hemorrhoidectomy X2, colonoscopy, Biopsy of rectum, lump exc on forehead, laproscopy/lysis of adhesions. Bowel resection w/ colostomy 10/2020, ostomy reversal on 05/14/21. Past Anesthesia/Blood Transfusion Reactions: Previous Problems w/ Anesthesia, Motion Sickness, Postoperative Nausea & Vomiting (PONV) Additional Past Anesthesia/Blood Transfusion Reaction / Comm: Had hard time waking up after surgery X1. Past Psychological History: Anxiety, Depression Smoking Status: Former smoker Past Alcohol Use History: None Reported Additional Past Alcohol Use History / Comment(s): Started smoking at age 13, smoked 1PPD, quit 10/2020. Past Drug Use History: None Reported - Past Family History Mother Family Medical History: Cancer Additional Family Medical History / Comment(s): Lymphoma. . Brother(s) Family Medical History: Cancer Additional Family Medical History / Comment(s): Esophagus, liver. . Father Family Medical History: Cancer Additional Family Medical History / Comment(s): kidney cancer Medications and Allergies Home Medications Medication Instructions Recorded Confirmed Type ALPRAZolam [Xanax] 0.25 mg PO BID PRN #6 tab 05/23/21 09/10/21 Rx Gabapentin 1,200 mg PO BID@1000,2100 #6 tab 05/23/21 09/10/21 Rx HYDROcodone/APAP 10-325MG [[place] 1 tab PO Q6HR PRN #12 tab 05/23/21 09/10/21 Rx 10-325] Cariprazine HCl [Vraylar] 1.5 mg PO DAILY 09/10/21 09/10/21 History Venlafaxine HCl [Effexor] 150 mg PO BID 09/10/21 09/10/21 History Allergies Allergy/AdvReac Type Severity Reaction Status Date / Time ibuprofen AdvReac severe Verified 09/10/21 11:41 ringing in ears Physical Exam Vitals: Vital Signs Temp Pulse Pulse Pulse Resp BP BP 09/11/21 08:39 98.1 F 66 16 91/56 09/11/21 04:15 98.2 F 80 20 107/58 09/10/21 19:38 98.6 F 70 18 115/72 09/10/21 15:56 98.0 F 77 14 108/59 Pulse Ox 09/11/21 08:39 09/11/21 04:15 94 L 09/10/21 19:38 91 L 09/10/21 15:56 94 L Intake and Output 09/10/21 09/11/21 09/11/21 22:59 06:59 14:59 Intake Total 200 Balance 200 Intake: Intake, IV Titration 200 Amount Piperacillin-Tazobactam 3 200 .375 gm In Sodium Chloride 0.9% 100 ml @ 25 mls/hr IVPB Q8H [facility] Rx#: [id number] Other: Voiding Method Toilet # Voids 3 Weight 74.843 kg Results CBC & Chem 7: 09/12/21 07:34 09/12/21 07:34 Labs: Abnormal Lab Results - Last 24 Hours (Table) 09/10/21 Range/Units 18:21 MCV 100.7 H (80.0-100.0) fL MCHC 30.6 L (31.0-37.0) g/dL
--- NOTE | 2021-09-12 12:51 | P.PN ---
Subjective Progress Note Date: 09/11/21 Rocio Jamil, is a 65-year-old female who presented to [facility] emergency room with a chief complaint of abdominal pain and rectal bleeding She was evaluated in the emergency room vital examination on presentation revealed a temperature of 98.7 pulse 91 respiration 20 blood pressure 168/99 pulse ox 94% on room air Laboratory data revealed a white blood count of 7.2 hemoglobin 14.8 platelet count 148 BUN 18 creatinine 0.7 to COVID-19 PCR testing was negative Testing in the emergency room revealed computed tomography scan of the abdomen and pelvis revealed evidence of wall thickening of the rectum and the left side of the colon suggestive of acute colitis, with possibility of adhesions and fistula Patient was admitted to medical floor for further evaluation and treatment, she was started on IV antibiotic and surgical consultation was requested Past medical history is significant for history of hypertension, history of diverticulitis with formation with colostomy placement, history of depression previous history of anal cancer, previous history of lung cancer On 09/11/2021 patient was seen and examined on the medical floor she is alert and oriented 3 in no apparent distress there is no fever or chills no headache or dizziness no chest pain no shortness of breath no cough there is no nausea or vomiting she is still complaining of left sided abdominal pain and occasional blood in the stools there is no burning with urination no frequency or urgency and no hematuria Objective - Vital Signs Vital signs: Vital Signs Temp 98.1 F 09/11/21 08:39 Pulse 66 09/11/21 08:39 Resp 16 09/11/21 08:39 BP 91/56 09/11/21 08:39 Pulse Ox 94 L 09/11/21 04:15 Intake & Output 09/10/21 09/11/21 09/11/21 18:59 06:59 18:59 Intake Total 200 Balance 200 Weight 74.843 kg 74.843 kg Intake: Intake, IV Titration 200 Amount Piperacillin-Tazobactam 3 200 .375 gm In Sodium Chloride 0.9% 100 ml @ 25 mls/hr IVPB Q8H [facility] Rx#: [id number] Other: Voiding Method Toilet # Voids 3 - Exam In general patient is alert and oriented x 3 in no distress HEENT head normocephalic and atraumatic Neck is supple no JVD no goiter no lymphadenopathy no carotid bruit Chest examination is clear to auscultation no crackles no wheezing Cardiac exam reveals regular heart sounds S1 and S2 no gallops no murmurs Abdomen is soft nontender no organomegaly with normal bowel sounds Extremity exam reveals no edema no cyanosis or clubbing Neurological examination reveals no gross focal deficits - Labs CBC & Chem 7: 09/11/21 07:20 09/11/21 07:20 Labs: Abnormal Lab Results - Last 24 Hours (Table) 09/10/21 09/10/21 09/10/21 Range/Units 09:31 09:31 18:21 Hct 47.1 H (34.0-46.0) % MCV 100.7 H (80.0-100.0) fL MCHC 30.6 L (31.0-37.0) g/dL Plt Count 148 L (150-450) k/uL BUN 18 H (7-17) mg/dL Glucose 116 H (74-99) mg/dL Alkaline Phosphatase 139 H (38-126) U/L Assessment and Plan Plan: Abdominal pain, mostly in the left lower quadrant Lower gastrointestinal bleeding per patient Evidence of colitis on computed tomography scan Possibility of fistula communication, raised on computed tomography scan, surgical consultation was requested Underlying history of depression with anxiety disorder Previous history of anal cancer Previous history of lung cancer At this time patient was admitted to medical floor she was started on IV antibiotic Zosyn She was also started on IV Protonix Surgical consultation was requested, patient was seen by Dr. Rivera and the plan is for colonoscopy on 09/13/2021 For DVT prophylaxis we'll use SCD stockings due to GI bleeding Will repeat labs and follow closely in a.m.
--- NOTE | 2021-09-12 12:53 | P.PN ---
Subjective Progress Note Date: 09/12/21 Rocio Jamil, is a 65-year-old female who presented to [facility] emergency room with a chief complaint of abdominal pain and rectal bleeding She was evaluated in the emergency room vital examination on presentation revealed a temperature of 98.7 pulse 91 respiration 20 blood pressure 168/99 pulse ox 94% on room air Laboratory data revealed a white blood count of 7.2 hemoglobin 14.8 platelet count 148 BUN 18 creatinine 0.7 to COVID-19 PCR testing was negative Testing in the emergency room revealed computed tomography scan of the abdomen and pelvis revealed evidence of wall thickening of the rectum and the left side of the colon suggestive of acute colitis, with possibility of adhesions and fistula Patient was admitted to medical floor for further evaluation and treatment, she was started on IV antibiotic and surgical consultation was requested Past medical history is significant for history of hypertension, history of diverticulitis with formation with colostomy placement, history of depression previous history of anal cancer, previous history of lung cancer On 09/11/2021 patient was seen and examined on the medical floor she is alert and oriented 3 in no apparent distress there is no fever or chills no headache or dizziness no chest pain no shortness of breath no cough there is no nausea or vomiting she is still complaining of left sided abdominal pain and occasional blood in the stools there is no burning with urination no frequency or urgency and no hematuria On 09/12/2021 patient is alert and oriented 3. Plans for colonoscopy tomorrow. Patient remains on IV Zosyn. Patient reports she still having bright red blood per rectum. hemoglobin remained stable at 11.7. Patient remains on clear liquid diet. Patient denies chest pain or shortness of breath. Patient denies any urinary burning or frequency. Repeat labs ordered for a.m. Objective - Vital Signs Vital signs: Vital Signs Temp 98.4 F 09/12/21 11:02 Pulse 96 09/12/21 11:02 Resp 20 09/12/21 11:02 BP 101/64 09/12/21 11:02 Pulse Ox 93 L 09/12/21 11:02 Intake & Output 09/11/21 09/12/21 09/12/21 18:59 06:59 18:59 Intake Total 600 700 Balance 600 700 Intake: Intake, IV Titration 500 Amount Piperacillin-Tazobactam 3 200 .375 gm In Sodium Chloride 0.9% 100 ml @ 25 mls/hr IVPB Q8H [facility] Rx#: [id number] Sodium Chloride 0.9% 1, 300 000 ml @ 75 mls/hr IV . [id number] [facility] Rx#:[id number] Oral 600 200 Other: Voiding Method Toilet Toilet # Voids 1 - Labs CBC & Chem 7: 09/12/21 07:34 09/12/21 07:34 Labs: Abnormal Lab Results - Last 24 Hours (Table) 09/11/21 09/12/21 09/12/21 Range/Units 07:20 07:34 07:34 RBC 3.94 L (4.10-5.20) X 10*6/uL Hgb 11.7 L (12.0-15.0) g/dL MCV 102.0 H (80.0-97.0) fL MCHC 29.1 L (32.0-37.0) g/dL Sodium 146 H (135-145) mmol/L Carbon Dioxide 29.3 H 29.4 H (20.0-27.5) mmol/L Anion Gap 9.70 L 8.60 L (10.00-18.00) mmol/L Calcium 8.4 L (8.7-10.3) mg/dL Total Bilirubin 0.20 L <0.15 L (0.30-1.20) mg/dL AST 11 L 8 L (13-35) U/L ALT 6 L 7 L (8-44) U/L Total Protein 5.4 L 5.4 L (6.2-8.2) g/dL Albumin 3.3 L 3.4 L (3.8-4.9) g/dL Albumin/Globulin Ratio 1.57 L (1.60-3.17) g/dL Microbiology - Last 24 Hours (Table) 09/10/21 15:58 Blood Culture - Preliminary Blood No Growth after 24 hours 09/10/21 15:58 Blood Culture - Preliminary Blood No Growth after 24 hours
--- NOTE | 2021-09-12 14:16 | P.PN ---
Subjective Progress Note Date: 09/12/21 CHIEF COMPLAINT: Abdominal pain with bright red blood in stools HISTORY OF PRESENT ILLNESS: Patient reports her pain is the same. She continued to have some bright red blood per rectum. Hemoglobin stable at 11.7 afebrile. WBC is 6.0 to Patient seen and examined with Dr. dumas PHYSICAL EXAM: VITAL SIGNS: Reviewed. GENERAL: Well-developed in no acute distress. HEENT: No sclera icterus. Extraocular movements grossly intact. Moist buccal mucosa. Head is atraumatic, normocephalic. ABDOMEN: Soft. Nondistended. NEUROLOGIC: Alert and oriented. Cranial nerves II through XII grossly intact. ASSESSMENT: 1. Left sided abdominal pain with diarrhea with bright red blood 2. CT with evidence of presacral soft tissue thickening and separable on the right side from the vaginal vault and from the left side from the sigmoid colon. Underlying chronic adhesions or fistulous communication at the location cannot be excluded. 3. Possible colitis 4. History of colon cancer status post sigmoid colon mass resection with colostomy in October 2020 and then had colostomy reversal PLAN: -Patient is scheduled for colonoscopy on , 09/13/[address] dumas -Nothing by mouth after midnight -GoLYTELY prep started this morning -Continue supportive care -Continue antibiotics -Continue IV fluids -Continue pain medication as needed Physician Business Banking Relationship Manager note has been reviewed by physician. Signing provider agrees with the documented findings, assessment, and plan of care. Objective - Vital Signs Vital signs: Vital Signs Temp 98.4 F 09/12/21 11:02 Pulse 96 09/12/21 11:02 Resp 20 09/12/21 11:02 BP 101/64 09/12/21 11:02 Pulse Ox 93 L 09/12/21 11:02 Intake & Output 09/11/21 09/12/21 09/12/21 18:59 06:59 18:59 Intake Total 600 700 Balance 600 700 Intake: Intake, IV Titration 500 Amount Piperacillin-Tazobactam 3 200 .375 gm In Sodium Chloride 0.9% 100 ml @ 25 mls/hr IVPB Q8H [facility] Rx#: [id number] Sodium Chloride 0.9% 1, 300 000 ml @ 75 mls/hr IV . [id number] [facility] Rx#:[id number] Oral 600 200 Other: Voiding Method Toilet Toilet # Voids 1 - Labs CBC & Chem 7: 09/12/21 07:34 09/12/21 07:34 Labs: Abnormal Lab Results - Last 24 Hours (Table) 09/12/21 09/12/21 Range/Units 07:34 07:34 RBC 3.94 L (4.10-5.20) X 10*6/uL Hgb 11.7 L (12.0-15.0) g/dL MCV 102.0 H (80.0-97.0) fL MCHC 29.1 L (32.0-37.0) g/dL Carbon Dioxide 29.4 H (20.0-27.5) mmol/L Anion Gap 8.60 L (10.00-18.00) mmol/L Calcium 8.4 L (8.7-10.3) mg/dL Total Bilirubin <0.15 L (0.30-1.20) mg/dL AST 8 L (13-35) U/L ALT 7 L (8-44) U/L Total Protein 5.4 L (6.2-8.2) g/dL Albumin 3.4 L (3.8-4.9) g/dL Microbiology - Last 24 Hours (Table) 09/10/21 15:58 Blood Culture - Preliminary Blood No Growth after 24 hours 09/10/21 15:58 Blood Culture - Preliminary Blood No Growth after 24 hours
[2021-09-12] MEDS: SODIUM CHLORIDE 0.9% 1,000 ML IV SCH ×2 (16:39→19:59)
[2021-09-13] MEDS: PIPERACILLIN-TAZOBACTAM 3.375 GM in SODIUM CHLORIDE 0.9% 100 ML IVPB SCH ×3 (04:05→19:59)
[2021-09-13] MEDS: HYDROcodone/APAP 10-325MG 1 EACH TAB PO PRN ×2 (08:55→19:59)
[2021-09-13 10:01] LABS: Albumin 3.5 g/dL (3.8-4.9); Albumin/Globulin Ratio 1.76 (1.60-3.17); Anion Gap 10.8 mmol/L (10.00-18.00); BUN/Creat Ratio 10.54 Ratio (12.00-20.00); Blood Urea Nitrogen 7.8 mg/dL (9.0-27.0); Calcium 8.7 mg/dL (8.7-10.3); Carbon Dioxide 29.8 mmol/L (20.0-27.5); Non-African American GFR(CKD) 84.5 (60.0-200.0); Potassium 4.2 mmol/L (3.5-5.5); Total Bilirubin 0.2 mg/dL (0.30-1.20); Total Protein 5.5 g/dL (6.2-8.2)
[2021-09-13 10:14] LABS: Basophils # (A) 0.03 X 10*3/uL (0.00-0.10); Basophils % (A) 0.5 %; Eosinophils % (A) 1.8 %; HCT 39.4 % (37.2-46.3); HGB 11.6 g/dL (12.0-15.0); Immature Grans, Automated 0.2 %; Lymphocytes # (A) 1.51 X 10*3/uL (0.90-5.00); Lymphocytes % (A) 27.3 %; MCH 29.9 pg (27.0-32.0); MCHC 29.4 g/dL (32.0-37.0); MCV 101.5 fL (80.0-97.0); Mean Platelet Volume 9.8 fL (9.5-12.2); Monocytes # (A) 0.46 X 10*3/uL (0.20-1.00); Monocytes % (A) 8.3 %; NRBC Per 100 WBC 0 /100 WBCS (0.0-0.0); Neutrophils # (A) 3.42 X 10*3/uL (1.80-7.70); Neutrophils % (A) 61.9 %; Platelet Count 226 X 10*3/uL (140-440); RBC 3.88 X 10*6/uL (4.10-5.20); WBC 5.53 X 10*3/uL (4.50-10.00)
[2021-09-13] MEDS ORDERED: PROPOFOL 10 MG/ML 20 ML VIAL IV ONE (10:21)
[2021-09-13] MEDS ORDERED: IV FLUID CONTINUATION 600 ML IV ONE (10:22)
--- NOTE | 2021-09-13 10:55 | P.OP ---
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 No evidence of any GI bleed. Procedure(s) Performed: Colonoscopy Anesthesia: MAC Surgeon: Pedro Rivera Pathology: other (: Biopsy) Condition: stable Disposition: PACU Description of Procedure: The patient's placed on the endoscopy table in the lateral position. She received IV sedation. Digital rectal exam was performed which revealed scarring of intravenous from previous anal squamous cell carcinoma. Flexible colonoscope was then placed patient anus and passed throughout the colon. The ileocecal valve visualized. The cecum, ascending and transverse colon appeared normal. In the descending colon there is some minimal inflammation seen this was just still too the colorectal anastomosis. This area is biopsied. Scope was then brought back. The anastomosis had a minimal stricture. The scope easily passed through this. The rectum was minimal inflamed just distal to the anastomosis. This was biopsied. Scope was then withdrawn. There is no obvious tumor seen in the rectum or anus. Scope was withdrawn for patient.
[2021-09-13] MEDS: VENLAFAXINE HCL 75 MG TAB PO SCH ×2 (11:28→19:59)
[2021-09-13] MEDS: PANTOPRAZOLE 40 MG/10 ML VIAL IV SCH (11:29)
[2021-09-13] MEDS: SODIUM CHLORIDE 0.9% 1,000 ML IV SCH ×2 (13:30→20:01)
[2021-09-13] MEDS ORDERED: LACTATED RINGERS 1,000 ML IV SCH (14:34)
[2021-09-13] MEDS: GABAPENTIN 300 MG CAP PO SCH ×2 (14:37→20:00)
[2021-09-13] MEDS: PATIENT'S OWN (Cariprazine Hcl [Vraylar] 1.5 MG Capsule) PO SCH (14:38)
[2021-09-13] MEDS: GABAPENTIN 400 MG CAP PO SCH (15:05)
[2021-09-13] MEDS: NON FORMULARY DRUG (Cariprazine Hcl [Vraylar] 1.5 MG Capsule) PO SCH (15:06)
--- NOTE | 2021-09-13 17:22 | P.PN ---
Subjective Progress Note Date: 09/13/21 Rocio Jamil, is a 65-year-old female who presented to [facility] emergency room with a chief complaint of abdominal pain and rectal bleeding She was evaluated in the emergency room vital examination on presentation revealed a temperature of 98.7 pulse 91 respiration 20 blood pressure 168/99 pulse ox 94% on room air Laboratory data revealed a white blood count of 7.2 hemoglobin 14.8 platelet count 148 BUN 18 creatinine 0.7 to COVID-19 PCR testing was negative Testing in the emergency room revealed computed tomography scan of the abdomen and pelvis revealed evidence of wall thickening of the rectum and the left side of the colon suggestive of acute colitis, with possibility of adhesions and fistula Patient was admitted to medical floor for further evaluation and treatment, she was started on IV antibiotic and surgical consultation was requested Past medical history is significant for history of hypertension, history of diverticulitis with formation with colostomy placement, history of depression previous history of anal cancer, previous history of lung cancer On 09/11/2021 patient was seen and examined on the medical floor she is alert and oriented 3 in no apparent distress there is no fever or chills no headache or dizziness no chest pain no shortness of breath no cough there is no nausea or vomiting she is still complaining of left sided abdominal pain and occasional blood in the stools there is no burning with urination no frequency or urgency and no hematuria On 09/12/2021 patient is alert and oriented 3. Plans for colonoscopy tomorrow. Patient remains on IV Zosyn. Patient reports she still having bright red blood per rectum. hemoglobin remained stable at 11.7. Patient remains on clear liquid diet. Patient denies chest pain or shortness of breath. Patient denies any urinary burning or frequency. Repeat labs ordered for a.m. On 09/13/2021 patient is alert and oriented 3. Plans for colonoscopy tomorrow. Patient remains on IV Zosyn. Patient reports she still having bright red blood per rectum. hemoglobin remained stable at 11.7. Patient remains on clear liquid diet. Patient denies chest pain or shortness of breath. Patient denies any urinary burning or frequency. Patient is scheduled for colonoscopy with Dr Rivera today. Objective - Vital Signs Vital signs: Vital Signs Temp 97.9 F 09/13/21 04:06 Pulse 83 09/13/21 04:06 Resp 18 09/13/21 04:06 BP 139/66 09/13/21 04:06 Pulse Ox 92 L 09/13/21 04:06 Intake & Output 09/12/21 09/13/21 09/13/21 18:59 06:59 18:59 Intake Total 1999 1000 Balance 1999 1000 Intake: Intake, IV Titration 1000 Amount Piperacillin-Tazobactam 3 200 .375 gm In Sodium Chloride 0.9% 100 ml @ 25 mls/hr IVPB Q8H [facility] Rx#: [id number] Sodium Chloride 0.9% 1, 800 000 ml @ 75 mls/hr IV . [id number] [facility] Rx#:[id number] Oral 2000 Other: Voiding Method Toilet Toilet # Voids 5 3 # Bowel Movements 5 4 - Exam In general patient is alert and oriented x 3 in no distress HEENT head normocephalic and atraumatic Neck is supple no JVD no goiter no lymphadenopathy no carotid bruit Chest examination is clear to auscultation no crackles no wheezing Cardiac exam reveals regular heart sounds S1 and S2 no gallops no murmurs Abdomen is soft nontender no organomegaly with normal bowel sounds Extremity exam reveals no edema no cyanosis or clubbing Neurological examination reveals no gross focal deficits - Labs CBC & Chem 7: 09/13/21 06:34 09/13/21 06:34 Labs: Abnormal Lab Results - Last 24 Hours (Table) 09/12/21 09/12/21 Range/Units 07:34 07:34 RBC 3.94 L (4.10-5.20) X 10*6/uL Hgb 11.7 L (12.0-15.0) g/dL MCV 102.0 H (80.0-97.0) fL MCHC 29.1 L (32.0-37.0) g/dL Carbon Dioxide 29.4 H (20.0-27.5) mmol/L Anion Gap 8.60 L (10.00-18.00) mmol/L Calcium 8.4 L (8.7-10.3) mg/dL Total Bilirubin <0.15 L (0.30-1.20) mg/dL AST 8 L (13-35) U/L ALT 7 L (8-44) U/L Total Protein 5.4 L (6.2-8.2) g/dL Albumin 3.4 L (3.8-4.9) g/dL Microbiology - Last 24 Hours (Table) 09/10/21 15:58 Blood Culture - Preliminary Blood No Growth after 48 hours 09/10/21 15:58 Blood Culture - Preliminary Blood No Growth after 48 hours Assessment and Plan Plan: Abdominal pain, mostly in the left lower quadrant Lower gastrointestinal bleeding per patient Evidence of colitis on computed tomography scan Possibility of fistula communication, raised on computed tomography scan, surgical consultation was requested Underlying history of depression with anxiety disorder Previous history of anal cancer Previous history of lung cancer At this time patient was admitted to medical floor she was started on IV antibiotic Zosyn She was also started on IV Protonix Surgical consultation was requested, patient was seen by Dr. Rivera and the plan is for colonoscopy on 09/13/2021 For DVT prophylaxis we'll use SCD stockings due to GI bleeding Will repeat labs and follow closely in a.m.
[2021-09-14] MEDS: HYDROcodone/APAP 10-325MG 1 EACH TAB PO PRN (03:25)
[2021-09-14] MEDS: PIPERACILLIN-TAZOBACTAM 3.375 GM in SODIUM CHLORIDE 0.9% 100 ML IVPB SCH (03:26)
[2021-09-14 09:40] LABS: Basophils # (A) 0.03 X 10*3/uL (0.00-0.10); Basophils % (A) 0.7 %; Eosinophils # (A) 0.13 X 10*3/uL (0.04-0.35); Eosinophils % (A) 3.1 %; HCT 38.4 % (37.2-46.3); HGB 11.8 g/dL (12.0-15.0); Immature Grans, Automated 0 %; Lymphocytes # (A) 1.45 X 10*3/uL (0.90-5.00); Lymphocytes % (A) 34.5 %; MCH 30.6 pg (27.0-32.0); MCHC 30.7 g/dL (32.0-37.0); MCV 99.7 fL (80.0-97.0); Mean Platelet Volume 9.7 fL (9.5-12.2); Monocytes # (A) 0.43 X 10*3/uL (0.20-1.00); Monocytes % (A) 10.2 %; NRBC Per 100 WBC 0 /100 WBCS (0.0-0.0); Neutrophils # (A) 2.16 X 10*3/uL (1.80-7.70); Neutrophils % (A) 51.5 %; Platelet Count 213 X 10*3/uL (140-440); RBC 3.85 X 10*6/uL (4.10-5.20)
[2021-09-14 10:03] LABS: ALT 9 U/L (8-44); AST 11 U/L (13-35); African American GFR (CKD) 84.1 (60.0-200.0); Albumin 3.3 g/dL (3.8-4.9); Albumin/Globulin Ratio 1.68 (1.60-3.17); Alkaline Phosphatase 84 U/L (41-126); BUN/Creat Ratio 12.11 Ratio (12.00-20.00); Blood Urea Nitrogen 10.1 mg/dL (9.0-27.0); Calcium 8.4 mg/dL (8.7-10.3); Carbon Dioxide 30.4 mmol/L (20.0-27.5); Chloride 107 mmol/L (96-109); Glucose 111 mg/dL (70-110); Non-African American GFR(CKD) 72.5 (60.0-200.0); Potassium 4.3 mmol/L (3.5-5.5); Sodium 145 mmol/L (135-145); Total Bilirubin <0.15 mg/dL (0.30-1.20); Total Protein 5.2 g/dL (6.2-8.2)
[2021-09-14] MEDS: VENLAFAXINE HCL 75 MG TAB PO SCH (10:45)
[2021-09-14] MEDS: GABAPENTIN 300 MG CAP PO SCH (10:46)
[2021-09-14] MEDS: PATIENT'S OWN (Cariprazine Hcl [Vraylar] 1.5 MG Capsule) PO SCH (10:47)
[2021-09-14] MEDS: PANTOPRAZOLE 40 MG/10 ML VIAL IV SCH (10:48)
--- NOTE | 2021-09-14 11:45 | P.DS ---
Providers Date of admission: 09/10/21 14:13 Expected date of discharge: 09/14/21 Attending physician: Marlon Murphy Consults: 09/10/21 14:06 Consult Physician Urgent Consulting Provider: Pedro Rivera Consult Reason/Comments: Colitis, fistula, rectal bleeding Do you want consulting provider notified?: Yes 09/10/21 20:01 Consult Physician Routine Consulting Provider: Blanca Alan Consult Reason/Comments: Colitis Do you want consulting provider notified?: Yes Primary care physician: Alysha Loja Hospital Course: Discharge diagnosis Abdominal pain, mostly in the left lower quadrant Lower gastrointestinal bleeding per patient Evidence of colitis on computed tomography scan Possibility of fistula communication, raised on computed tomography scan, surgical consultation was requested Underlying history of depression with anxiety disorder Previous history of anal cancer Previous history of lung cancer Hospital course Rocio Jamil, is a 65-year-old female who presented to [facility] emergency room with a chief complaint of abdominal pain and rectal bleeding She was evaluated in the emergency room vital examination on presentation revealed a temperature of 98.7 pulse 91 respiration 20 blood pressure 168/99 pulse ox 94% on room air Laboratory data revealed a white blood count of 7.2 hemoglobin 14.8 platelet count 148 BUN 18 creatinine 0.7 to COVID-19 PCR testing was negative Testing in the emergency room revealed computed tomography scan of the abdomen and pelvis revealed evidence of wall thickening of the rectum and the left side of the colon suggestive of acute colitis, with possibility of adhesions and fistula Patient was admitted to medical floor for further evaluation and treatment, she was started on IV antibiotic and surgical consultation was requested Past medical history is significant for history of hypertension, history of diverticulitis with formation with colostomy placement, history of depression previous history of anal cancer, previous history of lung cancer On 09/11/2021 patient was seen and examined on the medical floor she is alert and oriented 3 in no apparent distress there is no fever or chills no headache or dizziness no chest pain no shortness of breath no cough there is no nausea or vomiting she is still complaining of left sided abdominal pain and occasional blood in the stools there is no burning with urination no frequency or urgency and no hematuria On 09/12/2021 patient is alert and oriented 3. Plans for colonoscopy tomorrow. Patient remains on IV Zosyn. Patient reports she still having bright red blood per rectum. hemoglobin remained stable at 11.7. Patient remains on clear liquid diet. Patient denies chest pain or shortness of breath. Patient denies any urinary burning or frequency. Repeat labs ordered for a.m. On 09/13/2021 patient is alert and oriented 3. Plans for colonoscopy tomorrow. Patient remains on IV Zosyn. Patient reports she still having bright red blood per rectum. hemoglobin remained stable at 11.7. Patient remains on clear liquid diet. Patient denies chest pain or shortness of breath. Patient denies any urinary burning or frequency. Patient is scheduled for colonoscopy with Dr Rivera today. 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 Globin remained stable at 11.8. Patient stresses that she is eager to go home. Patient has been tolerating regular diet no signs of further bleeding. Patient denies nausea or vomiting. Patient denies any chest pain or shortness breath. Patient denies any urinary burning or frequency. Patient will also be discharged on antibiotic Ceftin for 10 days. Patient Condition at Discharge: Stable Plan - Discharge Summary Discharge Rx Participant: Yes New Discharge Prescriptions: New Cefuroxime Axetil [Ceftin] 500 mg PO BID 10 Days #20 tab Continue Gabapentin 1,200 mg PO BID@1000,2100 #6 tab ALPRAZolam [Xanax] 0.25 mg PO BID PRN #6 tab PRN Reason: Anxiety Venlafaxine HCl [Effexor] 150 mg PO BID Cariprazine HCl [Vraylar] 1.5 mg PO DAILY HYDROcodone/APAP 10-325MG [[place] 10-325] 1 tab PO Q6HR PRN #12 tab PRN Reason: Pain Discharge Medication List ALPRAZolam [Xanax] 0.25 mg PO BID PRN #6 tab 05/23/21 [Rx] Gabapentin 1,200 mg PO BID@1000,2100 #6 tab 05/23/21 [Rx] HYDROcodone/APAP 10-325MG [[place] 10-325] 1 tab PO Q6HR PRN #12 tab 05/23/21 [Rx] Cariprazine HCl [Vraylar] 1.5 mg PO DAILY 09/10/21 [History] Venlafaxine HCl [Effexor] 150 mg PO BID 09/10/21 [History] Cefuroxime Axetil [Ceftin] 500 mg PO BID 10 Days #20 tab 09/14/21 [Rx] Follow up Appointment(s)/Referral(s): Alysha Loja MD [Primary Care Provider] - 1-2 days [facility], [NON-STAFF] - 1 Week Discharge Disposition: HOME SELF-CARE
[2021-09-14 12:48] VITALS: BP 138/73; PULSE 75; RESP 16; TEMP 98.1
--- NOTE | 2021-09-14 13:25 | P.PN ---
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 She reports that she has some minimal pain still left on the left mid abdomen. She had a small amount of blood when wiping her rectum. Otherwise the bleeding has improved greatly. Hemoglobin has remained stable at 11.6 she is tolerating regular diet. Patient seen and examined with Dr. dumas PHYSICAL EXAM: VITAL SIGNS: Reviewed. GENERAL: Well-developed in no acute distress. HEENT: No sclera icterus. Extraocular movements grossly intact. Moist buccal mucosa. Head is atraumatic, normocephalic. ABDOMEN: Soft. Nondistended. NEUROLOGIC: Alert and oriented. Cranial nerves II through XII grossly intact. ASSESSMENT: 1. Left sided abdominal pain with diarrhea with bright red blood 2. CT with evidence of presacral soft tissue thickening and separable on the right side from the vaginal vault and from the left side from the sigmoid colon. Underlying chronic adhesions or fistulous communication at the location cannot be excluded. 3. Possible colitis 4. History of colon cancer status post sigmoid colon mass resection with colostomy in October 2020 and then had colostomy reversal PLAN: -patient is stable for discharge from surgical standpoint -Continue antibiotics per medicine service Physician Government Clerk note has been reviewed by physician. Signing provider agrees with the documented findings, assessment, and plan of care. Objective - Vital Signs Vital signs: Vital Signs Temp 98.1 F 09/14/21 12:48 Pulse 75 09/14/21 12:48 Resp 16 09/14/21 12:48 BP 138/73 09/14/21 12:48 Pulse Ox 90 L 09/14/21 12:48 Intake & Output 09/13/21 09/14/21 09/14/21 18:59 06:59 18:59 Intake Total 200 1600 Balance 200 1600 Intake: IV 200 Intake, IV Titration 1000 Amount Piperacillin-Tazobactam 3 200 .375 gm In Sodium Chloride 0.9% 100 ml @ 25 mls/hr IVPB Q8H [facility] Rx#: [id number] Sodium Chloride 0.9% 1, 800 000 ml @ 75 mls/hr IV . [id number] [facility] Rx#:[id number] Oral 600 Other: Voiding Method Toilet # Voids 2 3 - Labs CBC & Chem 7: 09/14/21 06:24 09/14/21 06:24 Labs: Abnormal Lab Results - Last 24 Hours (Table) 09/14/21 09/14/21 Range/Units 06:24 06:24 WBC 4.20 L (4.50-10.00) X 10*3/uL RBC 3.85 L (4.10-5.20) X 10*6/uL Hgb 11.8 L (12.0-15.0) g/dL MCV 99.7 H (80.0-97.0) fL MCHC 30.7 L (32.0-37.0) g/dL Carbon Dioxide 30.4 H (20.0-27.5) mmol/L Anion Gap 7.30 L (10.00-18.00) mmol/L Glucose 111 H (70-110) mg/dL Calcium 8.4 L (8.7-10.3) mg/dL Total Bilirubin <0.15 L (0.30-1.20) mg/dL AST 11 L (13-35) U/L Total Protein 5.2 L (6.2-8.2) g/dL Albumin 3.3 L (3.8-4.9) g/dL Microbiology - Last 24 Hours (Table) 09/10/21 15:58 Blood Culture - Preliminary Blood No Growth after 72 hours 09/10/21 15:58 Blood Culture - Preliminary Blood No Growth after 72 hours
== END 2021-09-14 14:30 | disposition home or self-care (01) | DRG 392 ==
LOC: EC 08:08 → 5NMEDONC 14:13
PROVIDERS: ADMIT Internal Medicine; ATTEND Internal Medicine
PROC: 0DBP8ZX Excision of Rectum, Via Natural or Artificial Opening Endoscopic, Diagnostic (ICD-10-PCS; 2021-09-13)
PROC: 0DBN8ZX Excision of Sigmoid Colon, Via Natural or Artificial Opening Endoscopic, Diagnostic (ICD-10-PCS; principal; 2021-09-13 12:45)
DX: K52.9 Noninfective gastroenteritis and colitis, unspecified (principal); K63.2 Fistula of intestine; Z85.048 Personal history of other malignant neoplasm of rectum, rectosigmoid junction, and anus; F32.A Depression, unspecified; F41.9 Anxiety disorder, unspecified; I10 Essential (primary) hypertension; M35.00 Sjogren syndrome, unspecified; Z79.899 Other long term (current) drug therapy; Z20.822 Contact with and (suspected) exposure to COVID-19; Z80.51 Family history of malignant neoplasm of kidney; Z80.7 Family history of other malignant neoplasms of lymphoid, hematopoietic and related tissues; Z85.118 Personal history of other malignant neoplasm of bronchus and lung; Z87.891 Personal history of nicotine dependence; Z90.710 Acquired absence of both cervix and uterus; Z92.21 Personal history of antineoplastic chemotherapy; Z92.3 Personal history of irradiation
CPT/HCPCS: 36415; 45380; 74177; 80053; 81003; 83605; 83735; 84484; 85025; 85610; 85730; 86850; 86900; 86901; 87040; 87635; 88305; 96365; 96366; 96375; 96376; 99285

== ENCOUNTER → 2022-11-04 | Outpatient (CLI) | payer MEDICARE, OTHER ==
--- NOTE | 2022-11-05 08:46 | XR ---
EXAMINATION TYPE: XR abdomen 2V DATE OF EXAM: 11/04/2022 COMPARISON: 05/14/2021, CT abdomen 09/10/2021 HISTORY: History of anal cancer, rectal bleeding since last night TECHNIQUE: 2 views of the abdomen (AP and lateral) were obtained. FINDINGS: There is gaseous distention of the stomach. There is a moderate stool burden. There is prominent/bord yani dilatation of the second portion of the duodenum, which is similar in appearance when compared to CT 09/10/2021. Please note that upright views are not included to evaluate for free air. There are no suspicious calcific or osseous abnormalities. The visualized lung bases are clear. IMPRESSION: 1. Nonobstructive bowel gas pattern with moderate stool burden. 2. Prominent/borderline dilated second portion of the duodenum, which is similar in appearance when compared to comparison CT. Please correlate for clinical relevance.
== END | disposition home or self-care (01) ==
LOC: RADXRMAIN 15:58
PROVIDERS: ATTEND Family Medicine
DX: K31.89 Other diseases of stomach and duodenum (principal); K59.09 Other constipation
CPT/HCPCS: 74019

== ENCOUNTER → 2022-12-24 | Outpatient (CLI) | payer MEDICARE, OTHER ==
[2022-12-24 13:53] LABS: African American GFR (CKD) >90 (>60 ml/min/1.73 sqM); Blood Urea Nitrogen 22 mg/dL (7-17); Non-African American GFR(CKD) >90 (>60 ml/min/1.73 sqM)
--- NOTE | 2022-12-24 15:44 | CT ---
EXAMINATION TYPE: CT ChestAbdPelvis w con DATE OF EXAM: 12/24/2022 COMPARISON: 09/10/2021 HISTORY: Hx of rectal CA x2yrs ago. Pt c/o constipation and lower quadrant abdominal pain. CT DLP: 1122.0 mGycm CONTRAST: CT scan of the chest, abdomen and pelvis is performed with Oral Contrast and with IV Contrast, patien t injected with 100cc mL of Isovue 300. CT Chest: LUNGS: The lungs are clear and free of infiltrate or atelectasis. No pulmonary nodule or mass is det ected. No pleural effusion or CT evidence of interstitial lung disease. MEDIASTINUM: Thoracic aorta is of normal caliber. The heart is not enlarged. No evidence for media stinal mass or adenopathy. HILAR STRUCTURES: No evidence for mass. No hilar adenopathy is appreciated. OTHER: No significant abnormality. CONTRAST CT ABDOMEN AND PELVIS FINDINGS: LIVER/GB: No calcified gallstones. No space occupying hepatic lesion. Biliary tree is of normal ca liber. PANCREAS: No inflammation. No distinct mass. SPLEEN: No splenic enlargement. No lesion seen. Splenic granulomas noted. ADRENALS: No nodule. No thickening. KIDNEYS/BLADDER: No hydronephrosis. No nephrolithiasis. Simple cyst left kidney 4.5 cm. BOWEL: Normal appendix. Ventral hernia just to the right of the umbilicus contains a short segment of small bowel which appears to be incarcerated. No evidence for strangulation or obstruction at this t molly. Colorectal anastomosis without evidence for mass lesion. There is moderate constipation seen thr oughout the transverse colon and ascending colon. GENITAL ORGANS: No gross abnormality. LYMPH NODES: No greater than 1cm abdominal or pelvic lymph nodes are appreciated. AORTA: No significant abnormality. OSSEOUS STRUCTURES: No significant abnormality is seen. OTHER: No significant additional abnormality is seen. IMPRESSION: 1. Colorectal anastomosis without evidence for mass lesion. There is moderate constipation seen throu ghout the transverse colon and ascending colon. 2.Ventral hernia just to the right of the umbilicus contains a short segment of small bowel which svetlana ears to be incarcerated. No evidence for strangulation or obstruction at this time.
== END | disposition home or self-care (01) ==
LOC: RADCTMAIN 13:01
PROVIDERS: ATTEND Internal Medicine Hematology & Oncology
DX: C21.1 Malignant neoplasm of anal canal (principal); K59.00 Constipation, unspecified; K43.9 Ventral hernia without obstruction or gangrene
CPT/HCPCS: 82565; 84520; 71260; 74177; 36415; Q9967

== ENCOUNTER → 2023-06-04 | Outpatient (CLI) | payer MEDICARE, OTHER ==
[2023-06-04 15:34] LABS: African American GFR (CKD) >90 (>60 ml/min/1.73 sqM); Blood Urea Nitrogen 19 mg/dL (7-17); Non-African American GFR(CKD) 79 (>60 ml/min/1.73 sqM)
--- NOTE | 2023-06-05 09:27 | CT ---
EXAMINATION TYPE: CT cervical spine wo/w con DATE OF EXAM: 06/04/2023 COMPARISON: None HISTORY: syncope, dizziness, loss of balance CT DLP: 914.1 mGycm. Automated Exposure Control for Dose Reduction was Utilized. TECHNIQUE: CT scan of the cervical spine is obtained without contrast, axial images are obtained, sa gittal and coronal reformatted images are also reviewed. CONTRAST: 100 cc Isovue-300. FINDINGS: Assessment of the spinal canal is limited due to artifact and resolution. Evaluation for di sc herniation or canal stenosis limited and could be correlated with MRI. Cervical spine is visualized in its entirety from C1 through upper thoracic levels, demonstrates sati sfactory alignment without evidence of acute fracture or dislocation. Prevertebral soft tissue appea rs within normal limits. The C1-C2 articulation is demonstrates advanced degenerative change but no significant posterior pannus. There is diffuse osteopenia. No destructive lesions. There is multilevel mild facet arthropathy and d egenerative disc disease. Moderate changes C5-6 and C6-C7. There is uncovertebral joint hypertrophy C3-4 right-sided foraminal encroachment. Bilateral foraminal C5-C6. Review of axial images shows no significant spinal canal stenosis or neural foraminal narrowing at an y cervical level. Thyroid gland is felt within normal limits. Calcified granuloma right upper lobe of the lung. Significant atherosclerotic plaque involving the left carotid bifurcation. IMPRESSION: 1. There is no acute fracture or dislocation evident in the cervical spine. 2. Multilevel [id number] degenerative disc disease. No diagnostic evidence of metastases. 3. Significant atherosclerotic disease involving the left carotid bifurcation. Suspect a significant stenosis would recommend ultrasound of the carotid arteries. 4. There appears to be occlusion of the left subclavian artery which can be associated with subclavia n steal and may be associated with syncope and dizziness which are reported symptoms of the patient. This also could be evaluated with carotid Doppler ultrasound. A [place] level critical message alert has been initiated for Alysha Loja MD via the [facility] Critical Results System on 06/05/2023 9:23 AM. This message alert has been sent to Alysha Sanches MD via the preferences provided by the clinician for the receipt of Radiology Critical Findings . Message ID [id number].
--- NOTE | 2023-06-05 22:31 | CT ---
EXAMINATION TYPE: CT brain wo/w con DATE OF EXAM: 06/04/2023 COMPARISON: 10/07/2013 HISTORY: 67-year-old female R42, R20.2, syncope, dizziness, loss of balance. Patient with history of rectal cancer. TECHNIQUE: Examination was done in axial plane before and after administration of 100 mL Isovue-300 IV contrast. Coronal and sagittal reconstructions performed. CT DLP: 2307.5 mGycm Automated exposure control for dose reduction was used. FINDINGS: There is cortical and subcortical hypodensity involving the left frontal lobe as well as the left fro ntoparietal junction. Findings favor to represent encephalomalacia rather than edema but further MRI evaluation is recommended. No evidence for acute intracranial hemorrhage, mass effect, midline shift, or extra-axial fluid colle ction. No hydrocephalus. No effacement of cerebral sulci or basal subarachnoid cisterns. The remainder of the reveles-white matter differentiation is maintained. After IV contrast, dural venous sinuses appear patent. No enhancing intracranial lesion is identified . Leftward nasal septal deviation. Paranasal sinuses and mastoid air cells well pneumatized. Orbits and globes are intact. IMPRESSION: 1. Cortical and subcortical hypodensity left frontal lobe as well as the left frontoparietal junction are new from 09/20/2013. We suspect encephalomalacia related to prior infarct. No enhancing lesion is apparent by CT. Given patient's history of rectal cancer, MRI without and with contrast can be perfor med for more sensitive evaluation. 2. No acute intracranial hemorrhage, midline shift, or hydrocephalus.
== END | disposition home or self-care (01) ==
LOC: RADCTMAIN 14:41
PROVIDERS: ATTEND Family Medicine
DX: C18.9 Malignant neoplasm of colon, unspecified (principal); M50.30 Other cervical disc degeneration, unspecified cervical region; I65.22 Occlusion and stenosis of left carotid artery; I70.8 Atherosclerosis of other arteries; R20.2 Paresthesia of skin; R26.89 Other abnormalities of gait and mobility; Z85.048 Personal history of other malignant neoplasm of rectum, rectosigmoid junction, and anus
CPT/HCPCS: 82565; 84520; 72127; 70470; 36415; Q9967

== ENCOUNTER 2023-06-06 16:58 | Emergency (ER) | payer MEDICARE, OTHER ==
[2023-06-06 17:20] VITALS: TEMP 97.4
[2023-06-06 17:52] LABS: Basophils % (A) 0 %; Eosinophils # (A) 0.1 k/uL (0-0.7); Eosinophils % (A) 2 %; HCT 48.7 % (34.0-46.0); HGB 15.2 gm/dL (11.4-16.0); Hypochromasia Slight; Lymphocytes # (A) 2.4 k/uL (1.0-4.8); Lymphocytes % (A) 38 %; MCH 31.1 pg (25.0-35.0); MCHC 31.2 g/dL (31.0-37.0); MCV 99.5 fL (80.0-100.0); Mean Platelet Volume 8.1; Monocytes # (A) 0.4 k/uL (0-1.0); Monocytes % (A) 7 %; Neutrophils # (A) 3.2 k/uL (1.3-7.7); Neutrophils % (A) 52 %; Platelet Count 275 k/uL (150-450); RDW 13.6 % (11.5-15.5); WBC 6.2 k/uL (3.8-10.6)
[2023-06-06 18:11] LABS: ALT 17 U/L (4-34); AST 28 U/L (14-36); African American GFR (CKD) >90 (>60 ml/min/1.73 sqM); Albumin 4.3 g/dL (3.5-5.0); Alkaline Phosphatase 87 U/L (38-126); Anion Gap 9 mmol/L; Blood Urea Nitrogen 20 mg/dL (7-17); Calcium 9.1 mg/dL (8.4-10.2); Carbon Dioxide 28 mmol/L (22-30); Chloride 103 mmol/L (98-107); Non-African American GFR(CKD) 79 (>60 ml/min/1.73 sqM); Sodium 140 mmol/L (137-145); Total Bilirubin 0.7 mg/dL (0.2-1.3); Total Protein 7.7 g/dL (6.3-8.2)
[2023-06-06 18:12] LABS: Glucose 96 mg/dL (74-99)
--- NOTE | 2023-06-06 18:24 | ED ---
General Adult HPI - General Chief complaint: Neuro Symptoms/Deficit Stated complaint: acute Stroke symptoms R side numbness Time Seen by Provider: 06/06/23 17:59 Source: patient Mode of arrival: ambulatory Limitations: no limitations - History of Present Illness Initial comments: Dictation was produced using [employer] dictation software. please excuse any grammatical, word or spelling errors. Chief Complaint: 67-year-old female presents emergency Department with abnormal outpatient imaging History of Present Illness: Patient is a 67-year-old female she has had months of on and off right upper extremity paresthesias. She's been working with her primary care doctor for this. According to she is also even been set up for physical therapy for her right upper extremity symptoms. She was sent for a carotid Doppler study by her primary care doctor and showed severe ICA stenosis along with retrograde flow of the left vertebral artery suggesting subclavian steal syndrome. Patient denies any acute symptoms. The ROS documented in this emergency department record has been reviewed and confirmed by me. Those systems with pertinent positive or negative responses have been documented in the HPI. All other systems are other negative and/or noncontributory. - Related Data Home Medications Medication Instructions Recorded Confirmed Cariprazine HCl [Vraylar] 1.5 mg PO DAILY 09/10/21 09/10/21 Venlafaxine HCl [Effexor] 150 mg PO BID 09/10/21 09/10/21 Previous Rx's Medication Instructions Recorded ALPRAZolam [Xanax] 0.25 mg PO BID PRN #6 tab 05/23/21 Gabapentin 1,200 mg PO BID@1000,2100 #6 tab 05/23/21 HYDROcodone/APAP 10-325MG [[place] 1 tab PO Q6HR PRN #12 tab 05/23/21 10-325] cefUROXime axetiL [Ceftin] 500 mg PO BID 10 Days #20 tab 09/14/21 Allergies Allergy/AdvReac Type Severity Reaction Status Date / Time ibuprofen AdvReac severe Verified 06/06/23 17:07 ringing in ears Review of Systems ROS Statement: Those systems with pertinent positive or pertinent negative responses have been documented in the HPI. ROS Other: All systems not noted in ROS Statement are negative. Past Medical History Past Medical History: Cancer, GERD/Reflux, Syncope Additional Past Medical History / Comment(s): Sjogren Syndrome. Hx anal cancer, in remission since 2020. No recent syncope, Diverticulitis History of Any Multi-Drug Resistant Organisms: None Reported Past Surgical History: Bowel Resection, Breast Surgery, Hysterectomy, Orthopedic Surgery Additional Past Surgical History / Comment(s): Breast biopsy, Rt elbow procedure, ORIF left ankle-hardware removed, hemorrhoidectomy X2, colonoscopy, Biopsy of rectum, lump exc on forehead, laproscopy/lysis of adhesions. Bowel resection w/ colostomy 10/2020, ostomy reversal on 05/14/21. Past Anesthesia/Blood Transfusion Reactions: Previous Problems w/ Anesthesia, Motion Sickness, Postoperative Nausea & Vomiting (PONV) Additional Past Anesthesia/Blood Transfusion Reaction / Comment(s): Had hard time waking up after surgery X1. Past Psychological History: Anxiety, Depression Smoking Status: Former smoker Past Alcohol Use History: None Reported Past Drug Use History: None Reported - Past Family History Mother Family Medical History: Cancer Additional Family Medical History / Comment(s): Lymphoma. . Brother(s) Family Medical History: Cancer Additional Family Medical History / Comment(s): Esophagus, liver. . Father Family Medical History: Cancer Additional Family Medical History / Comment(s): kidney cancer General Exam - General Exam Comments Initial Comments: PHYSICAL EXAM: General Impression: Alert and oriented x3, not in acute distress HEENT: Normocephalic atraumatic, extra-ocular movements intact, pupils equal and reactive to light bilaterally, mucous membranes moist. Cardiovascular: Heart regular rate and rhythm Chest: Able to complete full sentences, no retractions, no tachypnea Abdomen: abdomen soft, non-tender, non-distended, no organomegaly Musculoskeletal: Pulses present and equal in all extremities, no peripheral edema Motor: no focal deficits noted Neurological: CN II-XII grossly intact, no focal motor or sensory deficits noted Skin: Intact with no visualized rashes Psych: Normal affect and mood Limitations: no limitations Course Vital Signs 06/06/23 17:04 Temperature 97.4 F L Pulse Rate 90 Respiratory 20 Rate Blood Pressure 144/85 O2 Sat by Pulse 92 L Oximetry Medical Decision Making - Medical Decision Making Was pt. sent in by a medical professional or institution (, PA, CIRCUS SUPERVISOR, urgent care, hospital, or snf...) When possible be specific @ -No Did you speak to anyone other than the patient for history (EMS, parent, family, police, friend...)? What history was obtained from this source @ -No Did you review nursing and triage notes (agree or disagree)? Why? @ -I reviewed and agree with nursing and triage notes Were old charts reviewed (outside hosp., previous admission, EMS record, old EKG, old radiological studies, urgent care reports/EKG's, snf records)? Report findings @ -Ultrasound from earlier today was reviewed as discussed above Differential Diagnosis (chest pain, altered mental status, abdominal pain women, abdominal pain men, vaginal bleeding, musculoskeletal, weakness, fever, dys pnea, syncope, headache, dizziness, GI bleed, back pain, seizure, CVA, palpatations, mental health)? @ -not applicable EKG interpreted by me (3pts min.). @ -My EKG interpretation: Ventricular rate 79, sinus rhythm,. 177, QRS 90, QTc 412. No IA prolongation, no QTC prolongation, no ST or T-wave changes noted. Overall, this EKG is unremarkable X-rays interpreted by me (1pt min.). @ -None done CT interpreted by me (1pt min.). @ -None done U/S interpreted by me (1pt. min.). @ -None done What testing was considered but not performed or refused? (CT, X-rays, U/S, labs)? Why? @ -None What meds were considered but not given or refused? Why? @ -None Did you discuss the management of the patient with other professionals (michelle gutierrez i.e. , PA, CIRCUS SUPERVISOR, lab, RT, psych nurse, social sciences department chair, emergency medical dispatcher, teacher, geographic area intelligence officer, case preparer and liner)? Give summary @ -No Was smoking cessation discussed for >3mins.? @ -No Was critical care preformed (if so, how long)? @ -No Were there social determinants of health that impacted care today? How? (Homelessness, low income, unemployed, alcoholism, drug addiction, transportation, low edu. Level, literacy, decrease access to med. care, penitentiary, rehab)? @ -No Was there de-escalation of care discussed even if they declined (Discuss DNR or withdrawal of care, Hospice)? DNR status @ -No What co-morbidities impacted this encounter? (DM, HTN, Smoking, COPD, CAD, Cancer, CVA, ARF, Chemo, Hep., AIDS, mental health diagnosis, sleep apnea, morbid obesity)? @ -None Was patient admitted / discharged? Hospital course, mention meds given and route, prescriptions, significant lab abnormalities, going to OR and other pertinent info. @ -67-year-old female presents emergency department for abnormal ultrasound. Vital signs stable. Patient does not have any acute symptoms. Physical examination is benign. Ultrasound was reviewed. Findings were discussed with patient. Disposition options were discussed and agreeable with discharge with close follow-up with primary care doctor. Undiagnosed new problem with uncertain prognosis? @ -No Drug Therapy requiring intensive monitoring for toxicity (Heparin, Nitro, Insulin, Cardizem)? @ -No Were any procedures done? @ -No Diagnosis/symptom? Acute, or Chronic, or Acute on Chronic? Uncomplicated (without systemic symptoms) or Complicated (systemic symptoms)? @ abnormal outpatient ultrasound Side effects of treatment? @ -No Exacerbation, Progression, or Severe Exacerbation? @ -No Poses a threat to life or bodily function? How? (Chest pain, [place], [place], pneumonia, PE, COPD, DKA, ARF, appy, cholecystitis, CVA, Diverticulitis, Homicidal, Suicidal, threat to staff... and all critical care pts) @ -No - Lab Data Result diagrams: 06/06/23 17:10 Lab Results 06/06/23 06/06/23 Range/Units 17:10 17:10 WBC 6.2 (3.8-10.6) k/uL RBC 4.90 (3.80-5.40) m/uL Hgb 15.2 (11.4-16.0) gm/dL Hct 48.7 H (34.0-46.0) % MCV 99.5 (80.0-100.0) fL MCH 31.1 (25.0-35.0) pg MCHC 31.2 (31.0-37.0) g/dL RDW 13.6 (11.5-15.5) % Plt Count 275 (150-450) k/uL MPV 8.1 Neutrophils % 52 % Lymphocytes % 38 % Monocytes % 7 % Eosinophils % 2 % Basophils % 0 % Neutrophils # 3.2 (1.3-7.7) k/uL Lymphocytes # 2.4 (1.0-4.8) k/uL Monocytes # 0.4 (0-1.0) k/uL Eosinophils # 0.1 (0-0.7) k/uL Basophils # 0.0 (0-0.2) k/uL Hypochromasia Slight PT 10.1 (10.0-12.5) sec INR 0.9 (<1.2) APTT 24.8 (22.0-30.0) sec Disposition Clinical Impression: Carotid stenosis, Subclavian steal syndrome Disposition: HOME SELF-CARE Condition: Good Instructions (If sedation given, give patient instructions): Carotid Artery Disease (DC) Is patient prescribed a controlled substance at d/c from ED?: No Referrals: Alysha Loja MD [Primary Care Provider] - 1-2 days Time of Disposition: 18:29
[2023-06-06 18:25] LABS: INR 0.9 (<1.2); Partial Thromboplastin Time 24.8 sec (22.0-30.0); Prothrombin Time 10.1 sec (10.0-12.5)
[2023-06-06 18:31] LABS: Potassium 4.5 mmol/L (3.5-5.1)
[2023-06-06 19:14] VITALS: BP 135/64; PULSE 70; RESP 18
== END 2023-06-06 18:57 | disposition home or self-care (01) ==
LOC: EC 16:58
DX: I65.21 Occlusion and stenosis of right carotid artery (principal); I25.2 Old myocardial infarction; F41.9 Anxiety disorder, unspecified; F32.A Depression, unspecified; Z79.899 Other long term (current) drug therapy; Z88.6 Allergy status to analgesic agent; Z87.891 Personal history of nicotine dependence
CPT/HCPCS: 36415; 80053; 84484; 85025; 85610; 85730; 99284

== ENCOUNTER → 2023-06-06 | Outpatient (CLI) | payer MEDICARE, OTHER ==
--- NOTE | 2023-06-06 16:52 | US ---
EXAMINATION TYPE: US carotid duplex BILAT DATE OF EXAM: 06/06/2023 COMPARISON: Cervical spine CT 06/04/2023 CLINICAL INDICATION: Female, 67 years old with history of I65.22 OCCLUSION AND STENOSIS; right arm nu mbness getting worse, dizzy, no h/o stroke TECHNIQUE: Carotid duplex ultrasound examination. Indirect Doppler criteria was utilized. FINDINGS: EXAM MEASUREMENTS: RIGHT: Peak Systolic Velocity (PSV) cm/sec ----- Right CCA: 78.2 ----- Right ICA: 95.2 ----- Right ECA: 114.6 ICA/CCA ratio: 1.2 RIGHT: End Diastole cm/sec ----- Right CCA: 29.3 ----- Right ICA: 35.8 ----- Right ECA: 23.4 LEFT: Peak Systolic Velocity (PSV) cm/sec ----- Left CCA: 66.4 ----- Left ICA: 308.0 ----- Left ECA: 99.3 ICA/CCA ratio: 4.6 LEFT: End Diastole cm/sec ----- Left CCA: 15.9 ----- Left ICA: 98.3 ----- Left ECA: 10.2 VERTEBRALS (direction of flow): Right Vertebral: Antegrade Left Vertebral: Retrograde Rhythm: Normal SENIOR VALIDATION ENGINEER NOTES: Extensive plaque noted on the left ICA with highest velocities noted at distal ICA IMPRESSION: 1. Severe (greater than 70%) proximal left ICA stenosis by Doppler criteria. 2. In addition, there is retrograde flow in the left vertebral artery suggesting subclavian steal syn drome. This is in keeping with the proximal left subclavian artery occlusion seen on recent cervica l spine CT performed 2 days ago. Commission [employer] is contacting the physician's office. Criteria for Assigning % of Stenosis / Diameter reduction (Estimation based on the indirect measurements of the internal carotid artery velocities (ICA PSV). 1. Normal (no stenosis)=ICA PSV < 125 cm/s: ratio < 2.0: ICA EDV<40 cm/s. 2. Less than 50% stenosis=ICA PSV < 125 cm/s: ratio < 2.0: ICA EDV<40 cm/s. 3. 50 to 69% stenosis=ICA PSV of 125 to 230 cm/s: ration 2.0 ? 4.0: ICA EDV 40-100 cm/s. 4. Greater than 70% stenosis to near occlusion= ICA PSV > 230 cm/s: ratio > 4.0: ICA EDV > 100 cm/s. 5. Near occlusion= ICA PSV velocities may be low or undetectable: variable ratio and ICA EDV. 6. Total occlusion=unable to detect flow.
== END | disposition home or self-care (01) ==
LOC: RADUSWWP 16:07
PROVIDERS: ATTEND Family Medicine
DX: I65.22 Occlusion and stenosis of left carotid artery (principal)
CPT/HCPCS: 93880

== ENCOUNTER → 2024-11-22 | Outpatient (CLI) | payer MEDICARE ==
[2024-11-22 14:23] LABS: African American GFR (CKD) 85 (>60 ml/min/1.73 sqM); Blood Urea Nitrogen 19 mg/dL (7-17); Non-African American GFR(CKD) 74 (>60 ml/min/1.73 sqM)
--- NOTE | 2024-11-22 16:13 | CT ---
EXAMINATION TYPE: CT abdomen pelvis w con CT DLP: 995.70 mGycm, Automated exposure control for dose reduction was used. DATE OF EXAM: 11/22/2024 3:52 PM COMPARISON: CT chest abdomen and pelvis 12/24/2022, CT abdomen and pelvis 09/10/2021, 07/03/2021 CLINICAL INDICATION:Female, 69 years old with history of K59.09 CONSTI R10.84 AB PAIN R15.9 INCON FEC C21.8; Hx of rectal CA, colostomy reversal TECHNIQUE: Standard CT of the abdomen and pelvis following the administration of 100 cc of Isovue 3 00 IV contrast material and oral contrast. Coronal and sagittal reformats were performed. FINDINGS: LOWER CHEST: Minimal right lower lobe linear atelectasis. ABDOMEN LIVER: Scattered calcification granulomas. GALLBLADDER AND BILE DUCTS: Unremarkable. PANCREAS: Fatty infiltration of the pancreatic head and uncinate process. SPLEEN: Scattered calcified granulomas. ADRENAL GLANDS: Unremarkable. KIDNEYS AND URETERS: No evidence of hydronephrosis or renal calculus. The kidneys enhance symmetrical ly. Left renal mid pole 5.0 cm simple cyst. Additional subcentimeter left renal cyst. No follow up re commended. Contrast is demonstrated within both collecting systems on the delayed phase. PELVIS BLADDER: Incompletely distended but grossly unremarkable. REPRODUCTIVE: The uterus is surgically absent. ABDOMEN & PELVIS STOMACH AND BOWEL: Small hiatal hernia, duodenum is unremarkable. Enteric contrast reaches the distal small bowel. Mild to moderate amount of stool is present throughout the colon. Postsurgical changes with anastomosis at the colorectal junction. No stricture at the anastomosis. No focal bowel wall thi ckening. No evidence of bowel obstruction. PERITONEUM: No evidence of pneumoperitoneum or free fluid. VASCULATURE: Moderate atherosclerotic calcifications are present throughout the abdominal aorta and i ts branches. No evidence of aortic aneurysm. MUSCULOSKELETAL: No acute osseous abnormalities. No aggressive osseous lesion. Multilevel degenerativ e disc disease which is most pronounced at L2-L3. LYMPH NODES: No evidence for lymphadenopathy. SOFT TISSUE/ABDOMINAL WALL: Postsurgical changes of the anterior abdominal wall. Redemonstration of v entral incisional hernia containing nonobstructing small bowel just to the right of the umbilicus. IMPRESSION: 1. Postsurgical changes with colorectal anastomosis. No evidence for recurrence or metastatic diseas e. 2. Mild to moderate colonic stool burden without stricture at the anastomosis. Consistent with report ed constipation. 3. Redemonstration of ventral hernia just to the right of the umbilicus containing nonobstructing sma ll bowel again. No evidence for strangulation. 4. Sequelae of prior granulomatous disease. [facility], , 11/22/2024 4:10 PM
== END | disposition home or self-care (01) ==
LOC: RADCTMAIN 13:35
PROVIDERS: ATTEND Family Medicine
DX: C21.8 Malignant neoplasm of overlapping sites of rectum, anus and anal canal (principal); K59.09 Other constipation; R15.9 Full incontinence of feces; K43.9 Ventral hernia without obstruction or gangrene; Z85.048 Personal history of other malignant neoplasm of rectum, rectosigmoid junction, and anus; Z98.890 Other specified postprocedural states
CPT/HCPCS: 82565; 84520; 74177; 36415; Q9967